=== PATIENT | male | born 1945 | race Caucasian/White ===

== ENCOUNTER → 2017-03-11 | Outpatient (CLI) | payer OTHER ==
[~2017-03-11] MED LIST: ALBU18002 INH; ALBU2SYP9 INH; ASPCH81X PO; ASPEC81 PO; ASPI325T60 PO; COEN100C11 PO; COLC0.6T54 PO; COLCHICINE PO; EFF75 PO; FENT25DI10 EXT; FOLI1TAB7 PO; FURO40TA3 PO; INSDGI SC; IPRA1AER2 INH; ISOS30TA3 PO; LAMO25TA PO; LISI5TAB PO; LVQ750 PO; METO25TA3 PO; MULT-190 PO; NTRGSL/4 UT; OXGN; OXYC-59 PO; OXYSR10 PO; PRED1SUS3 OPR; PREG100C PO; RXC5 PO; SIMV40TA2 PO; SPRIN/30 INH; SYMIN160 INH; VENL150C56 PO
[2017-03-11 13:29] LABS: ALT/SGPT 20 U/L (12-78); BLOOD UREA NITROGEN 36 mg/dl (7-18); BUN/CREATININE RATIO 24.2 (10-20); CARBON DIOXIDE 31 mmol/L (21-32); CHLORIDE 105 mmol/L (98-107); ESTIMATED AVERAGE GLUCOSE 163 mg/dl; GLUCOSE 72 mg/dl (70-99); HA1C FLAG Normal (Normal); POTASSIUM 4.3 mmol/L (3.5-5.1); SODIUM 142 mmol/L (136-145); URIC ACID 7.9 mg/dl (2.6-7.2)
== END | disposition home or self-care (01) ==
LOC: C.LABMFLN 08:39
PROVIDERS: ATTEND Family Medicine
DX: J44.9 Chronic obstructive pulmonary disease, unspecified (principal); M10.9 Gout, unspecified; E11.9 Type 2 diabetes mellitus without complications; I10 Essential (primary) hypertension

== ENCOUNTER → 2017-06-26 | Outpatient (CLI) | payer OTHER | END | disposition home or self-care (01) | LOC: C.LABMFLN 10:11 | PROVIDERS: ATTEND Family Medicine | DX: J20.9 Acute bronchitis, unspecified (principal) ==

== ENCOUNTER → 2017-06-29 | Day surgery (SDC) | payer OTHER ==
[2017-06-09 14:51] VITALS: Ht 180.3 cm; Wt 104.5 kg
[~2017-06-29] VITALS: Ht 180.3 cm; Wt 104.5 kg
[~2017-06-29] MED LIST changes: +500ML BSS 0.3ML EPI 1:1000PF IRRIG ONE; +ACETAMINOPHEN 325 MG TAB PO PRN; +AMVISC PLUS 0.8ML SYRINGE INT OCU ONE; +ATROPINE SULFATE 0.1 MG/ML 5ML SYR IV PRN; +BRIMONIDINE TART 0.2% OP SOLN PER DROP CHARGE ONE; +BSS FLUSH ONE; +CYCLOPENTOLATE HCL 1% OP SOLN PER DROP CHARGE OPL SCH; +EpHEDrine SULFATE INJ 50 MG/ML AMP IV PRN; +EpINEphrine INJ 1MG/ML AMP 1 MG/ML AMP ONE; +KETOROLAC 0.5% OP SOLN PER DROP CHARGE OPL SCH; +LACTATED RINGER'S 1000ML 500 ML IV SCH; +LIDOCAINE 4% OP SOLN DROP CHARGE ONE; +LIDOCAINE 4% OP SOLN DROP CHARGE OPL SCH; +LIDOCAINE HCL 1% MPF 2 ML VIAL ONE; +MIDAZOLAM HCL 1 MG/ML 2ML VIAL ONE; +MOXIFLOXACIN OPH SOLN PER DROP CHARGE ONE; +MOXIFLOXACIN OPH SOLN PER DROP CHARGE OPL SCH; +ONDANSETRON INJ 2 MG/ML 2 ML VIAL IV PRN; +PHENYLEPHRINE HCL 2.5% OP SOLN PER DROP CHARGE OPL SCH; +POVIDONE-IODINE OP SOLN 30 ML BTL ONE; +PROPARACAINE 0.5% OP SOLN PER DROP CHARGE OPL SCH; +TOBRAMYCIN/DEXAMETHASONE OPH OINT PER APPLN CHARGE ONE; +TROPICAMIDE 1% OP SOLN PER DROP CHARGE OPL SCH; +VISCOAT 0.5ML SYRINGE INT OCU ONE
--- NOTE | 2017-06-29 06:54 | History & Physical Bridge - [place] ---
H&P Re-Evaluation Bridge Note: I have examined the patient, reviewed the History & Physical and in the interval since the performance of the History & Physical I have noted the following changes of clinical significance: No changes noted
[2017-06-29] MEDS: DEXTROSE 5% 500ML 500 ML IV SCH ×2 (07:00→07:51)
[2017-06-29] MEDS: PHENYLEPHRINE HCL 2.5% OP SOLN PER DROP CHARGE OPL SCH ×2 (07:02→07:07)
[2017-06-29] MEDS: TROPICAMIDE 1% OP SOLN PER DROP CHARGE OPL SCH ×2 (07:03→07:08)
[2017-06-29] MEDS: CYCLOPENTOLATE HCL 1% OP SOLN PER DROP CHARGE OPL SCH ×2 (07:04→07:09)
[2017-06-29] MEDS: KETOROLAC 0.5% OP SOLN PER DROP CHARGE OPL SCH ×2 (07:05→07:10)
[2017-06-29] MEDS: MOXIFLOXACIN OPH SOLN PER DROP CHARGE OPL SCH ×2 (07:06→07:23)
--- NOTE | 2017-06-29 07:30 | Discharge Instructions-SurgCtr ---
Discharge Instructions Date of Service Jun 29, 2017. Visit Reason for Visit: Cataract Left Eye Discharge Discharge Diagnosis / Problem: cataract left eye Discharge Goals Goal(s): Improve function Activity Recommendations Activity Limitations: per Instructions/Follow-up section Lifting Limitations: no more than 5 pounds Anesthesia . Post Anesthesia Instructions: If you have had General Anesthesia or IV Sedation: * Do not drive today. * Resume driving when surgeon permits. * Do not make important decisions or sign legal documents today. * Call surgeon for: 1. Temperature elevations greater than 101 degrees F. 2. Uncontrollable pain. 3. Excessive bleeding. 4. Persistent nausea and vomiting. 5. Medication intolerance (nausea, vomiting or rash). * For nausea and vomiting use only clear liquids such as: tea, soda, bouillon until nausea subsides, then gradually increase diet as tolerated. * If you have any concerns or questions, call your surgeon's office. If physician is unavailable and it is an emergency, call 911 or go to the nearest emergency room. . Instructions / Follow-Up Instructions / Follow-Up ACTIVITY RECOMMENDATIONS: * Light activities * You may walk outside, read, watch television. * Mild irritation and blurred vision are common for the first few days, redness around the white part of the eye is common. MEDICATIONS: Resume previous medications unless instructed otherwise by your surgeon. Eye drops (today and tomorrow): Cipro - one drop in operative eye every 2 hours while awake Prednisolone 1% - one drop in operative eye every 2 hours while awake Ilevro - one drop operative eye 1 times daily SPECIAL CARE INSTRUCTIONS: * If any problems or concerns, please call Dr. Baeza's office at . * Keep plastic shield taped over eye to sleep at night. * Keep plastic shield taped over eye except to administer eye drops. * Keep plastic shield on until office visit the following day. FOLLOW UP VISIT: Follow-up with Dr. Baeza in the [place] office as scheduled. If not already scheduled, please call the office at . Diet Recommendations Home Diet: resume previous diet Pending Studies Studies pending at discharge: no Medical Emergencies . Who to Call and When: Medical Emergencies: If at any time you feel your situation is an emergency, please call 911 immediately. . Non-Emergent Contact Non-Emergency issues call your: Feather Baler . . "Provider Documentation" section prepared by Julian Baeza. .
--- NOTE | 2017-06-29 08:00 | [facility] Operative Report ---
Operative Report Operative Date Jun 29, 2017. Pre-Operative Diagnosis Left Eye Cataract Post-Operative Diagnosis Same Procedure(s) Performed Left Eye Cataract Phacoemulsification With Intraocular Lens Implant Surgeon Dr. Baeza Commercial Teller Surgeon(s) None Estimated Blood Loss None Findings cataract left eye Specimens None Drains none Anesthesia local with sedation Complication(s) None Disposition Recovery Room / PACU Implants mx60 21.0 Indications decreased vision left eye Description of Procedure After informed consent was obtained in the holding area the patient was wheeled back to the operating room where cardiac monitoring leads and oxygen by nasal cannula was administered by Anesthesia. Gentle IV sedation was given, and the patient's left eye was prepped and draped in usual sterile fashion. A wire lid speculum was placed into the left eye and the operating microscope was swung into position. Using 0.12 forceps and a Supersharp blade a paracentesis port was made 3 o'clock hours away from the 3 o'clock position of the patient's left eye. 1% non-preserved Lidocaine was then injected into the anterior chamber for anesthesia. A 2.0 mm keratotome blade was then used to make a shelved clear corneal incision at the 3 o'clock position of the left eye. Amvisc was injected into the anterior chamber and a cystotome and Utrata forceps were used to perform a curvilinear capsulorrhexis. BSS on a hydrodissection cannula was used to hydrodissect the lens nucleus away from the capsular bag. The phacoemulsification handpiece was then used in a stop and chop fashion to remove the lens nucleus. The irrigation and aspiration handpiece was then used to remove the residual cortical material. Amvisc was injected into the capsular bag and anterior chamber and a Bausch [employer] Lomb MX60 21.0 Diopter intraocular lens was injected into the capsular bag. Irrigation and aspiration handpiece was used to remove the residual viscoelastic material. The wounds were hydrated and noted to be watertight. The wire lid speculum was removed from the eye. Vigamox, Brimonidine, and TobraDex ointment were placed on the eye and it was shielded. It should be noted that EndoCoat was used extensively during the case to protect the cornea endothelium. DISPOSITION: The patient tolerated the procedure well and was wheeled to the post anesthesia care unit in stable condition. I attest to the content of the Intraoperative Record and any orders documented therein. Any exceptions are noted below. I attest to the content of the Intraoperative Record and any orders documented therein. Any exceptions are noted below.
[2017-06-29 08:04] VITALS: TEMP 36.3
--- NOTE | 2017-06-29 08:09 | Anesthesia Progress Nt - [facility] ---
Anesthesia Post Op Note Date & Time Jun 29, 2017 at 08:09 Vital Signs Pain Intensity: 0 Vital Signs Past 12 Hours Date Time Temp Pulse Resp B/P (MAP) Pulse Ox O2 Delivery O2 Flow Rate FiO2 06/29/17 06:57 36.5 63 16 171/77 (108) 95 Room Air Notes Mental Status: alert / awake / arousable, participated in evaluation Pt Amnestic to Procedure: Yes Nausea / Vomiting: adequately controlled Pain: adequately controlled Airway Patency, RR, SpO2: stable & adequate BP & HR: stable & adequate Hydration State: stable & adequate Anesthetic Complications: no major complications apparent
[2017-06-29 08:20] VITALS: BP 164/78; PULSE 61; O2SAT 96
== END | disposition home or self-care (01) ==
LOC: X.SURG 06:23
PROVIDERS: ATTEND Ophthalmology
DX: H25.12 Age-related nuclear cataract, left eye (principal); I10 Essential (primary) hypertension; E11.9 Type 2 diabetes mellitus without complications; E78.00 Pure hypercholesterolemia, unspecified; J44.9 Chronic obstructive pulmonary disease, unspecified; M06.9 Rheumatoid arthritis, unspecified; Z87.891 Personal history of nicotine dependence; Z79.82 Long term (current) use of aspirin; I25.10 Atherosclerotic heart disease of native coronary artery without angina pectoris; I25.2 Old myocardial infarction; F41.9 Anxiety disorder, unspecified; F32.9 Major depressive disorder, single episode, unspecified; E78.5 Hyperlipidemia, unspecified; Z79.4 Long term (current) use of insulin; E66.9 Obesity, unspecified

== ENCOUNTER → 2017-07-27 | Day surgery (SDC) | payer OTHER, MEDICARE ==
[2017-07-15 12:09] VITALS: Ht 180.3 cm; Wt 104.5 kg
[~2017-07-27] VITALS: Ht 180.3 cm; Wt 104.5 kg
[~2017-07-27] MED LIST changes: -CYCLOPENTOLATE HCL 1% OP SOLN PER DROP CHARGE OPL SCH; +ENDOCOAT 0.85ML SYRINGE INT OCU ONE; -FENT25DI10 EXT; -KETOROLAC 0.5% OP SOLN PER DROP CHARGE OPL SCH; -LIDOCAINE 4% OP SOLN DROP CHARGE OPL SCH; +LIDOCAINE 4% OP SOLN DROP CHARGE OPR SCH; +METOPROLOL TARTRATE 1 MG/ML VIAL ONE; -MOXIFLOXACIN OPH SOLN PER DROP CHARGE OPL SCH; -ONDANSETRON INJ 2 MG/ML 2 ML VIAL IV PRN; -PHENYLEPHRINE HCL 2.5% OP SOLN PER DROP CHARGE OPL SCH; -PROPARACAINE 0.5% OP SOLN PER DROP CHARGE OPL SCH; +PROPARACAINE 0.5% OP SOLN PER DROP CHARGE OPR SCH; -TROPICAMIDE 1% OP SOLN PER DROP CHARGE OPL SCH; -VISCOAT 0.5ML SYRINGE INT OCU ONE
[2017-07-27] MEDS: PHENYLEPHRINE HCL 2.5% OP SOLN PER DROP CHARGE OPR SCH ×2 (06:45→06:50)
[2017-07-27] MEDS: TROPICAMIDE 1% OP SOLN PER DROP CHARGE OPR SCH ×2 (06:46→06:51)
[2017-07-27] MEDS: CYCLOPENTOLATE HCL 1% OP SOLN PER DROP CHARGE OPR SCH ×2 (06:47→06:52)
[2017-07-27] MEDS: KETOROLAC 0.5% OP SOLN PER DROP CHARGE OPR SCH ×2 (06:48→06:53)
[2017-07-27] MEDS: MOXIFLOXACIN OPH SOLN PER DROP CHARGE OPR SCH ×2 (06:51→07:03)
[2017-07-27 08:03] VITALS: TEMP 36
--- NOTE | 2017-07-27 08:03 | Discharge Instructions-SurgCtr ---
Discharge Instructions Date of Service Jul 27, 2017. Visit Reason for Visit: Cataract Right Eye Discharge Discharge Diagnosis / Problem: cataract right eye Discharge Goals Goal(s): Improve function Activity Recommendations Activity Limitations: per Instructions/Follow-up section Lifting Limitations: no more than 5 pounds Anesthesia . Post Anesthesia Instructions: If you have had General Anesthesia or IV Sedation: * Do not drive today. * Resume driving when surgeon permits. * Do not make important decisions or sign legal documents today. * Call surgeon for: 1. Temperature elevations greater than 101 degrees F. 2. Uncontrollable pain. 3. Excessive bleeding. 4. Persistent nausea and vomiting. 5. Medication intolerance (nausea, vomiting or rash). * For nausea and vomiting use only clear liquids such as: tea, soda, bouillon until nausea subsides, then gradually increase diet as tolerated. * If you have any concerns or questions, call your surgeon's office. If physician is unavailable and it is an emergency, call 911 or go to the nearest emergency room. . Instructions / Follow-Up Instructions / Follow-Up ACTIVITY RECOMMENDATIONS: * Light activities * You may walk outside, read, watch television. * Mild irritation and blurred vision are common for the first few days, redness around the white part of the eye is common. MEDICATIONS: Resume previous medications unless instructed otherwise by your surgeon. Eye drops (today and tomorrow): Cipro - one drop in operative eye every 2 hours while awake Prednisolone 1% - one drop in operative eye every 2 hours while awake Prolensa - one drop operative eye 1 times daily SPECIAL CARE INSTRUCTIONS: * If any problems or concerns, please call Dr. Baeza's office at . * Keep plastic shield taped over eye to sleep at night. * Keep plastic shield taped over eye except to administer eye drops. * Keep plastic shield on until office visit the following day. FOLLOW UP VISIT: Follow-up with Dr. Baeza in the [place] office as scheduled. If not already scheduled, please call the office at . Diet Recommendations Home Diet: resume previous diet Procedures Procedures Performed: Right Cataract Phacoemulsification With Intraocular Lens Implant Pending Studies Studies pending at discharge: no Medical Emergencies . Who to Call and When: Medical Emergencies: If at any time you feel your situation is an emergency, please call 911 immediately. . Non-Emergent Contact Non-Emergency issues call your: [employer] . . "Provider Documentation" section prepared by Julian Baeza. .
--- NOTE | 2017-07-27 08:05 | [facility] Operative Report ---
Operative Report Operative Date Jul 27, 2017. Pre-Operative Diagnosis Right Eye Cataract Post-Operative Diagnosis Same Procedure(s) Performed Right Cataract Phacoemulsification With Intraocular Lens Implant Surgeon Dr Baeza Private Branch Exchange Operator Surgeon(s) None Estimated Blood Loss 0ml Findings cataract right eye Specimens None Drains none Anesthesia local with sedation Complication(s) None Disposition Recovery Room / PACU Implants mx60 21.0 Indications decreased vision right eye Description of Procedure After informed consent was obtained in the holding area the patient was wheeled back to the operating room where cardiac monitoring leads and oxygen by nasal cannula was administered by Anesthesia. Gentle IV sedation was given, and the patient's right eye was prepped and draped in usual sterile fashion. A wire lid speculum was placed into the right eye and the operating microscope was swung into position. Using 0.12 forceps and a Supersharp blade a paracentesis port was made 2 o'clock hours away from the 9 o'clock position of the patient's right eye. 1% non-preserved Lidocaine was then injected into the anterior chamber for anesthesia. A 2.0 mm keratotome blade was then used to make a shelved clear corneal incision at the 9 o'clock position of the right eye. Amvisc was injected into the anterior chamber and a cystotome and Utrata forceps were used to perform a curvilinear capsulorrhexis. BSS on a hydrodissection cannula was used to hydrodissect the lens nucleus away from the capsular bag. The phacoemulsification handpiece was then used in a stop and chop fashion to remove the lens nucleus. The irrigation and aspiration handpiece was then used to remove the residual cortical material. Amvisc was injected into the capsular bag and anterior chamber and a Bausch & Lomb MX60 21.0 Diopter intraocular lens was injected into the capsular bag. Irrigation and aspiration handpiece was used to remove the residual viscoelastic material. The wounds were hydrated and noted to be watertight. The wire lid speculum was removed from the eye. Vigamox, Brimonidine, and TobraDex ointment were placed on the eye and it was shielded. It should be noted that EndoCoat was used extensively during the case to protect the cornea endothelium. DISPOSITION: The patient tolerated the procedure well and was wheeled to the post anesthesia care unit in stable condition. I attest to the content of the Intraoperative Record and any orders documented therein. Any exceptions are noted below. I attest to the content of the Intraoperative Record and any orders documented therein. Any exceptions are noted below.
[2017-07-27 08:32] VITALS: BP 148/76; PULSE 56; O2SAT 99
--- NOTE | 2017-07-27 08:40 | Anesthesia Progress Nt - [facility] ---
Anesthesia Post Op Note Date & Time Jul 27, 2017 at 08:40 Vital Signs Pain Intensity: 0 Vital Signs Past 12 Hours Date Time Temp Pulse Resp B/P (MAP) Pulse Ox O2 Delivery O2 Flow Rate FiO2 07/27/17 08:32 56 18 148/76 (100) 99 Room Air 07/27/17 08:03 36 16 171/73 (105) 57 Room Air 07/27/17 06:38 36.3 53 20 152/87 (108) 96 Room Air Notes Mental Status: alert / awake / arousable, participated in evaluation Pt Amnestic to Procedure: No Nausea / Vomiting: adequately controlled Pain: adequately controlled Airway Patency, RR, SpO2: stable & adequate BP & HR: stable & adequate Hydration State: stable & adequate Anesthetic Complications: no major complications apparent Non distressing recall as discussed preop
== END | disposition home or self-care (01) ==
LOC: X.SURG 06:18
PROVIDERS: ATTEND Ophthalmology
DX: H25.11 Age-related nuclear cataract, right eye (principal); H35.30 Unspecified macular degeneration; E11.9 Type 2 diabetes mellitus without complications; I10 Essential (primary) hypertension; E78.00 Pure hypercholesterolemia, unspecified; J44.9 Chronic obstructive pulmonary disease, unspecified; I50.9 Heart failure, unspecified; M06.9 Rheumatoid arthritis, unspecified; Z87.891 Personal history of nicotine dependence; Z79.82 Long term (current) use of aspirin; Z79.899 Other long term (current) drug therapy

== ENCOUNTER 2017-08-18 16:48 | Inpatient (IN) | payer OTHER, MEDICARE ==
[~2017-08-18] VITALS: Ht 180.3 cm; Wt 103.5 kg
[~2017-08-18 16:48] MED LIST changes: -500ML BSS 0.3ML EPI 1:1000PF IRRIG ONE; -ACETAMINOPHEN 325 MG TAB PO PRN; -AMVISC PLUS 0.8ML SYRINGE INT OCU ONE; -ASPEC81 PO; -ASPI325T60 PO; -ATROPINE SULFATE 0.1 MG/ML 5ML SYR IV PRN; -BRIMONIDINE TART 0.2% OP SOLN PER DROP CHARGE ONE; -BSS FLUSH ONE; -COEN100C11 PO; -COLC0.6T54 PO; -ENDOCOAT 0.85ML SYRINGE INT OCU ONE; -EpHEDrine SULFATE INJ 50 MG/ML AMP IV PRN; -EpINEphrine INJ 1MG/ML AMP 1 MG/ML AMP ONE; -FOLI1TAB7 PO; -LACTATED RINGER'S 1000ML 500 ML IV SCH; -LAMO25TA PO; -LIDOCAINE 4% OP SOLN DROP CHARGE ONE; -LIDOCAINE 4% OP SOLN DROP CHARGE OPR SCH; -LIDOCAINE HCL 1% MPF 2 ML VIAL ONE; -LVQ750 PO; -METOPROLOL TARTRATE 1 MG/ML VIAL ONE; -MIDAZOLAM HCL 1 MG/ML 2ML VIAL ONE; -MOXIFLOXACIN OPH SOLN PER DROP CHARGE ONE; -MULT-190 PO; -OXYSR10 PO; -POVIDONE-IODINE OP SOLN 30 ML BTL ONE; -PROPARACAINE 0.5% OP SOLN PER DROP CHARGE OPR SCH; -RXC5 PO; -TOBRAMYCIN/DEXAMETHASONE OPH OINT PER APPLN CHARGE ONE
[2017-08-18] MEDS ORDERED: SODIUM CHLORIDE 0.9% 1000ML 1,000 ML IV STA (17:15)
[2017-08-18] MEDS ORDERED: COLC0.6T54 PO (17:16)
[2017-08-18] MEDS ORDERED: FOLI1TAB7 PO (17:18)
[2017-08-18] MEDS ORDERED: MULT-190 PO (17:18)
[2017-08-18] MEDS ORDERED: COEN100C11 PO (17:18)
[2017-08-18] MEDS ORDERED: LAMO25TA PO (17:18)
--- NOTE | 2017-08-18 17:19 | EMERGENCY ROOM VISIT NOTE ---
History Report prepared by Jj: Yaya Pryor Under the Supervision of: Dr. Marry Turner M.D. First contact with patient: 16:57 Chief Complaint: ALTERED MENTAL STATUS Stated Complaint: ALTERED MENTAL STATUS History of Present Illness The patient is a 71 year old male who presents to the Emergency Room for constant confusion starting last night. The patient's states that the patient fell three days ago, and he hit his left side. She states that he could not get up for two hours because the pain in his chest was so bad. The states that the patient has had intermittent confusion over the years, and this is similar, though she is unsure if this episode is due to the fall. The patient had cataract surgery four weeks ago, and he has been having vision troubles afterwards, though he states that after the fall some things seem darker. The patient additionally states that he is having new left sided weakness after the fall. Additionally, he states that he is incontinent and cannot make it to the bathroom in time. The patient additionally states that the patient has a history of COPD and CHF, and he does not use oxygen at home. Source of History: patient Onset: last night Position: other (global) Quality: other (confusion) Timing: constant Associated Symptoms: + chest pain, + weakness Review of Systems See HPI for pertinent positives & negatives. A total of 10 systems reviewed and were otherwise negative. Past Medical & Surgical Medical Problems: (1) CHF (congestive heart failure) (2) CHF exacerbation (3) COPD (chronic obstructive pulmonary disease) Social History Smoking Status: Former Smoker Marital Status: Housing Status: lives with family Occupation Status: retired Current/Historical Medications Scheduled Albuterol Sulfate (Proair Respiclick), 2 PUFF INH BID Aspirin (Aspirin Chewable), 81 MG PO QAM Budesonide/Formoterol Fumarate (Symbicort 160/4.5 Inhaler), 2 PUFFS INH BID Coenzyme Q10 (Ubidecarenone) (Coq-10), 100 MG PO DAILY Colchicine (Colchicine), 0.6 MG PO BID Folic Acid (Folvite), 1 MG PO DAILY Furosemide (Lasix), 40 MG PO QAM Home O2 Therapy (Oxygen), 2 LITERS NA HS Insulin Glargine (Lantus), 30 UNITS SC QPM Isosorbide Mononitrate Ext Rel (Imdur Ext Rel), 30 MG PO QAM Lamotrigine (Lamictal), 25 MG PO BID Lisinopril (Prinivil), 5 MG PO QAM Metoprolol Succ (Toprol Xl) (Toprol-Xl), 25 MG PO QAM Nitroglycerin (Nitrostat), 0.4 MG UT PRN Ocuvite Preservision (Ocuvite Preservision), 1 TAB PO BID Prednisolone Acetate (Ophth) (Pred Forte 1% Oph), 1 DROPS OPR DIRECTED Pregabalin (Lyrica), 100 MG PO BID Simvastatin (Zocor), 40 MG PO QPM Tiotropium [place] (Spiriva Handihaler), 1 CAP INH QAM Venlafaxine Hcl (Effexor), 75 MG PO QAM Venlafaxine Hcl (Effexor Extended Rel), 150 MG PO QAM Scheduled PRN Albuterol Sulf (Ventolin), 1 DOSE INH QID PRN for Shortness of Breath Ipratropium-Albuterol (Combivent Respimat), 1 PUFFS INH QID PRN for Shortness of Breath Oxycodone/Acetaminophen 10MG/325MG (Percocet 10MG/325MG), 1 TAB PO Q4H PRN for Pain Allergies Coded Allergies: Prednisone (Verified Adverse Reaction, Intermediate, "GO CRAZY", 08/18/17) Physical Exam Vital Signs Date Time Temp Pulse Resp B/P (MAP) Pulse Ox O2 Delivery O2 Flow Rate FiO2 08/18/17 19:14 36.9 83 20 162/97 98 Nasal Cannula 2.0 08/18/17 18:18 83 79 08/18/17 17:54 81 177/82 97 2.0 08/18/17 17:51 177/82 08/18/17 17:18 77 21 91 08/18/17 17:16 77 08/18/17 17:16 99 Nasal Cannula 2.0 08/18/17 17:09 153/89 08/18/17 16:52 96 Nasal Cannula 2.0 08/18/17 16:52 37.1 77 22 154/93 96 Nasal Cannula 2.0 Physical Exam Vital signs reviewed. General: Chronically ill-appearing 71-year-old male, in no significant distress. Obese. On nasal cannula oxygen. HEENT: No scleral icterus, PERRLA, neck supple. Atraumatic. Cardiovascular: Regular rate and rhythm, no extra sounds. Pulmonary: Diminished air movement bilaterally. Faint wheezes. Abdomen: Soft, nontender, nondistended, positive bowel sounds. Musculoskeletal: Atraumatic, no significant deformity. Cervical, thoracic and lumbar spine are palpated, nontender, no step-off or deformity appreciated. Neurologic: Patient awake alert and oriented x 3, Has 2/5 strength to the left lower extremity. 5/5 strength to the bilateral upper extremity. Skin: Warm, dry, no rash. No significant abrasions/laceration. Medical Decision & Procedures ER Provider Diagnostic Interpretation: Radiology results as stated below per my review and radiologist interpretation: LUMBAR SPINE WITHOUT CT DOSE: HISTORY: Trauma. Neuropathy. weakness LLE after fall 3 days ago TECHNIQUE: Multiaxial CT images of the lumbar spine were performed and reformatted in the sagittal and coronal plane without the use of contrast. A dose lowering technique was utilized adhering to the principles of ALARA. COMPARISON: None. FINDINGS: No acute compression deformity is noted. Very slight wedge deformity superior endplate L1 and L3 felt to be nonacute. Degenerative change of the posterior elements throughout. The spinous processes as well as transverse processes appear intact. No major compromise of the spinal canal. Prior posterior laminectomy and fusion at L4-L5 and L5-S1. IMPRESSION: Moderate degenerative disc changes throughout. 2. Very slight wedge deformity superior endplate L1 and L3 felt to be nonacute by CT criteria.. 3. Operative changes consistent with a posterior laminectomy and fusion at L4 and L5. 4. No significant compromise of the spinal canal. The above report was generated using voice recognition software. It may contain grammatical, syntax or spelling errors. Electronically signed by: Wilmer Gonzaelz M.D. 08/18/2017 5:53 PM Dictated Date/Time: 08/18/2017 5:51 PM HEAD WITHOUT CONTRAST (CT) CT DOSE: 2499.62 mGy.cm HISTORY: Mental status change AMS, episodic confusion after fall 3 days ago TECHNIQUE: Multiaxial CT images of the head were performed without the use of intravenous contrast. A dose lowering technique was utilized adhering to the principles of ALARA. Comparison: None. Findings: The paranasal sinuses and mastoid air cells are clear. The calvarium and skull base are intact. The ventricles and sulci are within normal limits. There is no mass, hematoma, midline shift, or acute infarct. Mild chronic small vessel change of the cerebral hemispheres bilaterally. No acute intracranial hemorrhage. Impression: Age-related change. No acute process. The above report was generated using voice recognition software. It may contain grammatical, syntax or spelling errors. Electronically signed by: Wilmer Gonzalez M.D. 08/18/2017 5:50 PM Dictated Date/Time: 08/18/2017 5:49 PM CHEST 2 VIEWS ROUTINE CLINICAL HISTORY: fall, hypoxia, COPD, CHF dyspnea COMPARISON STUDY: No previous studies for comparison. FINDINGS: Moderate cardiomegaly. Prior median sternotomy. Infiltrate left base. Pulmonary vascular congestion. IMPRESSION: Moderate cardiomegaly. Infiltrate left base. The above report was generated using voice recognition software. It may contain grammatical, syntax or spelling errors. Electronically signed by: Wilmer Gonzalez M.D. 08/18/2017 6:59 PM Dictated Date/Time: 08/18/2017 6:58 PM (CHEST FOR PE) ANGIO WITH CT DOSE: 627.37 mGy.cm HISTORY: Chest pain dyspnea TECHNIQUE: Multiaxial CT images of the chest were performed following the intravenous administration of contrast to evaluate the pulmonary arteries. Maximal intensity projection images were also obtained. A dose lowering technique was utilized adhering to the principles of ALARA. COMPARISON STUDY: None. FINDINGS: Moderate ectasia thoracic aorta. Mild distention a sending aorta at 4.1 cm. Pulmonary vasculature enhances appropriately. No significant filling defects. Mild peribronchial prominence. Poorly defined parenchymal infiltrate left base. Moderate cardiomegaly. Median sternotomy. Mild nonspecific interstitial change of both hemithoraces. Several mediastinal nodes measuring up to 11 mm in the pretracheal region, 11 mm in the aortopulmonary window region, and 1.4 cm in the pretracheal region. IMPRESSION: 1. Study is negative for pulmonary embolus 2. Mild prominence a sending thoracic aorta at 4.1 cm. 3 poorly defined parenchymal infiltrate left base. 4. Interstitial prominence throughout both hemithoraces. 5. Nonspecific mediastinal and hilar nodes with a 8 week follow-up recommended. The above report was generated using voice recognition software. It may contain grammatical, syntax or spelling errors. Electronically signed by: Wilmer Gonzalez M.D. 08/18/2017 7:48 PM Dictated Date/Time: 08/18/2017 7:44 PM Laboratory Results 08/18/17 17:00 Red Blood Count 3.96, Mean Corpuscular Volume 90.2, Mean Corpuscular Hemoglobin 29.3, Mean Corpuscular Hemoglobin Concent 32.5, Mean Platelet Volume 11.2, Neutrophils (%) (Auto) 76.8, Lymphocytes (%) (Auto) 11.9, Monocytes (%) (Auto) 9.0, Eosinophils (%) (Auto) 1.5, Basophils (%) (Auto) 0.2, Neutrophils # (Auto) 5.01, Lymphocytes # (Auto) 0.78, Monocytes # (Auto) 0.59, Eosinophils # (Auto) 0.10, Basophils # (Auto) 0.01 08/18/17 17:00 Test 08/18/17 17:00 08/18/17 17:04 08/18/17 17:29 08/18/17 17:30 White Blood Count 6.53 K/uL (4.8-10.8) Red Blood Count 3.96 M/uL (4.7-6.1) Hemoglobin 11.6 g/dL (14.0-18.0) Hematocrit 35.7 % (42-52) Mean Corpuscular Volume 90.2 fL (80-100) Mean Corpuscular Hemoglobin 29.3 pg (25-34) Mean Corpuscular Hemoglobin Concent 32.5 g/dl (32-36) Platelet Count 156 K/uL (130-400) Mean Platelet Volume 11.2 fL (7.4-10.4) Neutrophils (%) (Auto) 76.8 % Lymphocytes (%) (Auto) 11.9 % Monocytes (%) (Auto) 9.0 % Eosinophils (%) (Auto) 1.5 % Basophils (%) (Auto) 0.2 % Neutrophils # (Auto) 5.01 K/uL (1.4-6.5) Lymphocytes # (Auto) 0.78 K/uL (1.2-3.4) Monocytes # (Auto) 0.59 K/uL (0.11-0.59) Eosinophils # (Auto) 0.10 K/uL (0-0.5) Basophils # (Auto) 0.01 K/uL (0-0.2) RDW Standard Deviation 54.7 fL (36.4-46.3) RDW Coefficient of Variation 16.6 % (11.5-14.5) Immature Granulocyte % (Auto) 0.6 % Immature Granulocyte # (Auto) 0.04 K/uL (0.00-0.02) Anion Gap 7.0 mmol/L (3-11) Est Creatinine Clear Calc Drug Dose 71.1 ml/min Estimated GFR () 71.1 Estimated GFR (Non- 61.3 BUN/Creatinine Ratio 19.3 (10-20) Calcium Level 9.3 mg/dl (8.5-10.1) Total Bilirubin 0.6 mg/dl (0.2-1) Direct Bilirubin 0.1 mg/dl (0-0.2) Aspartate Amino Transf (AST/SGOT) 16 U/L (15-37) Alanine Aminotransferase (ALT/SGPT) 16 U/L (12-78) Alkaline Phosphatase 106 U/L (45-117) Total Protein 7.6 gm/dl (6.4-8.2) Albumin 3.5 gm/dl (3.4-5.0) Procalcitonin 0.11 ng/ml (0-0.5) Bedside Troponin I < 0.030 ng/ml (0-0.045) Bedside Glucose 128 mg/dl (70-99) Urine Color YELLOW Urine Appearance CLEAR (CLEAR) Urine pH 7.5 (4.5-7.5) Urine Specific [place] 1.020 (1.000-1.030) Urine Protein 1+ (NEG) Urine Glucose (UA) NEG (NEG) Urine Ketones 1+ (NEG) Urine Occult Blood 1+ (NEG) Urine Nitrite NEG (NEG) Urine Bilirubin NEG (NEG) Urine Urobilinogen NEG (NEG) Urine Leukocyte Esterase NEG (NEG) Urine WBC (Auto) 1-5 /hpf (0-5) Urine RBC (Auto) 10-30 /hpf (0-4) Urine Hyaline Casts (Auto) 1-5 /lpf (0-5) Urine Epithelial Cells (Auto) 10-20 /lpf (0-5) Urine Bacteria (Auto) NEG (NEG) Laboratory results per my review. Medications Administered Medications (Trade) Dose Ordered Sig/Yasmin Route Start Time Stop Time Status Last Admin Dose Admin Sodium Chloride 1,000 ml @ 125 mls/hr Q8H STAT IV 08/18/17 17:15 08/18/17 22:07 DC 08/18/17 17:15 125 MLS/HR ECG Indication: altered mental status Rate (beats per minute): 74 Rhythm: sinus rhythm Findings: PAC, no acute ischemic change, left axis deviation, other (T wave flattening inferior lateral, previous inferior infarct, previous anterior infarct) ED Course 1656: Past medical records reviewed. The patient was evaluated in room C7. A complete history and physical examination was performed. 1714: Sodium Chloride 1000 ml @ 125 mls/hr IV 1945: I reviewed the patient's case with Dr. Disla. She will evaluate the patient for further management. 1952: I reevaluated the patient, and I discussed the treatment plan with him and he was agreeable. Medical Decision Differential diagnosis: Etiologies such as lumbar disc herniation, compression fracture, and cord impingement, metabolic, infection, hypoglycemia, electrolyte abnormalities, cardiac sources, intracerebral event, toxicologic, neurologic, as well as others were entertained. This patient was evaluated and appeared to be in no significant distress. IV access was obtained and laboratory work was drawn. The patient was placed on the monitoring specialist and found to be in a normal sinus rhythm. Laboratory work reveals a mild anemia and microscopic hematuria. Records from the outpatient imaging was performed were gathered by case management however most of the images had not been read at the time my evaluation. A CT scan of the head was performed and reveals no evidence of acute intracranial abnormality. I felt this study needed to be repeated as the altered mentation happened after his images were taken yesterday. CT scan of the lumbar spine is read as above. There is no significant canal compromise. I suspect this is a chronic left lower extremity weakness that has been exacerbated recently. The patient becomes hypoxic into the 70s when the oxygen was discontinued. I do not have a clear etiology for the patient's altered mentation with the exception of this transient hypoxia. I suspect he will require continuous O2 during the day. Chest x-ray is concerning for an infiltrate, CT scan of the chest was performed and is pending. No antibiotics have been administered at this time as the patient has a normal white blood cell count, no fever. The case was discussed with the hospitalist service for admission and further management. Medication Reconcilliation Current Medication List: was personally reviewed by me Blood Pressure Screening Patient's blood pressure: Elevated blood pressure Monitored by the hospitalist Consults Time Called: 1931 Consulting Physician: Dr. Disla Returned Call: 1945 I reviewed the patient's case with Dr. Disla. She will evaluate the patient for further management. Impression Primary Impression: Hypoxia Additional Impressions: Altered mental state Left leg weakness Pulmonary infiltrate Scribe Attestation The scribe's documentation has been prepared under my direction and personally reviewed by me in its entirety. I confirm that the note above accurately reflects all work, treatment, procedures, and medical decision making performed by me. Departure Information Dispostion Being Evaluated By Hospitalist Referrals Josse Pope M.D. (PCP) Patient Instructions My [facility] Problem Qualifiers
[2017-08-18 17:32] LABS: BASO % 0.2 %; BASO ABS # 0.01 K/uL (0-0.2); COMPLETE YES; EOS % 1.5 %; HEMATOCRIT 35.7 % (42-52); IG% 0.6 %; LYMPH % 11.9 %; LYMPH ABS # 0.78 K/uL (1.2-3.4); MEAN CELL VOLUME 90.2 fL (80-100); MEAN CORPUSCULAR HEMOGLOBIN 29.3 pg (25-34); MEAN CORPUSCULAR HGB CONC 32.5 g/dl (32-36); MEAN PLATELET VOLUME 11.2 fL (7.4-10.4); NEUT % 76.8 %; PLATELET COUNT 156 K/uL (130-400); RED BLOOD COUNT 3.96 M/uL (4.7-6.1); WHITE BLOOD COUNT 6.53 K/uL (4.8-10.8)
[2017-08-18 17:42] LABS: BUN/CREATININE RATIO 19.3 (10-20); CALCIUM 9.3 mg/dl (8.5-10.1); CREATININE 1.2 mg/dl (0.60-1.40); POTASSIUM 4.1 mmol/L (3.5-5.1)
[2017-08-18 17:51] LABS: URINE APPEARANCE CLEAR (CLEAR); URINE BILIRUBIN NEG (NEG); URINE COLOR YELLOW; URINE NITRITE NEG (NEG); URINE PH 7.5 (4.5-7.5); UROBILINOGEN NEG (NEG); ZZUR CULT IF INDIC CLEAN CATCH NO
--- NOTE | 2017-08-18 17:52 | DIAGNOSTIC IMAGING REPORT ---
HEAD WITHOUT CONTRAST (CT) CT DOSE: 2499.62 mGy.cm HISTORY: Mental status change AMS, episodic confusion after fall 3 days ago TECHNIQUE: Multiaxial CT images of the head were performed without the use of intravenous contrast. A dose lowering technique was utilized adhering to the principles of ALARA. Comparison: None. Findings: The paranasal sinuses and mastoid air cells are clear. The calvarium and skull base are intact. The ventricles and sulci are within normal limits. There is no mass, hematoma, midline shift, or acute infarct. Mild chronic small vessel change of the cerebral hemispheres bilaterally. No acute intracranial hemorrhage. Impression: Age-related change. No acute process. The above report was generated using voice recognition software. It may contain grammatical, syntax or spelling errors. Electronically signed by: Wilmer Gonzalez M.D. 08/18/2017 5:50 PM Dictated Date/Time: 08/18/2017 5:49 PM
--- NOTE | 2017-08-18 17:55 | DIAGNOSTIC IMAGING REPORT ---
LUMBAR SPINE WITHOUT CT DOSE: HISTORY: Trauma. Neuropathy. weakness LLE after fall 3 days ago TECHNIQUE: Multiaxial CT images of the lumbar spine were performed and reformatted in the sagittal and coronal plane without the use of contrast. A dose lowering technique was utilized adhering to the principles of ALARA. COMPARISON: None. FINDINGS: No acute compression deformity is noted. Very slight wedge deformity superior endplate L1 and L3 felt to be nonacute. Degenerative change of the posterior elements throughout. The spinous processes as well as transverse processes appear intact. No major compromise of the spinal canal. Prior posterior laminectomy and fusion at L4-L5 and L5-S1. IMPRESSION: Moderate degenerative disc changes throughout. 2. Very slight wedge deformity superior endplate L1 and L3 felt to be nonacute by CT criteria.. 3. Operative changes consistent with a posterior laminectomy and fusion at L4 and L5. 4. No significant compromise of the spinal canal. The above report was generated using voice recognition software. It may contain grammatical, syntax or spelling errors. Electronically signed by: Wilmer Gonzalez M.D. 08/18/2017 5:53 PM Dictated Date/Time: 08/18/2017 5:51 PM
[2017-08-18 18:03] LABS: MANUAL MICROSCOPIC REQUIRED? NO; REVIEW REQ? NO
[2017-08-18 18:04] LABS: SULFASALICYLIC ACID POS (NEG)
--- NOTE | 2017-08-18 19:00 | DIAGNOSTIC IMAGING REPORT ---
CHEST 2 VIEWS ROUTINE CLINICAL HISTORY: fall, hypoxia, COPD, CHF dyspnea COMPARISON STUDY: No previous studies for comparison. FINDINGS: Moderate cardiomegaly. Prior median sternotomy. Infiltrate left base. Pulmonary vascular congestion. IMPRESSION: Moderate cardiomegaly. Infiltrate left base. The above report was generated using voice recognition software. It may contain grammatical, syntax or spelling errors. Electronically signed by: Wilmer Gonzalez M.D. 08/18/2017 6:59 PM Dictated Date/Time: 08/18/2017 6:58 PM
[2017-08-18] MEDS ORDERED: OPTIRAY 320 IV PRN (19:30)
--- NOTE | 2017-08-18 19:49 | DIAGNOSTIC IMAGING REPORT ---
(CHEST FOR PE) ANGIO WITH CT DOSE: 627.37 mGy.cm HISTORY: Chest pain dyspnea TECHNIQUE: Multiaxial CT images of the chest were performed following the intravenous administration of contrast to evaluate the pulmonary arteries. Maximal intensity projection images were also obtained. A dose lowering technique was utilized adhering to the principles of ALARA. COMPARISON STUDY: None. FINDINGS: Moderate ectasia thoracic aorta. Mild distention a sending aorta at 4.1 cm. Pulmonary vasculature enhances appropriately. No significant filling defects. Mild peribronchial prominence. Poorly defined parenchymal infiltrate left base. Moderate cardiomegaly. Median sternotomy. Mild nonspecific interstitial change of both hemithoraces. Several mediastinal nodes measuring up to 11 mm in the pretracheal region, 11 mm in the aortopulmonary window region, and 1.4 cm in the pretracheal region. IMPRESSION: 1. Study is negative for pulmonary embolus 2. Mild prominence a sending thoracic aorta at 4.1 cm. 3 poorly defined parenchymal infiltrate left base. 4. Interstitial prominence throughout both hemithoraces. 5. Nonspecific mediastinal and hilar nodes with a 8 week follow-up recommended. The above report was generated using voice recognition software. It may contain grammatical, syntax or spelling errors. Electronically signed by: Wilemr Gonzalez M.D. 08/18/2017 7:48 PM Dictated Date/Time: 08/18/2017 7:44 PM
--- NOTE | 2017-08-18 20:42 | History and Physical ---
History & Physical Date & Time of Service: Aug 18, 2017 at 20:42 Chief Complaint: Altered Mental Status From A Fall On Thursday Primary Care Physician: Josse Pope M.D. History of Present Illness Source: patient, spouse Mr Sandra is a 61-year-old male with history, with unknown ejection fraction, type 2 diabetes, COPD with significant smoking history, who presents today with altered mental status. Per his about 3 days ago he was chasing a squirrel , and tripped and fell. He landed on his left hip, and reports he may have hit his head. He was fine afterwards and he did not go to hospital after that. Last night, his noticed that he was incredibly confused throughout the entire night up until this morning. She took him to [facility], and he had CT scans and multiple x-rays. They did not hear the results of these x-rays , and so she decided to come to [facility] for evaluation, As he was still very uncomfortable in the left hip and is concerned he may have a fracture. Currently the confusion has resolved. He reports just being uncomfortable from the bed he is in, and he wants to go home. He denies any chest pain, shortness of breath on the leg swelling. He does report some mild bruising to the left hip. He denies any numbness or weakness in either extremity. Past Medical/Surgical History Medical Problems: (1) CHF (congestive heart failure) (2) CHF exacerbation (3) COPD (chronic obstructive pulmonary disease) Family History No pertinent FHx Social History Smoking Status: Former Smoker (Smoked 3 packs per day x 25 years) Alcohol Use: socially Drug Use: none Marital Status: Occupational Status: employed Immunizations History of Influenza Vaccine: Unknown History of Tetanus Vaccine?: Unknown History of Pneumococcal: Unknown History of Hepatitis B Vaccine: Unknown Multi-Drug Resistant Organisms History of MDRO: No Allergies Coded Allergies: Prednisone (Verified Adverse Reaction, Intermediate, "GO CRAZY", 08/18/17) Home Medications Scheduled Albuterol Sulfate (Proair Respiclick), 2 PUFF INH BID Aspirin (Aspirin Chewable), 81 MG PO QAM Budesonide/Formoterol Fumarate (Symbicort 160/4.5 Inhaler), 2 PUFFS INH BID Coenzyme Q10 (Ubidecarenone) (Coq-10), 100 MG PO DAILY Colchicine (Colchicine), 0.6 MG PO BID Folic Acid (Folvite), 1 MG PO DAILY Furosemide (Lasix), 40 MG PO QAM Home O2 Therapy (Oxygen), 2 LITERS NA HS Insulin Glargine (Lantus), 30 UNITS SC QPM Isosorbide Mononitrate Ext Rel (Imdur Ext Rel), 30 MG PO QAM Lamotrigine (Lamictal), 25 MG PO BID Lisinopril (Prinivil), 5 MG PO QAM Metoprolol Succ (Toprol Xl) (Toprol-Xl), 25 MG PO QAM Nitroglycerin (Nitrostat), 0.4 MG UT PRN Ocuvite Preservision (Ocuvite Preservision), 1 TAB PO BID Prednisolone Acetate (Ophth) (Pred Forte 1% Oph), 1 DROPS OPR DIRECTED Pregabalin (Lyrica), 100 MG PO BID Simvastatin (Zocor), 40 MG PO QPM Tiotropium Hyndman (Spiriva Handihaler), 1 CAP INH QAM Venlafaxine Hcl (Effexor), 75 MG PO QAM Venlafaxine Hcl (Effexor Extended Rel), 150 MG PO QAM Scheduled PRN Albuterol Sulf (Ventolin), 1 DOSE INH QID PRN for Shortness of Breath Ipratropium-Albuterol (Combivent Respimat), 1 PUFFS INH QID PRN for Shortness of Breath Oxycodone/Acetaminophen 10MG/325MG (Percocet 10MG/325MG), 1 TAB PO Q4H PRN for Pain Review of Systems See HPI for pertinent positives & negatives. A total of 10 systems reviewed and were otherwise negative. Physical Exam Vital Signs Date Time Temp Pulse Resp B/P (MAP) Pulse Ox O2 Delivery O2 Flow Rate FiO2 08/18/17 19:14 36.9 83 20 162/97 98 Nasal Cannula 2.0 08/18/17 18:18 83 79 08/18/17 17:54 81 177/82 97 2.0 08/18/17 17:51 177/82 08/18/17 17:18 77 21 91 08/18/17 17:16 77 08/18/17 17:16 99 Nasal Cannula 2.0 08/18/17 17:09 153/89 08/18/17 16:52 96 Nasal Cannula 2.0 08/18/17 16:52 37.1 77 22 154/93 96 Nasal Cannula 2.0 General Appearance: WD/WN, no apparent distress Head: normocephalic, atraumatic Eyes: normal inspection, PERRL ENT: hearing grossly normal Neck: supple, no JVD Respiratory/Chest: lungs clear, normal breath sounds, no respiratory distress Cardiovascular: regular rate, rhythm, no murmur, normal peripheral pulses Abdomen/GI: normal bowel sounds, non tender, soft Back: no CVA tenderness, no muscle spasm Extremities/Musculoskelatal: no calf tenderness, no pedal edema Neurologic/Psych: alert, normal mood/affect, normal reflexes, oriented x 3 Skin: no rash Diagnostics Laboratory Results Results Past 24 Hours Test 08/18/17 17:00 08/18/17 17:04 08/18/17 17:29 08/18/17 17:30 Range/Units White Blood Count 6.53 4.8-10.8 K/uL Red Blood Count 3.96 4.7-6.1 M/uL Hemoglobin 11.6 14.0-18.0 g/dL Hematocrit 35.7 42-52 % Mean Corpuscular Volume 90.2 80-100 fL Mean Corpuscular Hemoglobin 29.3 25-34 pg Mean Corpuscular Hemoglobin Concent 32.5 32-36 g/dl Platelet Count 156 130-400 K/uL Mean Platelet Volume 11.2 7.4-10.4 fL Neutrophils (%) (Auto) 76.8 % Lymphocytes (%) (Auto) 11.9 % Monocytes (%) (Auto) 9.0 % Eosinophils (%) (Auto) 1.5 % Basophils (%) (Auto) 0.2 % Neutrophils # (Auto) 5.01 1.4-6.5 K/uL Lymphocytes # (Auto) 0.78 1.2-3.4 K/uL Monocytes # (Auto) 0.59 0.11-0.59 K/uL Eosinophils # (Auto) 0.10 0-0.5 K/uL Basophils # (Auto) 0.01 0-0.2 K/uL RDW Standard Deviation 54.7 36.4-46.3 fL RDW Coefficient of Variation 16.6 11.5-14.5 % Immature Granulocyte % (Auto) 0.6 % Immature Granulocyte # (Auto) 0.04 0.00-0.02 K/uL Sodium Level 139 136-145 mmol/L Potassium Level 4.1 3.5-5.1 mmol/L Chloride Level 103 98-107 mmol/L Carbon Dioxide Level 29 21-32 mmol/L Anion Gap 7.0 3-11 mmol/L Blood Urea Nitrogen 23 7-18 mg/dl Creatinine 1.20 0.60-1.40 mg/dl Est Creatinine Clear Calc Drug Dose 71.1 ml/min Estimated GFR () 71.1 Estimated GFR (Non- 61.3 BUN/Creatinine Ratio 19.3 10-20 Random Glucose 128 70-99 mg/dl Calcium Level 9.3 8.5-10.1 mg/dl Total Bilirubin 0.6 0.2-1 mg/dl Direct Bilirubin 0.1 0-0.2 mg/dl Aspartate Amino Transf (AST/SGOT) 16 15-37 U/L Alanine Aminotransferase (ALT/SGPT) 16 12-78 U/L Alkaline Phosphatase 106 45-117 U/L Total Protein 7.6 6.4-8.2 gm/dl Albumin 3.5 3.4-5.0 gm/dl Bedside Troponin I < 0.030 0-0.045 ng/ml Bedside Glucose 128 70-99 mg/dl Urine Color YELLOW Urine Appearance CLEAR CLEAR Urine pH 7.5 4.5-7.5 Urine Specific [place] 1.020 1.000-1.030 Urine Protein 1+ NEG Urine Glucose (UA) NEG NEG Urine Ketones 1+ NEG Urine Occult Blood 1+ NEG Urine Nitrite NEG NEG Urine Bilirubin NEG NEG Urine Urobilinogen NEG NEG Urine Leukocyte Esterase NEG NEG Urine WBC (Auto) 1-5 0-5 /hpf Urine RBC (Auto) 10-30 0-4 /hpf Urine Hyaline Casts (Auto) 1-5 0-5 /lpf Urine Epithelial Cells (Auto) 10-20 0-5 /lpf Urine Bacteria (Auto) NEG NEG Diagnostic Radiology LUMBAR SPINE WITHOUT CT DOSE: IMPRESSION: 1. Moderate degenerative disc changes throughout. 2. Very slight wedge deformity superior endplate L1 and L3 felt to be nonacute by CT criteria.. 3. Operative changes consistent with a posterior laminectomy and fusion at L4 and L5. 4. No significant compromise of the spinal canal. HEAD WITHOUT CONTRAST (CT) Impression: Age-related change. No acute process. CHEST 2 VIEWS ROUTINE CLINICAL HISTORY: fall, hypoxia, COPD, CHF dyspnea COMPARISON STUDY: No previous studies for comparison. FINDINGS: Moderate cardiomegaly. Prior median sternotomy. Infiltrate left base. Pulmonary vascular congestion. IMPRESSION: Moderate cardiomegaly. Infiltrate left base. (CHEST FOR PE) ANGIO WITH IMPRESSION: 1. Study is negative for pulmonary embolus 2. Mild prominence a sending thoracic aorta at 4.1 cm. 3 poorly defined parenchymal infiltrate left base. 4. Interstitial prominence throughout both hemithoraces. 5. Nonspecific mediastinal and hilar nodes with a 8 week follow-up recommended. EKG Sinus rhythm with Premature atrial complexes Left axis deviation Low voltage QRS Inferior infarct , age undetermined Cannot rule out Anterior infarct , age undetermined Impression Assessment and Plan 71 yo M with COPD, CHF, T2DM with recent fall - likely from hypoxia from LLL infiltrate - ddx pneumonia vs CHF vs worsening of COPD, may need increased oxygen at home (currently only uses it at night). L basal infiltrate - Continue Duonebs - Has had multiple hospitalizations recently, will treat with Vanc and Zosyn for now - CXR in AM - Will add a Procalcitonin Congestive heart failure - Need to obtain last echo results - Continue JENNIFER-I, Beta mary, Aspirin, Lasix 40mg daily Left leg pain from recent fall - PT/OT assessments - obtain XRay reports from [place] Type 2DM - Continue home insulin regime - Obtain A1c Thoracic lymphadenopathy on CT - Needs follow up in 8 weeks Code status: Full Admitted to: Tele VTE: Heparin Attending Addendum: I have physically seen and examined this patient, have directed the resident's medical activities, and agree with the H&P as noted above with the following exceptions as noted. The patient is awake, alert and oriented 3, well-developed and well-nourished , normocephalic and atraumatic, lying in bed and in no acute distress. HEENT--PERRL, EOMI, mucous membranes and oropharynx dry. Neck--supple, no JVD or bruits, thyroid normal, trachea midline, no adenopathy. Heart--normal S1 and S2, no extra beats, no murmurs, rubs or gallops. Lungs--clear bilaterally with good air movement, no respiratory distress, no accessory muscle use. Abdomen--normal bowel sounds and soft, nontender and nondistended, no hernias or masses, no organomegaly. Extremities--no cyanosis, clubbing or edema. There are good distal pulses b/l. Dermatologic--normal skin turgor, normal color, warm and dry, no abnormal lymph nodes, no rash. Neurologic--cranial nerves II through XII grossly intact. Rheumatologic--normal range of motion, nontender, muscles and joints. Psychiatric--normal affect. Assessment and Plan: Left lower lobe pneumonia/COPD exacerbation-- Admit to the telemetry unit for close oxygen monitoring. Do nebs every 4 hours while awake and every 2 hours when necessary Vancomycin IV per pharmacokinetic monitoring. Zosyn 3.375 mg IV every 8 hours. Sputum Gram stain and culture. CAD/hypertension/CHF-- Continue aspirin 81 mg by mouth every morning, furosemide 40 mg by mouth every morning, Imdur extended release 30 mg by mouth every morning, lisinopril 5 mg by mouth every morning, metoprolol succinate 25 mg by mouth every morning. Diabetes mellitus--continue Lantus insulin 30 units subcutaneous every afternoon. Place on Accu-Cheks before meals and at bedtime with NovoLog coverage per scale. Level of Care Telemetry Advanced Directives Existing Advance Directive: No Existing Living Will: No Existing Power of Crocheter: No Resuscitation Status FULL RESUSCITATION VTE Prophylaxis VTE Risk Assessment Done? Y/N: Yes Risk Level: Moderate Given or contraindicated: SCD's Social Service Consult None Apply Resident Tracking Resident Involvement: Resident Care Provided Care Provided: Adult Hospital Medicine
[2017-08-18] MEDS ORDERED: ACETAMINOPHEN 325 MG TAB PO PRN (20:45)
[2017-08-18] MEDS ORDERED: MAGNESIUM HYDROXIDE SUSP 30 ML UDC PO PRN (20:45)
[2017-08-18] MEDS ORDERED: NITROGLYCERIN 0.4 MG SL PER TAB CHARGE UT SCH (20:45)
[2017-08-18] MEDS ORDERED: ALUMINUM/MAGNESIUM/SIMETH (MAALOX MAX) 30 ML UDC PO PRN (20:45)
[2017-08-18] MEDS ORDERED: POLYETHYLENE (MIRALAX) 17 GM PACK PO PRN (20:45)
[2017-08-18] MEDS ORDERED: IPRATROPIUM BROMIDE/ALBUTEROL respimat INH INH PRN (20:45)
[2017-08-18] MEDS ORDERED: ONDANSETRON INJ 2 MG/ML 2 ML VIAL IV PRN (20:45)
[2017-08-18] MEDS: PrednisoLONE ACET 1% OP SUSP 5 ML BTL OPR SCH (21:00)
[2017-08-18] MEDS: OXYCODONE/ACETAMINOPHEN 10/325MG TAB PO PRN (21:09)
[2017-08-18 22:00] VITALS: BP 155/79; PULSE 72; TEMP 36.6; O2SAT 96; Ht 180.3 cm; Wt 103.5 kg
[2017-08-18] MEDS ORDERED: PIPERACILL/TAZOBAC IV 3.375 GM in DEXTROSE 5% 100ML 100 ML IV SCH (22:00)
[2017-08-18] MEDS ORDERED: VANCOMYCIN INJ 1,500 MG in SODIUM CHLORIDE 0.9% 500ML 500 ML IV SCH (22:15)
[2017-08-18] MEDS ORDERED: PIPERACILL/TAZOBAC IV 3.375 GM in DEXTROSE 5% 100ML IV ONE (22:15)
[2017-08-18] MEDS ORDERED: PIPERACILL/TAZOBAC CONSULT ACTIVE PRN (22:15)
[2017-08-18] MEDS: BUDESONIDE/FORMOTEROL FUMARATE 160/4.5 60 PUFFS/INHALER INH SCH (22:59)
[2017-08-18] MEDS: COLCHICINE 0.6 MG TAB PO SCH (23:03)
[2017-08-18] MEDS: PREGABALIN 100 MG CAP PO SCH (23:04)
[2017-08-18] MEDS: SIMVASTATIN 40 MG TAB PO SCH (23:05)
[2017-08-18] MEDS: CEROVITE ADV FORMULA TAB PO SCH (23:05)
[2017-08-18] MEDS: ZOLPIDEM TARTRATE 5 MG TAB PO PRN (23:06)
[2017-08-18] MEDS: ALBUTEROL HFA 8 GM INHALER INH SCH (23:16)
[2017-08-18] MEDS: INSULIN GLARGINE SOLOSTAR 100 UNITS/ML 3 ML PEN SC SCH (23:24)
[2017-08-18 23:57] VITALS: BP 159/77; PULSE 57; TEMP 36.7; O2SAT 95
[2017-08-19] VITALS (13 sets, daily range): BP systolic 142–173; BP diastolic 79–87; PULSE 56–85; TEMP 36.4–36.6; O2SAT 93–97
[2017-08-19] MEDS: OXYCODONE/ACETAMINOPHEN 10/325MG TAB PO PRN ×3 (00:40→12:36)
[2017-08-19] MEDS ORDERED: VANCOMYCIN CONSULT ACTIVE PRN (00:45)
[2017-08-19] MEDS ORDERED: VANCOMYCIN INJ 1,000 MG in SODIUM CHLORIDE 0.9% 250ML 250 ML IV STA (01:54)
[2017-08-19] MEDS: PIPERACILL/TAZOBAC IV 3.375 GM in DEXTROSE 5% 100ML IV SCH ×2 (01:59→10:28)
[2017-08-19 07:04] LABS: BASO % 0.4 %; BASO ABS # 0.03 K/uL (0-0.2); COMPLETE YES; EOS % 2.3 %; HEMATOCRIT 37.2 % (42-52); IG% 0.5 %; LYMPH % 15.4 %; LYMPH ABS # 1.19 K/uL (1.2-3.4); MEAN CELL VOLUME 90.3 fL (80-100); MEAN CORPUSCULAR HEMOGLOBIN 29.4 pg (25-34); MEAN CORPUSCULAR HGB CONC 32.5 g/dl (32-36); MEAN PLATELET VOLUME 10.8 fL (7.4-10.4); MONO % 11.9 %; NEUT % 69.5 %; PLATELET COUNT 180 K/uL (130-400); RED BLOOD COUNT 4.12 M/uL (4.7-6.1); WHITE BLOOD COUNT 7.72 K/uL (4.8-10.8)
[2017-08-19 07:10] LABS: INR 1.2 (0.9-1.1); PROTHROMBIN TIME (PATIENT) 13.1 SECONDS (9.0-12.0)
[2017-08-19 07:24] LABS: ESTIMATED AVERAGE GLUCOSE 169 mg/dl; HA1C FLAG Normal (Normal)
[2017-08-19 07:28] LABS: BUN/CREATININE RATIO 19.3 (10-20); CREATININE 1.2 mg/dl (0.60-1.40)
[2017-08-19] MEDS: FUROSEMIDE 40 MG TAB PO SCH (07:35)
[2017-08-19] MEDS: ALBUT/IPRATROP 3MG/0.5MG NEB 3 ML VIAL INH SCH ×4 (07:35→20:08)
[2017-08-19] MEDS: COLCHICINE 0.6 MG TAB PO SCH ×2 (07:35→20:53)
[2017-08-19] MEDS: VENLAFAXINE HCL XR 150 MG CAPXR PO SCH (07:35)
[2017-08-19] MEDS: VENLAFAXINE HCL XR 75 MG CAPXR PO SCH (07:35)
[2017-08-19] MEDS: ISOSORBIDE MONONITRATE 30 MG TABCR PO SCH (07:35)
[2017-08-19] MEDS: METOPROLOL SUCC 25MG EXT REL TAB PO SCH (07:36)
[2017-08-19] MEDS: CEROVITE ADV FORMULA TAB PO SCH ×2 (07:36→20:52)
[2017-08-19] MEDS: LISINOPRIL 5 MG TAB PO SCH (07:36)
[2017-08-19] MEDS: PREGABALIN 100 MG CAP PO SCH ×2 (07:49→20:39)
[2017-08-19] MEDS: ALBUTEROL HFA 8 GM INHALER INH SCH ×2 (07:51→20:49)
[2017-08-19] MEDS: BUDESONIDE/FORMOTEROL FUMARATE 160/4.5 60 PUFFS/INHALER INH SCH ×2 (07:51→20:47)
[2017-08-19] MEDS: TIOTROPIUM BROMIDE 5 PUFF/90 MCG INH INH SCH (07:51)
[2017-08-19] MEDS: HEPARIN SOD 5000 UNIT/0.5 ML CARP SQ SCH ×2 (08:42→20:43)
[2017-08-19] MEDS: PrednisoLONE ACET 1% OP SUSP 5 ML BTL OPR SCH ×2 (08:43→20:50)
[2017-08-19] MEDS ORDERED: VANCOMYCIN INJ 1,000 MG in SODIUM CHLORIDE 0.9% 250ML 250 ML IV SCH (09:00)
[2017-08-19] MEDS ORDERED: ASPIRIN 81 MG CHEW PO SCH (09:00)
[2017-08-19] MEDS ORDERED: NON-FORMULARY MEDICATION (Coenzyme Q10 (Ubidecarenone) (Coq-10) 100 MG) PO SCH (09:00)
--- NOTE | 2017-08-19 09:08 | Clinical Documentation Query ---
Dr. HEARN TRACY : CLINICAL DOCUMENTATION QUERY Patient is a 71 year old male admitted for evaluation and treatment of hypoxia, LLL infiltrate, likely pneumonia vs. COPD vs. worsening COPD. Treatment includes IV Vancomycin and Zosyn. Please consider explicit documentation of the possible specific types of pneumonia in which you're currently treating, as this affects coding specificity and accurate DRG assignment. In your clinical opinion is this patient being managed for: ( ) (Possible) MRSA and/or gram-negative pneumonia ( ) Not Agree ( ) Other explanation of clinical findings (Please Explain) ( ) Unable to determine (Please Define) ( ) Need to Discuss The medical record reflects the following clinical findings, treatment, and risk factors. Clinical Indicators: As above, + MRSA nasal swab Treatment: IV Vancomycin, IV Zosyn Risk Factors: Age, multiple hospitalizations. Please clarify and document your clinical opinion in the progress notes and discharge summary. Terms such as "probable", "suspected", "likely", "questionable", "possible", or "still to be ruled out" are acceptable. IF IN AGREEMENT, YOU MUST DOCUMENT ABOVE DIAGNOSTIC STATEMENT IN DAILY PROGRESS NOTES AND DISCHARGE SUMMARY. This document is not part of the patient's record. Thank You, Gab Purvis, RC [phone]
--- NOTE | 2017-08-19 12:34 | Pharmacy Progress Note ---
Pharmacy Abx Initial Consult Date of Service Aug 19, 2017. Pharmacy Dosing Scope Date of Consult: 08/18/17 Consultation requested by: Dr. Disla Pharmacy is consulted to continue Vancomycin & Zosyn IV dosing therapy, order appropriate labs and adjust drug dose/frequency. Subjective The patient is a 71 year old male admitted on Aug 18, 2017 at 20:42 with confusion and soreness from a fall. The patient had been seen in [place] following a fall he had after chasing a squirrel when his noticed he was having some confusion. After not receiving results from testing in [place] they present to [facility]. After some initial xrays and work up Dr. Disla started patient on Vancomycin and Zosyn on admission for potential PNX. Patient does have hx of COPD and potential of CHF will be ruled out. Objective Height (Feet): 5 Height (Inches): 11.00 Weight (Kilograms): 102.000 Vital Signs (Past 12Hrs) Vital Signs Past 12 Hours Date Time Temp Pulse Resp B/P (MAP) Pulse Ox O2 Delivery O2 Flow Rate FiO2 08/19/17 11:28 36.6 64 20 172/87 (115) 95 1.5 08/19/17 11:14 85 18 97 Nasal Cannula 2.0 08/19/17 08:00 Nasal Cannula 2.0 08/19/17 07:35 67 18 93 Nasal Cannula 2.0 08/19/17 07:11 36.5 77 20 173/79 (110) 97 2.0 08/19/17 04:08 36.6 71 18 169/79 (109) 97 2.0 08/19/17 04:00 Nasal Cannula 2.0 Lab Results (24Hrs) Laboratory Tests (24 Hours) Test 08/18/17 17:00 08/19/17 06:39 Procalcitonin 0.11 ng/ml (0-0.5) White Blood Count 7.72 K/uL (4.8-10.8) Red Blood Count 4.12 M/uL (4.7-6.1) L Hemoglobin 12.1 g/dL (14.0-18.0) L Hematocrit 37.2 % (42-52) L Mean Corpuscular Volume 90.3 fL (80-100) Mean Corpuscular Hemoglobin 29.4 pg (25-34) Mean Corpuscular Hemoglobin Concent 32.5 g/dl (32-36) Platelet Count 180 K/uL (130-400) Mean Platelet Volume 10.8 fL (7.4-10.4) H Neutrophils (%) (Auto) 69.5 % Lymphocytes (%) (Auto) 15.4 % Monocytes (%) (Auto) 11.9 % Eosinophils (%) (Auto) 2.3 % Basophils (%) (Auto) 0.4 % Neutrophils # (Auto) 5.36 K/uL (1.4-6.5) Lymphocytes # (Auto) 1.19 K/uL (1.2-3.4) L Monocytes # (Auto) 0.92 K/uL (0.11-0.59) H Eosinophils # (Auto) 0.18 K/uL (0-0.5) Basophils # (Auto) 0.03 K/uL (0-0.2) Micro Results Date/Time Source Procedure Growth Status 08/19/17 00:40 Nasal MRSA DNA Surveillance Screen - Final Specimen Positive for MRSA by DNA Probe Complete Risk Factors for Resistance * Hospitalization for 48 hours or more within the past 90 days (progress note by Dr. 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 Plan Vancomycin and Zosyn for treatment of Pneumonia Vancomycin IV * Loading dose: 2500 mg (~25mg/kg) * Maintenance dose: 1500 mg IV (~15mg/kg) every 16 hours * Goal trough level for Pneumonia : 15 to 20 mcg/mL * Trough level ordered prior to 0400 dose on 08/21 Piperacillin/tazobactam * 3.375 g bolus administered over 30 minutes, then 3.375 g IV extended infusion every 8 hours for CrCl greater than 20 mL/min Pharmacy will continue to follow and will adjust dose/frequency as necessary. Thank you.
--- NOTE | 2017-08-19 13:26 | Family Medicine Progress Note ---
Progress Note Date of Service Aug 19, 2017. Subjective Pt evaluation today including: conversation w/ patient, physical exam, chart review, lab review Pain: Left Hip and Shoulder, unchanged PO Intake: Normal Voiding: no voiding problems, no incontinence No complaints at this time. States that he never felt short of breath, had worse coughing or wheezing. Notes that he wears 2 L O2 at night during the day and intermittently 2 L during the day, due to history of COPD Denies ever having fevers at home, nightsweats or chills Denies being confused currently; states that he never truly felt confused. No family at bedside to provide collateral. Nursing notes some concern with ambulation, states he required 2 person-assist overnight All Other Systems: Reviewed and Negative Medications Current Inpatient Medications Medications (Trade) Dose Ordered Sig/Yasmin Route Start Time Stop Time Status Last Admin Dose Admin Ioversol (Optiray 320) 111 ml UD PRN IV 08/18/17 19:30 08/22/17 19:29 Heparin Sodium (Porcine) (Heparin Sq 5000 Unit/0.5ml) 5,000 unit Q12 SQ 08/19/17 09:00 09/18/17 08:59 Acetaminophen (Tylenol Tab) 650 mg Q4H PRN PO 08/18/17 20:45 09/17/17 20:44 Al Hydrox/Mg Hydrox/Simethicone (Maalox Max Susp) 15 ml Q4H PRN PO 08/18/17 20:45 09/17/17 20:44 Magnesium Hydroxide (Milk Of Magnesia Susp) 30 ml Q12H PRN PO 08/18/17 20:45 09/17/17 20:44 Zolpidem Tartrate (Ambien Tab) 5 mg HSZ PRN PO 08/18/17 20:45 09/17/17 20:44 08/18/17 23:06 5 MG Ondansetron HCl (Zofran Inj) 4 mg Q6H PRN IV 08/18/17 20:45 09/17/17 20:44 Polyethylene (Miralax Powder Packet) 17 gm DAILY PRN PO 08/18/17 20:45 09/17/17 20:44 Aspirin (Aspirin Chew) 81 mg QAM PO 08/19/17 09:00 09/18/17 08:59 08/19/17 07:35 81 MG Budesonide/ Formoterol Fumarate (Symbicort 160/ 4.5 Inh) 2 puffs BID INH 08/18/17 21:00 09/17/17 20:59 08/19/17 07:51 2 PUFFS Colchicine (Colchicine Tab) 0.6 mg BID PO 08/18/17 21:00 09/17/17 20:59 08/19/17 07:35 0.6 MG Folic Acid (Folvite Tab) 1 mg DAILY PO 08/19/17 09:00 09/18/17 08:59 08/19/17 07:35 1 MG Furosemide (Lasix Tab) 40 mg QAM PO 08/19/17 09:00 09/18/17 08:59 08/19/17 07:35 40 MG Insulin Glargine (Lantus Solostar Pen) 30 units QPM SC 08/18/17 21:00 09/17/17 20:59 08/18/17 23:24 30 UNITS Albuterol/ Ipratropium (Combivent Respimat Inh) 1 puffs QID PRN INH 08/18/17 20:45 09/17/17 20:44 Isosorbide Mononitrate (Imdur Ext Rel Tab) 30 mg QAM PO 08/19/17 09:00 09/18/17 08:59 08/19/17 07:35 30 MG Lamotrigine (Lamictal Tab) 25 mg BID PO 08/18/17 21:00 09/17/17 20:59 08/19/17 07:35 25 MG Lisinopril (Zestril Tab) 5 mg QAM PO 08/19/17 09:00 09/18/17 08:59 08/19/17 07:36 5 MG Metoprolol Succinate (Toprol Xl Tab) 25 mg QAM PO 08/19/17 09:00 09/18/17 08:59 08/19/17 07:36 25 MG Nitroglycerin (Nitrostat Tab) 0.4 mg PRN UT 08/18/17 20:45 09/17/17 20:44 Multivitamins/ Minerals (Multivitamin W/ Minerals Tab) 1 tab BID PO 08/18/17 21:00 09/17/17 20:59 08/19/17 07:36 1 TAB Oxycodone/ Acetaminophen (Percocet 10-325MG Tab) 1 tab Q4H PRN PO 08/18/17 20:45 09/01/17 20:44 08/19/17 12:36 1 TAB Prednisolone Acetate (Pred Forte 1% Oph Susp) 1 drops BID OPR 08/18/17 21:00 09/17/17 20:59 Pregabalin (Lyrica Cap) 100 mg BID PO 08/18/17 21:00 09/17/17 20:59 08/19/17 07:49 100 MG Simvastatin (Zocor Tab) 40 mg QPM PO 08/18/17 21:00 09/17/17 20:59 08/18/17 23:05 40 MG Tiotropium [place] (Spiriva Handihaler Inhaler) 1 puff QAM INH 08/19/17 09:00 09/18/17 08:59 08/19/17 07:51 1 PUFF Venlafaxine HCl (effeXOR EXTENDED REL CAP) 150 mg QAM PO 08/19/17 09:00 09/18/17 08:59 08/19/17 07:35 150 MG Venlafaxine HCl (effeXOR EXTENDED REL CAP) 75 mg QAM PO 08/19/17 09:00 09/18/17 08:59 08/19/17 07:35 75 MG Albuterol (Ventolin Hfa Inhaler) 2 puffs BID INH 08/18/17 21:00 09/17/17 20:59 08/19/17 07:51 2 PUFFS Albuterol/ Ipratropium (Duoneb) 3 ml QIDR INH 08/19/17 08:00 09/18/17 07:59 08/19/17 11:14 3 ML Piperacillin Sod/ Tazobactam Sod 3.375 gm/Dextrose 115 ml @ 28.75 mls/ hr Q8H IV 08/19/17 02:00 08/26/17 01:59 08/19/17 10:28 28.75 MLS/HR Piperacillin Sod/ Tazobactam Sod (Consult) 1 ea UD PRN N/A 08/18/17 22:15 09/17/17 22:14 Vancomycin HCl (Consult) 1 ea UD PRN N/A 08/19/17 00:45 09/18/17 00:44 Vancomycin HCl 1500 mg/Sodium Chloride 530 ml @ 200 mls/hr Q12H IV 08/19/17 16:00 08/26/17 15:59 Objective Vital Signs Date Time Temp Pulse Resp B/P (MAP) Pulse Ox O2 Delivery O2 Flow Rate FiO2 08/19/17 12:30 Room Air 2.0 Nasal Cannula 08/19/17 11:28 36.6 64 20 172/87 (115) 95 1.5 08/19/17 11:14 85 18 97 Nasal Cannula 2.0 08/19/17 08:00 Nasal Cannula 2.0 08/19/17 07:35 67 18 93 Nasal Cannula 2.0 08/19/17 07:11 36.5 77 20 173/79 (110) 97 2.0 08/19/17 04:08 36.6 71 18 169/79 (109) 97 2.0 08/19/17 04:00 Nasal Cannula 2.0 08/19/17 00:00 96 Nasal Cannula 2.0 08/18/17 22:00 36.6 72 24 155/79 96 Nasal Cannula 2.0 08/18/17 21:45 36.9 83 16 167/98 98 08/18/17 21:03 83 16 177/112 98 Nasal Cannula 2.0 08/18/17 19:14 36.9 83 20 162/97 98 Nasal Cannula 2.0 08/18/17 18:18 83 79 08/18/17 17:54 81 177/82 97 2.0 08/18/17 17:51 177/82 08/18/17 17:18 77 21 91 08/18/17 17:16 77 08/18/17 17:16 99 Nasal Cannula 2.0 08/18/17 17:09 153/89 08/18/17 16:52 96 Nasal Cannula 2.0 08/18/17 16:52 37.1 77 22 154/93 96 Nasal Cannula 2.0 Physical Exam General Appearance: WD/WN, no apparent distress, + obese Eyes: normal inspection, EOMI ENT: hearing grossly normal, pharynx normal Neck: supple, no adenopathy, no JVD Respiratory/Chest: lungs clear, no respiratory distress, + pertinent finding ( diminished breath sounds bilaterally) Cardiovascular: regular rate, rhythm, no gallop, no murmur Abdomen: normal bowel sounds, non tender, soft Extremities: non-tender, no pedal edema, + pertinent finding (some pain with left hip flexion) Neurologic/Psychiatric: alert, normal mood/affect, oriented x 3 Skin: normal color, warm/dry, no rash Lymphatic: no adenopathy Laboratory Results Last 24 Hours Test 08/18/17 17:00 08/18/17 17:04 08/18/17 17:29 08/18/17 17:30 White Blood Count 6.53 K/uL Red Blood Count 3.96 M/uL Hemoglobin 11.6 g/dL Hematocrit 35.7 % Mean Corpuscular Volume 90.2 fL Mean Corpuscular Hemoglobin 29.3 pg Mean Corpuscular Hemoglobin Concent 32.5 g/dl Platelet Count 156 K/uL Mean Platelet Volume 11.2 fL Neutrophils (%) (Auto) 76.8 % Lymphocytes (%) (Auto) 11.9 % Monocytes (%) (Auto) 9.0 % Eosinophils (%) (Auto) 1.5 % Basophils (%) (Auto) 0.2 % Neutrophils # (Auto) 5.01 K/uL Lymphocytes # (Auto) 0.78 K/uL Monocytes # (Auto) 0.59 K/uL Eosinophils # (Auto) 0.10 K/uL Basophils # (Auto) 0.01 K/uL RDW Standard Deviation 54.7 fL RDW Coefficient of Variation 16.6 % Immature Granulocyte % (Auto) 0.6 % Immature Granulocyte # (Auto) 0.04 K/uL Sodium Level 139 mmol/L Potassium Level 4.1 mmol/L Chloride Level 103 mmol/L Carbon Dioxide Level 29 mmol/L Anion Gap 7.0 mmol/L Blood Urea Nitrogen 23 mg/dl Creatinine 1.20 mg/dl Est Creatinine Clear Calc Drug Dose 71.1 ml/min Estimated GFR () 71.1 Estimated GFR (Non- 61.3 BUN/Creatinine Ratio 19.3 Random Glucose 128 mg/dl Calcium Level 9.3 mg/dl Total Bilirubin 0.6 mg/dl Direct Bilirubin 0.1 mg/dl Aspartate Amino Transf (AST/SGOT) 16 U/L Alanine Aminotransferase (ALT/SGPT) 16 U/L Alkaline Phosphatase 106 U/L Total Protein 7.6 gm/dl Albumin 3.5 gm/dl Procalcitonin 0.11 ng/ml Bedside Troponin I < 0.030 ng/ml Bedside Glucose 128 mg/dl Urine Color YELLOW Urine Appearance CLEAR Urine pH 7.5 Urine Specific [place] 1.020 Urine Protein 1+ Urine Glucose (UA) NEG Urine Ketones 1+ Urine Occult Blood 1+ Urine Nitrite NEG Urine Bilirubin NEG Urine Urobilinogen NEG Urine Leukocyte Esterase NEG Urine WBC (Auto) 1-5 /hpf Urine RBC (Auto) 10-30 /hpf Urine Hyaline Casts (Auto) 1-5 /lpf Urine Epithelial Cells (Auto) 10-20 /lpf Urine Bacteria (Auto) NEG Test 08/18/17 22:52 08/19/17 06:39 08/19/17 12:55 Bedside Glucose 156 mg/dl White Blood Count 7.72 K/uL Red Blood Count 4.12 M/uL Hemoglobin 12.1 g/dL Hematocrit 37.2 % Mean Corpuscular Volume 90.3 fL Mean Corpuscular Hemoglobin 29.4 pg Mean Corpuscular Hemoglobin Concent 32.5 g/dl Platelet Count 180 K/uL Mean Platelet Volume 10.8 fL Neutrophils (%) (Auto) 69.5 % Lymphocytes (%) (Auto) 15.4 % Monocytes (%) (Auto) 11.9 % Eosinophils (%) (Auto) 2.3 % Basophils (%) (Auto) 0.4 % Neutrophils # (Auto) 5.36 K/uL Lymphocytes # (Auto) 1.19 K/uL Monocytes # (Auto) 0.92 K/uL Eosinophils # (Auto) 0.18 K/uL Basophils # (Auto) 0.03 K/uL RDW Standard Deviation 54.9 fL RDW Coefficient of Variation 16.6 % Immature Granulocyte % (Auto) 0.5 % Immature Granulocyte # (Auto) 0.04 K/uL Prothrombin Time 13.1 SECONDS Prothromb Time International Ratio 1.2 Sodium Level 138 mmol/L Potassium Level 4.0 mmol/L Chloride Level 103 mmol/L Carbon Dioxide Level 29 mmol/L Anion Gap 6.0 mmol/L Blood Urea Nitrogen 23 mg/dl Creatinine 1.20 mg/dl Est Creatinine Clear Calc Drug Dose 70.6 ml/min Estimated GFR () 71.1 Estimated GFR (Non- 61.3 BUN/Creatinine Ratio 19.3 Random Glucose 124 mg/dl Estimated Average Glucose 169 mg/dl Hemoglobin A1c 7.5 % Calcium Level 10.0 mg/dl Hepatitis C Antibody Screen NEG Assessment and Plan 71 year old presenting from [facility] and has never had care at [facility], presenting with left sided pain in the shoulder and hip secondary to a fall after chasing a squirrel at home. He essentially presented to [facility], because he never heard back from [facility] regarding his imaging. He has a history of COPD, CHF and T2DM. We do not have any of his previous records and he is a very poor historian in knowing the details of his chronic conditions. He is noted to have an infiltrate in his left base. However, history of negative for any respiratory symptoms. Objectively, he has no apparent increased oxygen requirement, has no fevers, WBC elevation and a pro-calcitonin is negative. There is question of his mentation and whether he had an episode of confusion. It is unclear whether this is a long-standing issue or whether he may have had a an episode of delirium, which lends towards the diagnosis of an infection. We will need further collateral history of tease this out. Left Basal infiltrate, ?query pneumonia? - Notes hospitalizations at [place], last one was for pneumonia in 2015. Dates are unclear and we do not have records - Started on Vancomycin and Zosyn empirically - Negative WBC; Pro-calcitonin is negative - Unilateral nature of infiltrate makes CHF unlikely but he has apparent history of CHF; so will check BNP History of Fall - Mechanical - Reviewed x-rays from [place]; no acute fractures to shoulder/humerus Addendum to left hand x-ray notes fracture to 4th digit in left hand noted; will consult orthopedics - Repeat imaging at [facility] negative Left leg pain from recent fall - X-ray from [place] indicate limited study - Will repeat x-ray in-house - Nursing concerned for assist needs; will get PT and OT input Altered Mental Status - Acute vs Chronic? Unclear, need collateral history from - Alert and oriented x 3 without evidence of delirium this morning - Possible cause: Left basal infiltrate/PNA vs hypoxia/chronic COPD Congestive Heart Failure - Records reviewed; most recently done on 12/11/2015 with EF 55% - Continue JENNIFER-I, Beta mary, Aspirin, Lasix 40mg daily Type 2 Diabetes Mellitus - Continue home Lantus regimen - Start Insulin SSI - HbA1c 7.5 - AC/HS accuc Hilar Lymphadenopathy - Reactive to left basilar infiltrate - Will need outpatient repeat Chronic Lumbar Spinal Stenosis - Continue Lyrica - Continue Oxycodone; chronic regimen so not likely to be a cause for acute confusion DVT Prophylaxis - SCD Knee, GHASSAN Estevez - Lovenox 40 mg s.c. daily Code Status - Level I Full Code Disposition - Med/Surg - OT and PT evaluations 13:50 I was able to contact patient's Patt by phone. She notes that the patient had a fall 4 days ago. He went to clean the [employer] and found a squirrel in there. He tried to get it but with his bad knees feel on his left side and states that he hit his head. States that he did not want to go to see his so it took 2 days for her to convince him to see a provider at his PCP's office. X -rays were ordered and done at [facility] and they went home afterwards. After being at home, she notes a transient period of confusion. She states this has happened multiple times previously and has been told it can be related to his COPD and transient poor oxygenation. In 2016, he had been hospitalized multiple times in [place] due to respiratory issues from his COPD as well as pneumonia and had was having these episodes of confusion around those admissions. Since 2017, these episodes of confusion have been less frequent so she was concerned when it happened again. Because she did not know the results of the X-rays from [place], she became concerned it could be related to his fall and brought him to [facility]. At baseline she denies he has had any worsening respiratory symptoms. He wears oxygen continuously at nighttime 2 L. During the day he wears oxygen both at rest and after exertion. He chooses to wear oxygen during the day based on subjective symptoms of shortness of breath rather than objectively checking his pulse oximetry. notes that with his COPD and CHF he is generally weak at baseline but at the same time is very active in trying to do work around the house. She states that she is generally able to help him at home if needed. I stated that nursing was concerned for weakness and that a PT evaluation was pending for recommendations. states that if inpatient rehabilitation was ever recommended, he would most certainly decline this. I have re-iterated that at this stage, we are simply trying to gather the appropriate information to make an assessment and would make a shared long-term decision. was in agreement. Continued [facility] stay due to: ambulation difficulties Reviewed: Pt Seen/Exam by Me History denies any complains Constitutional: denies: fever Respiratory: negative: short of breath Cardiovascular: denies chest pain General Appearance: no apparent distress Respiratory: lungs clear, no respiratory distress Cardiovascular: regular rate, rhythm Neurologic/Psychiatric: alert, oriented x 3 (during conversation - couldn't remember what happened during [place] ED visit ) Skin Characteristics: warm/dry Assessment/Plan Resident Physician Supervision Note: I was present with Dr. Dewitt in bedside. I verified the jiménez history and physical, reviewed labs and image studies, discussed the case with the resident and agree with the findings and care plan.
--- NOTE | 2017-08-19 13:42 | DIAGNOSTIC IMAGING REPORT ---
LEFT HIP UNILATERAL 2 VIEWS CLINICAL HISTORY: fall with left hip pain; rule out fracture trauma. Pain. COMPARISON: None. DISCUSSION: Lucencies of the greater trochanter. This does not appear to extend to lesser trochanter. This raises the possibility of artifact. There are degenerative changes and probable ankylosis of components of the symphysis pubis. There is no evidence for acetabular protrusion. There is no evidence for soft tissue swelling. IMPRESSION: Probable incomplete fracture of the greater trochanter left hip, versus artifact. CT of the hip is suggested as follow-up.. The above report was generated using voice recognition software. It may contain grammatical, syntax or spelling errors. Electronically signed by: Wilmer Gonzalez M.D. 08/19/2017 1:40 PM Dictated Date/Time: 08/19/2017 1:38 PM
--- NOTE | 2017-08-19 15:18 | DIAGNOSTIC IMAGING REPORT ---
LEFT HIP-LOWER EXTREMITY WITHOUT CT DOSE: 478.45 mGy.cm HISTORY: Trauma evaluate for fracture TECHNIQUE: Multiaxial CT images of the left hip were performed and reformatted in the sagittal and coronal plane without the use of contrast. A dose lowering technique was utilized adhering to the principles of ALARA. COMPARISON: Left hip series same date FINDINGS: Fracture base of the greater trochanter. Partial linear extension to the superior intertrochanteric line. No definite extension to lesser trochanter. Alignment is anatomic. Acetabular margins are intact. No evidence for acetabular protrusion. Subcapital region is unremarkable. Mild surrounding soft tissue edematous change. IMPRESSION: 1. Fracture base greater trochanter with partial linear extension to the superior aspect of the intertrochanteric line. 2. No evidence for direct extension to the lesser trochanter. 3. Alignment is anatomic. The above report was generated using voice recognition software. It may contain grammatical, syntax or spelling errors. Electronically signed by: Wilmer Gonzalez M.D. 08/19/2017 3:17 PM Dictated Date/Time: 08/19/2017 3:10 PM
[2017-08-19] MEDS ORDERED: VANCOMYCIN INJ 1,500 MG in SODIUM CHLORIDE 0.9% 500ML 500 ML IV SCH (16:00)
[2017-08-19] MEDS ORDERED: GLUCOSE 40% GEL 15 GM TUBE PO PRN (17:00)
[2017-08-19] MEDS ORDERED: DEXTROSE 50% 50 ML SYR IV PRN (17:00)
[2017-08-19] MEDS ORDERED: GLUCAGON FOR INJ 1 MG VIAL SQ PRN (17:00)
[2017-08-19] MEDS ORDERED: GLUCOSE 10 TABS/TUBE PO PRN (17:00)
[2017-08-19] MEDS: INSULIN ASPART 100 UNITS/ML 3 ML PEN SC SCH ×2 (17:54→20:33)
[2017-08-19] MEDS ORDERED: MoRPHine SULFATE 4 MG/ML 1 ML CARP\\VIAL ONE (18:10)
[2017-08-19] MEDS ORDERED: MoRPHine SULFATE 4 MG/ML 1 ML CARP\\VIAL IV PRN (18:15)
[2017-08-19] MEDS ORDERED: LIDODERM (LIDOCAINE) PATCH 5% TD ONE (18:30)
--- NOTE | 2017-08-19 18:52 | DIAGNOSTIC IMAGING REPORT ---
LEFT FEMUR 2 VIEWS ROUTINE CLINICAL HISTORY: Left femoral pain. COMPARISON: CT scan dated 08/19/2017 DISCUSSION: There is irregularity of the greater trochanter, consistent with the patient's known greater trochanteric fracture. There is no dislocation. No additional fractures are visualized. There are osteoarthritic changes present at the level of the knee. There is a suprapatellar joint effusion. There is mild nonspecific irregularity of the infrapatellar soft tissues. IMPRESSION: 1. Acute fracture of the greater trochanter 2. No additional femoral fractures identified 3. Degenerative changes in the knee with a joint effusion 4. Nonspecific irregularity of the infrapatellar soft tissues. Please correlate with physical examination. Electronically signed by: Bear Floyd M.D. 08/19/2017 6:51 PM Dictated Date/Time: 08/19/2017 6:49 PM
--- NOTE | 2017-08-19 19:00 | Progress Note ---
Progress Note Date of Service Aug 19, 2017. Progress Note 18:[address] X-[address] CT of the left hip note greater trochanter fracture. Unclear whether it extends across to lesser trochanter. Discussed case with orthopedics. Will evaluate with MRI left hip to determine extent of fracture. If complete, likely to require operative intervention. Awaiting recommendations from surgery on whether operative intervention is required. If operative intervention needed - NPO after midnight - Will consult cardiology for pre-operative assessment - Hold ASA and Heparin - Nighttime MD instructed to evaluate patients fluid status due to hx of CHF; if clinically overloaded, can administer dose of Lasix to optimize fluid status Pro-BNP elevated but at this time, patient has no clinical signs of overload such as JVD or pitting edema Given fracture patient is a non-weight bearing status. I have also added Lidoderm patch as well as Morphine 4 mg q 2 h PRN for pain. Additional updates to plan includes: We will also try to have images of upper extremities sent over from [place] for orthopedics to review for additional injuries. If this not possible, new series of upper extremities (shoulder, humerus, elbow, wrist and hand) will need to be re-ordered in house. Patient is oxygenating with supplemental O2 per baseline needs without objective evidence of florid pneumonia (normal WBC, normal Pro-kandice, no new oxygen requirements. At this time I have also discontinued Vanc/Zosyn and switched over to Levaquin therapy.
--- NOTE | 2017-08-19 19:02 | Orthopedic Consultation ---
Orthopedic Consultation Date of Consultation: Aug 19, 2017. Attending Physician: Sara Lopez M.D. Reason for Consultation: Left hip fracture History of Present Illness The patient is a 71 yo Male who presents with left hip pain x 3 days. The patient was accompanied with his who collectively provided the details. They report a fall 3 days prior while at home and were seen at [facility] for XRs in an outpatient setting. In the interim they came to [facility] to be evaluated. The patient reports falling onto his left side and c/ o left shoulder pain and left hip pain with difficulty ambulating. He does report prior left shoulder injury (rotator cuff) but exacerbated from the most recent fall. He also reports he was able to ambulate after falling but found it increasingly more painful over the last couple of days. He denies any numbness, tingling in his extremities. Past Medical/Surgical History Medical Problems: (1) Altered mental state Status: Acute (2) Hypoxia Status: Acute (3) Left leg weakness Status: Acute (4) Pneumonia Status: Acute (5) Pulmonary infiltrate Status: Acute Social History Smoking Status: Former Smoker Alcohol Use: socially Drug Use: none Marital Status: Housing Status: lives with family Occupation Status: retired Allergies Coded Allergies: Prednisone (Verified Adverse Reaction, Intermediate, "GO CRAZY", 08/18/17) Home Medications Scheduled Albuterol Sulfate (Proair Respiclick), 2 PUFF INH BID Aspirin (Aspirin Chewable), 81 MG PO QAM Budesonide/Formoterol Fumarate (Symbicort 160/4.5 Inhaler), 2 PUFFS INH BID Coenzyme Q10 (Ubidecarenone) (Coq-10), 100 MG PO DAILY Colchicine (Colchicine), 0.6 MG PO BID Folic Acid (Folvite), 1 MG PO DAILY Furosemide (Lasix), 40 MG PO QAM Home O2 Therapy (Oxygen), 2 LITERS NA HS Insulin Glargine (Lantus), 30 UNITS SC QPM Isosorbide Mononitrate Ext Rel (Imdur Ext Rel), 30 MG PO QAM Lamotrigine (Lamictal), 25 MG PO BID Lisinopril (Prinivil), 5 MG PO QAM Metoprolol Succ (Toprol Xl) (Toprol-Xl), 25 MG PO QAM Nitroglycerin (Nitrostat), 0.4 MG UT PRN Ocuvite Preservision (Ocuvite Preservision), 1 TAB PO BID Prednisolone Acetate (Ophth) (Pred Forte 1% Oph), 1 DROPS OPR DIRECTED Pregabalin (Lyrica), 100 MG PO BID Simvastatin (Zocor), 40 MG PO QPM Tiotropium [place] (Spiriva Handihaler), 1 CAP INH QAM Venlafaxine Hcl (Effexor), 75 MG PO QAM Venlafaxine Hcl (Effexor Extended Rel), 150 MG PO QAM Scheduled PRN Albuterol Sulf (Ventolin), 1 DOSE INH QID PRN for Shortness of Breath Ipratropium-Albuterol (Combivent Respimat), 1 PUFFS INH QID PRN for Shortness of Breath Oxycodone/Acetaminophen 10MG/325MG (Percocet 10MG/325MG), 1 TAB PO Q4H PRN for Pain Current Inpatient Medications Current Inpatient Medications Medications (Trade) Dose Ordered Sig/Yasmin Route Start Time Stop Time Status Last Admin Dose Admin Ioversol (Optiray 320) 111 ml UD PRN IV 08/18/17 19:30 08/22/17 19:29 Heparin Sodium (Porcine) (Heparin Sq 5000 Unit/0.5ml) 5,000 unit Q12 SQ 08/19/17 09:00 09/18/17 08:59 Acetaminophen (Tylenol Tab) 650 mg Q4H PRN PO 08/18/17 20:45 09/17/17 20:44 Al Hydrox/Mg Hydrox/Simethicone (Maalox Max Susp) 15 ml Q4H PRN PO 08/18/17 20:45 09/17/17 20:44 Magnesium Hydroxide (Milk Of Magnesia Susp) 30 ml Q12H PRN PO 08/18/17 20:45 09/17/17 20:44 Zolpidem Tartrate (Ambien Tab) 5 mg HSZ PRN PO 08/18/17 20:45 09/17/17 20:44 08/18/17 23:06 5 MG Ondansetron HCl (Zofran Inj) 4 mg Q6H PRN IV 08/18/17 20:45 09/17/17 20:44 Polyethylene (Miralax Powder Packet) 17 gm DAILY PRN PO 08/18/17 20:45 09/17/17 20:44 Aspirin (Aspirin Chew) 81 mg QAM PO 08/19/17 09:00 09/18/17 08:59 08/19/17 07:35 81 MG Budesonide/ Formoterol Fumarate (Symbicort 160/ 4.5 Inh) 2 puffs BID INH 08/18/17 21:00 09/17/17 20:59 08/19/17 07:51 2 PUFFS Colchicine (Colchicine Tab) 0.6 mg BID PO 08/18/17 21:00 09/17/17 20:59 08/19/17 07:35 0.6 MG Folic Acid (Folvite Tab) 1 mg DAILY PO 08/19/17 09:00 09/18/17 08:59 08/19/17 07:35 1 MG Furosemide (Lasix Tab) 40 mg QAM PO 08/19/17 09:00 09/18/17 08:59 08/19/17 07:35 40 MG Insulin Glargine (Lantus Solostar Pen) 30 units QPM SC 08/18/17 21:00 09/17/17 20:59 08/18/17 23:24 30 UNITS Albuterol/ Ipratropium (Combivent Respimat Inh) 1 puffs QID PRN INH 08/18/17 20:45 09/17/17 20:44 Isosorbide Mononitrate (Imdur Ext Rel Tab) 30 mg QAM PO 08/19/17 09:00 09/18/17 08:59 08/19/17 07:35 30 MG Lamotrigine (Lamictal Tab) 25 mg BID PO 08/18/17 21:00 09/17/17 20:59 08/19/17 07:35 25 MG Lisinopril (Zestril Tab) 5 mg QAM PO 08/19/17 09:00 09/18/17 08:59 08/19/17 07:36 5 MG Metoprolol Succinate (Toprol Xl Tab) 25 mg QAM PO 08/19/17 09:00 09/18/17 08:59 08/19/17 07:36 25 MG Nitroglycerin (Nitrostat Tab) 0.4 mg PRN UT 08/18/17 20:45 10/19/17 20:44 Multivitamins/ Minerals (Multivitamin W/ Minerals Tab) 1 tab BID PO 08/18/17 21:00 09/17/17 20:59 08/19/17 07:36 1 TAB Oxycodone/ Acetaminophen (Percocet 10-325MG Tab) 1 tab Q4H PRN PO 08/18/17 20:45 09/01/17 20:44 08/19/17 12:36 1 TAB Prednisolone Acetate (Pred Forte 1% Oph Susp) 1 drops BID OPR 08/18/17 21:00 09/17/17 20:59 Pregabalin (Lyrica Cap) 100 mg BID PO 08/18/17 21:00 09/17/17 20:59 08/19/17 07:49 100 MG Simvastatin (Zocor Tab) 40 mg QPM PO 08/18/17 21:00 09/17/17 20:59 08/18/17 23:05 40 MG Tiotropium [place] (Spiriva Handihaler Inhaler) 1 puff QAM INH 08/19/17 09:00 09/18/17 08:59 08/19/17 07:51 1 PUFF Venlafaxine HCl (effeXOR EXTENDED REL CAP) 150 mg QAM PO 08/19/17 09:00 09/18/17 08:59 08/19/17 07:35 150 MG Venlafaxine HCl (effeXOR EXTENDED REL CAP) 75 mg QAM PO 08/19/17 09:00 09/18/17 08:59 08/19/17 07:35 75 MG Albuterol (Ventolin Hfa Inhaler) 2 puffs BID INH 08/18/17 21:00 09/17/17 20:59 08/19/17 07:51 2 PUFFS Albuterol/ Ipratropium (Duoneb) 3 ml QIDR INH 08/19/17 08:00 09/18/17 07:59 08/19/17 14:14 3 ML Insulin Aspart (novoLOG ASPART) SLIDING SCALE G... ACHS SC 08/19/17 17:00 09/18/17 16:59 08/19/17 17:54 4 UNITS Glucose (Glucose 40% Gel) 15-30 GRAMS 15 GRAMS... UD PRN PO 08/19/17 17:00 09/18/17 16:59 Glucose (Glucose Chew Tab) 4-8 Tablets 4 Tabl... UD PRN PO 08/19/17 17:00 09/18/17 16:59 Dextrose (Dextrose 50% 50ML Syringe) 25-50ML OF 50% DW IV FOR... UD PRN IV 08/19/17 17:00 09/18/17 16:59 Glucagon (Glucagon Inj) 1 mg UD PRN SQ 08/19/17 17:00 09/18/17 16:59 Morphine Sulfate (MoRPHine SULFATE INJ) 4 mg Q2H PRN IV 08/19/17 18:15 09/02/17 18:14 Levofloxacin 750 mg/Prmx 150 ml @ 100 mls/hr Q24H IV 08/19/17 18:00 08/26/17 17:59 Lidocaine (Lidoderm Patch 5%) 1 patch QAM TD 08/20/17 09:00 09/19/17 08:59 Miscellaneous (Remove Lidoderm Patch) 1 ea DAILY@21 N/A 08/20/17 00:00 09/19/17 00:00 Lidocaine (Lidoderm Patch 5%) 1 patch 1830 ONCE TD 08/19/17 18:30 08/19/17 18:31 Review of Systems Constitutional: No fever, No chills, No sweats, No weight loss, No weakness, No fatigue, No problem reported Eyes: No worsening of vision, No eye pain, No redness, No discharge, No diplopia, No problem reported ENT: No hearing loss, No unusual epistaxis, No nasal symptoms, No sore throat, No tinnitus, No dental problems, No trouble swallowing, No problem reported Respiratory: No cough, No sputum, No wheezing, No shortness of breath, No dyspnea on exertion, No dyspnea at rest, No hemoptysis, No problem reported Cardiovascular: No chest pain, No orthopnea, No PND, No edema, No claudication , No palpitations, No problem reported Abdomen: No pain, No nausea, No vomiting, No diarrhea, No constipation, No GI bleeding, No problem reported Musculoskeletal: + joint pain, + muscle pain Genitourinary - Male: No hematuria, No dysuria, No urinary frequency, No urinary urgency, No urinary hesitancy, No urinary retention, No urinary incontinence, No penile discharge, No lesions, No impotence, No problem reported Neurologic: No memory loss, No paralysis, No weakness, No numbness/tingling, No vertigo, No balance problems, No problem reported Psychiatric: No depression symptoms, No anhedonism, No anxiety, No insomnia, No substance abuse, No problem reported Endocrine: No fatigue, No excessive thirst, No excessive urination, No problem reported Hematologic / Lymphatic: No abnormal bleeding/bruising, No clotting problems, No swollen lymph nodes, No night sweats, No problem reported Integumentary: No rash, No itch, No new/changing skin lesions, No color change , No bleeding, No problem reported Allergic / Immunologic: No environmental allergies, No seasonal allergies, No pet sensitivities, No food allergies, No hives, No frequent infections, No poor healing, No prolonged convalescence, No problem reported Physical Exam Date Time Temp Pulse Resp B/P (MAP) Pulse Ox O2 Delivery O2 Flow Rate FiO2 08/19/17 16:00 Room Air 08/19/17 15:46 36.4 81 22 142/86 (104) 94 Room Air 08/19/17 14:17 56 18 93 Room Air 08/19/17 12:30 Room Air 2.0 Nasal Cannula 08/19/17 11:28 36.6 64 20 172/87 (115) 95 1.5 08/19/17 11:14 85 18 97 Nasal Cannula 2.0 08/19/17 08:00 Nasal Cannula 2.0 08/19/17 07:35 67 18 93 Nasal Cannula 2.0 08/19/17 07:11 36.5 77 20 173/79 (110) 97 2.0 08/19/17 04:08 36.6 71 18 169/79 (109) 97 2.0 08/19/17 04:00 Nasal Cannula 2.0 08/19/17 00:00 96 Nasal Cannula 2.0 08/18/17 22:00 36.6 72 24 155/79 96 Nasal Cannula 2.0 08/18/17 21:45 36.9 83 16 167/98 98 08/18/17 21:03 83 16 177/112 98 Nasal Cannula 2.0 08/18/17 19:14 36.9 83 20 162/97 98 Nasal Cannula 2.0 NAD, AOx3 L spine - previous surgical scar, no pain to palpation RUE NVSI +M/R/U/AIN/PIN SILT grossly, CR< 2 seconds, +2 radial Pulse, full painless ROM of the fingers, wrist, elbow, shoulder, compartments soft, skin intact. LUE NVSI +M/R/U/AIN/PIN SILT grossly, CR< 2 seconds, +2 radial Pulse, full painless ROM of the fingers, wrist and elbow. + Pain with ROM left shoulder to flexion and abduction. He has diffuse tenderness to palpation to left should as well as ecchymosis. RLE NVSI +EHL/FHL/TA/GS SILT grossly, CR< 2 seconds, +2 DP pulse compartment soft LLE NVSI +EHL/FHL/TA/GS SILT grossly, CR< 2 seconds, +2 DP pulse compartment soft, +Pain with ROM left knee, + Pain with straight leg raise and log roll. skin intact, no ecchymosis overlying left hip. Laboratory Results Last 24 Hours Test 08/18/17 22:52 08/19/17 06:39 Bedside Glucose 156 mg/dl White Blood Count 7.72 K/uL Red Blood Count 4.12 M/uL Hemoglobin 12.1 g/dL Hematocrit 37.2 % Mean Corpuscular Volume 90.3 fL Mean Corpuscular Hemoglobin 29.4 pg Mean Corpuscular Hemoglobin Concent 32.5 g/dl Platelet Count 180 K/uL Mean Platelet Volume 10.8 fL Neutrophils (%) (Auto) 69.5 % Lymphocytes (%) (Auto) 15.4 % Monocytes (%) (Auto) 11.9 % Eosinophils (%) (Auto) 2.3 % Basophils (%) (Auto) 0.4 % Neutrophils # (Auto) 5.36 K/uL Lymphocytes # (Auto) 1.19 K/uL Monocytes # (Auto) 0.92 K/uL Eosinophils # (Auto) 0.18 K/uL Basophils # (Auto) 0.03 K/uL RDW Standard Deviation 54.9 fL RDW Coefficient of Variation 16.6 % Immature Granulocyte % (Auto) 0.5 % Immature Granulocyte # (Auto) 0.04 K/uL Prothrombin Time 13.1 SECONDS Prothromb Time International Ratio 1.2 Sodium Level 138 mmol/L Potassium Level 4.0 mmol/L Chloride Level 103 mmol/L Carbon Dioxide Level 29 mmol/L Anion Gap 6.0 mmol/L Blood Urea Nitrogen 23 mg/dl Creatinine 1.20 mg/dl Est Creatinine Clear Calc Drug Dose 70.6 ml/min Estimated GFR () 71.1 Estimated GFR (Non- 61.3 BUN/Creatinine Ratio 19.3 Random Glucose 124 mg/dl Estimated Average Glucose 169 mg/dl Hemoglobin A1c 7.5 % Calcium Level 10.0 mg/dl Pro-B-Type Natriuretic Peptide 6207 pg/ml Hepatitis C Antibody Screen NEG Assessment & Plan 71 yo male s/p fall with Left hip greater trochanter fracture -Will obtain XR taken at [facility] on 08/17/17, Left shoulder/Humerus/Clavicle -XR left femur -XR left Knee -MRI to r/o intertrochanteric hip fracture -NWB Left lower extremity pending results of MRI -If MRI positive, will proceed with operative fixation of left hip, discussed plan with patient and as well as primary medical team. CT L spine 1. Moderate degenerative disc changes throughout. 2. Very slight wedge deformity superior endplate L1 and L3 felt to be nonacute by CT criteria.. 3. Operative changes consistent with a posterior laminectomy and fusion at L4 and L5. 4. No significant compromise of the spinal canal. XR L hip Left GT fracture CT L Hip 1.Fracture base greater trochanter with partial linear extension to the superior aspect of the intertrochanteric line. 2. No evidence for direct extension to the lesser trochanter. 3. Alignment is anatomic.
--- NOTE | 2017-08-19 19:51 | DIAGNOSTIC IMAGING REPORT ---
LEFT KNEE 3 VIEWS CLINICAL HISTORY: Left knee pain status post trauma COMPARISON: Conventional graphic study of the femur performed the same day DISCUSSION: There is a suprapatellar joint effusion. There are advanced osteoarthritic changes with medial joint compartment narrowing. There are prominent dorsal patellar spurs and anterior femoral spurs. There is a prominent calcification of the posterior soft tissues. Is unclear whether this relates to an irregular calcified aneurysm, or loose body. No abnormalities of the infrapatellar tendon are visualized on conventional radiographic imaging. The previously described irregularity of the patellar soft tissues on the femur films are likely artifactual IMPRESSION: 1. Advanced degenerative change 2. No acute fractures 3. Joint effusion 4. No abnormalities of the infrapatellar soft tissues as were queried on the femur study. That finding was likely artifactual Electronically signed by: Bear Floyd M.D. 08/19/2017 7:49 PM Dictated Date/Time: 08/19/2017 7:43 PM
--- NOTE | 2017-08-19 19:54 | DIAGNOSTIC IMAGING REPORT ---
MRI OF THE LEFT HIP WITHOUT CONTRAST CLINICAL HISTORY: Left greater trochanter fracture. Evaluate for extension. COMPARISON STUDY: CT of the left hip and left femur radiographs August 19, 2017. TECHNIQUE: Utilizing a 1.5 Melinda magnet and dedicated coil, multiplanar, multiecho imaging of the left hip was performed without intravenous or intraarticular contrast. FINDINGS: Note is made of moderate marrow edema with linear hypointense signal within the greater trochanter of the left femur which reflects an acute fracture as shown on prior CT and radiographs. The fracture is mildly displaced and comminuted. The fracture does not extend through the medial cortex of the left femur and does not extend to the lesser trochanter. However, there is significant inferior extension of fracture which extends below the intertrochanteric line and involves at least 50% of the cross-sectional area of the femur on the axial sequences. No additional acute fractures are identified within the inferior pelvis or the hips. There is extensive edema within the adjacent soft tissues, including muscular edema. There is no inguinal lymphadenopathy. IMPRESSION: 1. Acute mildly displaced, comminuted vertical fracture of the greater trochanter of the left femur with inferior extension below the intertrochanteric line. Fracture nearly extends to the lesser trochanter but does not exit the medial cortex of the left femur. 2. Extensive adjacent soft tissue/intramuscular edema related to the fracture. Electronically signed by: Raman Ramsey M.D. 08/19/2017 7:53 PM Dictated Date/Time: 08/19/2017 7:34 PM
[2017-08-19] MEDS: LEVOFLOXACIN / D5W 750 MG in PREMIXED IN D5W 150 ML IV SCH (20:07)
[2017-08-19] MEDS: HYDROmorphone INJ 0.5 MG/0.5 ML SYR IV PRN (20:22)
[2017-08-19] MEDS: INSULIN GLARGINE SOLOSTAR 100 UNITS/ML 3 ML PEN SC SCH (20:43)
[2017-08-19] MEDS: SIMVASTATIN 40 MG TAB PO SCH (20:53)
[2017-08-19] MEDS: ZOLPIDEM TARTRATE 5 MG TAB PO PRN (21:51)
[2017-08-20] VITALS (15 sets, daily range): BP systolic 138–176; BP diastolic 62–93; PULSE 60–80; TEMP 36.4–36.9; O2SAT 92–99
[2017-08-20] MEDS: OXYCODONE/ACETAMINOPHEN 10/325MG TAB PO PRN ×2 (00:40→19:00)
[2017-08-20] MEDS: HYDROmorphone INJ 0.5 MG/0.5 ML SYR IV PRN ×4 (01:24→20:12)
--- NOTE | 2017-08-20 05:46 | Clinical Documentation Query ---
Dr. HEARN TRACY : Please Document Present on Admission Status for - Greater trochanter fracture of left femur ( ) Left greater trochanter fracture, POA ( ) Left greater trochanter fracture, not POA Thank You, Gab Purvis RN [phone]
[2017-08-20] MEDS ORDERED: CEFAZOLIN 2000 MG/60 ML D5W 60 ML IV SCH (06:00)
[2017-08-20 06:44] LABS: BASO % 0.3 %; BASO ABS # 0.02 K/uL (0-0.2); COMPLETE YES; EOS % 4.2 %; HEMATOCRIT 35.1 % (42-52); IG% 0.3 %; LYMPH % 13.9 %; MEAN CELL VOLUME 90.7 fL (80-100); MEAN CORPUSCULAR HEMOGLOBIN 30.2 pg (25-34); MEAN CORPUSCULAR HGB CONC 33.3 g/dl (32-36); MEAN PLATELET VOLUME 10.7 fL (7.4-10.4); MONO % 11.3 %; PLATELET COUNT 168 K/uL (130-400); RED BLOOD COUNT 3.87 M/uL (4.7-6.1); WHITE BLOOD COUNT 7.18 K/uL (4.8-10.8)
[2017-08-20 07:29] LABS: BUN/CREATININE RATIO 17.8 (10-20); CALCIUM 9.3 mg/dl (8.5-10.1); CREATININE 1.4 mg/dl (0.60-1.40); POTASSIUM 3.7 mmol/L (3.5-5.1)
[2017-08-20] MEDS: ALBUT/IPRATROP 3MG/0.5MG NEB 3 ML VIAL INH SCH ×4 (07:46→19:39)
[2017-08-20] MEDS: PREGABALIN 100 MG CAP PO SCH ×2 (08:05→22:16)
[2017-08-20] MEDS: INSULIN ASPART 100 UNITS/ML 3 ML PEN SC SCH ×5 (08:05→21:00)
[2017-08-20] MEDS: BUDESONIDE/FORMOTEROL FUMARATE 160/4.5 60 PUFFS/INHALER INH SCH ×2 (08:06→22:10)
[2017-08-20] MEDS: TIOTROPIUM BROMIDE 5 PUFF/90 MCG INH INH SCH (08:06)
[2017-08-20] MEDS: COLCHICINE 0.6 MG TAB PO SCH ×2 (08:07→22:35)
[2017-08-20] MEDS: PrednisoLONE ACET 1% OP SUSP 5 ML BTL OPR SCH ×2 (08:07→22:10)
[2017-08-20] MEDS: CEROVITE ADV FORMULA TAB PO SCH ×2 (08:08→22:35)
[2017-08-20] MEDS: ISOSORBIDE MONONITRATE 30 MG TABCR PO SCH (08:08)
[2017-08-20] MEDS: METOPROLOL SUCC 25MG EXT REL TAB PO SCH (08:08)
[2017-08-20] MEDS: LISINOPRIL 5 MG TAB PO SCH (08:08)
[2017-08-20] MEDS: VENLAFAXINE HCL XR 150 MG CAPXR PO SCH (08:08)
[2017-08-20] MEDS: FUROSEMIDE 40 MG TAB PO SCH (08:09)
[2017-08-20] MEDS: VENLAFAXINE HCL XR 75 MG CAPXR PO SCH (08:10)
[2017-08-20] MEDS: LIDODERM (LIDOCAINE) PATCH 5% TD SCH (08:10)
--- NOTE | 2017-08-20 08:23 | DIAGNOSTIC IMAGING REPORT ---
SINGLE VIEW CHEST CLINICAL HISTORY: Follow-up abnormal chest x-ray. FINDINGS: 2 AP, portable, upright chest radiographs are compared to chest x-ray and chest CT dated 08/18/2017. The patient is status post midline sternotomy. The heart is enlarged and there is atherosclerotic calcification of the thoracic aorta. The pulmonary vasculature is noncongested. Emphysema and chronic interstitial thickening are similar to previous. There is no airspace consolidation typical for pneumonia or large pleural effusion. Foci of atelectasis versus scarring are present at the lung bases. No pneumothorax is seen. The skeletal structures are osteopenic. The bony thorax is grossly intact. IMPRESSION: Cardiomegaly and emphysema. No acute cardiopulmonary abnormality is seen. Electronically signed by: Baldev Justice M.D. 08/20/2017 8:22 AM Dictated Date/Time: 08/20/2017 8:20 AM
[2017-08-20] MEDS: ALBUTEROL HFA 8 GM INHALER INH SCH (08:41)
[2017-08-20] MEDS ORDERED: ASPIRIN 81 MG ECTAB PO STA (10:43)
--- NOTE | 2017-08-20 10:49 | Cardiology Consultation ---
Cardiology Consultation Date of Consultation: Aug 20, 2017 History of Present Illness Junaid Badillo is a 71 year old male seen in cardiology consultation per the request of Dr Dewitt for preoperative cardiac assessment prior to orthopedic surgery given his history of ischemic heart disease and chronic diastolic heart failure. The patient identifies Dr Monico Galeano of [facility] as his primary triage register nurse. Per review of his outpatient [facility] chart he had most recently been seen in outpatient cardiology clinic in [place] in February, by Daniela Alcantara PA-C. At that time, stable cardiac signs and symptoms were described. The patient lives at home independently with his spouse. He states that he was in his normal state of health when the squirrel entered through his door and got into his living room. He was trying to corner the squirrel with a bucket when he lost his balance and had a mechanical fall impacting his left side. He had initially been assessed as an outpatient in [place], but had progressive discomfort and therefore was admitted via the emergency room to [facility] on 08/18/17. He has had multiple renographic studies including a head CT that was negative. 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 The patient was having ongoing left lower extremity discomfort and an MRI confirmed the presence of an acute comminuted vertical fracture of the greater trochanter of the left femur with adjacent soft tissue edema. The patient was seen by orthopedic surgery, and surgical intervention is proposed for later today. The patient has been nothing by mouth in preparation the surgery. I was asked to see the patient for preoperative cardiac evaluation. The patient describes a stable degree of exertional shortness of breath. He describes doing his activities of daily living without difficulty. He previously been on 80 mg of furosemide in the past per his outpatient chart, but he has been stable on a dose of furosemide 40 mg daily, with no recent heart failure decompensation hospitalizations within the last year. An EKG was performed on admission on 08/18/17 at 1658 and reveals sinus rhythm at 74 bpm with first-degree AV block, and frequent premature atrial contractions. Poor R-wave progression was present suggestive of past anterior septal myocardial infarction versus left ventricular hypertrophy. Telemetry has revealed sinus rhythm with occasional premature ventricular contractions and occasional premature atrial contractions. The patient is asymmetric from a palpitation standpoint. He denies any chest discomfort. In as described above , he had a mechanical fall with history that does not suggest syncope. History Past Medical History: 1. Chronic ischemic heart disease, with coronary artery bypass graft surgery 4 performed at [facility] in 2008 with HINOJOSA to LAD, saphenous vein graft to the RPDA, saphenous vein graft to OM, and saphenous vein graft to diagonal 1 2. Chronic diastolic heart failure 3. Stage III chronic any disease 4. Type 2 diabetes mellitus 5. Hypertension 6. Dyslipidemia Past Surgical History: 1. Coronary artery bypass graft surgery 2008, CABG 4 2. Cataract surgery bilaterally 2017 3. Carpal tunnel release, right side 4. Hernia repair Social History: Patient is a former smoker having smoked up to 2 packs per day for 45 years, he quit in 2006 He is to drink alcohol regularly, but does not drink anymore. He is and lives with his spouse. Family History: Per his outpatient chart his mother of congestive heart failure at age 85 Father with history of lung disease related to occupational exposure as a miner pick Review Of Systems See above for pertinent positives & negatives. A total of 10 systems reviewed and were otherwise negative. Allergies Coded Allergies: Prednisone (Verified Adverse Reaction, Intermediate, "GO CRAZY", 08/18/17) Medications Reported Home Medications Medications Dose Route/Sig Max Daily Dose Days Date Category Dose Instructions Lamictal (Lamotrigine) 25 Mg Tab 25 Mg PO BID 08/18/17 Reported Coq-10 (Coenzyme Q10 (Ubidecarenone)) 100 Mg Cap 100 Mg PO DAILY 08/18/17 Reported Folvite (Folic Acid) 1 Mg Tab 1 Mg PO DAILY 08/18/17 Reported Ocuvite Preservision (Multivitamins/Minerals) 1 Tab Tab 1 Tab PO BID 08/18/17 Reported Colchicine 0.6 Mg Tab 0.6 Mg PO BID 08/18/17 Reported Pred Forte 1% Oph (Prednisolone Acetate (Ophth)) 1 % Sherry 1 Drops OPR DIRECTED 07/27/17 Reported Effexor Extended Rel (Venlafaxine Hcl) 150 Mg Cap 150 Mg PO QAM 06/09/17 Reported Effexor (Venlafaxine Hcl) 75 Mg Tab 75 Mg PO QAM 06/09/17 Reported Symbicort 160/4.5 Inhaler (Budesonide/Formoterol Fumarate) 120 Puffs/ Aero 2 Puffs INH BID 06/09/17 Reported Spiriva Handihaler (Tiotropium [place]) 30 Puff/540 Mcg Aerp 1 Cap INH QAM 06/09/17 Reported Prinivil (Lisinopril) 5 Mg Tab 5 Mg PO QAM 06/09/17 Reported Oxygen Gas 2 Liters NA HS 06/09/17 Reported AND WITH EXERTION Toprol-Xl (Metoprolol Succinate) 25 Mg Tabcr 25 Mg PO QAM 06/09/17 Reported Imdur Ext Rel (Isosorbide Mononitrate) 30 Mg Ertab 30 Mg PO QAM 06/09/17 Reported Zocor (Simvastatin) 40 Mg Tab 40 Mg PO QPM 06/09/17 Reported Lyrica (Pregabalin) 100 Mg Cap 100 Mg PO BID 06/09/17 Reported Percocet 10MG/325MG (Oxycodone/Acetaminophen 10MG/325MG) 1 Tab Tab 1 Tab PO Q4H PRN 06/09/17 Reported Nitrostat (Nitroglycerin) 0.4 Mg Tab 0.4 Mg UT PRN 06/09/17 Reported Ventolin (Albuterol Sulfate) 2 Mg/5 Ml Syrp 1 Dose INH QID PRN 06/09/17 Reported Combivent Respimat (Ipratropium-Albuterol) 1 Aer Aer 1 Puffs INH QID PRN 06/09/17 Reported Lantus (Insulin Glargine) 100 Unit/Ml Inj 30 Units SC QPM 06/09/17 Reported Lasix (Furosemide) 40 Mg Tab 40 Mg PO QAM 06/09/17 Reported Aspirin Chewable (Aspirin) 81 Mg Chew 81 Mg PO QAM 06/09/17 Reported Proair Respiclick (Albuterol Sulfate) 108 Mcg/Act Aer 2 Puff INH BID 06/09/17 Reported Physical Exam Vital Signs (Last 8hrs): Last 8 Hrs Date Time Temp Pulse Resp B/P (MAP) Pulse Ox O2 Delivery O2 Flow Rate FiO2 08/20/17 07:50 80 18 97 Nasal Cannula 2.0 08/20/17 07:19 36.7 60 22 161/80 (107) 97 Nasal Cannula 2.0 08/20/17 04:00 94 Nasal Cannula 2.0 08/20/17 03:00 36.9 65 18 169/79 (109) 97 Nasal Cannula 2.0 General Appearance: Alert and Oriented x3. NAD. Head: Normocephalic Atraumatic. Eyes: PERRLA, EOMI, conjunctiva and sclera clear Neck: Supple. No carotid bruits noted. No JVD. No HJD. Respiratory: Breath sounds clear to auscultation bilaterally. No w/r/r. Cardiovascular: Reg rate and rhythm. S1 and S2 noted. No murmurs, rubs, gallops. PMI non displace. Abdomen: Normal bowel sounds, soft nontender. no abdominal bruits. Extremities: No edema, no clubbing or cyanosis. distal pulses 2/4 bilaterally. Neuro: No focal deficits. Psychiatric: Normal affect. Data Last Resulted 08/20/17 06:12 Red Blood Count 3.87, Mean Corpuscular Volume 90.7, Mean Corpuscular Hemoglobin 30.2, Mean Corpuscular Hemoglobin Concent 33.3, Mean Platelet Volume 10.7, Neutrophils (%) (Auto) 70.0, Lymphocytes (%) (Auto) 13.9, Monocytes (%) (Auto) 11.3, Eosinophils (%) (Auto) 4.2, Basophils (%) (Auto) 0.3, Neutrophils # (Auto ) 5.03, Lymphocytes # (Auto) 1.00, Monocytes # (Auto) 0.81, Eosinophils # (Auto ) 0.30, Basophils # (Auto) 0.02 Last Resulted 08/20/17 06:12 EKG and telemetry as noted above Summary of outpatient nuclear stress test performed at [facility] dated 12/12/15: This was a nonwalking pharmaceutical study. Technical quality of the study is good . Large sized fixed defect of moderate to severe intensity noted involving inferior wall, apical lateral, mid inferolateral and basal inferolateral segments. In presents of wall motion abnormalities in corresponding segment, the defect suggests myocardial infarction. No reversible defect was noted. TID normal at 1.10 . Inferior wall, inferolateral wall and distal 2/3 of interventricular septum are hypokinetic. The rest of left ventricle contracts normally. Left ventricular ejection fraction at rest is 37% . Post regadenoson left ventricular ejection fraction is 35%. Summary transthoracic echocardiogram performed at [facility] dated 12/11: The left ventricular endocardium is adequately assessed using ultrasonic contrast. Calculated LV ejection Fraction = 55% (bi-plane method of discs). There is a small sized posterior wall motion abnormality with hypokinesis of the segments. The left ventricular diastolic function is mildly abnormal (grade I). The left atrium is normal sized. The right atrium is mildly enlarged. The right ventricular cavity size is normal (basal dimension < 4.2 cm RV apical 4 chamber view). The right ventricular systolic function is normal as assessed by tricuspid annular plane systolic excursion (TAPSE) (normal >1.5 cm). No significant valvular disease is present. Assessment & Plan Impression: 71-year-old male 1. Status post mechanical fall with resultant left intertrochanteric fracture for which surgical intervention is planned later today 2. Stable chronic ischemic heart disease, CABG 2008 3. Well compensated chronic diastolic heart failure 4. Most recent ischemic workup took place in November 2015, with fixed perfusion defect consistent with history of ischemic heart disease Discussion/recommendations: The patient's proBNP level was elevated on admission, I think this represents his chronic diastolic heart failure, as clinically he is not having an acute decompensation of heart failure. His volume status is stable. Although the stress test performed in November 2015 ports moderate left ventricular systolic dysfunction with ejection fraction in the 30s, this was likely a technique based under estimation of his ejection fraction and because of the perfusion defect, the ejection fraction was under estimated, as he had a echocardiogram performed at the same time with normal ejection fraction and wall motion abnormality that correlated with the nuclear stress test consistent with prior scar. The patient describes no recent angina or heart failure decompensation symptoms. It appears his aspirin had been held for surgery, typically in a patient with known ischemic heart disease undergoing a procedure like this, I would continue the aspirin and therefore I have ordered for her to be administered this morning. Continue his home cardiac medications otherwise including furosemide 40 mg daily , metoprolol succinate 25 mg by mouth daily, isosorbide mononitrate 30 mg by mouth daily, simvastatin 40 mg by mouth daily, and lisinopril 5 mg by mouth daily. Will defer DVT prophylaxis recommendations to orthopedic surgery after surgery. Patient is stable from a cardiac perspective and I would recommend proceeding with surgery without further cardiac testing. I would estimate that he is at a low to low moderate risk of perioperative cardiac complication due to his history as outlined above. We do have to be certain to watch his IV fluid intake and urine output perioperatively, as he is already received a significant amount of fluid in the form of multiple antibiotics which could tip him over into volume overload is not monitored closely. I do not think we need to repeat his echocardiogram as his status appears to be stable compared to the study was producing performed in November 2015. Paul Linn DO, FACC, FACOI Associate Portfolio Mgr [facility]
--- NOTE | 2017-08-20 11:06 | Family Medicine Progress Note ---
Progress Note Date of Service Aug 20, 2017. Subjective Pt evaluation today including: conversation w/ patient, physical exam, chart review, lab review Pain: Left hip and shoulder pain PO Intake: NPO Voiding: no voiding problems, no incontinence No issues at this time Did not sleep well because he was uncomfortable No chest pain, shortness of breath, coughing or wheezing Is NPO for surgery today Constitutional: No fever, No chills Eyes: No redness, No discharge ENT: No hearing loss, No nasal symptoms, No sore throat Respiratory: No cough, No sputum, No wheezing Cardiovascular: No chest pain, No orthopnea, No edema Abdomen: No pain, No nausea, No vomiting, No diarrhea Musculoskeletal: + joint pain, + muscle pain Male : No dysuria, No urinary frequency Neurologic: No weakness, No numbness/tingling Psychiatric: No depression symptoms, No anhedonism Heme: No clotting problems, No swollen lymph nodes Skin: No rash, No itch, No new/changing skin lesions, No color change Medications Current Inpatient Medications Medications (Trade) Dose Ordered Sig/Yasmin Route Start Time Stop Time Status Last Admin Dose Admin Ioversol (Optiray 320) 111 ml UD PRN IV 08/18/17 19:30 08/22/17 19:29 Heparin Sodium (Porcine) (Heparin Sq 5000 Unit/0.5ml) 5,000 unit Q12 SQ 08/19/17 09:00 09/18/17 08:59 Future Hold 08/19/17 20:43 5,000 UNIT Acetaminophen (Tylenol Tab) 650 mg Q4H PRN PO 08/18/17 20:45 09/17/17 20:44 Al Hydrox/Mg Hydrox/Simethicone (Maalox Max Susp) 15 ml Q4H PRN PO 08/18/17 20:45 09/17/17 20:44 Magnesium Hydroxide (Milk Of Magnesia Susp) 30 ml Q12H PRN PO 08/18/17 20:45 09/17/17 20:44 Zolpidem Tartrate (Ambien Tab) 5 mg HSZ PRN PO 08/18/17 20:45 09/17/17 20:44 08/19/17 21:51 5 MG Ondansetron HCl (Zofran Inj) 4 mg Q6H PRN IV 08/18/17 20:45 09/17/17 20:44 Polyethylene (Miralax Powder Packet) 17 gm DAILY PRN PO 08/18/17 20:45 09/17/17 20:44 Budesonide/ Formoterol Fumarate (Symbicort 160/ 4.5 Inh) 2 puffs BID INH 08/18/17 21:00 09/17/17 20:59 08/20/17 08:06 2 PUFFS Colchicine (Colchicine Tab) 0.6 mg BID PO 08/18/17 21:00 09/17/17 20:59 08/20/17 08:07 0.6 MG Folic Acid (Folvite Tab) 1 mg DAILY PO 08/19/17 09:00 09/18/17 08:59 08/20/17 08:08 1 MG Furosemide (Lasix Tab) 40 mg QAM PO 08/19/17 09:00 09/18/17 08:59 08/20/17 08:09 40 MG Insulin Glargine (Lantus Solostar Pen) 30 units QPM SC 08/18/17 21:00 09/17/17 20:59 08/19/17 20:43 30 UNITS Albuterol/ Ipratropium (Combivent Respimat Inh) 1 puffs QID PRN INH 08/18/17 20:45 09/17/17 20:44 Isosorbide Mononitrate (Imdur Ext Rel Tab) 30 mg QAM PO 08/19/17 09:00 09/18/17 08:59 08/20/17 08:08 30 MG Lamotrigine (Lamictal Tab) 25 mg BID PO 08/18/17 21:00 09/17/17 20:59 08/20/17 08:08 25 MG Lisinopril (Zestril Tab) 5 mg QAM PO 08/19/17 09:00 09/18/17 08:59 08/20/17 08:08 5 MG Metoprolol Succinate (Toprol Xl Tab) 25 mg QAM PO 08/19/17 09:00 09/18/17 08:59 08/20/17 08:08 25 MG Nitroglycerin (Nitrostat Tab) 0.4 mg PRN UT 08/18/17 20:45 09/17/17 20:44 Multivitamins/ Minerals (Multivitamin W/ Minerals Tab) 1 tab BID PO 08/18/17 21:00 09/17/17 20:59 08/20/17 08:08 1 TAB Oxycodone/ Acetaminophen (Percocet 10-325MG Tab) 1 tab Q4H PRN PO 08/18/17 20:45 09/01/17 20:44 08/20/17 00:40 1 TAB Prednisolone Acetate (Pred Forte 1% Oph Susp) 1 drops BID OPR 08/18/17 21:00 09/17/17 20:59 08/20/17 08:07 1 DROPS Pregabalin (Lyrica Cap) 100 mg BID PO 08/18/17 21:00 09/17/17 20:59 08/20/17 08:05 100 MG Simvastatin (Zocor Tab) 40 mg QPM PO 08/18/17 21:00 09/17/17 20:59 08/19/17 20:53 40 MG Tiotropium [place] (Spiriva Handihaler Inhaler) 1 puff QAM INH 08/19/17 09:00 09/18/17 08:59 08/20/17 08:06 1 PUFF Venlafaxine HCl (effeXOR EXTENDED REL CAP) 150 mg QAM PO 08/19/17 09:00 09/18/17 08:59 08/20/17 08:08 150 MG Venlafaxine HCl (effeXOR EXTENDED REL CAP) 75 mg QAM PO 08/19/17 09:00 09/18/17 08:59 08/20/17 08:10 75 MG Albuterol (Ventolin Hfa Inhaler) 2 puffs BID INH 08/18/17 21:00 09/17/17 20:59 Future Hold 08/19/17 20:49 2 PUFFS Albuterol/ Ipratropium (Duoneb) 3 ml QIDR INH 08/19/17 08:00 09/18/17 07:59 08/20/17 07:46 3 ML Insulin Aspart (novoLOG ASPART) SLIDING SCALE G... ACHS SC 08/19/17 17:00 09/18/17 16:59 08/19/17 17:54 4 UNITS Glucose (Glucose 40% Gel) 15-30 GRAMS 15 GRAMS... UD PRN PO 08/19/17 17:00 09/18/17 16:59 Glucose (Glucose Chew Tab) 4-8 Tablets 4 Tabl... UD PRN PO 08/19/17 17:00 09/18/17 16:59 Dextrose (Dextrose 50% 50ML Syringe) 25-50ML OF 50% DW IV FOR... UD PRN IV 08/19/17 17:00 09/18/17 16:59 Glucagon (Glucagon Inj) 1 mg UD PRN SQ 08/19/17 17:00 09/18/17 16:59 Morphine Sulfate (MoRPHine SULFATE INJ) 4 mg Q2H PRN IV 08/19/17 18:15 09/02/17 18:14 Levofloxacin 750 mg/Prmx 150 ml @ 100 mls/hr Q24H IV 08/19/17 18:00 08/26/17 17:59 08/19/17 20:07 100 MLS/HR Lidocaine (Lidoderm Patch 5%) 1 patch QAM TD 08/20/17 09:00 09/19/17 08:59 08/20/17 08:10 1 PATCH Miscellaneous (Remove Lidoderm Patch) 1 ea DAILY@21 N/A 08/20/17 00:00 09/19/17 00:00 08/19/17 23:28 1 EA Hydromorphone HCl (Dilaudid Inj) 0.5 mg Q3H PRN IV 08/19/17 20:00 09/02/17 19:59 08/20/17 07:33 0.5 MG Vancomycin HCl 1500 mg/Sodium Chloride 530 ml @ 200 mls/hr PREOP IV 08/21/17 06:00 08/21/17 08:38 Cefazolin Sodium 2000 mg/Dextrose 60 ml @ 100 mls/hr PREOP IV 08/21/17 06:00 08/22/17 18:00 Aspirin (Ecotrin Tab) 81 mg QAM PO 08/21/17 09:00 09/20/17 08:59 Objective Physical Exam General Appearance: WD/WN, no apparent distress Eyes: normal inspection, EOMI ENT: hearing grossly normal, pharynx normal Neck: supple, no adenopathy, no JVD Respiratory/Chest: lungs clear, no respiratory distress Cardiovascular: regular rate, rhythm, no gallop, no JVD Abdomen: normal bowel sounds Extremities: + pertinent finding (Left pain in all ROM; Left shoulder bruising with tenderness to palpation) Neurologic/Psychiatric: alert, normal mood/affect, oriented x 3 Skin: normal color, warm/dry, no rash Lymphatic: no adenopathy Laboratory Results Last 24 Hours Test 08/20/17 06:12 08/20/17 07:22 White Blood Count 7.18 K/uL Red Blood Count 3.87 M/uL Hemoglobin 11.7 g/dL Hematocrit 35.1 % Mean Corpuscular Volume 90.7 fL Mean Corpuscular Hemoglobin 30.2 pg Mean Corpuscular Hemoglobin Concent 33.3 g/dl Platelet Count 168 K/uL Mean Platelet Volume 10.7 fL Neutrophils (%) (Auto) 70.0 % Lymphocytes (%) (Auto) 13.9 % Monocytes (%) (Auto) 11.3 % Eosinophils (%) (Auto) 4.2 % Basophils (%) (Auto) 0.3 % Neutrophils # (Auto) 5.03 K/uL Lymphocytes # (Auto) 1.00 K/uL Monocytes # (Auto) 0.81 K/uL Eosinophils # (Auto) 0.30 K/uL Basophils # (Auto) 0.02 K/uL RDW Standard Deviation 54.4 fL RDW Coefficient of Variation 16.4 % Immature Granulocyte % (Auto) 0.3 % Immature Granulocyte # (Auto) 0.02 K/uL Sodium Level 141 mmol/L Potassium Level 3.7 mmol/L Chloride Level 104 mmol/L Carbon Dioxide Level 30 mmol/L Anion Gap 7.0 mmol/L Blood Urea Nitrogen 25 mg/dl Creatinine 1.40 mg/dl Est Creatinine Clear Calc Drug Dose 61.0 ml/min Estimated GFR () 59.0 Estimated GFR (Non- 50.9 BUN/Creatinine Ratio 17.8 Random Glucose 93 mg/dl Calcium Level 9.3 mg/dl Pro-B-Type Natriuretic Peptide 3339 pg/ml Bedside Glucose 105 mg/dl Assessment and Plan 71 year old presenting to [facility] with pneumonia and left hip fracture. Yesterday extensive work-up was pursued in conjunction with orthopedic service to confirming presence of fracture that needs operative intervention. From a respiratory standpoint he seems to be at baseline without evidence of COPD exacerbation or acute CHF. He can be treated at this time for a CAP He is no longer confused and mentating well. Intermittent confusion, based on my conversation with yesterday is like intermittent hypoxia due to COPD. Community Acquired Pneumonia - Antibiotics de-escalated today to Levaquin - Currently on baseline home O2 needs - Will continue antibiotics for total 7 day course History of Fall - Mechanical - Reviewed x-rays from [place]; no acute fractures to shoulder/humerus Addendum to left hand x-ray notes fracture to 4th digit in left hand noted; will consult orthopedics - Repeat imaging at [facility] negative Left Greater Trochanteric Fracture, Present on Arrival - Surgical correction indicated - Given co-morbidities, Cardiology evaluation was requested; recommendations appreciated - Morphine, Dilaudid and Lidoderm patch for pain control - Will need post-operative PT and OT evaluations to determine needs Altered Mental Status - Not present at this time - Based on collateral from , is a long-standing phenomenon, presumably related to intermittent hypoxia from COPD - Currently mentating at baseline without concern for acute delirium Congestive Heart Failure - Records reviewed; most recently done on 12/11/2015 with EF 55% - Cardiology consulted for pre-operative evaluation - Continue JENNIFER-I, Beta mary, Aspirin, Lasix 40mg daily Type 2 Diabetes Mellitus - Continue home Lantus regimen - Start Insulin SSI - HbA1c 7.5 - AC/HS accuchecks Hilar Lymphadenopathy - Reactive to left basilar infiltrate - Will need outpatient repeat CT scan; this can be done by PCP Chronic Lumbar Spinal Stenosis - Continue Lyrica - Continue Oxycodone DVT Prophylaxis - SCD Knee, GHASSAN Hose - Lovenox 40 mg s.c. daily Code Status - Level I Full Code Disposition - Med/Surg - OT and PT evaluations Continued [facility] stay due to: ambulation difficulties Discharge planning: uncertain Reviewed: Pt Seen/Exam by Me History continues to have hip pain. for OR today after cardiology clearance Constitutional: denies: fever Respiratory: negative: short of breath Cardiovascular: denies chest pain Gastrointestinal/Abdominal: negative: abdominal pain Musculoskeletal: positive: other (hip pain) General Appearance: no apparent distress Respiratory: lungs clear, no respiratory distress Cardiovascular: regular rate, rhythm Neurologic/Psychiatric: alert, oriented x 3 Skin Characteristics: warm/dry Assessment/Plan Resident Physician Supervision Note: I was present with Dr. Dewitt in bedside. I verified the jiménez history and physical, reviewed labs and image studies, discussed the case with the resident and agree with the findings and care plan.
[2017-08-20] MEDS ORDERED: VANCOMYCIN INJ 1,500 MG in SODIUM CHLORIDE 0.9% 500ML 500 ML IV SCH (12:00)
[2017-08-20] MEDS ORDERED: FENTANYL CITRATE INJ 50 MCG/1 ML 2 ML VIAL ONE (12:23)
[2017-08-20] MEDS ORDERED: BUPIVACAINE 0.5 % 5 MG/1 ML MPF 30ML VIAL ONE (13:07)
--- NOTE | 2017-08-20 13:12 | Orthopedic Progress Note ---
Orthopedic Progress Note Date of Service Aug 20, 2017. Subjective Additional Notes: Patient seen at beside, comfortable, +pain with moving LLE, no acute issues overnight. Objective NAD, AOX3 LLE NVSI +EHL/FHL/TA/GS SILT grossly, CR< 2 seconds, +2 DP pulse, compartments soft NT, skin intact over left hip Date Time Temp Pulse Resp B/P (MAP) Pulse Ox O2 Delivery O2 Flow Rate FiO2 08/20/17 11:46 159/78 (105) 08/20/17 11:31 64 15 94 Room Air 08/20/17 11:07 36.8 63 20 176/62 (100) 92 Room Air 08/20/17 08:00 Room Air 08/20/17 07:50 80 18 97 Nasal Cannula 2.0 08/20/17 07:19 36.7 60 22 161/80 (107) 97 Nasal Cannula 2.0 08/20/17 04:00 94 Nasal Cannula 2.0 08/20/17 03:00 36.9 65 18 169/79 (109) 97 Nasal Cannula 2.0 08/19/17 23:59 94 Nasal Cannula 2.0 08/19/17 23:48 36.5 72 20 151/85 (107) 94 2.0 08/19/17 20:57 80 160/80 (106) 08/19/17 20:09 80 18 94 Room Air 08/19/17 20:00 Room Air 08/19/17 19:00 80 18 171/79 (109) 94 Room Air 08/19/17 16:00 Room Air 08/19/17 15:46 36.4 81 22 142/86 (104) 94 Room Air 08/19/17 14:17 56 18 93 Room Air Laboratory Results 24 Hours: Test 08/20/17 06:12 White Blood Count 7.18 K/uL Red Blood Count 3.87 M/uL Hemoglobin 11.7 g/dL Hematocrit 35.1 % Mean Corpuscular Volume 90.7 fL Mean Corpuscular Hemoglobin 30.2 pg Mean Corpuscular Hemoglobin Concent 33.3 g/dl Platelet Count 168 K/uL Mean Platelet Volume 10.7 fL Neutrophils (%) (Auto) 70.0 % Lymphocytes (%) (Auto) 13.9 % Monocytes (%) (Auto) 11.3 % Eosinophils (%) (Auto) 4.2 % Basophils (%) (Auto) 0.3 % Neutrophils # (Auto) 5.03 K/uL Lymphocytes # (Auto) 1.00 K/uL Monocytes # (Auto) 0.81 K/uL Eosinophils # (Auto) 0.30 K/uL Basophils # (Auto) 0.02 K/uL Assessment & Plan Assessment: 71 yo Male with left hip GT fracture with intertrochanteric extension Plan: -I personally reviewed the CT and MRI of the left hip and dx the patient with a GT fracture involving the IT region. I discussed at length the patients diagnosis and reviewed both operative and non operative treatment options. I explained the risk and benefits of both operative and non operative treatments and answered all questions to satisfaction. The patient consented to proceed with operative fixation of his left hip. -Consented for left hip cephalomedullary nail -Vanc and Ancef house calls nurse practitioner to OR -NWB LLE -Hold anticoagulation -NPO
[2017-08-20] MEDS ORDERED: BUPIVACAINE 0.5 % 5 MG/1 ML PF 10ML VIAL ONE (13:20)
[2017-08-20] MEDS ORDERED: PHENYLEPHRINE 100MCG/ML 5ML SYR IV PRN (13:30)
[2017-08-20] MEDS ORDERED: ATROPINE SULFATE 0.1 MG/ML 5ML SYR IV PRN (13:30)
[2017-08-20] MEDS ORDERED: EpHEDrine SULFATE INJ 50 MG/ML AMP IV PRN (13:30)
[2017-08-20] MEDS ORDERED: HYDROmorphone INJ 2 MG/ML SYR/VIAL IV PRN (13:30)
[2017-08-20] MEDS ORDERED: ONDANSETRON INJ 2 MG/ML 2 ML VIAL IV PRN (13:30)
[2017-08-20] MEDS ORDERED: LIDOCAINE HCL 2% 2 ML VIAL (20MG/ML) ONE (14:30)
[2017-08-20] MEDS ORDERED: PROPOFOL IV EMULSION 10 MG/ML 20 ML VIAL IV ONE (14:30)
[2017-08-20] MEDS ORDERED: EpHEDrine SULFATE 50MG/5ML SYR ONE (14:30)
--- NOTE | 2017-08-20 14:43 | DIAGNOSTIC IMAGING REPORT ---
INTRAOPERATIVE RADIOGRAPHS CLINICAL HISTORY: Open reduction and internal fixation of the left femur. Fluoroscopy time: 73 seconds. FINDINGS: 4 spot fluoroscopic views of the left femur are correlated with femoral radiographs dated 08/17/2017. Intertrochanteric and intramedullary nails have been placed in the left femur transfixing an intertrochanteric fracture. Near-anatomic alignment is maintained. A single cortical lag screw transfixes the distal aspect of the nail. IMPRESSION: Intraoperative images from open reduction and internal fixation of the left femur as above. Electronically signed by: Baldev Justice M.D. 08/20/2017 2:41 PM Dictated Date/Time: 08/20/2017 2:40 PM
--- NOTE | 2017-08-20 15:13 | [facility] Operative Report ---
Operative Report Operative Date Aug 20, 2017. Pre-Operative Diagnosis Left hip fracture Post-Operative Diagnosis Left hip fracture Procedure(s) Performed Intertrochanteric Nail Hip Left Surgeon Dr. Sadi Mckeon Billboard Installer Surgeon(s) none Estimated Blood Loss 35ML Findings See dictated op note Fluids 1100 LR Specimens none Drains none Anesthesia spinal Disposition Recovery Room / PACU Indications Mr. Badillo is a 71-year-old male who presented with a left greater trochanteric fracture with extension into the intertrochanteric region as seen on x-ray and CT scan. An MRI was performed to better define the fracture severity. It was discovered that the fracture extended into and beyond the intertrochanteric region. I discussed at length the risks and benefits of surgical fixation with Mr. Badillo and his Patt. I also discussed the risks and benefits of nonoperative treatment. The patient and his collectively agreed to proceed with surgical fixation of his left hip and consented at this time. All questions were answered to satisfaction. Description of Procedure DESCRIPTION OF PROCEDURE: Following induction of adequate spinal anesthesia, the patient was placed on the fracture table and the left hip was prepped and draped in usual sterile manner. The incision was made from the tip of the greater trochanter proximally. Subcutaneous tissue was sharply dissected to the tip of the greater trochanter, electrocautery used for hemostasis. Under fluoroscopic guidance the drill tipped guidewire was placed at the tip of the greater trochanter and advanced into the medullary canal and overdrilled using the intramedullary drill with tissue protected attached. A 11 mm short Synthes nail was impacted into position and confirmed by fluoro. The short nail was locked proximally with a 100 mm helical blade. The short nail was locked distally using a single 44 mm cortical bone screw. Final radiographs were taken to confirm overall position and fracture reduction. Incisions were irrigated and closed using #1 Vicryl for deep fascia , 2-0 Vicryl subcutaneous and rj in the skin. Sterile dressing, Xeroform gauze, 4x4s and tegaderm were applied. The patient tolerated the procedure well and was transported to the PACU in stable condition. I attest to the content of the Intraoperative Record and any orders documented therein. Any exceptions are noted below.
--- NOTE | 2017-08-20 15:13 | [facility] Post Operative Brief Note ---
Immediate Operative Summary Operative Date Aug 20, 2017. Pre-Operative Diagnosis Left hip fracture Post-Operative Diagnosis Left hip fracture Procedure(s) Performed Intertrochanteric Nail Hip Left Surgeon Dr. Sadi Mckeon Warp Worker Surgeon(s) none Estimated Blood Loss 35ML Findings see dictated op note Fluids (cc crystalloids) 1100 LR Specimens none Drains none Anesthesia spinal Complication(s) None Disposition Recovery Room / PACU
[2017-08-20] MEDS ORDERED: SODIUM CHLORIDE 0.9% 1000ML 1,000 ML IV ONE (15:20)
--- NOTE | 2017-08-20 15:29 | Anesthesiology Progress Note ---
Anesthesia Post Op Note Date & Time Aug 20, 2017 at 15:29 Vital Signs Pain Intensity: 0 Vital Signs Past 12 Hours Date Time Temp Pulse Resp B/P (MAP) Pulse Ox O2 Delivery O2 Flow Rate FiO2 08/20/17 15:21 141/88 08/20/17 15:18 60 15 08/20/17 15:18 61 15 96 08/20/17 15:16 132/72 08/20/17 15:13 59 14 08/20/17 15:13 59 14 100 08/20/17 15:12 58 15 08/20/17 15:12 57 15 100 08/20/17 15:11 128/78 08/20/17 15:07 61 15 100 08/20/17 15:07 61 15 08/20/17 15:06 134/90 08/20/17 15:02 60 15 08/20/17 15:02 61 15 100 08/20/17 15:01 125/74 08/20/17 14:57 61 18 99 08/20/17 14:57 58 18 08/20/17 14:56 95/69 08/20/17 14:53 105/63 08/20/17 14:52 64 16 95 08/20/17 14:52 36.8 63 16 105/63 95 Oxymask 10 08/20/17 14:52 63 16 08/20/17 11:46 159/78 (105) 08/20/17 11:31 64 15 94 Room Air 08/20/17 11:07 36.8 63 20 176/62 (100) 92 Room Air 08/20/17 08:00 Room Air 08/20/17 07:50 80 18 97 Nasal Cannula 2.0 08/20/17 07:19 36.7 60 22 161/80 (107) 97 Nasal Cannula 2.0 08/20/17 04:00 94 Nasal Cannula 2.0 Notes Mental Status: alert / awake / arousable, participated in evaluation Pt Amnestic to Procedure: Yes Nausea / Vomiting: adequately controlled Pain: adequately controlled Airway Patency, RR, SpO2: stable & adequate BP & HR: stable & adequate Hydration State: stable & adequate Neuraxial Anesthesia: was administered, sensory block is resolving Anesthetic Complications: no major complications apparent
--- NOTE | 2017-08-20 15:54 | DIAGNOSTIC IMAGING REPORT ---
L HIP UNILATERAL 2 VIEWS CLINICAL HISTORY: post op LEFT HIP FRACTURE. COMPARISON: CT scan dated 08/19/2017 DISCUSSION: There is been internal fixation of the patient's left hip fracture with a femoral neck nail and interlocking intramedullary akosua. Alignment appears anatomic. There is no dislocation. Overlying skin rj are visualized. IMPRESSION: Interval internal fixation of the patient's left hip fracture with a femoral neck nail and interlocking intramedullary akosua Electronically signed by: Bear Floyd M.D. 08/20/2017 3:53 PM Dictated Date/Time: 08/20/2017 3:47 PM
[2017-08-20] MEDS ORDERED: NURSING VERBAL MED ORDER ONE (16:45)
--- NOTE | 2017-08-20 17:42 | Progress Note ---
Progress Note Date of Service Aug 20, 2017. Progress Note Post op check Patient comfortable, denies pain, spinal block still wearing off, able to wiggle toes slightly. No acute issues. LLE NVSI +EHL/FHL/TA/GS SILT grossly, CR< 2 seconds, +2 DP pulse, compartment soft NT, Dressing CDI s/p Left hip cephalomedullary nail -WBAT LLE -ASA BID for DVT PPX -PT/OT -Pain controlled -Ancef X 24hrs -DC Skinner POD1
[2017-08-20] MEDS: LEVOFLOXACIN / D5W 750 MG in PREMIXED IN D5W 150 ML IV SCH (19:13)
[2017-08-20] MEDS: CEFAZOLIN IV 2,000 MG in DEXTROSE 5% 50ML 50 ML IV SCH (21:13)
[2017-08-20] MEDS: INSULIN GLARGINE SOLOSTAR 100 UNITS/ML 3 ML PEN SC SCH (22:08)
--- NOTE | 2017-08-20 22:33 | DIAGNOSTIC IMAGING REPORT ---
L HIP UNILATERAL 2 VIEWS CLINICAL HISTORY: 71 years-old Male presenting with Better quality post op films of implant, especially lateral view. TECHNIQUE: Frontal and crosstable lateral views of the left hip were obtained. COMPARISON: 08/20/2017 at 3:34 PM. FINDINGS: Intramedullary nail fixation of the left femoral neck and proximal metadiaphysis with interlocking diaphyseal screw for the subcapital femoral neck fracture. No malalignment. No hardware complication. Hip joint congruent. Surgical skin rj noted. Atherosclerosis. Degenerative changes of the pubic symphysis. IMPRESSION: Expected postsurgical appearance status post internal fixation of the left subcapital femoral neck fracture. No change since the prior radiograph earlier today. Electronically signed by: Braeden Cruz M.D. 08/20/2017 10:32 PM Dictated Date/Time: 08/20/2017 10:29 PM
[2017-08-20] MEDS: SIMVASTATIN 40 MG TAB PO SCH (22:35)
[2017-08-21] VITALS (11 sets, daily range): BP systolic 124–162; BP diastolic 69–85; PULSE 70–114; TEMP 36.5–37; O2SAT 85–96
[2017-08-21] MEDS: HYDROmorphone INJ 0.5 MG/0.5 ML SYR IV PRN ×3 (00:06→08:49)
[2017-08-21] MEDS ORDERED: VANCOMYCIN TROUGH SCH (03:30)
[2017-08-21] MEDS: OXYCODONE/ACETAMINOPHEN 10/325MG TAB PO PRN (04:00)
[2017-08-21] MEDS: CEFAZOLIN IV 2,000 MG in DEXTROSE 5% 50ML 50 ML IV SCH (04:02)
[2017-08-21] MEDS ORDERED: CEFAZOLIN IV 2,000 MG in DEXTROSE 5% 50ML 50 ML IV SCH (06:00)
[2017-08-21] MEDS ORDERED: VANCOMYCIN INJ 1,500 MG in SODIUM CHLORIDE 0.9% 500ML 500 ML IV SCH (06:00)
[2017-08-21 06:09] LABS: BASO % 0.2 %; BASO ABS # 0.02 K/uL (0-0.2); COMPLETE YES; EOS % 4.7 %; HEMATOCRIT 34.9 % (42-52); IG% 0.5 %; LYMPH % 9.8 %; LYMPH ABS # 0.82 K/uL (1.2-3.4); MEAN CELL VOLUME 90.2 fL (80-100); MEAN CORPUSCULAR HEMOGLOBIN 28.4 pg (25-34); MEAN CORPUSCULAR HGB CONC 31.5 g/dl (32-36); MEAN PLATELET VOLUME 10.4 fL (7.4-10.4); MONO % 9.9 %; NEUT % 74.9 %; PLATELET COUNT 162 K/uL (130-400); RED BLOOD COUNT 3.87 M/uL (4.7-6.1); WHITE BLOOD COUNT 8.36 K/uL (4.8-10.8)
[2017-08-21 06:40] LABS: BUN/CREATININE RATIO 18.7 (10-20); CALCIUM 8.9 mg/dl (8.5-10.1); CREATININE 1.5 mg/dl (0.60-1.40); POTASSIUM 3.9 mmol/L (3.5-5.1)
[2017-08-21] MEDS: ALBUT/IPRATROP 3MG/0.5MG NEB 3 ML VIAL INH SCH ×4 (07:22→19:51)
--- NOTE | 2017-08-21 07:31 | Orthopedic Progress Note ---
Orthopedic Progress Note Date of Service Aug 21, 2017. Subjective Post OP Day: 1 Reports: feeling well, complaints Additional Notes: Patient seen sitting in chair, c/o pain overnight, didn't sleep, denies SOB, CP , Nausea, Vomiting, Fevers, Chills. Objective LLE NVSI +EHL/FHL/TA/GS SILT grossly, CR< 2 seconds, +2 DP pulse, compartments soft NT, Dressing CDI Date Time Temp Pulse Resp B/P (MAP) Pulse Ox O2 Delivery O2 Flow Rate FiO2 08/21/17 05:18 153/82 (105) 08/21/17 04:24 36.5 114 20 92 Nasal Cannula 3.0 08/21/17 00:01 Nasal Cannula 2.0 08/20/17 23:14 36.8 79 18 138/78 (98) 92 Nasal Cannula 3.0 08/20/17 20:00 36.6 78 18 171/69 (103) 95 Room Air 08/20/17 19:43 77 16 97 Nasal Cannula 2.0 08/20/17 19:20 36.5 75 18 163/72 (102) 97 08/20/17 18:30 36.5 69 18 171/93 (119) 96 Nasal Cannula 2.0 08/20/17 17:20 36.4 66 16 167/85 (112) 99 Nasal Cannula 2.0 08/20/17 16:47 36.4 61 16 164/83 (110) 95 Nasal Cannula 2.0 08/20/17 16:20 94 Nasal Cannula 2.0 08/20/17 16:20 Nasal Cannula 2.0 08/20/17 16:20 36.4 60 16 162/85 (110) 94 Nasal Cannula 2.0 08/20/17 16:04 63 20 08/20/17 16:04 63 20 95 08/20/17 16:02 137/89 08/20/17 15:59 66 21 94 08/20/17 15:59 67 21 08/20/17 15:58 61 23 08/20/17 15:58 63 23 95 08/20/17 15:53 64 24 08/20/17 15:53 64 24 95 08/20/17 15:51 152/82 08/20/17 15:48 60 17 08/20/17 15:48 61 17 97 08/20/17 15:47 61 16 96 08/20/17 15:47 59 16 08/20/17 15:46 153/80 08/20/17 15:43 37.0 08/20/17 15:42 61 17 08/20/17 15:42 61 17 96 08/20/17 15:41 151/82 08/20/17 15:38 61 20 08/20/17 15:38 62 20 95 08/20/17 15:36 149/83 08/20/17 15:33 61 13 08/20/17 15:33 61 13 96 08/20/17 15:32 61 17 08/20/17 15:32 62 17 95 08/20/17 15:31 148/83 08/20/17 15:27 61 14 97 08/20/17 15:27 61 14 08/20/17 15:26 145/80 08/20/17 15:22 62 16 08/20/17 15:22 63 16 95 08/20/17 15:21 141/88 08/20/17 15:18 60 15 08/20/17 15:18 61 15 96 08/20/17 15:16 132/72 08/20/17 15:13 59 14 08/20/17 15:13 59 14 100 08/20/17 15:12 58 15 08/20/17 15:12 57 15 100 08/20/17 15:11 128/78 08/20/17 15:07 61 15 100 08/20/17 15:07 61 15 08/20/17 15:06 134/90 08/20/17 15:02 60 15 08/20/17 15:02 61 15 100 08/20/17 15:01 125/74 08/20/17 14:57 61 18 99 08/20/17 14:57 58 18 08/20/17 14:56 95/69 08/20/17 14:53 105/63 08/20/17 14:52 64 16 95 08/20/17 14:52 36.8 63 16 105/63 95 Oxymask 10 08/20/17 14:52 63 16 08/20/17 11:46 159/78 (105) 08/20/17 11:31 64 15 94 Room Air 08/20/17 11:07 36.8 63 20 176/62 (100) 92 Room Air 08/20/17 08:00 Room Air 08/20/17 07:50 80 18 97 Nasal Cannula 2.0 Laboratory Results 24 Hours: Test 08/21/17 05:43 White Blood Count 8.36 K/uL Red Blood Count 3.87 M/uL Hemoglobin 11.0 g/dL Hematocrit 34.9 % Mean Corpuscular Volume 90.2 fL Mean Corpuscular Hemoglobin 28.4 pg Mean Corpuscular Hemoglobin Concent 31.5 g/dl Platelet Count 162 K/uL Mean Platelet Volume 10.4 fL Neutrophils (%) (Auto) 74.9 % Lymphocytes (%) (Auto) 9.8 % Monocytes (%) (Auto) 9.9 % Eosinophils (%) (Auto) 4.7 % Basophils (%) (Auto) 0.2 % Neutrophils # (Auto) 6.26 K/uL Lymphocytes # (Auto) 0.82 K/uL Monocytes # (Auto) 0.83 K/uL Eosinophils # (Auto) 0.39 K/uL Basophils # (Auto) 0.02 K/uL Assessment & Plan Assessment: 71 yo Male with left hip GT fracture with intertrochanteric extension Plan: -Ancef x 24 -ASA BID DVT ppx -WBAT LLE -PT/OT -AM labs -XR L Hip in radiology debt for higher quality post op images
[2017-08-21] MEDS ORDERED: OXYCODONE HCL IR 5 MG TAB (IMMEDIATE RELEASE) PO PRN ×2 (07:45)
--- NOTE | 2017-08-21 08:27 | Anesthesiology Progress Note ---
Anesthesia Post Op Note Date & Time Aug 21, 2017 at 08:26 Vital Signs Vital Signs Past 12 Hours Date Time Temp Pulse Resp B/P (MAP) Pulse Ox O2 Delivery O2 Flow Rate FiO2 08/21/17 07:29 70 16 91 Room Air 08/21/17 05:18 153/82 (105) 08/21/17 04:24 36.5 114 20 92 Nasal Cannula 3.0 08/21/17 00:01 Nasal Cannula 2.0 08/20/17 23:14 36.8 79 18 138/78 (98) 92 Nasal Cannula 3.0 Notes Mental Status: alert / awake / arousable, participated in evaluation Pt Amnestic to Procedure: Yes Nausea / Vomiting: adequately controlled Pain: adequately controlled Airway Patency, RR, SpO2: stable & adequate BP & HR: stable & adequate Hydration State: stable & adequate Neuraxial Anesthesia: sensory block resolved Anesthetic Complications: no major complications apparent
[2017-08-21] MEDS: TIOTROPIUM BROMIDE 5 PUFF/90 MCG INH INH SCH (08:57)
[2017-08-21] MEDS: PrednisoLONE ACET 1% OP SUSP 5 ML BTL OPR SCH ×2 (08:58→20:47)
[2017-08-21] MEDS: BUDESONIDE/FORMOTEROL FUMARATE 160/4.5 60 PUFFS/INHALER INH SCH ×2 (08:58→20:46)
[2017-08-21] MEDS: ASPIRIN/ALUM/MAGNES/CAL CARB 325 MG TAB PO SCH ×2 (08:59→20:47)
[2017-08-21] MEDS: COLCHICINE 0.6 MG TAB PO SCH ×2 (09:00→20:47)
[2017-08-21] MEDS: CEROVITE ADV FORMULA TAB PO SCH ×2 (09:00→20:47)
[2017-08-21] MEDS ORDERED: ASPIRIN 81 MG ECTAB PO SCH (09:00)
[2017-08-21] MEDS: PREGABALIN 100 MG CAP PO SCH ×2 (09:01→20:47)
[2017-08-21] MEDS: INSULIN ASPART 100 UNITS/ML 3 ML PEN SC SCH ×4 (09:09→20:58)
[2017-08-21] MEDS: VENLAFAXINE HCL XR 150 MG CAPXR PO SCH (10:24)
[2017-08-21] MEDS: VENLAFAXINE HCL XR 75 MG CAPXR PO SCH (10:24)
[2017-08-21] MEDS: LISINOPRIL 5 MG TAB PO SCH (10:25)
[2017-08-21] MEDS: FUROSEMIDE 40 MG TAB PO SCH (10:25)
[2017-08-21] MEDS: METOPROLOL SUCC 25MG EXT REL TAB PO SCH (10:26)
[2017-08-21] MEDS: ISOSORBIDE MONONITRATE 30 MG TABCR PO SCH (10:26)
[2017-08-21] MEDS: LIDODERM (LIDOCAINE) PATCH 5% TD SCH (10:27)
[2017-08-21] MEDS: OXYCODONE HCL IR 5 MG TAB (IMMEDIATE RELEASE) PO PRN ×3 (11:10→23:32)
[2017-08-21] MEDS: OXYCODONE HCL 10 MG TABCR (OXYCONTIN) PO SCH ×2 (11:10→20:47)
[2017-08-21] MEDS ORDERED: SODIUM CHLORIDE 0.9% 1000ML 1,000 ML IV ONE (11:45)
--- NOTE | 2017-08-21 11:45 | Family Medicine Progress Note ---
Progress Note Date of Service Aug 21, 2017. Subjective Pt evaluation today including: conversation w/ patient, physical exam, chart review, lab review Pain: Complains of persistent left hip and left arm pain PO Intake: Good Voiding: no voiding problems S/p left hip intertrochanteric nail fixation Complains of continued pain to hip and left upper extremities No appetite and voiding issues No fevers overnight No complaints or concerns by nuring staff All Other Systems: Reviewed and Negative Medications Current Inpatient Medications Medications (Trade) Dose Ordered Sig/Yasmin Route Start Time Stop Time Status Last Admin Dose Admin Ioversol (Optiray 320) 111 ml UD PRN IV 08/18/17 19:30 08/22/17 19:29 Heparin Sodium (Porcine) (Heparin Sq 5000 Unit/0.5ml) 5,000 unit Q12 SQ 08/19/17 09:00 09/18/17 08:59 Future Hold 08/19/17 20:43 5,000 UNIT Al Hydrox/Mg Hydrox/Simethicone (Maalox Max Susp) 15 ml Q4H PRN PO 08/18/17 20:45 09/17/17 20:44 Magnesium Hydroxide (Milk Of Magnesia Susp) 30 ml Q12H PRN PO 08/18/17 20:45 09/17/17 20:44 Zolpidem Tartrate (Ambien Tab) 5 mg HSZ PRN PO 08/18/17 20:45 09/17/17 20:44 08/19/17 21:51 5 MG Ondansetron HCl (Zofran Inj) 4 mg Q6H PRN IV 08/18/17 20:45 09/17/17 20:44 Polyethylene (Miralax Powder Packet) 17 gm DAILY PRN PO 08/18/17 20:45 09/17/17 20:44 Budesonide/ Formoterol Fumarate (Symbicort 160/ 4.5 Inh) 2 puffs BID INH 08/18/17 21:00 09/17/17 20:59 08/21/17 08:58 2 PUFFS Colchicine (Colchicine Tab) 0.6 mg BID PO 08/18/17 21:00 09/17/17 20:59 08/21/17 09:00 0.6 MG Folic Acid (Folvite Tab) 1 mg DAILY PO 08/19/17 09:00 09/18/17 08:59 08/21/17 10:25 1 MG Furosemide (Lasix Tab) 40 mg QAM PO 08/19/17 09:00 09/18/17 08:59 08/21/17 10:25 40 MG Insulin Glargine (Lantus Solostar Pen) 30 units QPM SC 08/18/17 21:00 09/17/17 20:59 08/20/17 22:08 30 UNITS Albuterol/ Ipratropium (Combivent Respimat Inh) 1 puffs QID PRN INH 08/18/17 20:45 09/17/17 20:44 Isosorbide Mononitrate (Imdur Ext Rel Tab) 30 mg QAM PO 08/19/17 09:00 09/18/17 08:59 08/21/17 10:26 30 MG Lamotrigine (Lamictal Tab) 25 mg BID PO 08/18/17 21:00 09/17/17 20:59 08/21/17 09:01 25 MG Lisinopril (Zestril Tab) 5 mg QAM PO 08/19/17 09:00 09/18/17 08:59 08/21/17 10:25 5 MG Metoprolol Succinate (Toprol Xl Tab) 25 mg QAM PO 08/19/17 09:00 09/18/17 08:59 08/21/17 10:26 25 MG Nitroglycerin (Nitrostat Tab) 0.4 mg PRN UT 08/18/17 20:45 09/17/17 20:44 Multivitamins/ Minerals (Multivitamin W/ Minerals Tab) 1 tab BID PO 08/18/17 21:00 09/17/17 20:59 08/21/17 09:00 1 TAB Prednisolone Acetate (Pred Forte 1% Oph Susp) 1 drops BID OPR 08/18/17 21:00 09/17/17 20:59 08/21/17 08:58 1 DROPS Pregabalin (Lyrica Cap) 100 mg BID PO 08/18/17 21:00 09/17/17 20:59 08/21/17 09:01 100 MG Simvastatin (Zocor Tab) 40 mg QPM PO 08/18/17 21:00 09/17/17 20:59 08/20/17 22:35 40 MG Tiotropium [place] (Spiriva Handihaler Inhaler) 1 puff QAM INH 08/19/17 09:00 09/18/17 08:59 08/21/17 08:57 1 PUFF Venlafaxine HCl (effeXOR EXTENDED REL CAP) 150 mg QAM PO 08/19/17 09:00 09/18/17 08:59 08/21/17 10:24 150 MG Venlafaxine HCl (effeXOR EXTENDED REL CAP) 75 mg QAM PO 08/19/17 09:00 09/18/17 08:59 08/21/17 10:24 75 MG Albuterol (Ventolin Hfa Inhaler) 2 puffs BID INH 08/18/17 21:00 09/17/17 20:59 Future Hold 08/19/17 20:49 2 PUFFS Albuterol/ Ipratropium (Duoneb) 3 ml QIDR INH 08/19/17 08:00 09/18/17 07:59 08/21/17 11:23 3 ML Insulin Aspart (novoLOG ASPART) SLIDING SCALE G... ACHS SC 08/19/17 17:00 09/18/17 16:59 08/21/17 09:09 5 UNITS Glucose (Glucose 40% Gel) 15-30 GRAMS 15 GRAMS... UD PRN PO 08/19/17 17:00 09/18/17 16:59 Glucose (Glucose Chew Tab) 4-8 Tablets 4 Tabl... UD PRN PO 08/19/17 17:00 09/18/17 16:59 Dextrose (Dextrose 50% 50ML Syringe) 25-50ML OF 50% DW IV FOR... UD PRN IV 08/19/17 17:00 09/18/17 16:59 Glucagon (Glucagon Inj) 1 mg UD PRN SQ 08/19/17 17:00 09/18/17 16:59 Morphine Sulfate (MoRPHine SULFATE INJ) 4 mg Q2H PRN IV 08/19/17 18:15 09/02/17 18:14 08/20/17 20:50 4 MG Levofloxacin 750 mg/Prmx 150 ml @ 100 mls/hr Q24H IV 08/19/17 18:00 08/26/17 17:59 08/20/17 19:13 100 MLS/HR Lidocaine (Lidoderm Patch 5%) 1 patch QAM TD 08/20/17 09:00 09/19/17 08:59 08/21/17 10:27 1 PATCH Miscellaneous (Remove Lidoderm Patch) 1 ea DAILY@21 N/A 08/20/17 00:00 09/19/17 00:00 08/19/17 23:28 1 EA Hydromorphone HCl (Dilaudid Inj) 0.5 mg Q3H PRN IV 08/19/17 20:00 09/02/17 19:59 08/21/17 08:49 0.5 MG Aspirin/Aluminum/ Magnesium/Ca Carb (Ascriptin Tab) 325 mg BID PO 08/21/17 09:00 09/20/17 08:59 08/21/17 08:59 325 MG Acetaminophen (Tylenol Tab) 1,000 mg Q8 PO 08/21/17 14:00 09/20/17 13:59 Oxycodone HCl (Roxicodone Immediate Rel Tab) Moderate pain Q4H PRN PO 08/21/17 08:15 09/04/17 08:14 08/21/17 11:10 15 MG Oxycodone HCl (Oxycontin Tab) 10 mg Q12 PO 08/21/17 09:00 09/04/17 08:59 08/21/17 11:10 10 MG Objective Physical Exam General Appearance: WD/WN, no apparent distress, + obese Eyes: normal inspection, EOMI ENT: hearing grossly normal, pharynx normal Neck: supple, no adenopathy, no JVD Respiratory/Chest: lungs clear, no respiratory distress, + pertinent finding ( diminished lung sounds bilatearlly at baseline) Cardiovascular: regular rate, rhythm, no gallop, no murmur Abdomen: normal bowel sounds, non tender, soft Extremities: non-tender, no pedal edema, + pertinent finding Neurologic/Psychiatric: alert, normal mood/affect, oriented x 3 Skin: normal color, warm/dry, no rash Lymphatic: no adenopathy Laboratory Results Last 24 Hours Test 08/20/17 14:56 08/20/17 17:33 08/20/17 21:04 08/21/17 05:43 Bedside Glucose 121 mg/dl 98 mg/dl 133 mg/dl White Blood Count 8.36 K/uL Red Blood Count 3.87 M/uL Hemoglobin 11.0 g/dL Hematocrit 34.9 % Mean Corpuscular Volume 90.2 fL Mean Corpuscular Hemoglobin 28.4 pg Mean Corpuscular Hemoglobin Concent 31.5 g/dl Platelet Count 162 K/uL Mean Platelet Volume 10.4 fL Neutrophils (%) (Auto) 74.9 % Lymphocytes (%) (Auto) 9.8 % Monocytes (%) (Auto) 9.9 % Eosinophils (%) (Auto) 4.7 % Basophils (%) (Auto) 0.2 % Neutrophils # (Auto) 6.26 K/uL Lymphocytes # (Auto) 0.82 K/uL Monocytes # (Auto) 0.83 K/uL Eosinophils # (Auto) 0.39 K/uL Basophils # (Auto) 0.02 K/uL RDW Standard Deviation 53.8 fL RDW Coefficient of Variation 16.3 % Immature Granulocyte % (Auto) 0.5 % Immature Granulocyte # (Auto) 0.04 K/uL Sodium Level 138 mmol/L Potassium Level 3.9 mmol/L Chloride Level 102 mmol/L Carbon Dioxide Level 29 mmol/L Anion Gap 7.0 mmol/L Blood Urea Nitrogen 28 mg/dl Creatinine 1.50 mg/dl Est Creatinine Clear Calc Drug Dose 56.9 ml/min Estimated GFR () 54.3 Estimated GFR (Non- 46.8 BUN/Creatinine Ratio 18.7 Random Glucose 121 mg/dl Calcium Level 8.9 mg/dl Test 08/21/17 08:10 Bedside Glucose 127 mg/dl Assessment and Plan 71 year old presenting to [facility] with pneumonia and left hip fracture. Day 1 s/p left intertrochanteric nail fixation. COPD appears to be stable, he is baseline oxygen demands CHF is currently stable without evidence of acute overload Community Acquired Pneumonia - On Levaquin Therapy - Convert from IV to PO - Total 7 day course Acute Kidney Injury - Cr 1.5 today; was previously 0.8-0.9 during this admission - Cautious rehydration x 1 L at 75 ml/hr to avoid overload in the setting of chronic CHF - Monitor daily BMP History of Fall with Left Greater Trochanteric Fracture, Present on Arrival - Mechanical - Reviewed x-rays from [place]; no acute fractures to shoulder/humerus - S/p left hip nail fixation - Pain management: 10 mg Oxcontin BID with 10 mg Oxycodone q4h PRN; Dilaudid 0.5 mg IV q3h PRN; Lidoderm patch; Tylenol - OT and PT evaluations for disposition planning Altered Mental Status - Resolved; no acute delirium at this time - Based on collateral from , is a long-standing phenomenon, presumably related to intermittent hypoxia from COPD Congestive Heart Failure - Records reviewed; most recently done on 12/11/2015 with EF 55% - Continue JENNIFER-I, Beta mary, Aspirin, Lasix 40mg daily Type 2 Diabetes Mellitus - Continue home Lantus regimen - Start Insulin SSI - HbA1c 7.5 - BSGs within range; continue to follow AC/HS checks Hilar Lymphadenopathy - Reactive to left basilar infiltrate - Will need outpatient repeat CT scan; this can be done by PCP Chronic Lumbar Spinal Stenosis - Continue Lyrica - Pain management as above DVT Prophylaxis - SCD Knee, GHASSAN Hose - Aspirin BID, per ortho - Advance to heparin-based prophylaxis per orthopedic recommendations Code Status - Level I Full Code Disposition - Med/Surg - OT and PT evaluations for disposition planning Continued [facility] stay due to: ambulation difficulties Discharge planning: uncertain Reviewed: Pt Seen/Exam by Me History sitting comfortably in chair denies any concern pain controlled Constitutional: denies: fever Respiratory: negative: short of breath Cardiovascular: denies chest pain Gastrointestinal/Abdominal: negative: abdominal pain General Appearance: no apparent distress Respiratory: lungs clear, no respiratory distress Cardiovascular: regular rate, rhythm Neurologic/Psychiatric: alert, oriented x 3 Skin Characteristics: warm/dry Assessment/Plan Resident Physician Supervision Note: I was present with Dr. Dewitt in bedside. I verified the jiménez history and physical, reviewed labs and image studies, discussed the case with the resident and agree with the findings and care plan.
[2017-08-21] MEDS: ACETAMINOPHEN 500 MG TAB PO SCH ×2 (13:56→21:50)
--- NOTE | 2017-08-21 16:11 | Cardiology Follow-Up ---
Subjective General Date of Service: Aug 21, 2017. Chief Complaint: follow up h/o of CAD, diastolic HF Pt evaluation today including: conversation w/ patient, physical exam History of Present Illness The patient is a 71 year old male seen in cardiology follow up. Pt denies chest pain. He is supine and is comfortable. He is currently on IVF , NS at 75 ml/hr as ordered earlier today by the primary service. Creatinine had trended up to 1.5 mg/dl this am. Allergies Coded Allergies: Prednisone (Verified Adverse Reaction, Intermediate, "GO CRAZY", 08/18/17) Social History Smoking Status: Former Smoker Hx Tobacco Use In Past Year?: No (QUIT 10 YEARS AGO) Hx Alcohol Use - Type And Amou: No Hx Substance Use - Type And Am: No Problem List Medical Problems: (1) Altered mental state Status: Acute (2) Hypoxia Status: Acute (3) Left leg weakness Status: Acute (4) Pneumonia Status: Acute (5) Pulmonary infiltrate Status: Acute Physical Exam Vital Signs Last Vital Signs Documentation Date Time Temp Pulse Resp B/P (MAP) Pulse Ox O2 Delivery O2 Flow Rate FiO2 08/21/17 15:04 37.0 73 18 124/69 (87) 91 Room Air 08/21/17 04:24 3.0 Physical Exam Constitutional: Level of Distress: NAD Head: atraumatic Neck: supple Lungs: Auscultation: no wheezing, no rales/crackles Cardiovascular: Heart Auscultation: RRR, no murmurs, no rubs Extremities: no cyanosis, no edema Neurologic: Gait & Station: pertinent finding (no focal deficits ) Assessment and Plan Assessment and Plan Impression: 71 year old male 1. Post op , repair of intertrochanteric fracture 2. Stable CAD 3. h/o chronic diastolic heart failure-volume status stable at present. Plan: Although creatinine trended up this am, would administer IVF with caution as patient may tip in to volume overload. Per op note, patient received 1,100 ml of lactate ringers solution in ED yesterday. Would consider holding additional IVF for now and repeating chem panel in am. I paged Dr Dewitt to relay recommendations. Await reply. Dr Ken is rounding for our service for weekend. Please call with questions or concerns. Anisa Linn, DO Laboratory Results Last 24 Hours Test 08/20/17 17:33 08/20/17 21:04 08/21/17 05:43 08/21/17 08:10 Bedside Glucose 98 mg/dl 133 mg/dl 127 mg/dl White Blood Count 8.36 K/uL Red Blood Count 3.87 M/uL Hemoglobin 11.0 g/dL Hematocrit 34.9 % Mean Corpuscular Volume 90.2 fL Mean Corpuscular Hemoglobin 28.4 pg Mean Corpuscular Hemoglobin Concent 31.5 g/dl Platelet Count 162 K/uL Mean Platelet Volume 10.4 fL Neutrophils (%) (Auto) 74.9 % Lymphocytes (%) (Auto) 9.8 % Monocytes (%) (Auto) 9.9 % Eosinophils (%) (Auto) 4.7 % Basophils (%) (Auto) 0.2 % Neutrophils # (Auto) 6.26 K/uL Lymphocytes # (Auto) 0.82 K/uL Monocytes # (Auto) 0.83 K/uL Eosinophils # (Auto) 0.39 K/uL Basophils # (Auto) 0.02 K/uL RDW Standard Deviation 53.8 fL RDW Coefficient of Variation 16.3 % Immature Granulocyte % (Auto) 0.5 % Immature Granulocyte # (Auto) 0.04 K/uL Sodium Level 138 mmol/L Potassium Level 3.9 mmol/L Chloride Level 102 mmol/L Carbon Dioxide Level 29 mmol/L Anion Gap 7.0 mmol/L Blood Urea Nitrogen 28 mg/dl Creatinine 1.50 mg/dl Est Creatinine Clear Calc Drug Dose 56.9 ml/min Estimated GFR () 54.3 Estimated GFR (Non- 46.8 BUN/Creatinine Ratio 18.7 Random Glucose 121 mg/dl Calcium Level 8.9 mg/dl Test 08/21/17 11:59 Bedside Glucose 165 mg/dl
[2017-08-21] MEDS: LEVOFLOXACIN 750 MG TAB PO SCH (18:41)
--- NOTE | 2017-08-21 19:01 | Progress Note ---
Progress Note Date of Service Aug 21, 2017. Progress Note Reviewed cardiology recommendations. 1 L ordered today to be administered cautiously. Appreciate cardiology recommendations and will stop IVF administration overnight and check BMP in AM
[2017-08-21] MEDS: SIMVASTATIN 40 MG TAB PO SCH (20:47)
[2017-08-21] MEDS: INSULIN GLARGINE SOLOSTAR 100 UNITS/ML 3 ML PEN SC SCH (20:58)
[2017-08-22] VITALS (8 sets, daily range): BP systolic 115–158; BP diastolic 67–89; PULSE 62–82; TEMP 36.6–36.9; O2SAT 90–98
[2017-08-22] MEDS: ACETAMINOPHEN 500 MG TAB PO SCH ×3 (05:46→21:17)
[2017-08-22] MEDS: OXYCODONE HCL IR 5 MG TAB (IMMEDIATE RELEASE) PO PRN ×3 (05:48→21:14)
[2017-08-22 07:29] LABS: HEMATOCRIT 34.7 % (42-52); MEAN CELL VOLUME 91.1 fL (80-100); MEAN CORPUSCULAR HEMOGLOBIN 28.9 pg (25-34); MEAN CORPUSCULAR HGB CONC 31.7 g/dl (32-36); MEAN PLATELET VOLUME 10.8 fL (7.4-10.4); PLATELET COUNT 160 K/uL (130-400); RED BLOOD COUNT 3.81 M/uL (4.7-6.1); WHITE BLOOD COUNT 6.98 K/uL (4.8-10.8)
[2017-08-22] MEDS: ALBUT/IPRATROP 3MG/0.5MG NEB 3 ML VIAL INH SCH ×4 (07:33→20:03)
[2017-08-22] MEDS: LISINOPRIL 5 MG TAB PO SCH (07:56)
[2017-08-22] MEDS: ASPIRIN/ALUM/MAGNES/CAL CARB 325 MG TAB PO SCH ×2 (07:56→21:16)
[2017-08-22] MEDS: FUROSEMIDE 40 MG TAB PO SCH (07:56)
[2017-08-22] MEDS: CEROVITE ADV FORMULA TAB PO SCH ×2 (07:56→21:15)
[2017-08-22] MEDS: VENLAFAXINE HCL XR 75 MG CAPXR PO SCH (07:56)
[2017-08-22] MEDS: COLCHICINE 0.6 MG TAB PO SCH ×2 (07:56→21:16)
[2017-08-22] MEDS: VENLAFAXINE HCL XR 150 MG CAPXR PO SCH (07:56)
[2017-08-22] MEDS: PrednisoLONE ACET 1% OP SUSP 5 ML BTL OPR SCH ×2 (07:57→21:17)
[2017-08-22] MEDS: TIOTROPIUM BROMIDE 5 PUFF/90 MCG INH INH SCH (07:57)
[2017-08-22] MEDS: METOPROLOL SUCC 25MG EXT REL TAB PO SCH (07:57)
[2017-08-22] MEDS: ISOSORBIDE MONONITRATE 30 MG TABCR PO SCH (07:57)
[2017-08-22 07:58] LABS: BUN/CREATININE RATIO 24.2 (10-20); CREATININE 1.6 mg/dl (0.60-1.40); POTASSIUM 4.1 mmol/L (3.5-5.1)
[2017-08-22] MEDS: BUDESONIDE/FORMOTEROL FUMARATE 160/4.5 60 PUFFS/INHALER INH SCH ×2 (07:58→21:17)
[2017-08-22] MEDS: LIDODERM (LIDOCAINE) PATCH 5% TD SCH (08:01)
[2017-08-22] MEDS: PREGABALIN 100 MG CAP PO SCH ×2 (08:01→21:17)
[2017-08-22] MEDS: OXYCODONE HCL 10 MG TABCR (OXYCONTIN) PO SCH ×2 (08:01→21:15)
--- NOTE | 2017-08-22 08:44 | Orthopedic Progress Note ---
Orthopedic Progress Note Date of Service Aug 22, 2017. Subjective Post OP Day: 2 Reports: feeling well (Pt sitting up and eating breakfast) Objective N/V intact, dressing C/D/I, toes mobile Date Time Temp Pulse Resp B/P (MAP) Pulse Ox O2 Delivery O2 Flow Rate FiO2 08/22/17 07:33 78 16 92 Nasal Cannula 2.0 08/22/17 07:25 36.7 62 16 158/89 (112) 98 Nasal Cannula 2.0 08/21/17 23:15 Nasal Cannula 2.0 08/21/17 23:00 36.9 77 18 153/75 (101) 96 Nasal Cannula 2.0 08/21/17 19:52 74 16 92 Nasal Cannula 2.0 08/21/17 19:20 91 Room Air 08/21/17 15:04 37.0 73 18 124/69 (87) 91 Room Air 08/21/17 14:25 73 16 85 Room Air 08/21/17 11:25 73 16 91 Room Air 08/21/17 11:10 36.9 75 18 130/77 (94) 92 Room Air 08/21/17 09:00 Room Air Laboratory Results 24 Hours: Test 08/22/17 06:45 Hematocrit 34.7 % Hemoglobin 11.0 g/dL Assessment & Plan Assessment: 71 yo male stable POD #2 s/p left troch nail Plan: -ASA BID DVT ppx -WBAT LLE -PT/OT -Follow-up with Dr Mckeon 10-14 days post-op
--- NOTE | 2017-08-22 08:46 | Consultant Recommendations ---
Paradichlorobenzene Machine Operator Recommendations Date of Service Aug 22, 2017. Paradichlorobenzene Machine Operator Recommendations WBAT left lower extremity with walker ASA 81mg bid for DVT prophylaxis Follow-up with Dr Mckeon ~ 10-14 days. Call [phone] for appointment
[2017-08-22] MEDS: INSULIN ASPART 100 UNITS/ML 3 ML PEN SC SCH ×4 (08:47→20:48)
--- NOTE | 2017-08-22 09:34 | Family Medicine Progress Note ---
Progress Note Date of Service Aug 22, 2017. Subjective c/o left hip pain. denies any other concerns. Constitutional: No fever Respiratory: No shortness of breath Cardiovascular: No chest pain Objective Physical Exam General Appearance: no apparent distress Respiratory/Chest: lungs clear, no respiratory distress Cardiovascular: regular rate, rhythm Neurologic/Psychiatric: alert, oriented x 3 Skin: warm/dry Assessment and Plan 71 year old presenting to [facility] with pneumonia and left hip fracture. Day 1 s/p left intertrochanteric nail fixation. COPD appears to be stable, he is baseline oxygen demands CHF is currently stable without evidence of acute overload Community Acquired Pneumonia - On Levaquin Therapy - Convert from IV to PO - Total 7 day course Acute Kidney Injury - Cr up 1.6 today from 1.5 yesterday after 1L of fluid yesterday. was previously 0.8-0.9 during this admission - Recheck BMP in am. - Received lasix and lisinopril this am. Follow History of Fall with Left Greater Trochanteric Fracture, Present on Arrival - Mechanical - Reviewed x-rays from [place]; no acute fractures to shoulder/humerus - S/p left hip nail fixation - Pain management: 10 mg Oxcontin BID with 10 mg Oxycodone q4h PRN; Dilaudid 0.5 mg IV q3h PRN; Lidoderm patch; Tylenol - OT and PT evaluations for disposition planning Altered Mental Status - Resolved; no acute delirium at this time - Based on collateral from , is a long-standing phenomenon, presumably related to intermittent hypoxia from COPD Congestive Heart Failure - Records reviewed; most recently done on 12/11/2015 with EF 55% - Continue JENNIFER-I, Beta mary, Aspirin, Lasix 40mg daily Type 2 Diabetes Mellitus - Continue home Lantus regimen - Start Insulin SSI - HbA1c 7.5 - BSGs within range; continue to follow AC/HS checks Hilar Lymphadenopathy - Reactive to left basilar infiltrate - Will need outpatient repeat CT scan; this can be done by PCP Chronic Lumbar Spinal Stenosis - Continue Lyrica - Pain management as above DVT Prophylaxis - SCD Knee, GHASSAN Hose - Aspirin BID, per ortho - Advance to heparin-based prophylaxis per orthopedic recommendations Code Status - Level I Full Code Disposition - Med/Surg - OT and PT evaluations for disposition planning
[2017-08-22] MEDS: LEVOFLOXACIN 750 MG TAB PO SCH (18:39)
[2017-08-22] MEDS: INSULIN GLARGINE SOLOSTAR 100 UNITS/ML 3 ML PEN SC SCH (21:14)
[2017-08-22] MEDS: SIMVASTATIN 40 MG TAB PO SCH (21:15)
[2017-08-23] MEDS: HYDROmorphone INJ 0.5 MG/0.5 ML SYR IV PRN (00:41)
[2017-08-23] MEDS: ACETAMINOPHEN 500 MG TAB PO SCH (05:36)
[2017-08-23] MEDS: OXYCODONE HCL IR 5 MG TAB (IMMEDIATE RELEASE) PO PRN ×3 (05:36→13:13)
[2017-08-23 06:25] LABS: HEMATOCRIT 34.5 % (42-52); MEAN CELL VOLUME 90.1 fL (80-100); MEAN CORPUSCULAR HEMOGLOBIN 28.7 pg (25-34); MEAN CORPUSCULAR HGB CONC 31.9 g/dl (32-36); MEAN PLATELET VOLUME 10.5 fL (7.4-10.4); PLATELET COUNT 168 K/uL (130-400); RED BLOOD COUNT 3.83 M/uL (4.7-6.1); WHITE BLOOD COUNT 6.62 K/uL (4.8-10.8)
[2017-08-23 06:52] LABS: BUN/CREATININE RATIO 27.5 (10-20); CALCIUM 9.1 mg/dl (8.5-10.1); CREATININE 1.5 mg/dl (0.60-1.40); POTASSIUM 4.6 mmol/L (3.5-5.1)
[2017-08-23 07:31] VITALS: BP 145/72; PULSE 92; TEMP 36.6; O2SAT 95
[2017-08-23] MEDS: ALBUT/IPRATROP 3MG/0.5MG NEB 3 ML VIAL INH SCH ×2 (07:47→11:18)
[2017-08-23 07:49] VITALS: PULSE 74; O2SAT 95
[2017-08-23] MEDS: INSULIN ASPART 100 UNITS/ML 3 ML PEN SC SCH ×2 (08:00→12:00)
--- NOTE | 2017-08-23 08:46 | Orthopedic Progress Note ---
Orthopedic Progress Note Date of Service Aug 23, 2017. Subjective Post OP Day: 3 Reports: feeling well Objective N/V intact, incision C/D/I, toes mobile Date Time Temp Pulse Resp B/P (MAP) Pulse Ox O2 Delivery O2 Flow Rate FiO2 08/23/17 07:49 74 16 95 Nasal Cannula 2.0 08/23/17 07:31 36.6 92 17 145/72 (96) 95 Nasal Cannula 2.0 08/23/17 00:15 Nasal Cannula 2.0 08/22/17 23:14 36.9 69 18 139/80 (99) 92 Nasal Cannula 2.0 08/22/17 20:08 76 16 91 Room Air 08/22/17 16:20 Room Air 08/22/17 15:55 36.6 67 16 117/67 (84) 91 Room Air 08/22/17 15:22 65 16 92 Room Air 08/22/17 11:56 73 17 115/70 (85) 08/22/17 11:36 82 16 90 Room Air Laboratory Results 24 Hours: Test 08/23/17 05:58 Hematocrit 34.5 % Hemoglobin 11.0 g/dL Assessment & Plan Assessment: 71 yo male stable POD #3 s/p left troch nail, BUN/Cr elevated Plan: -ASA BID DVT ppx -WBAT LLE -PT/OT -Follow-up with Dr Mckeon 10-14 days post-op
[2017-08-23] MEDS: LIDODERM (LIDOCAINE) PATCH 5% TD SCH (09:40)
[2017-08-23] MEDS: BUDESONIDE/FORMOTEROL FUMARATE 160/4.5 60 PUFFS/INHALER INH SCH (09:41)
[2017-08-23] MEDS: PREGABALIN 100 MG CAP PO SCH (09:41)
[2017-08-23] MEDS: TIOTROPIUM BROMIDE 5 PUFF/90 MCG INH INH SCH (09:41)
[2017-08-23] MEDS: PrednisoLONE ACET 1% OP SUSP 5 ML BTL OPR SCH (09:41)
[2017-08-23] MEDS: LISINOPRIL 5 MG TAB PO SCH (09:41)
[2017-08-23] MEDS: METOPROLOL SUCC 25MG EXT REL TAB PO SCH (09:41)
[2017-08-23] MEDS: CEROVITE ADV FORMULA TAB PO SCH (09:42)
[2017-08-23] MEDS: FUROSEMIDE 40 MG TAB PO SCH (09:42)
[2017-08-23] MEDS: COLCHICINE 0.6 MG TAB PO SCH (09:43)
[2017-08-23] MEDS: VENLAFAXINE HCL XR 75 MG CAPXR PO SCH (09:43)
[2017-08-23] MEDS: OXYCODONE HCL 10 MG TABCR (OXYCONTIN) PO SCH (09:43)
[2017-08-23] MEDS: VENLAFAXINE HCL XR 150 MG CAPXR PO SCH (09:43)
[2017-08-23] MEDS: ASPIRIN/ALUM/MAGNES/CAL CARB 325 MG TAB PO SCH (09:45)
[2017-08-23] MEDS: ISOSORBIDE MONONITRATE 30 MG TABCR PO SCH (09:45)
[2017-08-23 10:07] VITALS: O2SAT 95
[2017-08-23 10:43] VITALS: BP 145/72; PULSE 74; TEMP 36.6; O2SAT 95
[2017-08-23] MEDS ORDERED: ASPI325T60 PO (10:51)
--- NOTE | 2017-08-23 10:56 | Discharge Instructions ---
Discharge Instructions Date of Service Aug 23, 2017. Admission Reason for Admission: CHF Discharge Discharge Diagnosis / Problem: Left hip fracture after fall Discharge Goals Goal(s): Decrease discomfort, Improve function, Increase independence Activity Recommendations Activity Limitations: as noted below (Left leg - weight bearing as tolerated) Weightbearing Status: Left weightbearing (as tolerated) You will continue to receive Physical and occupation therapy at home . Instructions / Follow-Up Instructions / Follow-Up Follow up with family physician in one week Current Hospital Diet Patient's current hospital diet: AHA Diet (Heart Healthy), Diabetes Type 2 Diet Discharge Diet Recommended Diet: AHA Diet (Heart Healthy), Low Sodium Diet (2gm Na) Procedures Procedures Performed: Intertrochanteric Nail Hip Left Pending Studies Studies pending at discharge: no Laboratory Results Hemoglobin A1c Test 08/19/17 06:39 Range/Units Estimated Average Glucose 169 mg/dl Hemoglobin A1c 7.5 H 4.5-5.6 % Medical Emergencies . Who to Call and When: Medical Emergencies: If at any time you feel your situation is an emergency, please call 911 immediately. . Non-Emergent Contact Non-Emergency issues call your: Primary Care Provider . . "Provider Documentation" section prepared by Sara Lopez. . Appeals Examiner Recommendations Appeals Examiner Recommendations: WBAT left lower extremity with walker ASA 81mg bid for DVT prophylaxis Follow-up with Dr Mckeon ~ 10-14 days. Call [phone] for appointment VTE Core Measure Inpt VTE Proph given/why not?: SCD's
[2017-08-23] MEDS ORDERED: ASPEC81 PO (10:57)
[2017-08-23 11:18] VITALS: PULSE 76; O2SAT 93
[2017-08-23] MEDS ORDERED: LVQ750 PO (11:21)
--- NOTE | 2017-08-23 11:27 | Discharge Summary ---
Discharge Summary Date of Service Aug 23, 2017. Discharge Summary Admission Date: Aug 18, 2017 at 20:42 Discharge Date: Aug 23, 2017 Discharge Disposition: Home with services Principal Diagnosis: Left hip fracture Immunizations: Have You Had Influenza Vaccine: Unknown History of Tetanus Vaccine?: Unknown History of Pneumococcal: Unknown History of Hepatitis B Vaccine: Unknown Procedures: Intertrochanteric Nail Hip Left Consultations: Ortho - Dr. Mckeon Cardiology - Dr Linn Medication Reconciliation New Medications: Aspirin (Aspirin EC Low Dose) 81 Mg Ectab 1 TAB PO BID for 30 Days Levofloxacin (Levofloxacin) 750 Mg Tab 750 MG PO DAILY@1800 for 2 Days, #2 TAB Oxycodone HCl (Oxycontin) 10 Mg Tabcr 10 MG PO Q12 for 15 Days, #30 TAB Oxycodone HCl (Oxycodone HCl) 5 Mg Tab 10-15 MG PO QID PRN for Pain, #30 TAB Continued Medications: Albuterol Sulf (Ventolin) 2 Mg/5 Ml Syrp 1 DOSE INH QID PRN for Shortness of Breath Albuterol Sulfate (Proair Respiclick) 108 Mcg/Act Aer 2 PUFF INH BID Aspirin (Aspirin Chewable) 81 Mg Chew 81 MG PO QAM Budesonide/Formoterol Fumarate (Symbicort 160/4.5 Inhaler) 120 Puffs/ Aero 2 PUFFS INH BID, INHALER Coenzyme Q10 (Ubidecarenone) (Coq-10) 100 Mg Cap 100 MG PO DAILY Colchicine (Colchicine) 0.6 Mg Tab 0.6 MG PO BID, TAB Folic Acid (Folvite) 1 Mg Tab 1 MG PO DAILY, TAB Furosemide (Lasix) 40 Mg Tab 40 MG PO QAM, TAB Home O2 Therapy (Oxygen) Gas 2 LITERS NA HS, BTL AND WITH EXERTION Insulin Glargine (Lantus) 100 Unit/Ml Inj 30 UNITS SC QPM, VIAL Ipratropium-Albuterol (Combivent Respimat) 1 Aer Aer 1 PUFFS INH QID PRN for Shortness of Breath, INH Isosorbide Mononitrate Ext Rel (Imdur Ext Rel) 30 Mg Ertab 30 MG PO QAM, TAB Lamotrigine (Lamictal) 25 Mg Tab 25 MG PO BID, TAB Lisinopril (Prinivil) 5 Mg Tab 5 MG PO QAM, TAB Metoprolol Succ (Toprol Xl) (Toprol-Xl) 25 Mg Tabcr 25 MG PO QAM, #30 TAB Nitroglycerin (Nitrostat) 0.4 Mg Tab 0.4 MG UT PRN, BTL Ocuvite Preservision (Ocuvite Preservision) 1 Tab Tab 1 TAB PO BID, TAB Prednisolone Acetate (Ophth) (Pred Forte 1% Oph) 1 % Sherry 1 DROPS OPR DIRECTED, #5 ML Pregabalin (Lyrica) 100 Mg Cap 100 MG PO BID, CAP Simvastatin (Zocor) 40 Mg Tab 40 MG PO QPM, TAB Tiotropium [place] (Spiriva Handihaler) 30 Puff/540 Mcg Aerp 1 CAP INH QAM, INHALER Venlafaxine Hcl (Effexor) 75 Mg Tab 75 MG PO QAM, TAB Venlafaxine Hcl (Effexor Extended Rel) 150 Mg Cap 150 MG PO QAM, CAP Discontinued Medications: Oxycodone/Acetaminophen 10MG/325MG (Percocet 10MG/325MG) 1 Tab Tab 1 TAB PO Q4H PRN for Pain, TAB Discharge Exam CT chest on admission IMPRESSION: 1. Study is negative for pulmonary embolus 2. Mild prominence a sending thoracic aorta at 4.1 cm. 3 poorly defined parenchymal infiltrate left base. 4. Interstitial prominence throughout both hemithoraces. 5. Nonspecific mediastinal and hilar nodes with a 8 week follow-up recommended. Review of Systems: Constitutional: No fever Respiratory: No shortness of breath Cardiovascular: No chest pain Abdomen: No pain Physical Exam: General Appearance: no apparent distress Respiratory/Chest: lungs clear, no respiratory distress Cardiovascular: regular rate, rhythm Abdomen / GI: normal bowel sounds, non tender, soft Neurologic/Psychiatric: alert, oriented x 3 Skin: warm/dry Hospital Course HPI Mr Sandra is a 61-year-old male with history, with unknown ejection fraction, type 2 diabetes, COPD with significant smoking history, who presents today with altered mental status. Per his about 3 days ago he was chasing a squirrel , and tripped and fell. He landed on his left hip, and reports he may have hit his head. He was fine afterwards and he did not go to hospital after that. Last night, his noticed that he was incredibly confused throughout the entire night up until this morning. She took him to [facility], and he had CT scans and multiple x-rays. They did not hear the results of these x-rays , and so she decided to come to [facility] for evaluation, As he was still very uncomfortable in the left hip and is concerned he may have a fracture. Currently the confusion has resolved. He reports just being uncomfortable from the bed he is in, and he wants to go home. He denies any chest pain, shortness of breath on the leg swelling. He does report some mild bruising to the left hip. He denies any numbness or weakness in either extremity. HOSPITAL COURSE 71 year old presenting to [facility] with left hip pain after fall History of Fall with Left Greater Trochanteric Fracture, Present on Arrival - Mechanical - Reviewed x-rays from [place]; no acute fractures to shoulder/humerus - S/p left hip nail fixation by Dr. Mckeon - Pain management: back to home regimen - OT and PT with home health services - WBAT on discharge - Aspirin 81mgs bid on discharge for DVT prophylaxis - Outpatient f/u with orthopedics Community Acquired Pneumonia - CT chest with left basilar infiltrate - Given 3 days of levaquin 750mgs daily. To give 2 more days on discharge. - Normal WBC, no fever, cough. . Acute Kidney Injury - Creatinine on discharge 1.5. To follow up as outpatient. Baseline creatinine 0.8-0.9 Altered Mental Status on admission - Resolved; no acute delirium at this time - Based on collateral from , is a long-standing phenomenon, presumably with underlying mild dementia. Nocturnal hypoxia - Continue home O2 Congestive Heart Failure - Records reviewed; most recently done on 12/11/2015 with EF 55% - Continue JENNIFER-I, Beta mary, Aspirin, Lasix 40mg daily - Euvolemic Type 2 Diabetes Mellitus - Continue home Lantus regimen - HbA1c 7.5 Hilar Lymphadenopathy - Reactive to left basilar infiltrate - Will need outpatient repeat CT scan; this can be done by PCP Chronic Lumbar Spinal Stenosis - Medications adjusted - started on oxycontine 10mgs bid and oxycodone 15mgs prn pain qid Total Time Spent: Greater than 30 minutes (40) This includes examination of the patient, discharge planning, medication reconciliation, and communication with other providers. Discharge Instructions Please refer to the electronic Patient Visit Report (Discharge Instructions) for additional information. Additional Copies To Sadi Mckeon D.O.; Josse Pope M.D.
[2017-08-23] MEDS ORDERED: RXC5 PO (11:39)
[2017-08-23] MEDS ORDERED: OXYSR10 PO (11:39)
[2017-08-23] MEDS: LEVOFLOXACIN 750 MG TAB PO SCH (12:14)
== END 2017-08-23 13:19 | disposition home health service (06) | DRG 480 ==
LOC: EDBD 16:48 → C.EDC 16:49 → C.MED 20:42 → CANRESERV 21:06 → ENRESERV 21:06 → C.MED 08-19 01:47 → EDBEDREQ 08-20 14:49 → ENRESERV 08-20 15:26 → C.MSN 08-20 16:36
PROVIDERS: ADMIT Hospitalist; ATTEND Family Medicine
PROC: 0QH704Z Insertion of Internal Fixation Device into Left Upper Femur, Open Approach (ICD-10-PCS; principal; 2017-08-20 07:00)
DX: S62.605A Fracture of unspecified phalanx of left ring finger, initial encounter for closed fracture (principal); J18.9 Pneumonia, unspecified organism; J44.0 Chronic obstructive pulmonary disease with (acute) lower respiratory infection; N17.9 Acute kidney failure, unspecified; I50.32 Chronic diastolic (congestive) heart failure; W01.0XXA Fall on same level from slipping, tripping and stumbling without subsequent striking against object, initial encounter; M25.512 Pain in left shoulder; R41.82 Altered mental status, unspecified; R59.0 Localized enlarged lymph nodes; I11.0 Hypertensive heart disease with heart failure; I25.10 Atherosclerotic heart disease of native coronary artery without angina pectoris; E11.9 Type 2 diabetes mellitus without complications; M48.06 Spinal stenosis, lumbar region; R09.02 Hypoxemia; F03.90 Unspecified dementia, unspecified severity, without behavioral disturbance, psychotic disturbance, mood disturbance, and anxiety; E66.9 Obesity, unspecified; Z68.31 Body mass index [BMI] 31.0-31.9, adult; Z99.81 Dependence on supplemental oxygen; Z95.1 Presence of aortocoronary bypass graft; Z87.891 Personal history of nicotine dependence; Z79.82 Long term (current) use of aspirin; Z79.51 Long term (current) use of inhaled steroids; Z79.4 Long term (current) use of insulin; Z79.899 Other long term (current) drug therapy; Z79.891 Long term (current) use of opiate analgesic

== ENCOUNTER → 2017-09-04 | Outpatient (CLI) | payer OTHER, MEDICARE ==
[~2017-09-04] MED LIST changes: +ASPEC81 PO; +COEN100C11 PO; +COLC0.6T54 PO; -COLCHICINE PO; +FOLI1TAB7 PO; +LAMO25TA PO; +LVQ750 PO; +MULT-190 PO; -OXYC-59 PO; +OXYSR10 PO; +RXC5 PO
[2017-09-04 17:55] LABS: BLOOD UREA NITROGEN 34 mg/dl (7-18); BUN/CREATININE RATIO 20.1 (10-20); CALCIUM 8.8 mg/dl (8.5-10.1); CARBON DIOXIDE 33 mmol/L (21-32); CHLORIDE 103 mmol/L (98-107); GLUCOSE 109 mg/dl (70-99); POTASSIUM 4.9 mmol/L (3.5-5.1); SODIUM 139 mmol/L (136-145)
[2017-09-04 18:18] LABS: RATIO 495.2 mcg/mg (0-30.0)
== END | disposition home or self-care (01) ==
LOC: C.LABPVFM 13:05
PROVIDERS: ATTEND Family Medicine
DX: Z00.00 Encounter for general adult medical examination without abnormal findings (principal); J44.9 Chronic obstructive pulmonary disease, unspecified; E11.9 Type 2 diabetes mellitus without complications; I11.0 Hypertensive heart disease with heart failure

== ENCOUNTER 2017-11-12 22:43 | Inpatient (IN) | payer OTHER, MEDICARE ==
[~2017-11-12] VITALS: Ht 180.3 cm; Wt 105.9 kg
[~2017-11-12 22:43] MED LIST changes: -FOLI1TAB7 PO; +FOLI1TAB8 PO; -INSDGI SC; +INSDGI SQ
[2017-11-12] MEDS ORDERED: LEVAQUIN 750MG / 150ML D5W IV STA (22:48)
[2017-11-12] MEDS ORDERED: CEFEPIME IV 2,000 MG in DEXTROSE 5% 100ML 100 ML IV STA (22:48)
[2017-11-12] MEDS ORDERED: DEXTROSE 50% 50 ML SYR IV STA (22:48)
[2017-11-12] MEDS ORDERED: VANCOMYCIN 1GM/270ML NSS IV STA (22:48)
[2017-11-12] MEDS ORDERED: MAGNESIUM SULFATE 1GM / D5W 1 GM in PREMIXED IN D5W 100 ML IV STA (22:52)
[2017-11-12] MEDS ORDERED: METHYLPREDNISOLONE 125 MG VIAL IV STA (22:52)
[2017-11-12] MEDS ORDERED: CEFEPIME IV 2,000 MG in SYRINGE 7.5 ML IV STA (22:54)
[2017-11-12] MEDS ORDERED: FUROSEMIDE 40 MG/4 ML VIAL IV STA (22:58)
--- NOTE | 2017-11-12 22:58 | EMERGENCY ROOM VISIT NOTE ---
History Report prepared by Jj: Ang Cummins Under the Supervision of: Dr. Mansoor Garcia M.D. First contact with patient: 22:45 Stated Complaint: AMS/BREATHING DIFF History of Present Illness The patient is a 71 year old male who presents to the Emergency Room with complaints of severe, constant, shortness of breath beginning prior to arrival. EMS states the patient was febrile with a temperature of 101 degrees F. They report the patient can answer questions and move arms. EMS states the patient is diabetic. The patient notes he only complains of shortness of breath, and he feels better when placed on C-PAP. The patient was reported to be confused by family and EMS. 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 Review of Systems See HPI for pertinent positives & negatives. A total of 10 systems reviewed and were otherwise negative. Past Medical & Surgical Medical Problems: (1) Acute on chronic respiratory failure with hypoxia (2) CHF (congestive heart failure) (3) CHF exacerbation (4) COPD (chronic obstructive pulmonary disease) (5) Diabetes Social History Smoking Status: Former Smoker Drug Use: none Marital Status: Housing Status: lives with family Occupation Status: retired Current/Historical Medications Scheduled Allopurinol (Zyloprim), 200 MG PO DAILY Aspirin (Aspirin Ec), 81 MG PO DAILY Budesonide/Formoterol Fumarate (Symbicort 160/4.5 Inhaler), 2 PUFFS INH BID Divalproex Sodium (Depakote Er), 1,000 MG PO HS Furosemide (Lasix), 40 MG PO QAM Home O2 Therapy (Oxygen), 2 LITERS NA HS Insulin Glargine (Lantus), 30 UNITS SQ QPM Isosorbide Mononitrate Ext Rel (Imdur Ext Rel), 30 MG PO QAM Lisinopril (Prinivil), 5 MG PO QAM Metoprolol Succ (Toprol Xl) (Toprol-Xl), 25 MG PO QAM Nitroglycerin (Nitrostat), 0.4 MG UT PRN Pregabalin (Lyrica), 100 MG PO TID Simvastatin (Zocor), 40 MG PO QPM Tiotropium [place] (Spiriva Handihaler), 1 CAP INH QAM Venlafaxine Hcl (Effexor Extended Rel), 150 MG PO BID Scheduled PRN Albuterol Sulfate (Proair Respiclick), 2 PUFF INH BID PRN for SOB/Wheezing Ipratropium-Albuterol (Combivent Respimat), 1 PUFFS INH QID PRN for Shortness of Breath Oxycodone/Acetaminophen 10MG/325MG (Percocet 10MG/325MG), 1 TAB PO TID PRN for Pain Oxycodone/Acetaminophen 10MG/325MG (Percocet 10MG/325MG), 2 TAB PO HS PRN for Pain Allergies Coded Allergies: Prednisone (Verified Adverse Reaction, Intermediate, "GO CRAZY", 08/18/17) Physical Exam Vital Signs Date Time Temp Pulse Resp B/P (MAP) Pulse Ox O2 Delivery O2 Flow Rate FiO2 11/13/17 00:31 90 118/67 99 BiPAP 40 11/13/17 00:01 82 21 121/67 100 BiPAP 40 11/12/17 23:54 84 21 126/69 100 BiPAP 40 11/12/17 23:32 87 20 115/68 100 BiPAP 40 11/12/17 23:22 87 20 165/86 100 BiPAP 40 11/12/17 23:17 75 11/12/17 23:07 95 28 100 BiPAP/CPAP 40 11/12/17 23:04 96 100 40 11/12/17 22:45 100 BiPAP 11/12/17 22:45 38.4 89 21 158/84 100 BiPAP 40 11/12/17 22:45 100 BiPAP 40 Physical Exam GENERAL: Patient is an ill-appearing well-nourished male HEAD: Normocephalic atraumatic EYES: Ocular movements intact pupils equal and react to light OROPHARYNX mucous membranes are moist no exudates present no erythema or edema present NECK: Supple no nuchal rigidity CHEST: Good equal expansion LUNGS: Distant breath sounds, wheezing present CARDIAC: Normal S1 and S2 ABDOMEN: Soft nontender no guarding BACK: No CVA tenderness EXTREMITIES: No pain upon palpation normal muscle strength in all groups no clubbing cyanosis or edema NEURO: Patient is following commands is answering questions appropriately. Alert and oriented x3 Cranial Nerves 2-12 grossly intact Medical Decision & Procedures ER Provider Diagnostic Interpretation: (CHEST FOR PE) ANGIO WITH CT DOSE: 972.46 mGy.cm HISTORY: Chest pain dyspnea. Fever. TECHNIQUE: Multiaxial CT images of the chest were performed following the intravenous administration of contrast to evaluate the pulmonary arteries. Maximal intensity projection images were also obtained. A dose lowering technique was utilized adhering to the principles of ALARA. COMPARISON STUDY: 08/18/2017 FINDINGS: Unchanging prominence of the thoracic aorta at approximately 4.1 cm. Several small reactive mediastinal and/or hilar nodes. Pulmonary vasculature enhances appropriately. No filling defects. Prominence of the pulmonary vasculature throughout. Mild left and to lesser extent right basilar atelectatic and pleural reactive change. Considerable increase in fecal load within the transverse colon. IMPRESSION: 1. Study is negative for pulmonary embolus. 2. Moderate cardiomegaly with components of pulmonary vascular congestion. 3. Left and to a lesser extent right basilar atelectatic/minimal infiltrative change. 4. Unchanging prominence of the thoracic aorta at 4.1 cm. 5. Increased fecal load transverse colon consistent with fecal stasis. The above report was generated using voice recognition software. It may contain grammatical, syntax or spelling errors. Electronically signed by: Wilmer Gonzalez M.D. 11/13/2017 6:46 AM Dictated Date/Time: 11/13/2017 6:41 AM CHEST ONE VIEW PORTABLE CLINICAL HISTORY: Sepsis dyspnea COMPARISON STUDY: 08/20/2017 FINDINGS: Moderate cardiomegaly. Prior median sternotomy. Prominent pulmonary vasculature. Diaphragms smooth. IMPRESSION: Congestive heart failure The above report was generated using voice recognition software. It may contain grammatical, syntax or spelling errors. Electronically signed by: Wilmer Gonzalez M.D. 11/13/2017 6:21 AM Dictated Date/Time: 11/13/2017 6:20 AM Laboratory Results Test 11/12/17 00:00 11/12/17 22:10 11/12/17 23:00 11/12/17 23:01 Urine Color YELLOW Urine Appearance CLEAR (CLEAR) Urine pH 6.5 (4.5-7.5) Urine Specific [place] 1.017 (1.000-1.030) Urine Protein 3+ (NEG) Urine Glucose (UA) NEG (NEG) Urine Ketones NEG (NEG) Urine Occult Blood TRACE (NEG) Urine Nitrite NEG (NEG) Urine Bilirubin NEG (NEG) Urine Urobilinogen NEG (NEG) Urine Leukocyte Esterase NEG (NEG) Urine WBC (Auto) 1-5 /hpf (0-5) Urine RBC (Auto) 5-10 /hpf (0-4) Urine Hyaline Casts (Auto) 0 /lpf (0-5) Urine Epithelial Cells (Auto) 0-5 /lpf (0-5) Urine Bacteria (Auto) NEG (NEG) Prothrombin Time 12.0 SECONDS (9.0-12.0) Prothromb Time International Ratio 1.1 (0.9-1.1) Activated Partial Thromboplast Time 29.4 SECONDS (21.0-31.0) Partial Thromboplastin Ratio 1.1 Pro-B-Type Natriuretic Peptide 4975 pg/ml (0-900) Bedside D-Dimer > 450 ng/mlFEU (0-450) Bedside Lactic Acid Venous 0.73 mmol/L (0.90-1.70) Test 11/12/17 23:06 11/12/17 23:15 11/12/17 23:18 Bedside Hemoglobin 12.2 g/dl (14.0-18.0) Bedside Hematocrit 36 % (42-52) Bedside Sodium 140 mEq/L (135-144) Bedside Potassium 5.1 mEq/L (3.3-5.0) Bedside Chloride 100 mEq/L (101-112) Bedside Total CO2 34 mEq/l (24-31) Bedside Blood Urea Nitrogen 43 mg/dl (7-18) Bedside Creatinine 1.6 mg/dl (0.6-1.3) Bedside Glucose (other) 78 mg/dl (70-99) Bedside Ionized Calcium (Fadi) 1.08 mmol/l (1.12-1.32) Influenza Type A (RT-PCR) Neg for Influ A (NEG) Influenza Type A Antigen Neg for Influ A (NEG) Influenza Type B Antigen Neg for Influ B (NEG) Influenza Type B (RT-PCR) Neg for Influ B (NEG) Arterial Blood pH 7.32 (7.35-7.45) Arterial Blood Partial Pressure CO2 61 mmHg (35-46) Arterial Blood Partial Pressure O2 48 mm/Hg (80-95) Arterial Blood HCO3 31 mmol/L (19-24) Arterial Blood Oxygen Saturation 80.2 % (90-95) Arterial Blood Base Excess 3.2 mEq/L (-9-1.8) Arterial Blood Gas Delivery 40% Noah Test POS (POS) Labs reviewed by ED physician. Medications Administered Medications (Trade) Dose Ordered Sig/Yasmin Route Start Time Stop Time Status Last Admin Dose Admin Levofloxacin (Levaquin / D5W) 750 mg ONE STAT IV 11/12/17 22:48 11/12/17 22:51 DC 11/12/17 23:01 750 MG Vancomycin HCl (Vancomycin 1gm/ 270ml Nss) 1 gm ONE STAT IV 11/12/17 22:48 11/12/17 22:51 DC 11/12/17 23:20 1 GM Acetaminophen (Tylenol Tab) 650 mg ONE ONCE PO 11/12/17 23:00 11/12/17 23:01 DC 11/12/17 23:38 650 MG Dextrose (Dextrose 50% 50ML Syringe) 50 ml NOW STAT IV 11/12/17 22:48 11/12/17 22:51 DC 11/12/17 22:59 50 ML Albuterol/ Ipratropium (Duoneb) 12 ml ONE ONCE INH 11/12/17 23:00 11/12/17 23:01 DC 11/12/17 23:08 12 ML Magnesium Sulfate 1 gm/Prmx 100 ml @ 100 mls/hr NOW STAT IV 11/12/17 22:52 11/12/17 23:51 DC 11/12/17 23:15 100 MLS/HR Cefepime HCl 2000 mg/Syringe 20 ml @ 5 mls/min NOW STAT IV 11/12/17 22:54 11/12/17 22:57 DC 11/12/17 23:09 5 MLS/MIN Furosemide (Lasix Inj) 40 mg NOW STAT IV 11/12/17 22:58 11/12/17 23:00 DC 11/12/17 23:06 40 MG ECG Indication: SOB/dyspnea Rate (beats per minute): 89 Rhythm: sinus rhythm Findings: 1st degree AV block, no acute ischemic change, no ectopy, other (Old inferior infarct) ED Course 2245: Past medical records reviewed. The patient was evaluated in room B01. A complete history and physical examination was performed. 2247: Ordered Dextrose 50ml IV, Vancomycin HCl 1gm IV, Levofloxacin 750mg IV 2: Ordered Magnesium Sulfate 1gm/Prmx 100ml @ 100mls/hr IV 2254: Ordered Cefepime HCl 2000mg/Syringe 20ml @ 5mls/min Protocol IV 2258: Ordered Furosemide 40mg IV 2300: Ordered Duoneb 12ml INH, Acetaminophen 650mg PO Medical Decision Differential diagnosis: Etiologies such as infections, reactive airway disease, pneumonia, pneumothorax , COPD, CHF, cardiac ischemia, pulmonary embolism, musculoskeletal, gastrointestinal, as well as others were entertained. This is a 71-year-old male who presents emergency department complaining of hypoxia altered mental status as well as shortness of breath. The patient was placed on CPAP by EMS. Repeat examination revealed much improvement the patient 's symptoms. He was placed on BiPAP immediately upon arrival to the emergency department and given an hour-long breathing treatment. Based on the patient's chest x-ray he was started on antibiotics and blood cultures were obtained. Lactic acid was also obtained and the patient was started on Lasix area and based on all these findings I admitted the patient to the hospitalist. Impression Primary Impression: CHF (congestive heart failure) Additional Impression: Acute on chronic respiratory failure with hypoxia Critical Care I have personally spent greater than 30 minutes of critical care time in the direct management of this patient. This includes bedside care, interpretation of diagnostic studies, and testing, discussion with consultants, patient, and family members, and other required patient management activities. This 30 minutes is in excess of all separately billable procedures. Scribe Attestation The scribe's documentation has been prepared under my direction and personally reviewed by me in its entirety. I confirm that the note above accurately reflects all work, treatment, procedures, and medical decision making performed by me. Departure Information Dispostion Home / Self-Care Referrals Josse Pope M.D. (PCP) Problem Qualifiers Primary Impression: CHF (congestive heart failure) Congestive heart failure type: unspecified congestive heart failure type Congestive heart failure chronicity: unspecified congestive heart failure chronicity Qualified Codes: I50.9 - Heart failure, unspecified
[2017-11-12 23:00] LABS: BASO % 0.2 %; BASO ABS # 0.04 K/uL (0-0.2); EOS % 0.5 %; HEMATOCRIT 39.3 % (42-52); HEMOGLOBIN 12.4 g/dL (14.0-18.0); IG# 0.23 K/uL (0.00-0.02); LYMPH % 5.6 %; MEAN CELL VOLUME 94.5 fL (80-100); MEAN CORPUSCULAR HEMOGLOBIN 29.8 pg (25-34); MEAN CORPUSCULAR HGB CONC 31.6 g/dl (32-36); MEAN PLATELET VOLUME 11.6 fL (7.4-10.4); MONO % 5.2 %; MONO ABS # 1.02 K/uL (0.11-0.59); NEUT % 87.3 %; NEUT ABS # 17.19 K/uL (1.4-6.5); PLATELET COUNT 193 K/uL (130-400); RED CELL DISTRIBUTION WIDTH CV 16.3 % (11.5-14.5); RED CELL DISTRIBUTION WIDTH SD 56.2 fL (36.4-46.3); WHITE BLOOD COUNT 19.68 K/uL (4.8-10.8)
[2017-11-12] MEDS ORDERED: ACETAMINOPHEN 325 MG TAB PO ONE (23:00)
[2017-11-12] MEDS ORDERED: ALBUT/IPRATROP 3MG/0.5MG NEB 3 ML VIAL INH ONE (23:00)
[2017-11-12 23:04] VITALS: PULSE 96; O2SAT 100
[2017-11-12] MEDS ORDERED: MAGNESIUM SULFATE 1GM / D5W 1 GM BAG ONE (23:04)
[2017-11-12 23:07] VITALS: PULSE 95; O2SAT 100
[2017-11-12 23:18] LABS: ISTAT CREATININE 1.6 mg/dl (0.6-1.3); ISTAT IONIZED CALCIUM 1.08 mmol/l (1.12-1.32); ISTAT POTASSIUM 5.1 mEq/L (3.3-5.0)
[2017-11-12 23:29] LABS: INR 1.1 (0.9-1.1); PTT PATIENT 29.4 SECONDS (21.0-31.0)
[2017-11-12 23:30] LABS: ALBUMIN 3.9 gm/dl (3.4-5.0); CALCIUM 8.6 mg/dl (8.5-10.1); CREATININE 1.55 mg/dl (0.60-1.40); POTASSIUM 4.8 mmol/L (3.5-5.1)
[2017-11-12 23:33] LABS: TOTAL PROTEIN 7.9 gm/dl (6.4-8.2)
[2017-11-13] VITALS (18 sets, daily range): BP systolic 111–143; BP diastolic 55–81; PULSE 61–99; TEMP 36.4–37.8; O2SAT 91–100; Ht 180.3 cm; Wt 105.9 kg
[2017-11-13 00:09] LABS: INFLUENZA B ANTIGEN Neg for Influ B (NEG)
[2017-11-13] MEDS ORDERED: ALLO100T PO (00:13)
[2017-11-13] MEDS ORDERED: OPTIRAY 320 IV PRN (00:15)
[2017-11-13] MEDS ORDERED: ASPI81TA28 PO (00:15)
[2017-11-13] MEDS ORDERED: DIVA500T3 PO (00:17)
[2017-11-13] MEDS ORDERED: PREG100C PO (00:22)
[2017-11-13] MEDS ORDERED: OXYC-106 PO ×2 (00:29→00:30)
[2017-11-13] MEDS ORDERED: POLYETHYLENE (MIRALAX) 17 GM PACK PO PRN (00:30)
[2017-11-13] MEDS ORDERED: NITROGLYCERIN 0.4 MG SL PER TAB CHARGE SL PRN (00:30)
[2017-11-13] MEDS ORDERED: MoRPHine SULFATE 2 MG/ML CARP IV PRN (00:30)
[2017-11-13] MEDS ORDERED: ALUMINUM/MAGNESIUM/SIMETH (MAALOX MAX) 30 ML UDC PO PRN (00:30)
[2017-11-13] MEDS ORDERED: MAGNESIUM HYDROXIDE SUSP 30 ML UDC PO PRN (00:30)
[2017-11-13] MEDS ORDERED: ACETAMINOPHEN 325 MG TAB PO PRN (00:30)
[2017-11-13] MEDS ORDERED: ONDANSETRON INJ 2 MG/ML 2 ML VIAL IV PRN (00:30)
[2017-11-13 00:38] LABS: INFLUENZA A PCR Neg for Influ A (NEG); INFLUENZA B PCR Neg for Influ B (NEG)
--- NOTE | 2017-11-13 00:39 | History and Physical ---
History & Physical Date & Time of Service: Nov 13, 2017 at 00:39 Chief Complaint: Ams/Breathing Diff Primary Care Physician: Josse Pope M.D. History of Present Illness Source: patient, family, hospital records This is a 71 yo m with a h/o chronic diastolic/systolic CHF(H/O CABG), DM and COPD that is presenting to us with ALOC and worsening SOB over the past 2 days. The states that he started to notice that the patient had worsening SOB approx 2 days prior however refused to be seen for evaluation. He was then more altered and confused throughout the day today and somnolent so EMS was called and patient was found to be hypoxic. Patient was placed on Bipap and received 40 mg of Iv Lasix, Cefepime, vanco and Levofloxacin. After some time on the bipap the patient did have improvement in symptoms and was oriented x 3. The patient states that he denies any pain and denies any productive cough. He has been compliant with medications Past Medical/Surgical History Medical Problems: (1) Diabetes Status: Chronic Family History No pertinent family history Social History Smoking Status: Former Smoker Smokeless Tobacco Use: No Alcohol Use: none Drug Use: none Marital Status: Occupational Status: retired Immunizations History of Influenza Vaccine: Unknown History of Tetanus Vaccine?: Unknown History of Pneumococcal: Unknown History of Hepatitis B Vaccine: Unknown Multi-Drug Resistant Organisms History of MDRO: Yes Type of MDRO: MRSA Allergies Coded Allergies: Prednisone (Verified Adverse Reaction, Intermediate, "GO CRAZY", 08/18/17) Home Medications Scheduled Allopurinol (Zyloprim), 200 MG PO DAILY Aspirin (Aspirin Ec), 81 MG PO DAILY Budesonide/Formoterol Fumarate (Symbicort 160/4.5 Inhaler), 2 PUFFS INH BID Divalproex Sodium (Depakote Er), 1,000 MG PO HS Furosemide (Lasix), 40 MG PO QAM Home O2 Therapy (Oxygen), 2 LITERS NA HS Insulin Glargine (Lantus), 30 UNITS SQ QPM Isosorbide Mononitrate Ext Rel (Imdur Ext Rel), 30 MG PO QAM Lisinopril (Prinivil), 5 MG PO QAM Metoprolol Succ (Toprol Xl) (Toprol-Xl), 25 MG PO QAM Nitroglycerin (Nitrostat), 0.4 MG UT PRN Pregabalin (Lyrica), 100 MG PO TID Simvastatin (Zocor), 40 MG PO QPM Tiotropium [place] (Spiriva Handihaler), 1 CAP INH QAM Venlafaxine Hcl (Effexor Extended Rel), 150 MG PO BID Scheduled PRN Albuterol Sulfate (Proair Respiclick), 2 PUFF INH BID PRN for SOB/Wheezing Ipratropium-Albuterol (Combivent Respimat), 1 PUFFS INH QID PRN for Shortness of Breath Oxycodone/Acetaminophen 10MG/325MG (Percocet 10MG/325MG), 1 TAB PO TID PRN for Pain Oxycodone/Acetaminophen 10MG/325MG (Percocet 10MG/325MG), 2 TAB PO HS PRN for Pain Review of Systems Limited ROS secondary to bipap and shortness of breath, please see above Physical Exam Vital Signs Date Time Temp Pulse Resp B/P (MAP) Pulse Ox O2 Delivery O2 Flow Rate FiO2 11/13/17 00:31 90 118/67 99 BiPAP 40 11/13/17 00:01 82 21 121/67 100 BiPAP 40 11/12/17 23:54 84 21 126/69 100 BiPAP 40 11/12/17 23:32 87 20 115/68 100 BiPAP 40 11/12/17 23:22 87 20 165/86 100 BiPAP 40 11/12/17 23:17 75 11/12/17 23:07 95 28 100 BiPAP/CPAP 40 11/12/17 23:04 96 100 40 11/12/17 22:45 100 BiPAP 11/12/17 22:45 38.4 89 21 158/84 100 BiPAP 40 11/12/17 22:45 100 BiPAP 40 General Appearance: + moderate distress, + pertinent finding (Bipap is on) Head: normocephalic Eyes: normal inspection ENT: normal ENT inspection Neck: supple Respiratory/Chest: + decreased breath sounds (throughout with poor air movement and occasional wheeze) Cardiovascular: no murmur, normal peripheral pulses, + tachycardia Abdomen/GI: normal bowel sounds, non tender, soft, + distended Back: normal inspection Extremities/Musculoskelatal: normal inspection, no calf tenderness, no pedal edema, normal range of motion Neurologic/Psych: alert, normal mood/affect, oriented x 3 Skin: normal color, warm/dry, no rash Lymphatic: no adenopathy Diagnostics Laboratory Results Results Past 24 Hours Test 11/12/17 22:10 11/12/17 22:49 11/12/17 23:00 11/12/17 23:01 Range/Units White Blood Count 19.68 4.8-10.8 K/uL Red Blood Count 4.16 4.7-6.1 M/uL Hemoglobin 12.4 14.0-18.0 g/dL Hematocrit 39.3 42-52 % Mean Corpuscular Volume 94.5 80-100 fL Mean Corpuscular Hemoglobin 29.8 25-34 pg Mean Corpuscular Hemoglobin Concent 31.6 32-36 g/dl Platelet Count 193 130-400 K/uL Mean Platelet Volume 11.6 7.4-10.4 fL Neutrophils (%) (Auto) 87.3 % Lymphocytes (%) (Auto) 5.6 % Monocytes (%) (Auto) 5.2 % Eosinophils (%) (Auto) 0.5 % Basophils (%) (Auto) 0.2 % Neutrophils # (Auto) 17.19 1.4-6.5 K/uL Lymphocytes # (Auto) 1.10 1.2-3.4 K/uL Monocytes # (Auto) 1.02 0.11-0.59 K/uL Eosinophils # (Auto) 0.10 0-0.5 K/uL Basophils # (Auto) 0.04 0-0.2 K/uL RDW Standard Deviation 56.2 36.4-46.3 fL RDW Coefficient of Variation 16.3 11.5-14.5 % Immature Granulocyte % (Auto) 1.2 % Immature Granulocyte # (Auto) 0.23 0.00-0.02 K/uL Prothrombin Time 12.0 9.0-12.0 SECONDS Prothromb Time International Ratio 1.1 0.9-1.1 Activated Partial Thromboplast Time 29.4 21.0-31.0 SECONDS Partial Thromboplastin Ratio 1.1 Sodium Level 138 136-145 mmol/L Potassium Level 4.8 3.5-5.1 mmol/L Chloride Level 100 98-107 mmol/L Carbon Dioxide Level 33 21-32 mmol/L Anion Gap 5.0 3-11 mmol/L Blood Urea Nitrogen 37 7-18 mg/dl Creatinine 1.55 0.60-1.40 mg/dl Est Creatinine Clear Calc Drug Dose 58.2 ml/min Estimated GFR () 52.2 Estimated GFR (Non- 45.0 BUN/Creatinine Ratio 23.6 10-20 Random Glucose 69 70-99 mg/dl Calcium Level 8.6 8.5-10.1 mg/dl Total Bilirubin 0.3 0.2-1 mg/dl Aspartate Amino Transf (AST/SGOT) 15 15-37 U/L Alanine Aminotransferase (ALT/SGPT) 19 12-78 U/L Alkaline Phosphatase 131 45-117 U/L Pro-B-Type Natriuretic Peptide 4975 0-900 pg/ml Total Protein 7.9 6.4-8.2 gm/dl Albumin 3.9 3.4-5.0 gm/dl Globulin 4.0 2.5-4.0 gm/dl Albumin/Globulin Ratio 1.0 0.9-2 Bedside Glucose 85 70-99 mg/dl Bedside D-Dimer > 450 0-450 ng/mlFEU Bedside Lactic Acid Venous 0.73 0.90-1.70 mmol/L Test 11/12/17 23:06 11/12/17 23:15 11/12/17 23:18 11/13/17 00:32 Range/Units Bedside Hemoglobin 12.2 14.0-18.0 g/dl Bedside Hematocrit 36 42-52 % Bedside Sodium 140 135-144 mEq/L Bedside Potassium 5.1 3.3-5.0 mEq/L Bedside Chloride 100 101-112 mEq/L Bedside Total CO2 34 24-31 mEq/l Anion Gap 12.0 16-25 mmol/L Bedside Blood Urea Nitrogen 43 7-18 mg/dl Bedside Creatinine 1.6 0.6-1.3 mg/dl Bedside Glucose (other) 78 70-99 mg/dl Bedside Ionized Calcium (Fadi) 1.08 1.12-1.32 mmol/l Influenza Type A (RT-PCR) Neg for Influ A NEG Influenza Type A Antigen Neg for Influ A NEG Influenza Type B Antigen Neg for Influ B NEG Influenza Type B (RT-PCR) Neg for Influ B NEG Arterial Blood pH 7.32 7.35-7.45 Arterial Blood Partial Pressure CO2 61 35-46 mmHg Arterial Blood Partial Pressure O2 48 80-95 mm/Hg Arterial Blood HCO3 31 19-24 mmol/L Arterial Blood Oxygen Saturation 80.2 90-95 % Arterial Blood Base Excess 3.2 -9-1.8 mEq/L Arterial Blood Gas Delivery 40% Noah Test POS POS Microbiology Results 11/12/17 Blood Culture, Received Pending 11/12/17 Blood Culture, Received Pending Diagnostic Radiology Mild pulmonary congestion with a questionable opacity in the LLL surgical ties noted CTA- no PE, questionable opacity in post LLL, mild emphysema, cardiomegaly EKG Poor data quality, interpretation may be adversely affected Sinus rhythm with 1st degree A-V block Low voltage QRS Inferior infarct (cited on or before 18-AUG-2017) Cannot rule out Anterior infarct (cited on or before 18-AUG-2017) Abnormal ECG When compared with ECG of 18-AUG-2017 16:58, Premature atrial complexes are no longer Present Nonspecific T wave abnormality, worse in Lateral leads Impression Assessment and Plan This is a 71 yo m that is suffering from acute on chronic hypoxic respiratory failure in the setting of COPD vs CHF exacerbation Acute on chronic hypoxic respiratory failure secondary to PNA vs copd exacerbation vs acute on chronic systolic/ diastolic CHF - Tele admission and continue Bipap ( patient BL is 2L of O2 NC) - Rocephin and Azithro cont'd - Consult CVS - repeat BMP in the am - Lactate WNL and procal slightly elevated - troponin trend and repeat EKG in am - Methylpred 40 mg bid - Tiotropium and symbicort held in the meantime - Duonebs QID R and q2h prn - change PO lasix 40 mg to IV qam - daily weight and I&O JEN on CKD - d5w 1/2 NSS given - recheck in am DMII with hypoglycemia - dose have Lantus and with ALOC may have had poor intake today - No lantus until tomorrow - Will give 500cc of d5w 1/2 NSS - insulin ISS and BSG AC/HS CHF/ CAD /HTN - continue ASA 81 mg daily - continue toprol 25 mg daily, zocor 40 mg daily Diabetic neuropathy continue Lyrica 100 mg daily Seizure disorder? Depakote 1000 mg HS Mood disorder - continue Effexor 150 mg daily DVT prophylaxis heparin bid scd Attending addendum: I have physically seen this patient, have supervised the medical residents activities, and agree with the H&P unless as otherwise noted. Assessment and Plan: Acute on chronic respiratory failure with hypoxia/acute on chronic combination CHF/COPD exacerbation-- The patient will be admitted to telemetry for serial cardiac enzymes, cardiac rhythm monitoring and a 2-D echocardiogram with Dopplers. Continue BiPAP begun in the ED, and taper to nasal cannula oxygen as symptoms improve COPD exacerbation-- Ceftriaxone 1 g IV daily Azithromycin 500 mg IV daily Solu-Medrol 40 mg IV twice a day, close watch on blood sugars Duonebs every 4 hours while awake and every 2 hours when necessary. Acute on chronic CHF/CAD/hypertension-- Given Lasix 40 mg IV in the ED and continue every morning Continue aspirin 81 mg daily, metoprolol succinate 25 mg by mouth daily with hold parameters Serial BMP and magnesium levels Diabetes mellitus/hypoglycemia-- Hold Lantus for now, as low blood sugar likely secondary to decreased oral intake and use of Lantus in the a.m. Place on Accu-Cheks before meals and at bedtime with NovoLog coverage per scale 500 mL of D5 half-normal saline. Hyperlipidemia--continue simvastatin 40 mg by mouth daily Depression/peripheral neuropathy-- Continue Effexor XR, Lyrica and Depakote Level of Care Telemetry Advanced Directives Existing Advance Directive: No Existing Living Will: No Existing Power of Web Programmer: No Resuscitation Status FULL RESUSCITATION VTE Prophylaxis VTE Risk Assessment Done? Y/N: Yes Risk Level: Moderate Given or contraindicated: Unfractionated heparin SQ Social Service Consult None Apply Note Total Time: Critical Care 30 - 74 minutes Additional Copies To Josse Pope M.D.
[2017-11-13] MEDS ORDERED: OXYCODONE/ACETAMINOPHEN 10/325MG TAB PO PRN (00:45)
[2017-11-13] MEDS ORDERED: D5W IV ONE (00:45)
[2017-11-13] MEDS ORDERED: [UNRECOGNIZED DRUG - OTHER] IV ONE (00:45)
[2017-11-13] MEDS ORDERED: GLUCOSE 10 TABS/TUBE PO PRN (02:15)
[2017-11-13] MEDS ORDERED: GLUCOSE 40% GEL 15 GM TUBE PO PRN (02:15)
[2017-11-13] MEDS ORDERED: GLUCAGON FOR INJ 1 MG VIAL SQ PRN (02:15)
[2017-11-13] MEDS ORDERED: DEXTROSE 50% 50 ML SYR IV PRN (02:15)
[2017-11-13] MEDS: CEFTRIAXONE SOD INJ 1 GM in DEXTROSE 5% ADD-VANTAGE 50ML 50 ML IV SCH (02:25)
[2017-11-13 06:11] LABS: BASO % 0.1 %; BASO ABS # 0.02 K/uL (0-0.2); EOS % 0.3 %; EOS ABS # 0.05 K/uL (0-0.5); HEMATOCRIT 35.5 % (42-52); HEMOGLOBIN 11.2 g/dL (14.0-18.0); LYMPH % 4.7 %; LYMPH ABS # 0.85 K/uL (1.2-3.4); MEAN CELL VOLUME 94.4 fL (80-100); MEAN CORPUSCULAR HEMOGLOBIN 29.8 pg (25-34); MEAN CORPUSCULAR HGB CONC 31.5 g/dl (32-36); MEAN PLATELET VOLUME 10.5 fL (7.4-10.4); MONO % 5.6 %; MONO ABS # 1.01 K/uL (0.11-0.59); NEUT % 88.7 %; NEUT ABS # 16.02 K/uL (1.4-6.5); PLATELET COUNT 162 K/uL (130-400); RED CELL DISTRIBUTION WIDTH CV 16.3 % (11.5-14.5); RED CELL DISTRIBUTION WIDTH SD 56.2 fL (36.4-46.3); WHITE BLOOD COUNT 18.05 K/uL (4.8-10.8)
--- NOTE | 2017-11-13 06:22 | DIAGNOSTIC IMAGING REPORT ---
CHEST ONE VIEW PORTABLE CLINICAL HISTORY: Sepsis dyspnea COMPARISON STUDY: 08/20/2017 FINDINGS: Moderate cardiomegaly. Prior median sternotomy. Prominent pulmonary vasculature. Diaphragms smooth. IMPRESSION: Congestive heart failure The above report was generated using voice recognition software. It may contain grammatical, syntax or spelling errors. Electronically signed by: Wilmer Gonzalez M.D. 11/13/2017 6:21 AM Dictated Date/Time: 11/13/2017 6:20 AM
[2017-11-13 06:47] LABS: ALBUMIN 3.3 gm/dl (3.4-5.0); CALCIUM 8.5 mg/dl (8.5-10.1); CREATININE 1.56 mg/dl (0.60-1.40); POTASSIUM 4.5 mmol/L (3.5-5.1)
--- NOTE | 2017-11-13 06:47 | DIAGNOSTIC IMAGING REPORT ---
(CHEST FOR PE) ANGIO WITH CT DOSE: 972.46 mGy.cm HISTORY: Chest pain dyspnea. Fever. TECHNIQUE: Multiaxial CT images of the chest were performed following the intravenous administration of contrast to evaluate the pulmonary arteries. Maximal intensity projection images were also obtained. A dose lowering technique was utilized adhering to the principles of ALARA. COMPARISON STUDY: 08/18/2017 FINDINGS: Unchanging prominence of the thoracic aorta at approximately 4.1 cm. Several small reactive mediastinal and/or hilar nodes. Pulmonary vasculature enhances appropriately. No filling defects. Prominence of the pulmonary vasculature throughout. Mild left and to lesser extent right basilar atelectatic and pleural reactive change. Considerable increase in fecal load within the transverse colon. IMPRESSION: 1. Study is negative for pulmonary embolus. 2. Moderate cardiomegaly with components of pulmonary vascular congestion. 3. Left and to a lesser extent right basilar atelectatic/minimal infiltrative change. 4. Unchanging prominence of the thoracic aorta at 4.1 cm. 5. Increased fecal load transverse colon consistent with fecal stasis. The above report was generated using voice recognition software. It may contain grammatical, syntax or spelling errors. Electronically signed by: Wilmer Gonzalez M.D. 11/13/2017 6:46 AM Dictated Date/Time: 11/13/2017 6:41 AM
[2017-11-13 06:49] LABS: TOTAL PROTEIN 6.9 gm/dl (6.4-8.2)
[2017-11-13] MEDS: ALBUT/IPRATROP 3MG/0.5MG NEB 3 ML VIAL INH SCH ×4 (07:08→19:22)
[2017-11-13] MEDS: INSULIN ASPART 100 UNITS/ML 3 ML PEN SC SCH ×5 (07:43→20:25)
[2017-11-13] MEDS: ALLOPURINOL 100 MG TAB PO SCH (08:11)
[2017-11-13] MEDS: ASPIRIN 81 MG ECTAB PO SCH (08:11)
[2017-11-13] MEDS: VENLAFAXINE HCL XR 150 MG CAPXR PO SCH ×2 (08:11→20:23)
[2017-11-13] MEDS: ISOSORBIDE MONONITRATE 30 MG TABCR PO SCH (08:11)
[2017-11-13] MEDS: METOPROLOL SUCC 25MG EXT REL TAB PO SCH (08:11)
[2017-11-13] MEDS: METHYLPREDNISOLONE IV 40 MG in SYRINGE 0 ML IV SCH ×2 (08:12→20:22)
[2017-11-13] MEDS: HEPARIN SOD 5000 UNIT/0.5 ML CARP SQ SCH ×2 (08:14→20:27)
[2017-11-13] MEDS: PREGABALIN 100 MG CAP PO SCH ×3 (08:15→20:22)
[2017-11-13] MEDS: AZITHROMYCIN IV 500 MG in DEXTROSE 5% 250ML 250 ML IV SCH (08:15)
[2017-11-13] MEDS ORDERED: FUROSEMIDE INJ 40 MG in SYRINGE 0 ML IV SCH ×2 (09:00→17:00)
[2017-11-13] MEDS: POLYETHYLENE (MIRALAX) 17 GM PACK PO SCH ×4 (10:00→20:22)
[2017-11-13] MEDS ORDERED: PERFLUTREN LIPID MICROSPHERE (DEFINITY) IV ONE (10:44)
--- NOTE | 2017-11-13 11:01 | CARDIOLOGY CONSULTATION ---
DATE OF CONSULTATION: 11/13/2017 REFERRING PHYSICIAN: Dr. Lopez. PRIMARY CARE PHYSICIAN: Dr. Josse Pope. PRIMARY ROLL CHANGER: Nathan Watt. INDICATIONS: Acute respiratory distress, multifactorial. HISTORY OF PRESENT ILLNESS: The patient is a 71-year-old male with complex history which includes known ischemic heart disease with prior myocardial infarction. The patient has undergone prior coronary artery bypass grafting x4 in 2008, receiving a HINOJOSA graft to the LAD, a saphenous vein graft to the right posterior descending artery, saphenous vein graft to an obtuse marginal, saphenous vein graft to the first diagonal. His ongoing medical problems in addition to above include chronic obstructive lung disease, emphysema, obstructive sleep apnea, the patient using 2 liters nasal cannula oxygen daily and at night, poor tolerance of CPAP, hypertension, dyslipidemia, and type 2 diabetes mellitus. The patient presents this admission noting a gradual decline over approximately 1 week period with associated fevers and chills, worsening cough but nonproductive. The patient is a poor historian but in review of records, he initially had worsening shortness of breath at least 2 days' duration and subsequently had worsening of alteration in mental status and somnolence. He has presented to the Emergency Room and was found to be significantly hypoxic and hypercarbic. He was transiently treated with BiPAP, though the patient notes poor tolerance of it past evening, this morning he is able to answer questions appropriately, though with some mild lethargy. Notes no chest pains. Notes no tachypalpitations. Notes no dizziness or lightheadedness. Notes no syncope or near syncope. Feels he is generally active to a low level degree about home now, has been limited in the last several days. Notes no bleeding difficulties, melena, hematochezia, dysuria, hematuria. Notes no recent changes in medications, feels he has been compliant with medical therapies but "too many." Appetite is generally good. Notes only slight increase in weight over the past month. No acute changes. Has felt some abdominal distention in the past 1-2 weeks. REVIEW OF SYSTEMS: Otherwise unobtainable or negative. ALLERGIES: PREDNISONE WITH ADVERSE AGITATION. MEDICATIONS: Prior to hospitalization per list were allopurinol 200 mg p.o. daily, aspirin 81 mg per day, Symbicort inhaler, Depakote ER 1000 mg at bedtime, furosemide 40 mg q.a.m., oxygen nasal cannula 2 liters daily, insulin Lantus 30 units q.p.m., isosorbide mononitrate 30 mg every day, lisinopril 5 mg p.o. daily, metoprolol succinate 25 mg q.a.m., Lyrica 100 mg t.i.d., simvastatin 40 mg q.p.m., Spiriva inhaler, and Effexor 150 mg twice per day. PAST SURGICAL HISTORY: Described notable for coronary artery bypass grafting x4 - 2009, past carpal tunnel surgery, cataract extraction and repair of lumbar hernia. FAMILY HISTORY: Notable for hypertension, heart disease and heart failure in mother. Father with significant pulmonary disease. 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 He has a greater than [id number] history of tobacco use, currently abstaining. He uses no significant alcohol or over the counter medications per the patient. PHYSICAL EXAMINATION: VITAL SIGNS: Heart rate is 72, blood pressure is 135/80. HEENT: Normocephalic and atraumatic. Nares without discharge. Throat was clear. NECK: Supple without thyromegaly or lymphadenopathy. There is no distinct jugular venous distention, the patient examined at 30 degrees. LUNGS: Reveal scattered wheezes bilaterally, coarse rhonchorous with cough. No distinct lateralization. HEART: Regular with normal S1, S2. There are distant heart sounds. There is no S3 gallop. CHEST: Nontender to palpation. ABDOMEN: Soft with moderate distention. EXTREMITIES: Without cyanosis or clubbing. There is trace bilateral pedal edema with intact distal pulses. NEUROLOGIC: The patient is answering questions with again some delay in mentation. LABORATORY DATA: On presentation - blood gas is notable for pH of 7.32, pCO2 of 61, and pO2 of 48. Sodium is 137, potassium is 4.5, chloride is 99, bicarbonate is 31, BUN is 37, and creatinine is 1.6. Troponin I is minimally elevated at 0.047. BNP was elevated on initial presentation of 4975. Albumin level was 3.3. White cell count on presentation was 19.6, this morning is 18.0 with a hemoglobin of 11.2, hematocrit 35.5, platelet count of 162 and left shift present. IMAGING DATA: Chest x-ray reveals diffuse increased interstitial markings with possible infiltrate, left base. CT scan of the chest revealed pulmonary vascular congestion, infiltrate left base, no evidence of pulmonary emboli, and aorta is mildly enlarged. EKG reveals sinus rhythm with first degree AV block, low voltage QRS, old inferior infarct, unchanged, poor progression across the anterior precordial leads, slight decrease in the anterior forces in comparing to prior studies. No acute evolution ST segment changes or Q-waves in comparison to prior studies of 08/18/2017. IMPRESSION: The patient is a 71-year-old male presents with acute respiratory distress with marked hypercarbia and hypoxia, likely on the basis of underlying emphysematous lung disease, obstructive sleep apnea, possible superimposed infectious process. BNP is mildly elevated and abdominal fullness and chest congestion is noted on initial assessment, suggesting a component of superimposed diastolic heart failure secondary to complaints. He has responded to IV diuretics, would continue additional dose as ordered this morning. PLAN: Will plan on repeating echocardiogram and following serially in the hospital. The patient appears to be improved since admission. We will need to be cautious with diuretics given marked hypercapnia. Would continue usual cardiac medications including isosorbide, metoprolol, and lisinopril. We will follow up the patient as clinical course proceeds. HERSON
[2017-11-13] MEDS ORDERED: FUROSEMIDE 40 MG/4 ML VIAL ONE (11:19)
[2017-11-13] MEDS ORDERED: NURSING VERBAL MED ORDER ONE (11:45)
--- NOTE | 2017-11-13 13:06 | ECHOCARDIOGRAM REPORT ---
*NOTICE TO RECEIVING [employer] This information is strictly Confidential and protected under [place] law. [place] law prohibits you from making any further disclosure of this information unless further disclosure is expressly permitted by the written consent of the person to whom it pertains or is authorized by law. A general authorization for the release of medical or other information is not sufficient for this purpose. Hospital accepts no responsibility if the information is made available to any other person, INCLUDING THE PATIENT. Interpretation Summary * Name: AYO JUAREZ Study Date: 11/13/2017 10:15 AM BP: 135/81 mmHg * Patient Location: .2E\S\E202\S\1 HR: 72 * : 1945 (M/d/yyyy) Gender: Male Height: 71 in * Age: 71 yrs Ethnicity: CA Weight: 239 lb * Ordering Physician: Antonio Romeo * Referring Physician: Self, Referred * Performed By: Leigh Ann Rand RDCS * * Reason For Study: CHF * BSA: 2.3 m2 * -- Conclusions -- * The study was technically difficult. * The left ventricle is normal in size. * There is normal left ventricular wall thickness. * There is severe posterior wall hypokinesis. * There is moderate apical wall hypokinesis. * Ejection Fraction = 45-50%. * Diastolic dysfunction, Grade II (pseudonormalization pattern). * There is trace mitral regurgitation. * There is mild tricuspid regurgitation. * Right ventricular systolic pressure is elevated at 50-60mmHg. Procedure Details * A contrast injection of Definity was performed to improve assessment of LV function. * Contrast was injected into an intravenous site in the left arm. * One vial of Definity ultrasound contrast was diluted in normal saline to a total volume of 10 ml. A total of '1' ml of solution was administered during imaging. * Lot # [id number] of Definity utilized for procedure. * Expiration date 1 JAN 18. * The attending nurse who injected the contrast agent was RC KAUFFMAN. * A complete two-dimensional transthoracic echocardiogram was performed (2D, M-mode, Doppler and color flow Doppler). * The study was technically difficult. Left Ventricle * The left ventricle is normal in size. * There is normal left ventricular wall thickness. * Ejection Fraction = 45-50%. * There is severe posterior wall hypokinesis. * There is moderate apical wall hypokinesis. Right Ventricle * The right ventricle is normal in size and function. Atria * The left atrium is moderately dilated. * Right atrial size is normal. * No ASD detected; PFO is not assessed. Mitral Valve * The mitral valve anatomy is normal. * There is no mitral valve stenosis. * There is trace mitral regurgitation. Tricuspid Valve * The tricuspid valve anatomy is normal. * There is no tricuspid stenosis. * Right ventricular systolic pressure is elevated at 50-60mmHg. * There is mild tricuspid regurgitation. Aortic Valve * The aortic valve is trileaflet. * Aortic valve sclerosis mild, without significant aortic valvular stenosis. * No aortic regurgitation is present. Pulmonic Valve * The pulmonic valve is not well visualized. Great Vessels * Mild aortic root dilatation. Pericardium/Pleural * There is no pericardial effusion. Great Vessels * Normal inferior vena cava diameter and respiratory variation suggests normal central venous pressure. Left Ventricular Diastolic Function * Diastolic dysfunction, Grade II (pseudonormalization pattern). MMode 2D Measurements and Calculations Ao root diam 4.3 cm Ao root area 14.7 cm\S\2 LA dimension 4.9 cm LA/Ao 1.1 LVAd ap4 41.1 cm\S\2 LVLd ap4 8.8 cm EDV(MOD-sp4) 156.4 ml EDV(sp4-el) 163.1 ml LVAs ap4 26.1 cm\S\2 LVLs ap4 7.6 cm ESV(MOD-sp4) 72.3 ml ESV(sp4-el) 76.1 ml EF(MOD-sp4) 53.8 % EF(sp4-el) 53.3 % LVAd ap2 46.9 cm\S\2 LVLd ap2 9.3 cm EDV(MOD-sp2) 191.2 ml EDV(sp2-el) 200.1 ml LVAs ap2 31.3 cm\S\2 LVLs ap2 8.4 cm ESV(MOD-sp2) 94.3 ml ESV(sp2-el) 99.3 ml EF(MOD-sp2) 50.7 % EF(sp2-el) 50.3 % LVLd %diff 5.8 % EDV(MOD-bp) 179.7 ml LVLs %diff 9.3 % ESV(MOD-bp) 84.2 ml EF(MOD-bp) 53.2 % SV(MOD-sp4) 84.2 ml SI(MOD-sp4) 37.0 ml/m\S\2 SV(MOD-sp2) 96.9 ml SI(MOD-sp2) 42.6 ml/m\S\2 SV(MOD-bp) 95.6 ml SI(MOD-bp) 42.0 ml/m\S\2 SV(sp4-el) 87.0 ml SI(sp4-el) 38.2 ml/m\S\2 SV(sp2-el) 100.7 ml SI(sp2-el) 44.3 ml/m\S\2 Doppler Measurements and Calculations MV E max candelario 118.3 cm/sec MV A max candelario 56.5 cm/sec MV E/A 2.1 MV dec time 0.22 sec Ao V2 max 119.8 cm/sec Ao max PG 5.7 mmHg Ao max PG (full) 2.2 mmHg LV V1 max PG 3.5 mmHg LV V1 max 93.6 cm/sec TR max candelario 337.5 cm/sec
--- NOTE | 2017-11-13 17:34 | Family Medicine Progress Note ---
Progress Note Date of Service Nov 13, 2017. Subjective Pt evaluation today including: conversation w/ patient, physical exam, chart review, lab review, review of inpatient medication list Pain: No pain reported PO Intake: Tolerating PO intake Voiding: camacho catheter in place Mr. Badillo reports he feels ok, and that his breathing is improved from yesterday. He denies cough, fever, chills, palpitations. He states he normally uses 2L of oxygen at home at night, and previously had a CPAP, but was not able to tolerate it. Constitutional: No fever, No chills Respiratory: + shortness of breath, No cough, No sputum, No wheezing Cardiovascular: No chest pain Abdomen: No pain, No nausea, No vomiting, No diarrhea All Other Systems: Reviewed and Negative Medications Current Inpatient Medications Medications (Trade) Dose Ordered Sig/Yasmin Route Start Time Stop Time Status Last Admin Dose Admin Ioversol (Optiray 320) 100 ml UD PRN IV 11/13/17 00:15 11/17/17 00:14 Heparin Sodium (Porcine) (Heparin Sq 5000 Unit/0.5ml) 5,000 unit Q12 SQ 11/13/17 09:00 12/13/17 08:59 11/13/17 08:14 5,000 UNIT Acetaminophen (Tylenol Tab) 650 mg Q4H PRN PO 11/13/17 00:30 12/13/17 00:29 Al Hydrox/Mg Hydrox/Simethicone (Maalox Max Susp) 15 ml Q4H PRN PO 11/13/17 00:30 12/13/17 00:29 Magnesium Hydroxide (Milk Of Magnesia Susp) 30 ml Q12H PRN PO 11/13/17 00:30 12/13/17 00:29 Ondansetron HCl (Zofran Inj) 4 mg Q6H PRN IV 11/13/17 00:30 12/13/17 00:29 Nitroglycerin (Nitrostat Tab) 0.4 mg UD PRN SL 11/13/17 00:30 12/13/17 00:29 Morphine Sulfate (MoRPHine SULFATE INJ) 2 mg Q30M PRN IV 11/13/17 00:30 11/27/17 00:29 Polyethylene (Miralax Powder Packet) 17 gm DAILY PRN PO 11/13/17 00:30 12/13/17 00:29 Allopurinol (Zyloprim Tab) 200 mg DAILY PO 11/13/17 09:00 12/13/17 08:59 11/13/17 08:11 200 MG Aspirin (Ecotrin Tab) 81 mg DAILY PO 11/13/17 09:00 12/13/17 08:59 11/13/17 08:11 81 MG Divalproex Sodium (Depakote Extended Rel Tab) 1,000 mg HS PO 11/13/17 21:00 12/13/17 20:59 Insulin Glargine (Lantus Solostar Pen) 30 units QPM SQ 11/13/17 21:00 12/13/17 20:59 Isosorbide Mononitrate (Imdur Ext Rel Tab) 30 mg QAM PO 11/13/17 09:00 12/13/17 08:59 11/13/17 08:11 30 MG Metoprolol Succinate (Toprol Xl Tab) 25 mg QAM PO 11/13/17 09:00 12/13/17 08:59 11/13/17 08:11 25 MG Oxycodone/ Acetaminophen (Percocet 10-325MG Tab) 1 tab TID PRN PO 11/13/17 00:45 11/27/17 00:44 Oxycodone/ Acetaminophen (Percocet 10-325MG Tab) 2 tab HS PRN PO 11/13/17 00:45 11/27/17 00:44 Pregabalin (Lyrica Cap) 100 mg TID PO 11/13/17 09:00 12/13/17 08:59 11/13/17 13:07 100 MG Simvastatin (Zocor Tab) 40 mg QPM PO 11/13/17 21:00 12/13/17 20:59 Venlafaxine HCl (effeXOR EXTENDED REL CAP) 150 mg BID PO 11/13/17 09:00 12/13/17 08:59 11/13/17 08:11 150 MG Ceftriaxone Sodium 1 gm/ Dextrose 50 ml @ 100 mls/hr Q24H IV 11/13/17 02:00 11/15/17 01:59 11/13/17 02:25 100 MLS/HR Azithromycin 500 mg/Dextrose 255 ml @ 125 mls/hr DAILY IV 11/13/17 09:00 11/15/17 08:59 11/13/17 08:15 125 MLS/HR Methylprednisolone Sodium Succinate 40 mg/Syringe 0.64 ml @ 1.5 mls/min BID IV 11/13/17 09:00 12/13/17 08:59 11/13/17 08:12 1.5 MLS/MIN Insulin Aspart (novoLOG ASPART) SLIDING SCALE G... ACHS SC 11/13/17 07:00 12/13/17 06:59 11/13/17 17:08 5 UNITS Glucose (Glucose 40% Gel) 15-30 GRAMS 15 GRAMS... UD PRN PO 11/13/17 02:15 12/13/17 02:14 Glucose (Glucose Chew Tab) 4-8 Tablets 4 Tabl... UD PRN PO 11/13/17 02:15 12/13/17 02:14 Dextrose (Dextrose 50% 50ML Syringe) 25-50ML OF 50% DW IV FOR... UD PRN IV 11/13/17 02:15 12/13/17 02:14 Glucagon (Glucagon Inj) 1 mg UD PRN SQ 11/13/17 02:15 12/13/17 02:14 Albuterol/ Ipratropium (Duoneb) 3 ml QIDR INH 11/13/17 08:00 12/13/17 07:59 11/13/17 15:55 3 ML Polyethylene (Miralax Powder Packet) 17 gm Q4H PO 11/13/17 09:00 12/13/17 08:59 11/13/17 13:07 17 GM Furosemide 40 mg/ Syringe 4 ml @ 4 mls/min BID17 IV 11/13/17 17:00 12/13/17 16:59 Future Hold 11/13/17 17:08 4 MLS/MIN Objective Vital Signs Date Time Temp Pulse Resp B/P (MAP) Pulse Ox O2 Delivery O2 Flow Rate FiO2 11/13/17 15:55 61 20 99 Nasal Cannula 2.0 11/13/17 15:18 99 Nasal Cannula 4.0 11/13/17 15:05 36.4 89 22 119/68 (85) 91 Nasal Cannula 2.0 11/13/17 12:00 98 BiPAP 11/13/17 11:37 36.6 79 22 143/73 (96) 92 Nasal Cannula 4.0 11/13/17 11:26 99 100 30 11/13/17 11:26 99 26 100 BiPAP/CPAP 40 11/13/17 08:00 99 Nasal Cannula 4.0 11/13/17 08:00 36.4 72 25 135/81 (99) 100 11/13/17 07:09 74 100 30 11/13/17 07:09 74 23 100 BiPAP/CPAP 40 11/13/17 05:39 73 100 30 11/13/17 04:05 36.9 73 18 117/68 (84) 99 11/13/17 04:00 99 BiPAP 30 11/13/17 02:39 74 99 40 11/13/17 01:25 37.8 75 20 111/55 100 BiPAP 40 11/13/17 01:18 38.0 80 21 120/75 99 11/13/17 01:06 80 21 120/75 99 BiPAP 40 11/13/17 00:31 90 118/67 99 BiPAP 40 11/13/17 00:01 82 21 121/67 100 BiPAP 40 11/12/17 23:54 84 21 126/69 100 BiPAP 40 11/12/17 23:32 87 20 115/68 100 BiPAP 40 11/12/17 23:22 87 20 165/86 100 BiPAP 40 11/12/17 23:17 75 11/12/17 23:07 95 28 100 BiPAP/CPAP 40 11/12/17 23:04 96 100 40 11/12/17 22:45 100 BiPAP 11/12/17 22:45 38.4 89 21 158/84 100 BiPAP 40 11/12/17 22:45 100 BiPAP 40 Physical Exam General Appearance: WD/WN, no apparent distress Respiratory/Chest: chest non-tender, no respiratory distress, no accessory muscle use, + decreased breath sounds, + wheezing, + pertinent finding (coarse breath sounds) Cardiovascular: regular rate, rhythm, no edema, no gallop, no JVD, no murmur Abdomen: normal bowel sounds, non tender, soft, no organomegaly, no pulsatile mass Laboratory Results Last 24 Hours Test 11/12/17 22:10 11/12/17 22:49 11/12/17 23:00 11/12/17 23:01 White Blood Count 19.68 K/uL Red Blood Count 4.16 M/uL Hemoglobin 12.4 g/dL Hematocrit 39.3 % Mean Corpuscular Volume 94.5 fL Mean Corpuscular Hemoglobin 29.8 pg Mean Corpuscular Hemoglobin Concent 31.6 g/dl Platelet Count 193 K/uL Mean Platelet Volume 11.6 fL Neutrophils (%) (Auto) 87.3 % Lymphocytes (%) (Auto) 5.6 % Monocytes (%) (Auto) 5.2 % Eosinophils (%) (Auto) 0.5 % Basophils (%) (Auto) 0.2 % Neutrophils # (Auto) 17.19 K/uL Lymphocytes # (Auto) 1.10 K/uL Monocytes # (Auto) 1.02 K/uL Eosinophils # (Auto) 0.10 K/uL Basophils # (Auto) 0.04 K/uL RDW Standard Deviation 56.2 fL RDW Coefficient of Variation 16.3 % Immature Granulocyte % (Auto) 1.2 % Immature Granulocyte # (Auto) 0.23 K/uL Prothrombin Time 12.0 SECONDS Prothromb Time International Ratio 1.1 Activated Partial Thromboplast Time 29.4 SECONDS Partial Thromboplastin Ratio 1.1 Sodium Level 138 mmol/L Potassium Level 4.8 mmol/L Chloride Level 100 mmol/L Carbon Dioxide Level 33 mmol/L Anion Gap 5.0 mmol/L Blood Urea Nitrogen 37 mg/dl Creatinine 1.55 mg/dl Est Creatinine Clear Calc Drug Dose 58.2 ml/min Estimated GFR () 52.2 Estimated GFR (Non- 45.0 BUN/Creatinine Ratio 23.6 Random Glucose 69 mg/dl Calcium Level 8.6 mg/dl Total Bilirubin 0.3 mg/dl Aspartate Amino Transf (AST/SGOT) 15 U/L Alanine Aminotransferase (ALT/SGPT) 19 U/L Alkaline Phosphatase 131 U/L Pro-B-Type Natriuretic Peptide 4975 pg/ml Total Protein 7.9 gm/dl Albumin 3.9 gm/dl Globulin 4.0 gm/dl Albumin/Globulin Ratio 1.0 Bedside Glucose 85 mg/dl Bedside D-Dimer > 450 ng/mlFEU Bedside Lactic Acid Venous 0.73 mmol/L Test 11/12/17 23:06 11/12/17 23:15 11/12/17 23:18 11/13/17 01:02 Bedside Hemoglobin 12.2 g/dl Bedside Hematocrit 36 % Bedside Sodium 140 mEq/L Bedside Potassium 5.1 mEq/L Bedside Chloride 100 mEq/L Bedside Total CO2 34 mEq/l Anion Gap 12.0 mmol/L Bedside Blood Urea Nitrogen 43 mg/dl Bedside Creatinine 1.6 mg/dl Bedside Glucose (other) 78 mg/dl Bedside Ionized Calcium (Fadi) 1.08 mmol/l Influenza Type A (RT-PCR) Neg for Influ A Influenza Type A Antigen Neg for Influ A Influenza Type B Antigen Neg for Influ B Influenza Type B (RT-PCR) Neg for Influ B Arterial Blood pH 7.32 Arterial Blood Partial Pressure CO2 61 mmHg Arterial Blood Partial Pressure O2 48 mm/Hg Arterial Blood HCO3 31 mmol/L Arterial Blood Oxygen Saturation 80.2 % Arterial Blood Base Excess 3.2 mEq/L Arterial Blood Gas Delivery 40% Noah Test POS Procalcitonin 0.51 ng/ml Test 11/13/17 01:14 11/13/17 01:37 11/13/17 02:41 11/13/17 05:53 Bedside Glucose 135 mg/dl 146 mg/dl Troponin I 0.038 ng/ml 0.047 ng/ml White Blood Count 18.05 K/uL Red Blood Count 3.76 M/uL Hemoglobin 11.2 g/dL Hematocrit 35.5 % Mean Corpuscular Volume 94.4 fL Mean Corpuscular Hemoglobin 29.8 pg Mean Corpuscular Hemoglobin Concent 31.5 g/dl Platelet Count 162 K/uL Mean Platelet Volume 10.5 fL Neutrophils (%) (Auto) 88.7 % Lymphocytes (%) (Auto) 4.7 % Monocytes (%) (Auto) 5.6 % Eosinophils (%) (Auto) 0.3 % Basophils (%) (Auto) 0.1 % Neutrophils # (Auto) 16.02 K/uL Lymphocytes # (Auto) 0.85 K/uL Monocytes # (Auto) 1.01 K/uL Eosinophils # (Auto) 0.05 K/uL Basophils # (Auto) 0.02 K/uL RDW Standard Deviation 56.2 fL RDW Coefficient of Variation 16.3 % Immature Granulocyte % (Auto) 0.6 % Immature Granulocyte # (Auto) 0.10 K/uL Sodium Level 137 mmol/L Potassium Level 4.5 mmol/L Chloride Level 99 mmol/L Carbon Dioxide Level 31 mmol/L Anion Gap 7.0 mmol/L Blood Urea Nitrogen 37 mg/dl Creatinine 1.56 mg/dl Est Creatinine Clear Calc Drug Dose 56.0 ml/min Estimated GFR () 51.8 Estimated GFR (Non- 44.7 BUN/Creatinine Ratio 23.8 Random Glucose 137 mg/dl Calcium Level 8.5 mg/dl Total Bilirubin 0.3 mg/dl Aspartate Amino Transf (AST/SGOT) 12 U/L Alanine Aminotransferase (ALT/SGPT) 13 U/L Alkaline Phosphatase 110 U/L Total Protein 6.9 gm/dl Albumin 3.3 gm/dl Globulin 3.6 gm/dl Albumin/Globulin Ratio 0.9 Test 11/13/17 06:43 11/13/17 11:25 11/13/17 12:35 11/13/17 16:32 Bedside Glucose 127 mg/dl 202 mg/dl 294 mg/dl Troponin I 0.036 ng/ml Assessment and Plan Mr. Badillo is a 71 year old male with a past medical history of chronic systolic/diastolic CHF, h/o CABG, DM2 and COPD who is suffering from acute on chronic hypoxic respiratory failure in the setting of COPD vs CHF exacerbation Acute on chronic hypoxic respiratory failure secondary to PNA vs copd exacerbation vs acute on chronic systolic/ diastolic CHF - pt had episode of hypoxia today where his sats dropped to high 80s and was placed back on bipap, he is now satting at 99% on 2L - continue Rocephin and Azithromycin - Methylpred 40 mg bid - Tiotropium and symbicort held in the meantime - Duonebs QID R and q2h prn - change PO lasix 40 mg daily to 40mg Lasix IV BID - 60mg IV lasix given today - pt net I/O was negative 1.4L - daily weight and I&O - thank you to cardiology for consult. Recommendations: - ECHO - severe posterior wall hypokinesis, moderate apical wall hypokinesis , Ejection Fraction = 45-50%. Diastolic dysfunction, Grade II, elevated right ventricular systolic pressure is elevated - caution with diuretics given hypercapnia - continue usual cardiac meds JEN on CKD - Creatinine 1.56 - baseline seems to be around 1.2 - will monitor DMII with hypoglycemia - Lantus 30 units QH - insulin SS and BSG AC/HS CHF/ CAD /HTN - continue ASA 81 mg daily - continue toprol 25 mg daily, zocor 40 mg daily Diabetic neuropathy - continue Lyrica 100 mg daily Chronic pain - continue Depakote 1000 mg HS Mood disorder - continue Effexor 150 mg daily Code: Full DVT prophylaxis: heparin bid, SCD Disposition: pending improvement Resident Tracking Resident Involvement: Resident Care Provided Care Provided: Adult Hospital Medicine Reviewed: Pt Seen/Exam by Me History very short of breath - on bipap. Constitutional: denies: fever Respiratory: negative: short of breath Cardiovascular: denies chest pain General Appearance: severe distress (respiratory) Respiratory: respiratory distress, decreased breath sounds Cardiovascular: regular rate, rhythm Gastrointestinal: soft Neurologic/Psychiatric: alert, oriented x 3 Skin Characteristics: warm/dry Assessment/Plan Resident Physician Supervision Note: I independently interviewed and examined the patient and verified the jiménez history and physical, reviewed labs and image studies, discussed the case with the resident Dr. Salter and agree with the findings and care plan.
[2017-11-13] MEDS: SIMVASTATIN 40 MG TAB PO SCH (20:23)
[2017-11-13] MEDS: DIVALPROEX 500 MG EXTENDED RELEASE TAB PO SCH (20:23)
[2017-11-13] MEDS: INSULIN GLARGINE SOLOSTAR 100 UNITS/ML 3 ML PEN SQ SCH (20:26)
[2017-11-14] VITALS (11 sets, daily range): BP systolic 128–141; BP diastolic 67–84; PULSE 66–81; TEMP 36.4–36.6; O2SAT 92–99
[2017-11-14] MEDS: POLYETHYLENE (MIRALAX) 17 GM PACK PO SCH ×6 (00:52→21:00)
[2017-11-14] MEDS: CEFTRIAXONE SOD INJ 1 GM in DEXTROSE 5% ADD-VANTAGE 50ML 50 ML IV SCH (02:06)
[2017-11-14 06:54] LABS: HEMATOCRIT 31.7 % (42-52); HEMOGLOBIN 10.2 g/dL (14.0-18.0); MEAN CELL VOLUME 92.2 fL (80-100); MEAN CORPUSCULAR HEMOGLOBIN 29.7 pg (25-34); MEAN CORPUSCULAR HGB CONC 32.2 g/dl (32-36); MEAN PLATELET VOLUME 11.7 fL (7.4-10.4); PLATELET COUNT 155 K/uL (130-400); RED CELL DISTRIBUTION WIDTH CV 16.2 % (11.5-14.5)
[2017-11-14] MEDS: ALBUT/IPRATROP 3MG/0.5MG NEB 3 ML VIAL INH SCH ×4 (06:57→18:56)
[2017-11-14 07:15] LABS: CALCIUM 8.7 mg/dl (8.5-10.1); CREATININE 1.62 mg/dl (0.60-1.40); POTASSIUM 4.2 mmol/L (3.5-5.1)
[2017-11-14] MEDS: ALLOPURINOL 100 MG TAB PO SCH (07:57)
[2017-11-14] MEDS: METHYLPREDNISOLONE IV 40 MG in SYRINGE 0 ML IV SCH ×2 (07:57→21:09)
[2017-11-14] MEDS: ISOSORBIDE MONONITRATE 30 MG TABCR PO SCH (07:58)
[2017-11-14] MEDS: METOPROLOL SUCC 25MG EXT REL TAB PO SCH (07:58)
[2017-11-14] MEDS: PREGABALIN 100 MG CAP PO SCH ×3 (07:58→21:09)
[2017-11-14] MEDS: ASPIRIN 81 MG ECTAB PO SCH (07:59)
[2017-11-14] MEDS: VENLAFAXINE HCL XR 150 MG CAPXR PO SCH ×2 (07:59→21:10)
[2017-11-14] MEDS: INSULIN ASPART 100 UNITS/ML 3 ML PEN SC SCH ×4 (08:00→21:07)
[2017-11-14] MEDS: HEPARIN SOD 5000 UNIT/0.5 ML CARP SQ SCH ×2 (08:01→21:08)
[2017-11-14] MEDS: AZITHROMYCIN IV 500 MG in DEXTROSE 5% 250ML 250 ML IV SCH (09:39)
--- NOTE | 2017-11-14 11:02 | Cardiology Follow-Up ---
Subjective Subjective Date of Service: Nov 14, 2017. Pt evaluation today including: conversation w/ patient, physical exam, chart review, lab review, review of studies, review of inpatient medication list Additional Details: Pt seen and examined, states that his breathing is back to baseline. Diuresed well. Denies cp, palpitations, lightheadedness or dizziness. Tele reviewed: sinus rhythm/sinus tachycardia, no arrhythmias or significant ectopy. Problem List Medical Problems: (1) Altered mental state Status: Acute (2) Hypoxia Status: Acute (3) Left leg weakness Status: Acute (4) Pneumonia Status: Acute (5) Pulmonary infiltrate Status: Acute Review of Systems Constitutional: No fever, No chills Respiratory: + shortness of breath, No see HPI, No cough, No sputum, No wheezing, No dyspnea on exertion, No dyspnea at rest, No hemoptysis, No problem reported Cardiac: No see HPI, No chest pain, No orthopnea, No PND, No edema, No claudication, No palpitations, No problem reported Abdomen: No pain, No nausea, No vomiting, No diarrhea Musculoskeletal: + joint pain, + muscle pain Objective Vital Signs Last Vital Signs Documentation Date Time Temp Pulse Resp B/P (MAP) Pulse Ox O2 Delivery O2 Flow Rate FiO2 11/14/17 08:09 36.4 72 16 130/67 (88) 98 2.0 11/14/17 08:00 Nasal Cannula 11/13/17 11:26 30 Physical Exam: General Appearance: WD/WN, no apparent distress Eyes: bilateral eyes normal inspection, bilateral eyes PERRL, bilateral eyes EOMI ENT: normal ENT inspection, hearing grossly normal, TMs normal, pharynx normal Neck: supple, no adenopathy, thyroid normal, no JVD, no carotid bruits, trachea midline Respiratory/Chest: chest non-tender, no respiratory distress, no accessory muscle use, + decreased breath sounds (but clear, no rales) Cardiovascular: regular rate, rhythm, no edema, no gallop, no JVD, no murmur Abdomen: normal bowel sounds, non tender, soft, no organomegaly, no pulsatile mass Extremities: non-tender, no pedal edema Neurologic/Psychiatric: raker buffing wheel II-XII nml as tested, no motor/sensory deficits, alert, normal mood/affect, oriented x 3 Skin: normal color, warm/dry, no rash Lymphatic: no adenopathy Assessment and Plan 1. sob chf vs. copd exacerbation CT chest reviewed, not impressive for volume overload received diuretics with 2L out does not examine as volume overload likely more of a copd exacerbation can restart outpatient lasix 40mg po daily no further cardiac testing necessary at this time ok to d/c to home from cardiac standpoint f/u with CHF clinic in 1-2 weeks cont outpatient doses of imdur, toprol, asa and simvastatin
--- NOTE | 2017-11-14 15:52 | Family Medicine Progress Note ---
Progress Note Date of Service Nov 14, 2017. Subjective Pt evaluation today including: conversation w/ patient, physical exam, chart review, lab review Pain: no discomfort reported PO Intake: tolerating Voiding: camacho catheter in place This AM Mr. Badillo reported continued sob with exertion but improved from yesterday Constitutional: No fever, No chills Respiratory: + shortness of breath Cardiovascular: No chest pain Abdomen: No pain, No nausea, No vomiting Medications Current Inpatient Medications Medications (Trade) Dose Ordered Sig/Yasmin Route Start Time Stop Time Status Last Admin Dose Admin Ioversol (Optiray 320) 100 ml UD PRN IV 11/13/17 00:15 11/17/17 00:14 Heparin Sodium (Porcine) (Heparin Sq 5000 Unit/0.5ml) 5,000 unit Q12 SQ 11/13/17 09:00 12/13/17 08:59 11/14/17 08:01 5,000 UNIT Acetaminophen (Tylenol Tab) 650 mg Q4H PRN PO 11/13/17 00:30 12/13/17 00:29 Al Hydrox/Mg Hydrox/Simethicone (Maalox Max Susp) 15 ml Q4H PRN PO 11/13/17 00:30 12/13/17 00:29 Magnesium Hydroxide (Milk Of Magnesia Susp) 30 ml Q12H PRN PO 11/13/17 00:30 12/13/17 00:29 Ondansetron HCl (Zofran Inj) 4 mg Q6H PRN IV 11/13/17 00:30 12/13/17 00:29 Nitroglycerin (Nitrostat Tab) 0.4 mg UD PRN SL 11/13/17 00:30 12/13/17 00:29 Morphine Sulfate (MoRPHine SULFATE INJ) 2 mg Q30M PRN IV 11/13/17 00:30 11/27/17 00:29 Polyethylene (Miralax Powder Packet) 17 gm DAILY PRN PO 11/13/17 00:30 12/13/17 00:29 Allopurinol (Zyloprim Tab) 200 mg DAILY PO 11/13/17 09:00 12/13/17 08:59 11/14/17 07:57 200 MG Aspirin (Ecotrin Tab) 81 mg DAILY PO 11/13/17 09:00 12/13/17 08:59 11/14/17 07:59 81 MG Divalproex Sodium (Depakote Extended Rel Tab) 1,000 mg HS PO 11/13/17 21:00 12/13/17 20:59 11/13/17 20:23 1,000 MG Insulin Glargine (Lantus Solostar Pen) 30 units QPM SQ 11/13/17 21:00 12/13/17 20:59 11/13/17 20:26 30 UNITS Isosorbide Mononitrate (Imdur Ext Rel Tab) 30 mg QAM PO 11/13/17 09:00 12/13/17 08:59 11/14/17 07:58 30 MG Metoprolol Succinate (Toprol Xl Tab) 25 mg QAM PO 11/13/17 09:00 12/13/17 08:59 11/14/17 07:58 25 MG Oxycodone/ Acetaminophen (Percocet 10-325MG Tab) 1 tab TID PRN PO 11/13/17 00:45 11/27/17 00:44 Oxycodone/ Acetaminophen (Percocet 10-325MG Tab) 2 tab HS PRN PO 11/13/17 00:45 11/27/17 00:44 11/14/17 13:13 2 TAB Pregabalin (Lyrica Cap) 100 mg TID PO 11/13/17 09:00 12/13/17 08:59 11/14/17 13:18 100 MG Simvastatin (Zocor Tab) 40 mg QPM PO 11/13/17 21:00 12/13/17 20:59 11/13/17 20:23 40 MG Venlafaxine HCl (effeXOR EXTENDED REL CAP) 150 mg BID PO 11/13/17 09:00 12/13/17 08:59 11/14/17 07:59 150 MG Ceftriaxone Sodium 1 gm/ Dextrose 50 ml @ 100 mls/hr Q24H IV 11/13/17 02:00 11/15/17 01:59 11/14/17 02:06 100 MLS/HR Azithromycin 500 mg/Dextrose 255 ml @ 125 mls/hr DAILY IV 11/13/17 09:00 11/15/17 08:59 11/14/17 09:39 125 MLS/HR Methylprednisolone Sodium Succinate 40 mg/Syringe 0.64 ml @ 1.5 mls/min BID IV 11/13/17 09:00 12/13/17 08:59 11/14/17 07:57 1.5 MLS/MIN Insulin Aspart (novoLOG ASPART) SLIDING SCALE G... ACHS SC 11/13/17 07:00 12/13/17 06:59 11/14/17 11:54 6 UNITS Glucose (Glucose 40% Gel) 15-30 GRAMS 15 GRAMS... UD PRN PO 11/13/17 02:15 12/13/17 02:14 Glucose (Glucose Chew Tab) 4-8 Tablets 4 Tabl... UD PRN PO 11/13/17 02:15 12/13/17 02:14 Dextrose (Dextrose 50% 50ML Syringe) 25-50ML OF 50% DW IV FOR... UD PRN IV 11/13/17 02:15 12/13/17 02:14 Glucagon (Glucagon Inj) 1 mg UD PRN SQ 11/13/17 02:15 12/13/17 02:14 Albuterol/ Ipratropium (Duoneb) 3 ml QIDR INH 11/13/17 08:00 12/13/17 07:59 11/14/17 15:21 3 ML Polyethylene (Miralax Powder Packet) 17 gm Q4H PO 11/13/17 09:00 12/13/17 08:59 11/13/17 13:07 17 GM Furosemide 40 mg/ Syringe 4 ml @ 4 mls/min BID17 IV 11/13/17 17:00 12/13/17 16:59 Future Hold 11/13/17 17:08 4 MLS/MIN Objective Vital Signs Date Time Temp Pulse Resp B/P (MAP) Pulse Ox O2 Delivery O2 Flow Rate FiO2 11/14/17 15:23 66 18 92 Nasal Cannula 2.0 11/14/17 15:11 36.6 69 18 133/82 (99) 93 Nasal Cannula 2.0 11/14/17 12:00 Nasal Cannula 2.0 11/14/17 11:35 36.6 74 18 128/84 (99) 96 2.0 11/14/17 11:10 72 18 97 Nasal Cannula 2.0 11/14/17 08:09 36.4 72 16 130/67 (88) 98 2.0 11/14/17 08:00 Nasal Cannula 2.0 11/14/17 08:00 Nasal Cannula 2.0 11/14/17 06:58 72 20 97 Nasal Cannula 2.0 11/14/17 03:24 36.6 73 18 135/67 (89) 95 Nasal Cannula 2.0 11/14/17 03:23 96 Nasal Cannula 2.0 11/13/17 23:10 95 Nasal Cannula 2.0 11/13/17 22:49 36.7 74 19 133/73 (93) 95 Nasal Cannula 2.0 11/13/17 20:00 98 Nasal Cannula 2.0 11/13/17 19:22 72 20 97 Nasal Cannula 2.0 11/13/17 18:44 36.9 75 18 126/72 (90) 96 Nasal Cannula 4.0 11/13/17 15:55 61 20 99 Nasal Cannula 2.0 Physical Exam General Appearance: no apparent distress Eyes: normal inspection Respiratory/Chest: lungs clear, + decreased breath sounds Cardiovascular: regular rate, rhythm, no JVD Abdomen: normal bowel sounds, non tender, soft Extremities: no pedal edema Neurologic/Psychiatric: alert Laboratory Results 11/14/17 05:46 11/14/17 05:46 Test 11/14/17 05:46 11/14/17 11:20 Red Blood Count 3.44 M/uL (4.7-6.1) Mean Corpuscular Volume 92.2 fL (80-100) Mean Corpuscular Hemoglobin 29.7 pg (25-34) Mean Corpuscular Hemoglobin Concent 32.2 g/dl (32-36) RDW Standard Deviation 54.0 fL (36.4-46.3) RDW Coefficient of Variation 16.2 % (11.5-14.5) Mean Platelet Volume 11.7 fL (7.4-10.4) Anion Gap 8.0 mmol/L (3-11) Est Creatinine Clear Calc Drug Dose 53.3 ml/min Estimated GFR () 49.5 Estimated GFR (Non- 42.7 BUN/Creatinine Ratio 28.2 (10-20) Calcium Level 8.7 mg/dl (8.5-10.1) Bedside Glucose 259 mg/dl (70-99) Assessment and Plan Mr. Badillo is a 71 yoM with Hx of chronic systolic/diastolic CHF, h/o CABG, DM2 and COPD who is suffering from acute on chronic hypoxic respiratory failure in the setting of likely COPD vs CHF exacerbation. Acute on chronic hypoxic respiratory failure secondary to PNA vs copd exacerbation vs acute on chronic systolic/ diastolic CHF - Satting at 98% on 2L this AM - Continue Rocephin and Azithromycin day 2 - Duonebs QID R - Restarted on home dose PO lasix 40 mg daily - daily weight and I&O - Cardiology consulted. Likely from COPD exacerbation. Recommendations: - ECHO - severe posterior wall hypokinesis, moderate apical wall hypokinesis , Ejection Fraction = 45-50%. Diastolic dysfunction, Grade II, elevated right ventricular systolic pressure is elevated - restart PO lasix 40 mg daily - continue usual cardiac meds - CHF clinic f/u in 1-2 weeks JEN on CKD - Creatinine 1.62 - baseline 1.2 - will continue to monitor DMII - Lantus 30 units QH - insulin SS and BSG AC/HS CHF/ CAD /HTN - continue ASA 81 mg daily - continue toprol 25 mg daily, zocor 40 mg daily Diabetic neuropathy - continue Lyrica 100 mg daily Chronic pain - continue Depakote 1000 mg HS Mood disorder - continue Effexor 150 mg daily Code: Full DVT prophylaxis: heparin bid, SCD Disposition: pending improvement Resident Involvement: Resident Care Provided Care Provided: Adult Hospital Medicine Reviewed: Pt Seen/Exam by Me History sitting up in chair breathing much improved no chest pain. off bipap since yesterday afternoon Constitutional: denies: fever General Appearance: no apparent distress Respiratory: no respiratory distress, decreased breath sounds (but with better air entry) Cardiovascular: regular rate, rhythm Neurologic/Psychiatric: alert, oriented x 3 Skin Characteristics: warm/dry Assessment/Plan Resident Physician Supervision Note: I independently interviewed and examined the patient and verified the jiménez history and physical, reviewed labs and image studies, discussed the case with the resident Dr. Moreau and agree with the findings and care plan.
[2017-11-14] MEDS: OXYCODONE/ACETAMINOPHEN 10/325MG TAB PO PRN ×2 (17:08→21:10)
[2017-11-14] MEDS: INSULIN GLARGINE SOLOSTAR 100 UNITS/ML 3 ML PEN SQ SCH (21:09)
[2017-11-14] MEDS: SIMVASTATIN 40 MG TAB PO SCH (21:10)
[2017-11-14] MEDS: DIVALPROEX 500 MG EXTENDED RELEASE TAB PO SCH (21:11)
[2017-11-14] MEDS ORDERED: INSULIN ASPART 100 UNITS/ML 3 ML PEN SC ONE (22:00)
[2017-11-15] MEDS: POLYETHYLENE (MIRALAX) 17 GM PACK PO SCH ×4 (01:00→12:03)
[2017-11-15 03:32] VITALS: BP 135/77; PULSE 65; TEMP 36.7; O2SAT 96
[2017-11-15] MEDS: OXYCODONE/ACETAMINOPHEN 10/325MG TAB PO PRN (03:36)
[2017-11-15 06:24] LABS: HEMATOCRIT 33.6 % (42-52); HEMOGLOBIN 10.7 g/dL (14.0-18.0); MEAN CELL VOLUME 92.6 fL (80-100); MEAN CORPUSCULAR HEMOGLOBIN 29.5 pg (25-34); MEAN CORPUSCULAR HGB CONC 31.8 g/dl (32-36); MEAN PLATELET VOLUME 11.4 fL (7.4-10.4); PLATELET COUNT 169 K/uL (130-400); RED CELL DISTRIBUTION WIDTH CV 15.8 % (11.5-14.5); RED CELL DISTRIBUTION WIDTH SD 53.7 fL (36.4-46.3); WHITE BLOOD COUNT 10.33 K/uL (4.8-10.8)
[2017-11-15 06:58] LABS: CALCIUM 8.9 mg/dl (8.5-10.1); CREATININE 1.6 mg/dl (0.60-1.40); POTASSIUM 4.7 mmol/L (3.5-5.1)
[2017-11-15] MEDS: ALBUT/IPRATROP 3MG/0.5MG NEB 3 ML VIAL INH SCH ×2 (07:11→11:11)
[2017-11-15 07:13] VITALS: PULSE 67; O2SAT 97
[2017-11-15 08:07] VITALS: BP 129/65; PULSE 67; TEMP 36.6; O2SAT 97
[2017-11-15] MEDS: INSULIN ASPART 100 UNITS/ML 3 ML PEN SC SCH ×2 (08:45→11:00)
[2017-11-15] MEDS: HEPARIN SOD 5000 UNIT/0.5 ML CARP SQ SCH (08:46)
[2017-11-15] MEDS: METHYLPREDNISOLONE IV 40 MG in SYRINGE 0 ML IV SCH (08:48)
[2017-11-15] MEDS: VENLAFAXINE HCL XR 150 MG CAPXR PO SCH (08:50)
[2017-11-15] MEDS: ASPIRIN 81 MG ECTAB PO SCH (08:50)
[2017-11-15] MEDS: ISOSORBIDE MONONITRATE 30 MG TABCR PO SCH (08:50)
[2017-11-15] MEDS: ALLOPURINOL 100 MG TAB PO SCH (08:51)
[2017-11-15] MEDS: METOPROLOL SUCC 25MG EXT REL TAB PO SCH (08:51)
[2017-11-15] MEDS: PREGABALIN 100 MG CAP PO SCH (08:52)
[2017-11-15] MEDS ORDERED: FUROSEMIDE 40 MG TAB PO SCH (09:00)
[2017-11-15 11:13] VITALS: PULSE 68; O2SAT 96
--- NOTE | 2017-11-15 11:52 | Discharge Instructions ---
Discharge Instructions Date of Service Nov 15, 2017. Admission Reason for Admission: Acute On Chronic Respiratory Failure With Hypoxia Discharge Discharge Diagnosis / Problem: acute on chronic hypoxic respiratory failure secondary to chf and copd exac Discharge Goals Goal(s): Decrease discomfort, Diagnostic testing, Therapeutic intervention Activity Recommendations Activity Limitations: resume your previous activity . Instructions / Follow-Up Instructions / Follow-Up Mr. Badillo you were admitted because your mentation was altered and you had shortness of breath likely due to CHF and possible mild COPD exacerbation. You required bipap to help you breath better initially on admission. Later you required only 2L of oxygen which you already were on at home. We also started you on antibiotics for possible pneumonia based on a slight concern on CT scan of your lungs. You did not have any blood clots in your lungs. With the help of diuretics we got rid of the extra fluid. We also started you on steroids and inhalers to improve your COPD symptoms by reducing the inflammation in your airways. Please continue taking your Lasix 40mg daily Please continue taking your inhalers and other medications as prescribed prior to your hospitalization Please follow up with the CHF clinic in 1-2 weeks [phone] Please follow up with your primary care/family doctor within 1 week for further care Current Hospital Diet Patient's current hospital diet: AHA Diet (Heart Healthy), Low Sodium Diet (2gm Na), Diabetes Type 2 Diet Discharge Diet Recommended Diet: AHA Diet (Heart Healthy), Diabetes Type 2 Diet Pending Studies Studies pending at discharge: no Laboratory Results Hemoglobin A1c Test 08/19/17 06:39 Range/Units Estimated Average Glucose 169 mg/dl Hemoglobin A1c 7.5 H 4.5-5.6 % Medical Emergencies . Who to Call and When: Medical Emergencies: If at any time you feel your situation is an emergency, please call 911 immediately. . Non-Emergent Contact Non-Emergency issues call your: Primary Care Provider . . "Provider Documentation" section prepared by Morena Moreau. . VTE Core Measure Inpt VTE Proph given/why not?: Unfractionated heparin SQ
[2017-11-15 11:53] VITALS: BP 155/94; PULSE 64; TEMP 36.6; O2SAT 96
--- NOTE | 2017-11-15 12:21 | Discharge Summary ---
Discharge Summary Date of Service Nov 15, 2017. Discharge Summary Admission Date: Nov 13, 2017 at 00:31 Discharge Date: Nov 15, 2017 Discharge Disposition: Home Principal Diagnosis: acute on chronic hypoxic respiratory failure 2/2 CHF and COPD exacerbation Problems/Secondary Diagnoses: Systolic/Diastolic CHF COPD CKD DMII CHF CAD HTN Diabetic neuropathy Chronic pain mood disorder Immunizations: Have You Had Influenza Vaccine: Unknown History of Tetanus Vaccine?: Unknown History of Pneumococcal: Unknown History of Hepatitis B Vaccine: Unknown Procedures: ECHO: * -- Conclusions -- * The study was technically difficult. * The left ventricle is normal in size. * There is normal left ventricular wall thickness. * There is severe posterior wall hypokinesis. * There is moderate apical wall hypokinesis. * Ejection Fraction = 45-50%. * Diastolic dysfunction, Grade II (pseudonormalization pattern). * There is trace mitral regurgitation. * There is mild tricuspid regurgitation. * Right ventricular systolic pressure is elevated at 50-60mmHg. Consultations: Cardiology Medication Reconciliation Continued Medications: Albuterol Sulfate (Proair Respiclick) 108 Mcg/Act Aer 2 PUFF INH BID PRN for SOB/Wheezing Allopurinol (Zyloprim) 100 Mg Tab 200 MG PO DAILY, TAB Aspirin (Aspirin Ec) 81 Mg Tab 81 MG PO DAILY Budesonide/Formoterol Fumarate (Symbicort 160/4.5 Inhaler) 120 Puffs/ Aero 2 PUFFS INH BID, INHALER Divalproex Sodium (Depakote Er) 500 Mg Tab 1000 MG PO HS, TAB Furosemide (Lasix) 40 Mg Tab 40 MG PO QAM, TAB Home O2 Therapy (Oxygen) Gas 2 LITERS NA HS, BTL AND WITH EXERTION Insulin Glargine (Lantus) 100 Unit/Ml Inj 30 UNITS SQ QPM, VIAL Ipratropium-Albuterol (Combivent Respimat) 1 Aer Aer 1 PUFFS INH QID PRN for Shortness of Breath, INH Isosorbide Mononitrate Ext Rel (Imdur Ext Rel) 30 Mg Ertab 30 MG PO QAM, TAB Lisinopril (Prinivil) 5 Mg Tab 5 MG PO QAM, TAB Metoprolol Succ (Toprol Xl) (Toprol-Xl) 25 Mg Tabcr 25 MG PO QAM Nitroglycerin (Nitrostat) 0.4 Mg Tab 0.4 MG UT PRN, BTL NEEDED FOR CHEST PAIN : ONE TABLET UNDER THE TONGUE EVERY 5 MINUTES, UP TO 3 DOSES. Oxycodone/Acetaminophen 10MG/325MG (Percocet 10MG/325MG) Tab 1 TAB PO TID PRN for Pain, TAB Oxycodone/Acetaminophen 10MG/325MG (Percocet 10MG/325MG) Tab 2 TAB PO HS PRN for Pain, TAB Pregabalin (Lyrica) 100 Mg Cap 100 MG PO TID, CAP Simvastatin (Zocor) 40 Mg Tab 40 MG PO QPM, TAB Tiotropium [place] (Spiriva Handihaler) 30 Puff/540 Mcg Aerp 1 CAP INH QAM, INHALER Venlafaxine Hcl (Effexor Extended Rel) 150 Mg Cap 150 MG PO BID, CAP TAKE WITH FOOD OR MILK Discharge Exam This morning Mr. Sandra reported feeling better and being less short of breath especially with exertion. Review of Systems: Constitutional: No fever, No chills Respiratory: + shortness of breath Cardiovascular: No chest pain Abdomen: No pain, No nausea, No vomiting Genitourinary - Male: No dysuria Physical Exam: General Appearance: no apparent distress Eyes: normal inspection Respiratory/Chest: lungs clear, normal breath sounds (significantly improved aeration), no respiratory distress Cardiovascular: regular rate, rhythm, no edema, no JVD Abdomen / GI: normal bowel sounds, non tender, soft Extremities: no pedal edema Neurologic/Psychiatric: alert, oriented x 3 Hospital Course Mr. Badillo is a 71 yoM with hx of chronic systolic/diastolic CHF, h/o CABG, DM2 and COPD who presented with acute on chronic hypoxic respiratory failure initially requiring bipap in the setting of likely CHF exacerbation and mild COPD exacerbation vs. PNA. Acute on chronic hypoxic respiratory failure secondary to acute on chronic CHF and possible COPD exacerbation vs. PNA - Initially required BIPAP. Sat improved to 98% on 2L (home O2 requirement) - Received 3 days of Rocephin and Azithromycin - On Duonebs QID R - Initially on Lasix 40mg IV BID --> Restarted on home dose PO lasix 40 mg daily - Cardiology consulted. Likely from COPD exacerbation. Recommendations: - ECHO - severe posterior wall hypokinesis, moderate apical wall hypokinesis , Ejection Fraction = 45-50%. Diastolic dysfunction, Grade II, elevated right ventricular systolic pressure is elevated - restart PO lasix 40 mg daily - continue usual cardiac meds - CHF clinic f/u in 1-2 weeks JEN on CKD - improving - Creatinine 1.6 today - baseline around 1.5 in August 2017 DMII - Lantus 30 units QH - insulin SS and BSG AC/HS CHF/ CAD /HTN - Continued ASA 81 mg daily - Continued toprol 25 mg daily, zocor 40 mg daily Diabetic neuropathy - Continued Lyrica 100 mg daily Chronic pain - Continued Depakote 1000 mg HS Mood disorder - Continued Effexor 150 mg daily DVT prophylaxis: heparin bid, SCD Total Time Spent: Less than 30 minutes This includes examination of the patient, discharge planning, medication reconciliation, and communication with other providers. Discharge Instructions Please refer to the electronic Patient Visit Report (Discharge Instructions) for additional information. Additional Copies To Josse Pope M.D. History feeling well. breathing back to baseline Constitutional: denies: fever Respiratory: negative: short of breath Cardiovascular: denies chest pain General Appearance: no apparent distress Respiratory: lungs clear, no respiratory distress Cardiovascular: regular rate, rhythm Gastrointestinal: soft Neurologic/Psychiatric: alert, oriented x 3 Skin Characteristics: warm/dry Assessment/Plan Resident Physician Supervision Note: I independently interviewed and examined the patient and verified the jiménez history and physical, reviewed labs and image studies, discussed the case with the resident Dr. Moreau and agree with the findings and care plan. Time spent in discharge 35 min
[2017-11-15 12:27] VITALS: BP 155/94; PULSE 64; TEMP 36.6; O2SAT 96
== END 2017-11-15 14:16 | disposition home or self-care (01) | DRG 190 ==
LOC: EDBD 22:43 → C.EDB 22:44 → C.2E 11-13 00:31 → EDBEDREQ 11-13 00:36 → ENRESERV 11-13 00:54
PROVIDERS: ADMIT Hospitalist; ATTEND Family Medicine
DX: J44.1 Chronic obstructive pulmonary disease with (acute) exacerbation (principal); J96.21 Acute and chronic respiratory failure with hypoxia; J96.22 Acute and chronic respiratory failure with hypercapnia; J18.9 Pneumonia, unspecified organism; N17.9 Acute kidney failure, unspecified; I50.40 Unspecified combined systolic (congestive) and diastolic (congestive) heart failure; E11.649 Type 2 diabetes mellitus with hypoglycemia without coma; E11.40 Type 2 diabetes mellitus with diabetic neuropathy, unspecified; E78.5 Hyperlipidemia, unspecified; F39 Unspecified mood [affective] disorder; Z87.891 Personal history of nicotine dependence; Z79.82 Long term (current) use of aspirin; Z79.4 Long term (current) use of insulin

== ENCOUNTER → 2017-12-07 | Outpatient (CLI) | payer OTHER, MEDICARE ==
[~2017-12-07] MED LIST changes: -ALBU2SYP9 INH; +ALLO100T PO; -ASPCH81X PO; -ASPEC81 PO; +ASPI81TA28 PO; -COEN100C11 PO; -COLC0.6T54 PO; +DIVA500T3 PO; -EFF75 PO; -FOLI1TAB8 PO; -LAMO25TA PO; -LVQ750 PO; -MULT-190 PO; +OXYC-106 PO; -OXYSR10 PO; -PRED1SUS3 OPR; -RXC5 PO
[2017-12-07 18:03] LABS: HEMATOCRIT 36.1 % (42-52); HEMOGLOBIN 11.5 g/dL (14.0-18.0); MEAN CELL VOLUME 94.3 fL (80-100); MEAN CORPUSCULAR HGB CONC 31.9 g/dl (32-36); MEAN PLATELET VOLUME 11.5 fL (7.4-10.4); PLATELET COUNT 202 K/uL (130-400); RED CELL DISTRIBUTION WIDTH CV 15.6 % (11.5-14.5); RED CELL DISTRIBUTION WIDTH SD 53.4 fL (36.4-46.3); WHITE BLOOD COUNT 6.75 K/uL (4.8-10.8)
[2017-12-07 18:08] LABS: HEMOGLOBIN A1C 8.2 % (4.5-5.6)
[2017-12-07 18:11] LABS: BLOOD UREA NITROGEN 30 mg/dl (7-18); CALCIUM 8.5 mg/dl (8.5-10.1); CARBON DIOXIDE 35 mmol/L (21-32); CREATININE 1.45 mg/dl (0.60-1.40); GLUCOSE 240 mg/dl (70-99); POTASSIUM 4.6 mmol/L (3.5-5.1); SODIUM 137 mmol/L (136-145)
== END | disposition home or self-care (01) ==
LOC: C.LABMFLN 15:09
PROVIDERS: ATTEND Family Medicine
DX: Z00.00 Encounter for general adult medical examination without abnormal findings (principal); E11.9 Type 2 diabetes mellitus without complications; F31.81 Bipolar II disorder

== ENCOUNTER 2017-12-25 13:23 | Emergency (ER) | payer OTHER, MEDICARE ==
[~2017-12-25] VITALS: Ht 180.3 cm; Wt 115.5 kg
[2017-12-25 13:25] VITALS: TEMP 37.6; O2SAT 98; Ht 180.3 cm; Wt 115.5 kg
[2017-12-25] MEDS ORDERED: SODIUM CHLORIDE 0.9% 1000ML 1,000 ML IV STA (13:34)
[2017-12-25 14:09] LABS: BASO % 0.1 %; BASO ABS # 0.01 K/uL (0-0.2); EOS % 0.5 %; EOS ABS # 0.05 K/uL (0-0.5); HEMATOCRIT 35.4 % (42-52); HEMOGLOBIN 11.3 g/dL (14.0-18.0); IG# 0.03 K/uL (0.00-0.02); LYMPH % 8.8 %; LYMPH ABS # 0.88 K/uL (1.2-3.4); MEAN CELL VOLUME 92.7 fL (80-100); MEAN CORPUSCULAR HEMOGLOBIN 29.6 pg (25-34); MEAN CORPUSCULAR HGB CONC 31.9 g/dl (32-36); MEAN PLATELET VOLUME 11.4 fL (7.4-10.4); MONO % 11.6 %; MONO ABS # 1.17 K/uL (0.11-0.59); NEUT % 78.7 %; NEUT ABS # 7.91 K/uL (1.4-6.5); PLATELET COUNT 139 K/uL (130-400); RED CELL DISTRIBUTION WIDTH CV 16.7 % (11.5-14.5); RED CELL DISTRIBUTION WIDTH SD 56.2 fL (36.4-46.3); WHITE BLOOD COUNT 10.05 K/uL (4.8-10.8)
[2017-12-25 14:22] LABS: INR 1.1 (0.9-1.1); PTT PATIENT 30.4 SECONDS (21.0-31.0)
[2017-12-25 14:28] LABS: ALBUMIN 3.3 gm/dl (3.4-5.0); ALT/SGPT 13 U/L (12-78); BLOOD UREA NITROGEN 20 mg/dl (7-18); CALCIUM 9.3 mg/dl (8.5-10.1); CARBON DIOXIDE 30 mmol/L (21-32); CREATININE 1.09 mg/dl (0.60-1.40); GLUCOSE 103 mg/dl (70-99); LIPASE 33 U/L (73-393); POTASSIUM 4.1 mmol/L (3.5-5.1); SODIUM 138 mmol/L (136-145)
[2017-12-25] MEDS ORDERED: ISOS60TA25 PO (14:33)
[2017-12-25] MEDS ORDERED: COEN30CA6 PO (14:33)
[2017-12-25] MEDS ORDERED: PREG300C PO (14:33)
[2017-12-25] MEDS ORDERED: LINA72CA PO (14:33)
[2017-12-25] MEDS ORDERED: LISI-461 PO (14:33)
[2017-12-25] MEDS ORDERED: MULT60CA PO (14:33)
[2017-12-25 14:37] LABS: ALKALINE PHOSPHATASE 92 U/L (45-117); AST/SGOT 10 U/L (15-37); CKMB 1.2 ng/ml (0.5-3.6); TOTAL PROTEIN 7.4 gm/dl (6.4-8.2)
--- NOTE | 2017-12-25 14:59 | DIAGNOSTIC IMAGING REPORT ---
CHEST ONE VIEW PORTABLE HISTORY: 72 years-old Male EVALUATE ALTERED MENTAL STATUS/WEAKNESS acute altered mental status with weakness COMPARISON: Chest radiograph and CTA of the chest 11/12/2017 TECHNIQUE: Portable AP view of the chest FINDINGS: Cardiac silhouette is mildly enlarged. Mild pulmonary vascular congestion without overt pulmonary edema. Prior median sternotomy. Mild left hemidiaphragmatic elevation with patchy subsegmental left basilar opacities. Additionally, there are patchy opacities and interstitial coarsening of the bilateral upper lobes suggesting pulmonary edema. No pneumothorax or large pleural effusion. Chronic blunting of the left costophrenic angle. IMPRESSION: 1. Cardiomegaly with mild pulmonary edema. 2. Patchy opacities of the left lung base suggest atelectasis or scarring. 3. Chronic blunting of the left costophrenic angle without large pleural effusion. The above report was generated using voice recognition software. It may contain grammatical, syntax or spelling errors. Electronically signed by: Juan José Wiley M.D. 12/25/2017 2:57 PM Dictated Date/Time: 12/25/2017 2:55 PM
--- NOTE | 2017-12-25 15:16 | EMERGENCY ROOM VISIT NOTE ---
History Report prepared by Jj: Harley Abdi Under the Supervision of: Dr. Mansoor Zhang D.O. First contact with patient: 13:30 Stated Complaint: WEAKNESS History of Present Illness The patient is a 72 year old male who presents to the Emergency Room with complaints of generalized weakness that began last week. He has a past medical history of CHF, COPD, and diabetes. He has had episodes similarly to this in the past. He states that he has been fatigued, shaky, and intermittently experiences muscle jerks to his right arm. The patient has also been having accidental episodes of incontinence. He states that he has been keeping up with his foods and liquids. He notes sinus congestion and a cough for the past couple of weeks. He denies any fevers, headaches, chest pain, shortness of breath, or any other abnormal symptoms. He believes that he is too weak to ambulate regularly. Source of History: patient Onset: last week Position: other (Global) Symptom Intensity: moderate Quality: other (Weakness) Timing: constant Associated Symptoms: + cough, No fevers, No headache, No chest pain, No SOB Note: He has been experiencing sinus congestion, intermittent muscle jerks, shakiness , and incontinence episodes. Review of Systems See HPI for pertinent positives & negatives. A total of 10 systems reviewed and were otherwise negative. Past Medical & Surgical Medical Problems: (1) Acute on chronic respiratory failure with hypoxia (2) CHF (congestive heart failure) (3) CHF exacerbation (4) COPD (chronic obstructive pulmonary disease) (5) Diabetes Family History No pertinent family history Social History Smoking Status: Former Smoker Drug Use: none Marital Status: Housing Status: lives with family Occupation Status: retired Current/Historical Medications Scheduled Allopurinol (Zyloprim), 200 MG PO DAILY Aspirin (Aspirin Ec), 81 MG PO DAILY Budesonide/Formoterol Fumarate (Symbicort 160/4.5 Inhaler), 2 PUFFS INH BID Coenzyme Q10 (Ubidecarenone) (Coq10), Unknown Dose PO DAILY Divalproex Sodium (Depakote Er), 1,000 MG PO HS Furosemide (Lasix), 40 MG PO QAM Home O2 Therapy (Oxygen), 2 LITERS NA HS Insulin Glargine (Lantus), 30 UNITS SQ QAM Isosorbide Mononitrate Ext Rel (Imdur Ext Rel), 60 MG PO QAM Linaclotide (Linzess), 72 MCG PO DAILY Lisinopril (Lisinopril), 10 MG PO DAILY Metoprolol Succ (Toprol Xl) (Toprol-Xl), 25 MG PO QAM Multiple Vitamins W/ Minerals (Preservision Areds 2), 2 CAP PO BID Nitroglycerin (Nitrostat), 0.4 MG UT PRN Pregabalin (Lyrica), 300 MG PO HS Simvastatin (Zocor), 40 MG PO QPM Tiotropium [place] (Spiriva Handihaler), 1 CAP INH QAM Venlafaxine Hcl (Effexor Extended Rel), 150 MG PO BID Scheduled PRN Albuterol Sulfate (Proair Respiclick), 2 PUFF INH BID PRN for SOB/Wheezing Ipratropium-Albuterol (Combivent Respimat), 1 PUFFS INH QID PRN for Shortness of Breath Allergies Coded Allergies: Prednisone (Verified Adverse Reaction, Intermediate, "GO CRAZY", 12/25/17) Physical Exam Vital Signs Date Time Temp Pulse Resp B/P (MAP) Pulse Ox O2 Delivery O2 Flow Rate FiO2 12/25/17 15:12 79 18 163/91 98 Nasal Cannula 2.0 12/25/17 13:33 78 12/25/17 13:25 37.6 80 20 166/90 91 Room Air 12/25/17 13:25 98 Nasal Cannula 2.0 Physical Exam CONSTITUTIONAL/VITAL SIGNS: Reviewed / noted above. GENERAL: Non-toxic in appearance. INTEGUMENTARY: Warm, dry, and Sargeant. HEAD: Normocephalic. EYES: without scleral icterus or trauma. ENT/OROPHARYNX: Mucous membranes slightly dry. LYMPHADENOPATHY/NECK: Is supple without lymphadenopathy or meningismus. RESPIRATORY: Lungs clear and equal. CARDIOVASCULAR: Regular rate and rhythm. GI/ABDOMEN: Soft and nontender. No organomegaly or pulsatile mass. No rebound or guarding. Normal bowel sounds. EXTREMITIES: Warm and well perfused. BACK: No CVA tenderness. NEUROLOGICAL: Intact without focal deficits. PSYCHIATRIC: normal affect. MUSCULOSKELETAL: Normally developed with good muscle tone. Medical Decision & Procedures ER Provider Diagnostic Interpretation: Radiology results as stated below per my review and radiologist interpretation: CHEST ONE VIEW PORTABLE HISTORY: 72 years-old Male EVALUATE ALTERED MENTAL STATUS/WEAKNESS acute altered mental status with weakness COMPARISON: Chest radiograph and CTA of the chest 11/12/2017 TECHNIQUE: Portable AP view of the chest FINDINGS: Cardiac silhouette is mildly enlarged. Mild pulmonary vascular congestion without overt pulmonary edema. Prior median sternotomy. Mild left hemidiaphragmatic elevation with patchy subsegmental left basilar opacities. Additionally, there are patchy opacities and interstitial coarsening of the bilateral upper lobes suggesting pulmonary edema. No pneumothorax or large pleural effusion. Chronic blunting of the left costophrenic angle. IMPRESSION: 1. Cardiomegaly with mild pulmonary edema. 2. Patchy opacities of the left lung base suggest atelectasis or scarring. 3. Chronic blunting of the left costophrenic angle without large pleural effusion. The above report was generated using voice recognition software. It may contain grammatical, syntax or spelling errors. Electronically signed by: Juan José Wiley M.D. 12/25/2017 2:57 PM Dictated Date/Time: 12/25/2017 2:55 PM Laboratory Results 12/25/17 13:46 Red Blood Count 3.82, Mean Corpuscular Volume 92.7, Mean Corpuscular Hemoglobin 29.6, Mean Corpuscular Hemoglobin Concent 31.9, Mean Platelet Volume 11.4, Neutrophils (%) (Auto) 78.7, Lymphocytes (%) (Auto) 8.8, Monocytes (%) (Auto) 11.6, Eosinophils (%) (Auto) 0.5, Basophils (%) (Auto) 0.1, Neutrophils # (Auto ) 7.91, Lymphocytes # (Auto) 0.88, Monocytes # (Auto) 1.17, Eosinophils # (Auto ) 0.05, Basophils # (Auto) 0.01 12/25/17 13:46 Test 12/25/17 13:34 12/25/17 13:45 12/25/17 13:46 Carboxyhemoglobin 0.0 % THgb White Blood Count 10.05 K/uL (4.8-10.8) Red Blood Count 3.82 M/uL (4.7-6.1) Hemoglobin 11.3 g/dL (14.0-18.0) Hematocrit 35.4 % (42-52) Mean Corpuscular Volume 92.7 fL (80-100) Mean Corpuscular Hemoglobin 29.6 pg (25-34) Mean Corpuscular Hemoglobin Concent 31.9 g/dl (32-36) Platelet Count 139 K/uL (130-400) Mean Platelet Volume 11.4 fL (7.4-10.4) Neutrophils (%) (Auto) 78.7 % Lymphocytes (%) (Auto) 8.8 % Monocytes (%) (Auto) 11.6 % Eosinophils (%) (Auto) 0.5 % Basophils (%) (Auto) 0.1 % Neutrophils # (Auto) 7.91 K/uL (1.4-6.5) Lymphocytes # (Auto) 0.88 K/uL (1.2-3.4) Monocytes # (Auto) 1.17 K/uL (0.11-0.59) Eosinophils # (Auto) 0.05 K/uL (0-0.5) Basophils # (Auto) 0.01 K/uL (0-0.2) RDW Standard Deviation 56.2 fL (36.4-46.3) RDW Coefficient of Variation 16.7 % (11.5-14.5) Immature Granulocyte % (Auto) 0.3 % Immature Granulocyte # (Auto) 0.03 K/uL (0.00-0.02) Prothrombin Time 11.9 SECONDS (9.0-12.0) Prothromb Time International Ratio 1.1 (0.9-1.1) Activated Partial Thromboplast Time 30.4 SECONDS (21.0-31.0) Partial Thromboplastin Ratio 1.2 Anion Gap 6.0 mmol/L (3-11) Est Creatinine Clear Calc Drug Dose 81.5 ml/min Estimated GFR () 79.3 Estimated GFR (Non- 68.4 BUN/Creatinine Ratio 18.6 (10-20) Calcium Level 9.3 mg/dl (8.5-10.1) Magnesium Level 2.1 mg/dl (1.8-2.4) Total Bilirubin 0.4 mg/dl (0.2-1) Direct Bilirubin < 0.1 mg/dl (0-0.2) Aspartate Amino Transf (AST/SGOT) 10 U/L (15-37) Alanine Aminotransferase (ALT/SGPT) 13 U/L (12-78) Alkaline Phosphatase 92 U/L (45-117) Total Creatine Kinase 56 U/L (39-308) Creatine Kinase MB 1.2 ng/ml (0.5-3.6) Creatine Kinase MB Ratio 2.1 (0-3.0) Troponin I 0.036 ng/ml (0-0.045) Total Protein 7.4 gm/dl (6.4-8.2) Albumin 3.3 gm/dl (3.4-5.0) Lipase 33 U/L (73-393) Thyroid Stimulating Hormone (TSH) 0.637 uIu/ml (0.300-4.500) Laboratory results as stated above per my review. Medications Administered Medications (Trade) Dose Ordered Sig/Yasmin Route Start Time Stop Time Status Last Admin Dose Admin Sodium Chloride 1,000 ml @ 999 mls/hr Q1H1M STAT IV 12/25/17 13:34 12/25/17 14:34 DC 12/25/17 14:00 999 MLS/HR ECG Indication: weakness Rate (beats per minute): 80 Rhythm: sinus rhythm Findings: 1st degree AV block, PAC, no acute ischemic change Change: ECG interpreted by me ED Course 1330: Previous medical records were reviewed. The patient was evaluated in room A9. A complete history and physical examination was performed. 1334: Ordered Sodium Chloride 1000 ml @ 999 mls/hr IV 1517: On reevaluation, the patient is resting. I discussed the results and findings with the patient. He verbalized agreement of the treatment plan. He was discharged home. Medical Decision Differentials include: Acute coronary syndrome, myocardial infarction, CVA, TIA , anemia, infection, pneumonia, UTI, pyelonephritis, poor nutrition, dehydration , electrolyte disturbance, and hypoglycemia. This is a 72-year-old male who presents to the ED with a chief complaint of generalized weakness. The patient states that he has been weak and shaky for the past one week. The patient states that he could not get out of bed today. He has been this week for 2 days. The patient denies any other specific complaints. He has not had fevers or upper respiratory illness. He denies any chest pains, shortness of breath, headaches, abdominal pain or focal neurologic deficits. The patient's exam did not reveal any focal deficits and is otherwise unremarkable for acute issues. He is in no distress. His initial blood pressure was hypertensive. CBC is unremarkable. Carbon monoxide level was negative. Complete metabolic panel was unremarkable. Troponin was negative , TSH was normal. Chest x-ray did not show acute process. I spoke with the and the patient about the results. They would like to go home. The states that he is chronically weak and has difficulty getting around because of bad knees. She was more concerned about his shaking episodes but she has not seen this while he was here. He is felt to be stable at this point for discharge. They were told to return for any concerns in the near future. Medication Reconcilliation Current Medication List: was personally reviewed by me Blood Pressure Screening Patient's blood pressure: Elevated blood pressure Blood pressure disposition: Referred to PCP Impression Primary Impression: Weakness Scribe Attestation The scribe's documentation has been prepared under my direction and personally reviewed by me in its entirety. I confirm that the note above accurately reflects all work, treatment, procedures, and medical decision making performed by me. Departure Information Dispostion Home / Self-Care Referrals Josse Pope M.D. (PCP) Forms HOME CARE DOCUMENTATION FORM, IMPORTANT VISIT INFORMATION Patient Instructions My [facility] Additional Instructions Follow-up with your doctor for further care and evaluation in 1-2 days. Return to the emergency department for worsening or new symptoms or any concerns. You have been examined and treated today on an emergency basis only. This is not a substitute for, or an effort to provide, complete comprehensive medical care. It is impossible to recognize and treat all injuries or illnesses in a single emergency department visit. It is therefore important that you follow up closely with your doctor. Call as soon as possible for an appointment.
[2017-12-25 15:52] VITALS: BP 163/91; PULSE 79; O2SAT 98
[2017-12-25 18:21] LABS: INFLUENZA B ANTIGEN Neg for Influ B (NEG)
== END 2017-12-25 15:53 | disposition home or self-care (01) ==
LOC: EDBD 13:23 → C.EDA 13:24
DX: R53.1 Weakness (principal); I50.9 Heart failure, unspecified; J44.9 Chronic obstructive pulmonary disease, unspecified; E11.9 Type 2 diabetes mellitus without complications; Z87.891 Personal history of nicotine dependence; Z79.82 Long term (current) use of aspirin; Z79.899 Other long term (current) drug therapy; Z79.4 Long term (current) use of insulin

== ENCOUNTER → 2018-03-19 | Outpatient (CLI) | payer OTHER, MEDICARE ==
[~2018-03-19] MED LIST changes: +AMOX1TAB43 PO; +COEN30CA6 PO; +EMPA1TAB3 PO; -ISOS30TA3 PO; +ISOS60TA25 PO; +LINA72CA PO; +LISI-461 PO; +LISI-729 PO; -LISI5TAB PO; +MELO7.5T5 PO; +METH4PAK PO; +MULT60CA PO; -OXYC-106 PO; +OXYC10TA80 PO; +OXYC20TA50 PO; -PREG100C PO; +PREG300C PO; +TPRSR25 PO
== END | disposition home or self-care (01) ==
LOC: C.LABMFLN 15:02
PROVIDERS: ATTEND Family Medicine
DX: J20.9 Acute bronchitis, unspecified (principal)

== ENCOUNTER 2018-03-20 15:53 | Inpatient (IN) | payer OTHER, MEDICARE ==
[~2018-03-20] VITALS: Ht 180.3 cm; Wt 103.8 kg
[2018-03-20] VITALS (8 sets, daily range): BP systolic 117–130; BP diastolic 67–72; PULSE 82–101; TEMP 37.5–39; O2SAT 93–96; Ht 180.3 cm; Wt 103.8 kg
[~2018-03-20 15:53] MED LIST changes: -AMOX1TAB43 PO; -EMPA1TAB3 PO; -LISI-729 PO; -METH4PAK PO; -OXYC20TA50 PO; -TPRSR25 PO
[2018-03-20] MEDS ORDERED: METHYLPREDNISOLONE 125 MG VIAL IV STA (16:00)
[2018-03-20] MEDS ORDERED: ALBUT/IPRATROP 3MG/0.5MG NEB 3 ML VIAL INH ONE (16:00)
--- NOTE | 2018-03-20 16:04 | EMERGENCY ROOM VISIT NOTE ---
History Report prepared by Jj: Prasad Ramirez Under the Supervision of: Dr. Gab Dawkins M.D. First contact with patient: 15:55 Chief Complaint: SHORTNESS OF BREATH Stated Complaint: DIFFICULTY BREATHING History of Present Illness The patient is a 72 year old male who presents to the Emergency Room with complaints of sudden onset severe shortness of breath beginning earlier today. According to EMS the patient has been experiencing altered mental state, lethargy, and urinary/stool incontinence. EMS notes that the patient has a history of COPD and CHF. The patient denies any chest pain. He notes experiencing fevers for the past several days. The patient does not want CPR. Source of History: patient, EMS History Limited By: dyspnea Onset: Earlier today Position: other (Global ) Symptom Intensity: severe Timing: other (Sudden onset ) Associated Symptoms: + fevers, No chest pain Review of Systems ROS limited secondary to patient's dementia. Past Medical & Surgical Medical Problems: (1) Acute on chronic respiratory failure with hypoxia (2) acute resp failure, chf exac, sepsis (3) CHF (congestive heart failure) (4) CHF exacerbation (5) COPD (chronic obstructive pulmonary disease) (6) Diabetes Old medical records were reviewed. Nurse's notes were reviewed and I agree with. Family History No pertinent family history Social History Smoking Status: Former Smoker Drug Use: none Marital Status: Housing Status: lives with family Occupation Status: retired Current/Historical Medications Scheduled Allopurinol (Zyloprim), 200 MG PO QAM Aspirin (Aspirin Ec), 81 MG PO QAM Budesonide/Formoterol Fumarate (Symbicort 160/4.5 Inhaler), 2 PUFFS INH BID Divalproex Sodium (Depakote Er), 1,000 MG PO HS Empagliflozin (Jardiance), 25 MG PO DAILY Furosemide (Lasix), 40 MG PO QAM Home O2 Therapy (Oxygen), 2 LITERS NA HS Insulin Glargine (Lantus), 38 UNITS SQ HS Isosorbide Mononitrate Ext Rel (Imdur Ext Rel), 60 MG PO QAM Linaclotide (Linzess), 145 MCG PO QAM Lisinopril (Lisinopril), 10 MG PO HS Lisinopril (Zestril), 5 MG PO DAILY Metoprolol Succ (Toprol Xl) (Toprol-Xl), 25 MG PO QAM Metoprolol Succinate (Metoprolol Succinate ER), 25 MG PO DAILY Nitroglycerin (Nitrostat), 0.4 MG UT PRN Oxycodone Hcl (Oxycontin), 20 MG PO Q12 Pregabalin (Lyrica), 300 MG PO HS Simvastatin (Zocor), 40 MG PO QPM Tiotropium [place] (Spiriva Handihaler), 1 CAP INH QAM Venlafaxine Hcl (Effexor Extended Rel), 150 MG PO BID Scheduled PRN Albuterol Sulfate (Proair Respiclick), 2 PUFF INH BID PRN for SOB/Wheezing Ipratropium-Albuterol (Combivent Respimat), 1 PUFFS INH QID PRN for Shortness of Breath Oxycodone/Acetaminophen 10MG/325MG (Percocet 10MG/325MG), 1 TAB PO UD PRN for Pain Allergies Coded Allergies: Prednisone (Verified Adverse Reaction, Intermediate, "GO CRAZY", 02/24/18) Fentanyl (Verified Adverse Reaction, Unknown, ALLERGY WAS TO FENTANYL PATCH - "GO CRAZY", 03/20/18) Physical Exam Vital Signs Date Time Temp Pulse Resp B/P (MAP) Pulse Ox O2 Delivery O2 Flow Rate FiO2 03/20/18 16:49 100 03/20/18 16:45 99 28 138/77 92 BiPAP 30 03/20/18 16:30 91 BiPAP 30 03/20/18 16:25 91 BiPAP 30 03/20/18 16:23 38.0 111 22 171/82 92 BiPAP 30 03/20/18 16:05 97 25 93 BiPAP/CPAP 30 03/20/18 16:05 97 93 30 Physical Exam General: Chronically-ill appearing older male wearing biPAP. He appears mildly tachypneic with biPAP treatment. His eyes open to commands. He answers some question and falls back asleep. He denies chest pain. HEENT: Normal cephalic atraumatic. Pupils are equal round and reactive to light. Extraocular movements are intact. Oropharynx is pink with moist mucous membranes. No swelling of the mouth lips or tongue. Neck: Supple with a midline trachea. No meningeal signs or stiffness, no JVD or bruits. No Stridor. Chest: Lungs rhonchorous bilaterally. No increased work of breathing. Heart: regular rate and rhythm. Abdomen: Soft nontender, nondistended without rebound guarding or rigidity. Extremities: 1+ edema bilaterally. No calf tenderness or assymetry Spine/Back. Non tender to palpation. No CVA tenderness Skin: Good turgor without rashes. Neurologic exam: Cranial nerves two through 12 are intact. Motor and sensation are intact and symmetrical throughout. Medical Decision & Procedures ER Provider Diagnostic Interpretation: Radiology results as stated below per my review and radiologist interpretation: SINGLE VIEW CHEST CLINICAL HISTORY: Atypical chest pain. FINDINGS: An AP, portable, upright chest radiograph is compared to study dated 02/24/2018 and correlated with chest CT dated 11/12/2017. The examination is degraded by portable technique, apical lordotic positioning, and patient rotation. The patient is status post midline sternotomy. The heart is enlarged and there is atherosclerotic calcification of the thoracic aorta. There is pulmonary vascular congestion. Emphysema and chronic interstitial thickening are similar to previous. Airspace consolidation is seen at the left lung base. Trace pleural effusions are suspected. No pneumothorax is seen. The skeletal structures are osteopenic. The bony thorax is grossly intact. IMPRESSION: 1. There is left basilar consolidation, typical in appearance for pneumonia. Clinical correlation will be required and radiographic follow-up to resolution is recommended. 2. Cardiomegaly and emphysema. There is mild pulmonary vascular congestion. 3. Suspect trace pleural effusions. Electronically signed by: Baldev Justice M.D. Laboratory Results 03/20/18 16:10 Red Blood Count 3.76, Mean Corpuscular Volume 95.2, Mean Corpuscular Hemoglobin 29.8, Mean Corpuscular Hemoglobin Concent 31.3, Mean Platelet Volume 10.8, Neutrophils (%) (Auto) 86.5, Lymphocytes (%) (Auto) 5.1, Monocytes (%) (Auto) 6.4, Eosinophils (%) (Auto) 1.2, Basophils (%) (Auto) 0.1, Neutrophils # (Auto) 20.41, Lymphocytes # (Auto) 1.20, Monocytes # (Auto) 1.51, Eosinophils # (Auto) 0.28, Basophils # (Auto) 0.02 Test 03/20/18 16:10 03/20/18 16:12 03/20/18 16:14 03/20/18 16:22 White Blood Count 23.59 K/uL (4.8-10.8) Red Blood Count 3.76 M/uL (4.7-6.1) Hemoglobin 11.2 g/dL (14.0-18.0) Hematocrit 35.8 % (42-52) Mean Corpuscular Volume 95.2 fL (80-100) Mean Corpuscular Hemoglobin 29.8 pg (25-34) Mean Corpuscular Hemoglobin Concent 31.3 g/dl (32-36) Platelet Count 152 K/uL (130-400) Mean Platelet Volume 10.8 fL (7.4-10.4) Neutrophils (%) (Auto) 86.5 % Lymphocytes (%) (Auto) 5.1 % Monocytes (%) (Auto) 6.4 % Eosinophils (%) (Auto) 1.2 % Basophils (%) (Auto) 0.1 % Neutrophils # (Auto) 20.41 K/uL (1.4-6.5) Lymphocytes # (Auto) 1.20 K/uL (1.2-3.4) Monocytes # (Auto) 1.51 K/uL (0.11-0.59) Eosinophils # (Auto) 0.28 K/uL (0-0.5) Basophils # (Auto) 0.02 K/uL (0-0.2) RDW Standard Deviation 60.6 fL (36.4-46.3) RDW Coefficient of Variation 17.4 % (11.5-14.5) Immature Granulocyte % (Auto) 0.7 % Immature Granulocyte # (Auto) 0.17 K/uL (0.00-0.02) Erythrocyte Sedimentation Rate 29 mm/hr (0-14) Prothrombin Time 11.6 SECONDS (9.0-12.0) Prothromb Time International Ratio 1.1 (0.9-1.1) Activated Partial Thromboplast Time 25.4 SECONDS (21.0-31.0) Partial Thromboplastin Ratio 1.0 Total Bilirubin 0.3 mg/dl (0.2-1) Direct Bilirubin < 0.1 mg/dl (0-0.2) Aspartate Amino Transf (AST/SGOT) 13 U/L (15-37) Alanine Aminotransferase (ALT/SGPT) 17 U/L (12-78) Alkaline Phosphatase 95 U/L (45-117) Total Creatine Kinase 100 U/L (39-308) Creatine Kinase MB 2.3 ng/ml (0.5-3.6) Creatine Kinase MB Ratio 2.3 (0-3.0) C-Reactive Protein 3.47 mg/dl (0-0.29) Pro-B-Type Natriuretic Peptide 2680 pg/ml (0-900) Total Protein 7.5 gm/dl (6.4-8.2) Albumin 3.6 gm/dl (3.4-5.0) Lipase 44 U/L (73-393) Procalcitonin 0.46 ng/ml (0-0.5) Valproic Acid (Depakene) Level 59 mcg/ml (50-100) Bedside Lactic Acid Venous 0.83 mmol/L (0.90-1.70) Bedside Hemoglobin 11.6 g/dl (14.0-18.0) Bedside Hematocrit 34 % (42-52) Bedside Blood Gas pH (LAB) 7.36 (7.35-7.45) Bedside Blood Gas pCO2 (LAB) 61 mmHg (35-46) Bedside Blood Gas pO2 (LAB) 119 mmHg (80-95) Bedside Blood Gas HCO3 (LAB) 34 meq/L (19-24) Bedside Blood Gas Total CO2 36 mEq/l (24-31) Bedside Blood Gas Base Excess (LAB) 9.0 meq/L (-9-1.8) Bedside Blood Gas O2 Saturation 98.0 % (90-95) Bedside Sodium 141 mEq/L (135-144) Bedside Potassium 4.8 mEq/L (3.3-5.0) Bedside Troponin I < 0.030 ng/ml (0-0.045) Test 03/20/18 16:37 Bedside Glucose 148 mg/dl (70-99) Laboratory studies as stated above per my review. Medications Administered Medications (Trade) Dose Ordered Sig/Yasmin Route Start Time Stop Time Status Last Admin Dose Admin Albuterol/ Ipratropium (Duoneb) 12 ml ONE ONCE INH 03/20/18 16:00 03/20/18 16:03 DC 03/20/18 16:05 12 ML Methylprednisolone Sodium Succinate (Solu-Medrol IV) 125 mg NOW STAT IV 03/20/18 16:00 03/20/18 16:03 DC 03/20/18 16:53 125 MG Piperacillin Sod/ Tazobactam Sod (Zosyn Iv) 4.5 gm NOW STAT IV 03/20/18 16:09 03/20/18 16:10 DC 03/20/18 16:54 4.5 GM Furosemide (Lasix Inj) 40 mg NOW STAT IV 03/20/18 16:24 03/20/18 16:25 DC 03/20/18 16:53 40 MG ECG Per My Interpretation Indication: SOB/dyspnea Rate (beats per minute): 110 Rhythm: normal sinus Findings: PAC, PVC, no acute ischemic change Comparison ECG Date: 12/25/2009 Change: no significant change ED Course 1556: Past medical records reviewed. The patient was evaluated in room C4, and a complete history and physical examination were performed. 1600: Ordered Solu-Medrol IV 125mg IV and DuoNeb 12ml INH. 1606: I re-evaluated the patient. He is tolerating biPAP treatment. He notes that he has been running a fever for the past several days so I will treat him with antibiotics. 1609: Ordered Zosyn Iv 4.5gm IV 1624: The patient's chest x-ray is concerning for CHF. Ordered Furosemide 40mg IV 1628: I reevaluated the patient. I will attempt to admit the patient quickly. 1629: I discussed the patient's case with Dr. Jackson- [facility], he will come to evaluate the patient. He advises me to discuss the patient's case with ICU. 1634: I discussed the patient's case with ICU manager field service special education kindergarten teacher, he will evaluate the patient for further treatment and care. 1646: I reevaluated the patient. He is easily arousable and appears in less distress. Dr. Jackson also just evaluated the patient. 1718: The patient's has arrived. She is in agreement with the current treatment plan. She agrees that the patient would want to be DNR. Medical Decision Differentials include, but are not limited to; COPD, CHF, pneumonia, sepsis, acute coronary syndrome. This patient comes in as described above. Was brought in by ambulance and placed in room C4. He was in significant respiratory distress and was on BiPAP. He was sleeping when I saw him but tolerating the BiPAP and he would wake up and fall back to sleep was perhaps some confusion. He was noted to have a fever and a white count. Given his respiratory distress, we moved quickly and we placed him on BiPAP here and given 1 hour long DuoNeb as well as IV Solu-Medrol. Blood cultures were obtained as well as a lactic acid. He was also empirically treated with Zosyn 4.5 g IV. He also on chest x-ray suggest that he could have congestive heart failure component as well as pneumonia and was given Lasix 40 mg IV. His blood pressures remained on the hypertensive side. With these measures, he is doing quite a bit better he does not appear to any distress he seems to really much better his mentation seems to be getting better as well. His also arrive and did confirm that he is a DO NOT RESUSCITATE. He would not want to be intubated or have CPR. I did talk to Dr. Jackson who will be admitting him as well as the manager field service. Medication Reconcilliation Current Medication List: was personally reviewed by me Blood Pressure Screening Patient's blood pressure: Elevated blood pressure Blood pressure disposition: Referred to PCP Consults Time Called: 1625 Consulting Physician: Dr. Amin [facility] Returned Call: 1629 I discussed the patient's case with Dr. Amin [facility], he will come to evaluate the patient. He advises me to discuss the patient's case with ICU. Additional Consults: Time Called: 1630 Consulted Physician: ICU manager field service Returned Call: 1634 Additional Comments: I discussed the patient's case with ICU manager field service special education kindergarten teacher, he will evaluate the patient for further treatment and care. Impression Primary Impression: Acute on chronic respiratory failure with hypoxia Additional Impressions: Pneumonia CHF (congestive heart failure) COPD (chronic obstructive pulmonary disease) Critical Care Due to the patient's severe respiratory distress and need for frequent reassessment multiple IV and respiratory meds, and unstable vital signs, I have personally spent greater than 45 minutes of critical care time in the direct management of this patient. This includes bedside care, interpretation of diagnostic studies, and testing, discussion with consultants, patient, and family members, and other required patient management activities. This 45 minutes is in excess of all separately billable procedures. Scribe Attestation The scribe's documentation has been prepared under my direction and personally reviewed by me in its entirety. I confirm that the note above accurately reflects all work, treatment, procedures, and medical decision making performed by me. Departure Information Dispostion Being Evaluated By Hospitalist Referrals Josse Pope M.D. (PCP) Patient Instructions My [facility] Problem Qualifiers
[2018-03-20] MEDS ORDERED: PIPERACILLIN/TAZOBACTAM 4.5 GM/100ML D5W IV STA (16:09)
[2018-03-20 16:16] LABS: HEMATOCRIT 35.8 % (42-52); HEMOGLOBIN 11.2 g/dL (14.0-18.0); MEAN CELL VOLUME 95.2 fL (80-100); MEAN CORPUSCULAR HEMOGLOBIN 29.8 pg (25-34); MEAN CORPUSCULAR HGB CONC 31.3 g/dl (32-36); MEAN PLATELET VOLUME 10.8 fL (7.4-10.4); PLATELET COUNT 152 K/uL (130-400); RED CELL DISTRIBUTION WIDTH CV 17.4 % (11.5-14.5); RED CELL DISTRIBUTION WIDTH SD 60.6 fL (36.4-46.3); WHITE BLOOD COUNT 23.59 K/uL (4.8-10.8)
[2018-03-20] MEDS ORDERED: FUROSEMIDE 40 MG/4 ML VIAL IV STA (16:24)
[2018-03-20 16:25] LABS: INR 1.1 (0.9-1.1); PTT PATIENT 25.4 SECONDS (21.0-31.0)
[2018-03-20 16:26] LABS: ISTAT POTASSIUM 4.8 mEq/L (3.3-5.0); ISTAT SODIUM 141 mEq/L (135-144)
--- NOTE | 2018-03-20 16:30 | DIAGNOSTIC IMAGING REPORT ---
SINGLE VIEW CHEST CLINICAL HISTORY: Atypical chest pain. FINDINGS: An AP, portable, upright chest radiograph is compared to study dated 02/24/2018 and correlated with chest CT dated 11/12/2017. The examination is degraded by portable technique, apical lordotic positioning, and patient rotation. The patient is status post midline sternotomy. The heart is enlarged and there is atherosclerotic calcification of the thoracic aorta. There is pulmonary vascular congestion. Emphysema and chronic interstitial thickening are similar to previous. Airspace consolidation is seen at the left lung base. Trace pleural effusions are suspected. No pneumothorax is seen. The skeletal structures are osteopenic. The bony thorax is grossly intact. IMPRESSION: 1. There is left basilar consolidation, typical in appearance for pneumonia. Clinical correlation will be required and radiographic follow-up to resolution is recommended. 2. Cardiomegaly and emphysema. There is mild pulmonary vascular congestion. 3. Suspect trace pleural effusions. Electronically signed by: Baldev Justice M.D. 03/20/2018 4:29 PM Dictated Date/Time: 03/20/2018 4:27 PM
[2018-03-20 16:35] LABS: ALBUMIN 3.6 gm/dl (3.4-5.0); ALT/SGPT 17 U/L (12-78); AST/SGOT 13 U/L (15-37); BLOOD UREA NITROGEN 37 mg/dl (7-18); CALCIUM 8.4 mg/dl (8.5-10.1); CARBON DIOXIDE 33 mmol/L (21-32); CREATININE 1.75 mg/dl (0.60-1.40); GLUCOSE 139 mg/dl (70-99); LIPASE 44 U/L (73-393); SODIUM 138 mmol/L (136-145)
[2018-03-20 16:40] LABS: ALKALINE PHOSPHATASE 95 U/L (45-117); CKMB 2.3 ng/ml (0.5-3.6); TOTAL PROTEIN 7.5 gm/dl (6.4-8.2)
[2018-03-20 16:53] LABS: BASO % 0.1 %; BASO ABS # 0.02 K/uL (0-0.2); EOS % 1.2 %; EOS ABS # 0.28 K/uL (0-0.5); IG# 0.17 K/uL (0.00-0.02); LYMPH % 5.1 %; MONO % 6.4 %; MONO ABS # 1.51 K/uL (0.11-0.59); NEUT % 86.5 %; NEUT ABS # 20.41 K/uL (1.4-6.5)
[2018-03-20] MEDS ORDERED: ACETAMINOPHEN 325 MG TAB PO PRN (17:00)
[2018-03-20] MEDS ORDERED: MoRPHine SULFATE 2 MG/ML CARP IV PRN (17:00)
[2018-03-20] MEDS ORDERED: ICU PROTOCOL FOR HYPERGLYCEMIA PRN (17:00)
[2018-03-20] MEDS ORDERED: EMPA1TAB3 PO (17:16)
[2018-03-20] MEDS ORDERED: LISI-729 PO (17:19)
[2018-03-20] MEDS ORDERED: TPRSR25 PO (17:21)
[2018-03-20] MEDS ORDERED: OXYC20TA50 PO (17:26)
[2018-03-20] MEDS ORDERED: VANCOMYCIN CONSULT ACTIVE PRN (17:30)
[2018-03-20] MEDS ORDERED: CEFEPIME CONSULT ACTIVE PRN (17:30)
[2018-03-20] MEDS ORDERED: VANCOMYCIN IV 2,750 MG in SODIUM CHLORIDE 0.9% 500ML 500 ML IV ONE (17:30)
[2018-03-20] MEDS ORDERED: NITROGLYCERIN 0.4 MG SL PER TAB CHARGE UT PRN (17:40)
--- NOTE | 2018-03-20 18:55 | Critical Care Consultation ---
Critical Care Consultation Date of Consultation: Mar 20, 2018. Attending Physician: Jun Jackson MD, PhD Reason for Consultation: Acute respiratory failure. History of Present Illness Dear Dr. Jackson, Dr. Dawkins: Thank you for your kind referral Mrs. Mello to critical care service. This 9 -year-old gentleman who has been DNR and DNI, with a history of advanced COPD, advanced congestive heart failure, most recent ejection fraction was 45% by echo done last year, the patient was in preparation for his total knee replacement on the left where his ambulation has been very limited according to the walking less than 30 feet due to the knee pain and the shortness of breath. The patient in the past 2 years did have 6 episodes of pneumonia where he was admitted to the hospital. The patient today was noted by his to be lethargic and having increasing shortness of breath. He has been followed by cardiology and she is well educated about measuring his body weight and administer Lasix to him. However the patient body weight has been stable but she realized that he has not been breathing well and he had altered mental status as well. Called EMS and brought him to the ER where he was found to be in acute on chronic hypercapnic respiratory failure. The patient was started immediately on the BiPAP and started also empirically on antibiotics due to the presence of left lower lobe pneumonia. The patient himself could not give me a review of system as he was dozing however his is excellent informant. The patient according to the , has been struggling with his breathing for the past 2 years and he does not want any aggressive measures such as intubation or CPR. In the past few days he did not have any diarrhea, no nausea or vomiting reported, no abdominal pain or chest pain. He does have significant pain in his back which has been affecting also the lower extremity weakness. The patient was admitted to the ICU for further monitoring due to the requirement of noninvasive positive pressure ventilation and close nursing care. Patient was started empirically on broad-spectrum antibiotics. The patient apparently is allergic to prednisone according to the where he become vigilant rather than allergic to it. Patient started on Solu-Medrol instead. The patient was heavy smoker and quit 10 years ago after he had his bypass, his performance status is level 4, he uses oxygen at home and he was prescribed the oxygen only at night. He was also prescribed CPAP machine but he did not receive it yet. Due to fitting of his mask. Family History No pertinent family history Social History Smoking Status: Former Smoker Drug Use: none Marital Status: Housing Status: lives with family Occupation Status: retired Allergies Coded Allergies: Prednisone (Verified Adverse Reaction, Intermediate, "GO CRAZY", 02/24/18) Fentanyl (Verified Adverse Reaction, Unknown, ALLERGY WAS TO FENTANYL PATCH - "GO CRAZY", 03/20/18) Home Medications Scheduled Allopurinol (Zyloprim), 200 MG PO QAM Aspirin (Aspirin Ec), 81 MG PO QAM Budesonide/Formoterol Fumarate (Symbicort 160/4.5 Inhaler), 2 PUFFS INH BID Divalproex Sodium (Depakote Er), 1,000 MG PO HS Empagliflozin (Jardiance), 25 MG PO DAILY Furosemide (Lasix), 40 MG PO QAM Home O2 Therapy (Oxygen), 2 LITERS NA HS Insulin Glargine (Lantus), 38 UNITS SQ HS Isosorbide Mononitrate Ext Rel (Imdur Ext Rel), 60 MG PO QAM Linaclotide (Linzess), 145 MCG PO QAM Lisinopril (Lisinopril), 10 MG PO HS Lisinopril (Zestril), 5 MG PO DAILY Metoprolol Succ (Toprol Xl) (Toprol-Xl), 25 MG PO QAM Metoprolol Succinate (Metoprolol Succinate ER), 25 MG PO DAILY Nitroglycerin (Nitrostat), 0.4 MG UT PRN Oxycodone Hcl (Oxycontin), 20 MG PO Q12 Pregabalin (Lyrica), 300 MG PO HS Simvastatin (Zocor), 40 MG PO QPM Tiotropium [place] (Spiriva Handihaler), 1 CAP INH QAM Venlafaxine Hcl (Effexor Extended Rel), 150 MG PO BID Scheduled PRN Albuterol Sulfate (Proair Respiclick), 2 PUFF INH BID PRN for SOB/Wheezing Ipratropium-Albuterol (Combivent Respimat), 1 PUFFS INH QID PRN for Shortness of Breath Oxycodone/Acetaminophen 10MG/325MG (Percocet 10MG/325MG), 1 TAB PO UD PRN for Pain Current Inpatient Medications Current Inpatient Medications Medications (Trade) Dose Ordered Sig/Yasmin Route Start Time Stop Time Status Last Admin Dose Admin Enoxaparin Sodium (Lovenox Inj) 40 mg Q24H SQ 03/20/18 21:00 04/19/18 20:59 Acetaminophen (Tylenol Tab) 650 mg Q4H PRN PO 03/20/18 17:00 04/19/18 16:59 Pantoprazole Sodium 40 mg/ Syringe 10 ml @ 5 mls/min DAILY IV 03/21/18 09:00 03/24/18 09:01 Morphine Sulfate (MoRPHine SULFATE INJ) 2 mg Q2H PRN IV 03/20/18 17:00 04/03/18 16:59 Miscellaneous Information (Icu Protocol For Hyperglycemia) 1 ea PRN PRN N/A 03/20/18 17:00 03/22/18 16:59 Albuterol/ Ipratropium (Duoneb) 3 ml QIDR INH 03/20/18 20:00 04/19/18 19:59 Miscellaneous Information (Consult) 1 ea UD PRN N/A 03/20/18 17:30 04/19/18 17:29 Aspirin (Ecotrin Tab) 81 mg QAM PO 03/21/18 09:00 04/20/18 08:59 Budesonide/ Formoterol Fumarate (Symbicort 160/ 4.5 Inh) 2 puffs BID INH 03/20/18 21:00 04/19/18 20:59 Divalproex Sodium (Depakote Extended Rel Tab) 1,000 mg HS PO 03/20/18 21:00 04/19/18 20:59 Insulin Glargine (Lantus Solostar Pen) 35 units HS SQ 03/20/18 21:00 04/19/18 20:59 Isosorbide Mononitrate (Imdur Ext Rel Tab) 60 mg QAM PO 03/21/18 09:00 04/20/18 08:59 Lisinopril (Zestril Tab) 10 mg HS PO 03/20/18 21:00 04/19/18 20:59 Metoprolol Succinate (Toprol Xl Tab) 25 mg QAM PO 03/21/18 09:00 04/20/18 08:59 Nitroglycerin (Nitrostat Tab) 0.4 mg PRN PRN UT 03/20/18 17:40 04/19/18 17:39 Miscellaneous Information (Order Awaiting Action) 1 ea QS N/A 03/21/18 00:00 04/20/18 00:00 Pregabalin (Lyrica Cap) 300 mg HS PO 03/20/18 21:00 04/19/18 20:59 Simvastatin (Zocor Tab) 40 mg QPM PO 03/20/18 21:00 04/19/18 20:59 Venlafaxine HCl (effeXOR EXTENDED REL CAP) 150 mg BID PO 03/20/18 21:00 04/19/18 20:59 Insulin Aspart (novoLOG ASPART) SLIDING SCALE G... ACHS SC 03/20/18 21:00 04/19/18 20:59 Vancomycin HCl 2750 mg/Sodium Chloride 555 ml @ 200 mls/hr ONE ONCE IV 03/20/18 17:30 03/20/18 20:16 Cefepime HCl (Consult) 1 ea UD PRN N/A 03/20/18 17:30 04/19/18 17:29 Methylprednisolone Sodium Succinate 80 mg/Syringe 1.28 ml @ 1.5 mls/min Q8H IV 03/21/18 00:00 04/20/18 00:00 Review of Systems Review of system is not obtainable from the patient himself. All the information obtained from the , limited review of system was noted. Physical Exam Date Time Temp Pulse Resp B/P (MAP) Pulse Ox O2 Delivery O2 Flow Rate FiO2 03/20/18 17:50 88 26 146/54 93 BiPAP 40 03/20/18 17:19 96 28 148/75 92 BiPAP 40 03/20/18 16:49 100 03/20/18 16:45 99 28 138/77 92 BiPAP 30 03/20/18 16:30 91 BiPAP 30 03/20/18 16:25 91 BiPAP 30 03/20/18 16:23 38.0 111 22 171/82 92 BiPAP 30 03/20/18 16:05 97 25 93 BiPAP/CPAP 30 03/20/18 16:05 97 93 30 General Appearance: moderate distress Eyes: EOMI ENT: normal throat exam Neck: trachea midline Respiratory: breath sounds normal, clear to auscultation, rales, rhonchi Cardiovasular: regular rate/rhythm, normal S1S2, no M/G/R, systolic murmur Back: normal inspection Lower Extremities: edema, other (Edema 3+ no pain in the calves.) Neuro: alert, other (Disoriented but nonfocal.) Psychiatric: normal affect Laboratory Results Last 24 Hours Test 03/20/18 16:00 03/20/18 16:10 03/20/18 16:12 03/20/18 16:14 Creatine Kinase MB Ratio 2.3 White Blood Count 23.59 K/uL Red Blood Count 3.76 M/uL Hemoglobin 11.2 g/dL Hematocrit 35.8 % Mean Corpuscular Volume 95.2 fL Mean Corpuscular Hemoglobin 29.8 pg Mean Corpuscular Hemoglobin Concent 31.3 g/dl Platelet Count 152 K/uL Mean Platelet Volume 10.8 fL Neutrophils (%) (Auto) 86.5 % Lymphocytes (%) (Auto) 5.1 % Monocytes (%) (Auto) 6.4 % Eosinophils (%) (Auto) 1.2 % Basophils (%) (Auto) 0.1 % Neutrophils # (Auto) 20.41 K/uL Lymphocytes # (Auto) 1.20 K/uL Monocytes # (Auto) 1.51 K/uL Eosinophils # (Auto) 0.28 K/uL Basophils # (Auto) 0.02 K/uL RDW Standard Deviation 60.6 fL RDW Coefficient of Variation 17.4 % Immature Granulocyte % (Auto) 0.7 % Immature Granulocyte # (Auto) 0.17 K/uL Erythrocyte Sedimentation Rate 29 mm/hr Prothrombin Time 11.6 SECONDS Prothromb Time International Ratio 1.1 Activated Partial Thromboplast Time 25.4 SECONDS Partial Thromboplastin Ratio 1.0 Sodium Level 138 mmol/L Potassium Level 5.0 mmol/L Chloride Level 100 mmol/L Carbon Dioxide Level 33 mmol/L Anion Gap 5.0 mmol/L Blood Urea Nitrogen 37 mg/dl Creatinine 1.75 mg/dl Est Creatinine Clear Calc Drug Dose 49.5 ml/min Estimated GFR () 44.7 Estimated GFR (Non- 38.6 BUN/Creatinine Ratio 21.1 Random Glucose 139 mg/dl Calcium Level 8.4 mg/dl Total Bilirubin 0.3 mg/dl Direct Bilirubin < 0.1 mg/dl Aspartate Amino Transf (AST/SGOT) 13 U/L Alanine Aminotransferase (ALT/SGPT) 17 U/L Alkaline Phosphatase 95 U/L Total Creatine Kinase 100 U/L Creatine Kinase MB 2.3 ng/ml C-Reactive Protein 3.47 mg/dl Pro-B-Type Natriuretic Peptide 2680 pg/ml Total Protein 7.5 gm/dl Albumin 3.6 gm/dl Lipase 44 U/L Procalcitonin 0.46 ng/ml Valproic Acid (Depakene) Level 59 mcg/ml Bedside Lactic Acid Venous 0.83 mmol/L Bedside Hemoglobin 11.6 g/dl Bedside Hematocrit 34 % Bedside Blood Gas pH (LAB) 7.36 Bedside Blood Gas pCO2 (LAB) 61 mmHg Bedside Blood Gas pO2 (LAB) 119 mmHg Bedside Blood Gas HCO3 (LAB) 34 meq/L Bedside Blood Gas Total CO2 36 mEq/l Bedside Blood Gas Base Excess (LAB) 9.0 meq/L Bedside Blood Gas O2 Saturation 98.0 % Bedside Sodium 141 mEq/L Bedside Potassium 4.8 mEq/L Test 03/20/18 16:22 03/20/18 16:37 03/20/18 17:45 03/20/18 18:31 Bedside Troponin I < 0.030 ng/ml Bedside Glucose 148 mg/dl Urine Color YELLOW Urine Appearance CLEAR Urine pH 6.0 Urine Specific [place] 1.011 Urine Protein TRACE Urine Glucose (UA) 2+ Urine Ketones NEG Urine Occult Blood TRACE Urine Nitrite NEG Urine Bilirubin NEG Urine Urobilinogen NEG Urine Leukocyte Esterase NEG Urine WBC (Auto) 0 /hpf Urine RBC (Auto) 0-4 /hpf Urine Hyaline Casts (Auto) 1-5 /lpf Urine Epithelial Cells (Auto) 0-5 /lpf Urine Bacteria (Auto) NEG Diagnostic Results Chest x-ray consistent with left lower lobe pneumonia, cardiomegaly, previous sternotomy, hyperinflated lungs consistent with COPD as well. I reviewed the chest x-ray and the labs myself. Assessment & Plan 1. Left lower lobe pneumonia, given the fact the patient has not been in the hospital in the past 3 months this is likely community-acquired pneumonia, however I agree with broad-spectrum antibiotic for now. 2. COPD although is not in exacerbation but it will exacerbate with the presence of pneumonia. Appeared to be gold level 3, I do not have confirming PFT. Agree with the steroids, I will adjust the doses and frequency. 3. Cardiomyopathy with EF of 40% based on echo done in October 2017, the patient is already on afterload reduction. 4. History of seizure activity. 5. History of degenerative joint disease affecting both knees which are due for replacement but the patient is not fit enough to tolerate such a procedure. History of back pain causing also weakness in the lower extremities. 6. Obstructive sleep apnea with acute on chronic hypercapnic respiratory failure. 7. Sepsis but not in septic shock. Plan: 1. Agree with Vanco and cefepime. 2. Continue with his home medications. 3. Start Solu-Medrol 40 mg IV every 6 hours. 4. Keep the patient on the BiPAP. 5. The patient is DNR and DNI. 6. DVT prophylaxis. 7. Daily labs. 8. Glucose control. 9. I would be careful with administering IV fluid in this gentleman due to his cardiac status. Patient also probably has a cor pulmonale. 10. Follow the blood culture. 11. Hopefully the patient will be off the BiPAP in the morning once he responded to the treatment. 12. The patient is not in CHF exacerbation at this point. 13. Tylenol IV for now as he is not taking oral for fever control. Case discussed with the family, and the staff, in addition to Dr. Jackson and Dr. Dawkins. Critical care time spent with the patient was 60 minutes.
[2018-03-20] MEDS: ALBUT/IPRATROP 3MG/0.5MG NEB 3 ML VIAL INH SCH (18:58)
[2018-03-20 19:00] LABS: CALCIUM 8.4 mg/dl (8.5-10.1); CREATININE 1.85 mg/dl (0.60-1.40); POTASSIUM 4.5 mmol/L (3.5-5.1)
[2018-03-20] MEDS: SODIUM CHLORIDE 0.9% 1000ML 1,000 ML IV SCH ×2 (19:00→22:29)
--- NOTE | 2018-03-20 19:12 | HISTORY & PHYSICAL EXAMINATION ---
DATE OF ADMISSION: 03/20/2018 This is level 3 inpatient admission, 45 minutes. CHIEF COMPLAINT: Acute respiratory failure. HISTORY OF PRESENT ILLNESS: Patient is a 72-year-old white male with a significant past medical history of [id number] respiratory failure with hypoxia, CHF exacerbation and sepsis, COPD, diabetic was sent to hospital Emergency Department because of acute respiratory failure by ambulance. Per note from EMS, patient was experiencing altered mental status, lethargic and was having urine and stool incontinence today. Initially he was found has hypoxic, was on CPAP machine on the way to hospital , and was changed to BiPAP machine. When patient arrived into the hospital, he was confused and was having spiking fever. Per report, patient has been experiencing fever for several days and continually getting worse and confused, associated urine and stool incontinence. In the Emergency Room, patient was checked for the possible sepsis. His fever was up to 38, blood pressure was high at 171/82. BiPAP has been continued. ABG study was done, shows pH was 7.36, pCO2 was 61, PaO2 was 119. I was called for the admission. When I interviewed with the patient, patient is on BiPAP machine, mildly confused but awakable, answered simple questions; however, on review of systems and HPI, is limited because patient not able to answer clearly of the questions. Patient currently is having fever at 38. He has respiratory failure, on CPAP machine. Reports some cough, congestion and lower extremity swelling. Denied chest pain, palpitations. Denied nausea, vomiting, abdominal pain. Unsure about constipation or diarrhea. There was no facial droop, slurry speeches or local weakness. Skin has no rashes. PAST MEDICAL HISTORY: Includes gcxgh-zl-vnxajjf respiratory failure secondary to pneumonia and COPD exacerbation, pvtie-nx-calqcci kidney failure, diabetic type 2, CHF, CAD, hypertension, diabetic neuropathy, questionable seizure disorders, questionable mood disorders. ALLERGIES: FENTANYL and PREDNISONE. FAMILY HISTORY: No significant family history. SOCIAL HISTORY: Patient is a former smoker. Denied alcohol abuse disorder, denied illicit drug abuse. Patient is , lives with . MEDICATIONS: Medications currently taking at home which include albuterol inhaler b.i.d. p.r.n., allopurinol 200 mg p.o. q.a.m., aspirin 81 mg p.o. q.a.m., Symbicort 160/4.5 inhaler 2 puff inhale b.i.d., CoQ10 one tab p.o. q.a.m., topical 1000 mg p.o. at bedtime, Lasix 40 mg p.o. q.a.m., oxygen 2 liters at nighttime. Insulin Glargine 35 units subQ at bedtime, Combivent inhale q.i.d. p.r.n. for shortness of breath, Imdur 60 mg p.o. q.a.m., Linzess 145 mcg p.o. q.a.m., lisinopril 10 mg p.o. at bedtime, Meloxicam 15 mg p.o. q.a.m., Toprol XL 25 mg p.o. q.a.m., multiple vitamin 1 tab p.o. at bedtime; nitroglycerin 0.4 mg sublingual p.r.n. for chest pain, oxycodone/acetaminophen 10/325 one tab p.o. p.r.n. for pain, Lyrica 300 mg p.o. at bedtime, Zocor 40 mg p.o. q.p.m., Spiriva inhaler 1 cap q.a.m., Effexor 150 mg p.o. b.i.d. REVIEW OF SYSTEMS: Please see HPI, otherwise 14 points organ system reviewed were negative. PHYSICAL EXAMINATION: VITAL SIGNS: Temperature 38, pulse 100, respiratory rate 22, blood pressure was 171/82, pulse ox was 92% in BiPAP, FiO2 30%. GENERAL: Patient is an obese white male, chronically ill looking on BiPAP machine, mild lethargic, tachypneic. Answered some questions, fell back to sleep very soon. HEAD: Normocephalic. EYES: Pupils equal, round, responds to light. EARS: Ear was normal NOSE: Normal. NECK: Supple. Thyroid no enlargement. Trachea midline. HEART: Regular rhythm. S1, S2. No murmurs. LUNGS: Decreased breathing sounds. There were rhonchi bilaterally. Increased work of breathing. No obvious wheezing. ABDOMEN: Soft, nontender. Bowel sound was positive. EXTREMITIES: Lower extremity, 1+ edema, no calf tenderness. Spine has no pain. No spasm. CVA was nontender. SKIN: Has no rashcorinna. NEUROLOGICAL EVALUATION: There was no facial droop, slurry speeches. There was no motor or sensation deficit. Chest x-rays shows left basilar consolidations, possible pneumonia. There was cardiomegaly and emphysema. Possible trace pleural effusion. LABORATORY STUDIES: WBC 23, hemoglobin 11, platelet 152. Sodium 138, potassium 5.0, BUN 37, creatinine 1.7. Blood glucose 139. ABGs, pH 7.3, pCO2 61, PaO2 119. Pulse ox was 98% in BiPAP. PT/INR was 11/1.1. Sodium 138. Creatinine is 1.75 compared to recent BUN and creatinine was 38/1.4. Recent echo on last October, which shows LVEF was 45-50%, severe posterior wall hypokalemia. ASSESSMENT: A 72-year-old white male with below problems: 1. Dyesy-hk-wijovnr respiratory failure hypercapnic 2. Acute respiratory failure likely from chronic obstructive pulmonary disease exacerbation. Also, possible from congestive heart failure exacerbation or sepsis. Sepsis possible from the pneumonia. 3. Possible pneumonia with chest x-ray has left basilar consolidations and severe leukocytosis. 4. Possible nafbt-tt-pzdeimp kidney failure, hx of chronic kidney disease, stage III. 5. History of diabetes with elevated blood glucose. Recent hemoglobin A1c was 7.9. 6. Diabetic neuropathy. 7. Possible mood disorder. PLAN: Patient has acute hypercapnic respiratory failure, etiology not very clear, possible from CHF exacerbation or COPD exacerbation or pneumonia. likely from pneumonia and sepsis because obvious fever and leukocytosis and left lung consolidations. Patient now is on BiPAP machine, looks like in a critical ill, especially possibly has sepsis. So far, cardiac enzyme and troponin was negative. Lactic acid was 0.8. I feel patient is very sick and needs to have ICU admissions, talked to glass embosser, he agreed. We will continue BiPAP per current setting, cardiac diet, possible CHF exacerbation. He got 1 dose of Lasix 40mg in the Emergency Room. Because he has svjdq-kx-prwyrur kidney failure, I will not continue to give any Lasix for now and I will start evaluation and treatment for the sepsis, blood culture was sent. Checking ESR, CRP and procalcitonin levels, start broad spectrum antibiotic coverage include cefepime and vancomycin. It is really difficult to make a judgment about give IV fluid, or give diuretic for now, so for now we will watch, will not give any diuretics for now. We will continue Solu-Medrol, DuoNeb treatment, nebulizer treatment, continue home medication, which includes Symbicort. Hold kidney offensive medication for now, however, I will okay to continue lisinopril. Because the patient is on steroid for now, so we will continue current dose of Glargine, adding insulin sliding scale. GI and DVT prophylaxis is covered, has ordered insulin sliding scale and check HbA1c for tomorrow. I called to patient's son. His name is Yaya. His phone number is [phone]. He said he would talk to his mom and would respect patient's wishes. Patient is a DNR, do not resuscitation. Yaya requested to call him if patient has any medical condition changes. HERSON
[2018-03-20] MEDS: ACETAMINOPHEN IV 650 MG in EMPTY BAG 0 ML IV PRN (19:37)
--- NOTE | 2018-03-20 19:50 | Pharmacy Progress Note ---
Pharmacy Abx Initial Consult Date of Service Mar 20, 2018. Pharmacy Dosing Scope Date of Consult: 03/20/18 Consultation requested by: Dr. Jackson Pharmacy is consulted to initiate vancomycin and cefepime IV dosing therapy, order appropriate labs and adjust drug dose/frequency. Subjective The patient is a 72 year old male admitted on Mar 20, 2018 at 16:59. Objective Height (Feet): 5 Height (Inches): 11.00 Weight (Kilograms): 106.900 (BMI = 33.8) Vital Signs (Past 12Hrs) Vital Signs Past 12 Hours Date Time Temp Pulse Resp B/P (MAP) Pulse Ox O2 Delivery O2 Flow Rate FiO2 03/20/18 19:00 97 94 30 03/20/18 18:59 97 18 94 BiPAP/CPAP 30 03/20/18 18:41 95 BiPAP 03/20/18 18:36 39.0 101 22 117/72 93 BiPAP 40 03/20/18 17:50 88 26 146/54 93 BiPAP 40 03/20/18 17:19 96 28 148/75 92 BiPAP 40 03/20/18 16:49 100 03/20/18 16:45 99 28 138/77 92 BiPAP 30 03/20/18 16:30 91 BiPAP 30 03/20/18 16:25 91 BiPAP 30 03/20/18 16:23 38.0 111 22 171/82 92 BiPAP 30 03/20/18 16:05 97 25 93 BiPAP/CPAP 30 03/20/18 16:05 97 93 30 Lab Results (24Hrs) Laboratory Tests (24 Hours) Test 03/20/18 16:10 03/20/18 18:31 C-Reactive Protein 3.47 mg/dl (0-0.29) H Erythrocyte Sedimentation Rate 29 mm/hr (0-14) H White Blood Count 23.59 K/uL (4.8-10.8) H Red Blood Count 3.76 M/uL (4.7-6.1) L Hemoglobin 11.2 g/dL (14.0-18.0) L Hematocrit 35.8 % (42-52) L Mean Corpuscular Volume 95.2 fL (80-100) Mean Corpuscular Hemoglobin 29.8 pg (25-34) Mean Corpuscular Hemoglobin Concent 31.3 g/dl (32-36) L Platelet Count 152 K/uL (130-400) Mean Platelet Volume 10.8 fL (7.4-10.4) H Neutrophils (%) (Auto) 86.5 % Lymphocytes (%) (Auto) 5.1 % Monocytes (%) (Auto) 6.4 % Eosinophils (%) (Auto) 1.2 % Basophils (%) (Auto) 0.1 % Neutrophils # (Auto) 20.41 K/uL (1.4-6.5) H Lymphocytes # (Auto) 1.20 K/uL (1.2-3.4) Monocytes # (Auto) 1.51 K/uL (0.11-0.59) H Eosinophils # (Auto) 0.28 K/uL (0-0.5) Basophils # (Auto) 0.02 K/uL (0-0.2) Procalcitonin 0.46 ng/ml (0-0.5) Total Creatine Kinase 100 U/L (39-308) Lactic Acid Level 1.2 mmol/L (0.4-2.0) Micro Results Date/Time Source Procedure Growth Status 03/20/18 16:45 Blood Blood Culture Pending Received 03/20/18 16:30 Blood Blood Culture Pending Received 03/20/18 18:24 Nasal MRSA DNA Surveillance Screen Pending Received Assessment & Plan Assessment 72 year old male admitted for sepsis secondary to pneumonia, likely CAP, but using broad spectrum antibiotics initially with admission to the ICU. Other pertinent PMH includes COPD, DM. Plan Vancomycin IV * Est PK parameters: Vd 0.6 L/kg, Jose Manuel 0.045, t1/2 15.4 hrs using SCr 1.75; baseline SCr appears to be close to 1.5, so PK parameters are similar * Loading dose: 2750 mg (25 mg/kg) * Maintenance dose: 1500 mg IV (13.6 mg/kg) every 18 hours * Goal trough level for pneumonia : 15 to 20 mcg/mL * Trough level ordered for 03/22/18 prior to the 3rd dose - NOT at steady state but need to assess early for accumulation * A less than traditional dose and/or extended dosing interval has/have been selected due to likelihood of drug accumulation in obese patient/patient with h/ o CKD. Cefepime * Target dose 2 gm q8h -> reduce to 2 gm q12h for CrCl 30-60 Pharmacy will continue to follow and will adjust dose/frequency as necessary. Thank you.
[2018-03-20] MEDS: PREGABALIN 150 MG CAP PO SCH (20:50)
[2018-03-20] MEDS: VENLAFAXINE HCL XR 150 MG CAPXR PO SCH (20:50)
[2018-03-20] MEDS: DIVALPROEX 500 MG EXTENDED RELEASE TAB PO SCH (20:50)
[2018-03-20] MEDS: BUDESONIDE/FORMOTEROL FUMARATE 160/4.5 60 PUFFS/INHALER INH SCH (20:50)
[2018-03-20] MEDS: SIMVASTATIN 40 MG TAB PO SCH (20:51)
[2018-03-20] MEDS: LISINOPRIL 10 MG TAB PO SCH (20:51)
[2018-03-20] MEDS: INSULIN ASPART 100 UNITS/ML 3 ML PEN SC SCH (22:13)
[2018-03-20] MEDS: INSULIN GLARGINE SOLOSTAR 100 UNITS/ML 3 ML PEN SQ SCH (22:14)
[2018-03-20] MEDS: ENOXAPARIN 40 MG/0.4 ML SYR SQ SCH (22:15)
[2018-03-20] MEDS: CEFEPIME IV 2,000 MG in SYRINGE 7.5 ML IV SCH (22:17)
[2018-03-20] MEDS: METHYLPREDNISOLONE IV 40 MG in SYRINGE 0 ML IV SCH (23:39)
[2018-03-21] VITALS (23 sets, daily range): BP systolic 116–158; BP diastolic 45–98; PULSE 74–158; TEMP 36.6–38.3; O2SAT 91–98
[2018-03-21] MEDS ORDERED: METHYLPREDNISOLONE IV 80 MG in SYRINGE 0 ML IV SCH
[2018-03-21 01:08] LABS: CKMB 1.1 ng/ml (0.5-3.6)
[2018-03-21] MEDS: ACETAMINOPHEN IV 650 MG in EMPTY BAG 0 ML IV PRN (03:55)
[2018-03-21] MEDS: METHYLPREDNISOLONE IV 40 MG in SYRINGE 0 ML IV SCH ×3 (05:36→16:49)
[2018-03-21 05:56] LABS: HEMATOCRIT 34.1 % (42-52); HEMOGLOBIN 10.7 g/dL (14.0-18.0); MEAN CELL VOLUME 94.2 fL (80-100); MEAN CORPUSCULAR HEMOGLOBIN 29.6 pg (25-34); MEAN CORPUSCULAR HGB CONC 31.4 g/dl (32-36); MEAN PLATELET VOLUME 10.6 fL (7.4-10.4); PLATELET COUNT 135 K/uL (130-400); RED CELL DISTRIBUTION WIDTH CV 17.3 % (11.5-14.5); RED CELL DISTRIBUTION WIDTH SD 60.3 fL (36.4-46.3); WHITE BLOOD COUNT 29.83 K/uL (4.8-10.8)
[2018-03-21 06:13] LABS: ALBUMIN 3.1 gm/dl (3.4-5.0); CALCIUM 8.4 mg/dl (8.5-10.1); CREATININE 1.71 mg/dl (0.60-1.40); POTASSIUM 4.2 mmol/L (3.5-5.1)
[2018-03-21 06:18] LABS: TOTAL PROTEIN 7.2 gm/dl (6.4-8.2)
[2018-03-21 06:26] LABS: BASO ABS # 0.01 K/uL (0-0.2); IG# 0.23 K/uL (0.00-0.02); LYMPH % 2.4 %; LYMPH ABS # 0.73 K/uL (1.2-3.4); MONO % 3.6 %; MONO ABS # 1.06 K/uL (0.11-0.59); NEUT % 93.2 %
[2018-03-21] MEDS: ALBUT/IPRATROP 3MG/0.5MG NEB 3 ML VIAL INH SCH ×4 (07:11→19:50)
[2018-03-21] MEDS ORDERED: FUROSEMIDE INJ 20 MG in SYRINGE 0 ML IV SCH (09:00)
[2018-03-21] MEDS ORDERED: PERFLUTREN LIPID MICROSPHERE (DEFINITY) IV ONE (09:30)
[2018-03-21] MEDS: INSULIN ASPART 100 UNITS/ML 3 ML PEN SC SCH ×4 (09:36→21:11)
[2018-03-21 09:39] LABS: CKMB 1.1 ng/ml (0.5-3.6)
[2018-03-21] MEDS: SODIUM CHLORIDE 0.9% 1000ML 1,000 ML IV SCH ×2 (09:40→23:03)
[2018-03-21] MEDS: BUDESONIDE/FORMOTEROL FUMARATE 160/4.5 60 PUFFS/INHALER INH SCH ×2 (09:40→21:07)
[2018-03-21] MEDS: PANTOprazole INJ 40 MG in SYRINGE 0 ML IV SCH (09:41)
[2018-03-21] MEDS: METOPROLOL SUCC 25MG EXT REL TAB PO SCH (09:42)
[2018-03-21] MEDS: ASPIRIN 81 MG ECTAB PO SCH (09:42)
[2018-03-21] MEDS: VENLAFAXINE HCL XR 150 MG CAPXR PO SCH ×2 (09:42→21:08)
[2018-03-21] MEDS: ISOSORBIDE MONONITRATE 60 MG TABCR PO SCH (09:42)
[2018-03-21] MEDS: CEFEPIME IV 2,000 MG in SYRINGE 7.5 ML IV SCH ×2 (09:46→23:01)
--- NOTE | 2018-03-21 10:25 | Critical Care Progress Note ---
Critical Care Progress Note Date of Service Mar 21, 2018. Attending Dr. Santizo Subjective The patient is feeling better, he is less short of breath than yesterday, he was able to come off the BiPAP, is following commands and answering questions, he had occasional cough, minimal pain in his knees only, no chest pain reported. No nausea or vomiting. The rest of his review of system was negative. Objective His physical exam today revealed minimal wheezing scattered, vital signs remain stable, O2 saturation on a nasal cannula is 89% which is around his baseline, no JVP, S1-S2 regular rate and rhythm, abdomen is benign, edema in the periphery noted. His labs were consistent with leukocytosis likely steroids effect. The rest of his labs are within acceptable limit. BUN/creatinine are chronically elevated. Assessment & Plan 1. Acute on chronic hypercapnic and hypoxic respiratory failure. 2. Left lower lobe pneumonia. 3. COPD, gold level 3, grade C. 4. Cardiomyopathy, ischemic, EF 40%. 5. Coronary artery disease status post CABG in 2007. 6. Degenerative joint disease, plan for total knee replacement this week. On hold for now. 7. Chronic kidney disease. Plan: 1. Continue with Vanco and cefepime, I will add azithromycin for atypicals. 2. Continue with current dose of steroids regardless of his WBC. 3. Bronchodilators. 4. BiPAP every night ongoing for life. 5. Start oral intake. 6. Out of bed. 7. PT consult. 8. DVT and GI prophylaxis. 9. His tentative total knee replacement for the upcoming week should be delayed for at least 2 weeks. 10. The patient is DNR and DNI based on his wishes. 11. Discussed with the staff and details. 12. The patient can be dispositioned to telemetry floor. 13. Critical care time spent with the patient was 35 minutes. Data Medications: Current Inpatient Medications Medications (Trade) Dose Ordered Sig/Yasmin Route Start Time Stop Time Status Last Admin Dose Admin Enoxaparin Sodium (Lovenox Inj) 40 mg Q24H SQ 03/20/18 21:00 04/19/18 20:59 03/20/18 22:15 40 MG Acetaminophen (Tylenol Tab) 650 mg Q4H PRN PO 03/20/18 17:00 04/19/18 16:59 Pantoprazole Sodium 40 mg/ Syringe 10 ml @ 5 mls/min DAILY IV 03/21/18 09:00 03/24/18 09:01 03/21/18 09:41 5 MLS/MIN Miscellaneous Information (Icu Protocol For Hyperglycemia) 1 ea PRN PRN N/A 03/20/18 17:00 03/22/18 16:59 Albuterol/ Ipratropium (Duoneb) 3 ml QIDR INH 03/20/18 20:00 04/19/18 19:59 03/21/18 07:11 3 ML Miscellaneous Information (Consult) 1 ea UD PRN N/A 03/20/18 17:30 04/19/18 17:29 Aspirin (Ecotrin Tab) 81 mg QAM PO 03/21/18 09:00 04/20/18 08:59 03/21/18 09:42 81 MG Budesonide/ Formoterol Fumarate (Symbicort 160/ 4.5 Inh) 2 puffs BID INH 03/20/18 21:00 04/19/18 20:59 03/21/18 09:40 2 PUFFS Divalproex Sodium (Depakote Extended Rel Tab) 1,000 mg HS PO 03/20/18 21:00 04/19/18 20:59 Insulin Glargine (Lantus Solostar Pen) 35 units HS SQ 03/20/18 21:00 04/19/18 20:59 03/20/18 22:14 35 UNITS Isosorbide Mononitrate (Imdur Ext Rel Tab) 60 mg QAM PO 03/21/18 09:00 04/20/18 08:59 03/21/18 09:42 60 MG Lisinopril (Zestril Tab) 10 mg HS PO 03/20/18 21:00 04/19/18 20:59 Metoprolol Succinate (Toprol Xl Tab) 25 mg QAM PO 03/21/18 09:00 04/20/18 08:59 03/21/18 09:42 25 MG Nitroglycerin (Nitrostat Tab) 0.4 mg PRN PRN UT 03/20/18 17:40 04/19/18 17:39 Miscellaneous Information (Order Awaiting Action) 1 ea QS N/A 03/21/18 00:00 04/20/18 00:00 Pregabalin (Lyrica Cap) 300 mg HS PO 03/20/18 21:00 04/19/18 20:59 Simvastatin (Zocor Tab) 40 mg QPM PO 03/20/18 21:00 04/19/18 20:59 Venlafaxine HCl (effeXOR EXTENDED REL CAP) 150 mg BID PO 03/20/18 21:00 04/19/18 20:59 03/21/18 09:42 150 MG Insulin Aspart (novoLOG ASPART) SLIDING SCALE G... ACHS SC 03/20/18 21:00 04/19/18 20:59 03/21/18 09:36 6 UNITS Cefepime HCl (Consult) 1 ea UD PRN N/A 03/20/18 17:30 04/19/18 17:29 Methylprednisolone Sodium Succinate 40 mg/Syringe 0.64 ml @ 1.5 mls/min Q6H IV 03/21/18 00:00 04/20/18 00:00 03/21/18 05:36 1.5 MLS/MIN Cefepime HCl 2000 mg/Syringe 20 ml @ 5 mls/min Q12H IV 03/20/18 22:00 03/27/18 21:59 03/21/18 09:46 5 MLS/MIN Vancomycin HCl 1500 mg/Sodium Chloride 530 ml @ 200 mls/hr Q18H IV 03/21/18 12:00 03/27/18 23:59 Sodium Chloride 1,000 ml @ 75 mls/hr [id number] IV 03/20/18 19:00 04/19/18 18:59 03/21/18 09:40 75 MLS/HR Vital Signs: Date Time Temp Pulse Resp B/P (MAP) Pulse Ox O2 Delivery O2 Flow Rate FiO2 03/21/18 07:16 81 18 96 BiPAP/CPAP 30 03/21/18 07:11 81 96 30 03/21/18 06:06 78 97 30 03/21/18 06:00 37.6 76 20 128/83 (98) 94 BiPAP 40 03/21/18 04:00 38.2 84 18 116/86 (96) 98 BiPAP 40 03/21/18 04:00 96 BiPAP 40 03/21/18 02:00 38.3 84 19 158/91 (113) 96 BiPAP 40 03/21/18 00:01 37.9 86 19 144/72 (96) 96 BiPAP 40 03/20/18 23:59 96 BiPAP 40 03/20/18 22:00 37.5 82 16 130/67 (88) 95 BiPAP 40 03/20/18 22:00 96 94 40 03/20/18 20:00 38.1 88 14 118/67 (84) 95 BiPAP 40 03/20/18 20:00 96 BiPAP 40 03/20/18 19:00 97 94 40 03/20/18 18:59 97 18 94 BiPAP/CPAP 30 03/20/18 18:41 95 BiPAP 03/20/18 18:36 39.0 101 22 117/72 93 BiPAP 40 03/20/18 17:50 88 26 146/54 93 BiPAP 40 03/20/18 17:19 96 28 148/75 92 BiPAP 40 03/20/18 16:49 100 03/20/18 16:45 99 28 138/77 92 BiPAP 30 03/20/18 16:30 91 BiPAP 30 03/20/18 16:25 91 BiPAP 30 03/20/18 16:23 38.0 111 22 171/82 92 BiPAP 30 03/20/18 16:05 97 25 93 BiPAP/CPAP 30 03/20/18 16:05 97 93 30 Laboratory Results: Last 24 Hours Test 03/20/18 16:00 03/20/18 16:10 03/20/18 16:12 03/20/18 16:14 Creatine Kinase MB Ratio 2.3 White Blood Count 23.59 K/uL Red Blood Count 3.76 M/uL Hemoglobin 11.2 g/dL Hematocrit 35.8 % Mean Corpuscular Volume 95.2 fL Mean Corpuscular Hemoglobin 29.8 pg Mean Corpuscular Hemoglobin Concent 31.3 g/dl Platelet Count 152 K/uL Mean Platelet Volume 10.8 fL Neutrophils (%) (Auto) 86.5 % Lymphocytes (%) (Auto) 5.1 % Monocytes (%) (Auto) 6.4 % Eosinophils (%) (Auto) 1.2 % Basophils (%) (Auto) 0.1 % Neutrophils # (Auto) 20.41 K/uL Lymphocytes # (Auto) 1.20 K/uL Monocytes # (Auto) 1.51 K/uL Eosinophils # (Auto) 0.28 K/uL Basophils # (Auto) 0.02 K/uL RDW Standard Deviation 60.6 fL RDW Coefficient of Variation 17.4 % Immature Granulocyte % (Auto) 0.7 % Immature Granulocyte # (Auto) 0.17 K/uL Hyposegmented Neutrophils OCCASIONAL Erythrocyte Sedimentation Rate 29 mm/hr Prothrombin Time 11.6 SECONDS Prothromb Time International Ratio 1.1 Activated Partial Thromboplast Time 25.4 SECONDS Partial Thromboplastin Ratio 1.0 Sodium Level 138 mmol/L Potassium Level 5.0 mmol/L Chloride Level 100 mmol/L Carbon Dioxide Level 33 mmol/L Anion Gap 5.0 mmol/L Blood Urea Nitrogen 37 mg/dl Creatinine 1.75 mg/dl Est Creatinine Clear Calc Drug Dose 49.5 ml/min Estimated GFR () 44.7 Estimated GFR (Non- 38.6 BUN/Creatinine Ratio 21.1 Random Glucose 139 mg/dl Calcium Level 8.4 mg/dl Total Bilirubin 0.3 mg/dl Direct Bilirubin < 0.1 mg/dl Aspartate Amino Transf (AST/SGOT) 13 U/L Alanine Aminotransferase (ALT/SGPT) 17 U/L Alkaline Phosphatase 95 U/L Total Creatine Kinase 100 U/L Creatine Kinase MB 2.3 ng/ml C-Reactive Protein 3.47 mg/dl Pro-B-Type Natriuretic Peptide 2680 pg/ml Total Protein 7.5 gm/dl Albumin 3.6 gm/dl Lipase 44 U/L Procalcitonin 0.46 ng/ml Valproic Acid (Depakene) Level 59 mcg/ml Bedside Lactic Acid Venous 0.83 mmol/L Bedside Hemoglobin 11.6 g/dl Bedside Hematocrit 34 % Bedside Blood Gas pH (LAB) 7.36 Bedside Blood Gas pCO2 (LAB) 61 mmHg Bedside Blood Gas pO2 (LAB) 119 mmHg Bedside Blood Gas HCO3 (LAB) 34 meq/L Bedside Blood Gas Total CO2 36 mEq/l Bedside Blood Gas Base Excess (LAB) 9.0 meq/L Bedside Blood Gas O2 Saturation 98.0 % Bedside Sodium 141 mEq/L Bedside Potassium 4.8 mEq/L Test 03/20/18 16:22 03/20/18 16:37 03/20/18 17:45 03/20/18 18:31 Bedside Troponin I < 0.030 ng/ml Bedside Glucose 148 mg/dl Urine Color YELLOW Urine Appearance CLEAR Urine pH 6.0 Urine Specific [place] 1.011 Urine Protein TRACE Urine Glucose (UA) 2+ Urine Ketones NEG Urine Occult Blood TRACE Urine Nitrite NEG Urine Bilirubin NEG Urine Urobilinogen NEG Urine Leukocyte Esterase NEG Urine WBC (Auto) 0 /hpf Urine RBC (Auto) 0-4 /hpf Urine Hyaline Casts (Auto) 1-5 /lpf Urine Epithelial Cells (Auto) 0-5 /lpf Urine Bacteria (Auto) NEG Sodium Level 138 mmol/L Potassium Level 4.5 mmol/L Chloride Level 100 mmol/L Carbon Dioxide Level 31 mmol/L Anion Gap 6.0 mmol/L Blood Urea Nitrogen 38 mg/dl Creatinine 1.85 mg/dl Est Creatinine Clear Calc Drug Dose 46.9 ml/min Estimated GFR () 41.8 Estimated GFR (Non- 36.1 BUN/Creatinine Ratio 20.6 Random Glucose 189 mg/dl Lactic Acid Level 1.2 mmol/L Calcium Level 8.4 mg/dl Test 03/20/18 22:06 03/21/18 00:38 03/21/18 05:45 03/21/18 05:47 Bedside Glucose 221 mg/dl Creatine Kinase MB 1.1 ng/ml Creatine Kinase MB Ratio Troponin I 0.018 ng/ml Blood Gas Sample Site R Radial Bedside Blood Gas pH (LAB) 7.41 Bedside Blood Gas pCO2 (LAB) 53 mmHg Bedside Blood Gas pO2 (LAB) 93 mmHg Bedside Blood Gas HCO3 (LAB) 34 meq/L Bedside Blood Gas Total CO2 35 mEq/l Bedside Blood Gas Base Excess (LAB) 9.0 meq/L Bedside Blood Gas O2 Saturation 97.0 % Noah Test Pass Oxygen Delivery Device BIPAP Bedside Oxygen Rate (breaths/min) 20 Bedside FiO2 40 % Blood Gas IPAP 12 White Blood Count 29.83 K/uL Red Blood Count 3.62 M/uL Hemoglobin 10.7 g/dL Hematocrit 34.1 % Mean Corpuscular Volume 94.2 fL Mean Corpuscular Hemoglobin 29.6 pg Mean Corpuscular Hemoglobin Concent 31.4 g/dl Platelet Count 135 K/uL Mean Platelet Volume 10.6 fL Neutrophils (%) (Auto) 93.2 % Lymphocytes (%) (Auto) 2.4 % Monocytes (%) (Auto) 3.6 % Eosinophils (%) (Auto) 0.0 % Basophils (%) (Auto) 0.0 % Neutrophils # (Auto) 27.80 K/uL Lymphocytes # (Auto) 0.73 K/uL Monocytes # (Auto) 1.06 K/uL Eosinophils # (Auto) 0.00 K/uL Basophils # (Auto) 0.01 K/uL RDW Standard Deviation 60.3 fL RDW Coefficient of Variation 17.3 % Immature Granulocyte % (Auto) 0.8 % Immature Granulocyte # (Auto) 0.23 K/uL Hyposegmented Neutrophils 1+ Sodium Level 139 mmol/L Potassium Level 4.2 mmol/L Chloride Level 101 mmol/L Carbon Dioxide Level 31 mmol/L Anion Gap 7.0 mmol/L Blood Urea Nitrogen 38 mg/dl Creatinine 1.71 mg/dl Est Creatinine Clear Calc Drug Dose 49.1 ml/min Estimated GFR () 46.0 Estimated GFR (Non- 39.7 BUN/Creatinine Ratio 22.3 Random Glucose 190 mg/dl Lactic Acid Level 1.8 mmol/L Calcium Level 8.4 mg/dl Phosphorus Level 5.0 mg/dl Magnesium Level 2.2 mg/dl Total Bilirubin 0.4 mg/dl Direct Bilirubin 0.1 mg/dl Aspartate Amino Transf (AST/SGOT) 9 U/L Alanine Aminotransferase (ALT/SGPT) 14 U/L Alkaline Phosphatase 84 U/L Pro-B-Type Natriuretic Peptide 7175 pg/ml Total Protein 7.2 gm/dl Albumin 3.1 gm/dl Test 03/21/18 06:43 03/21/18 08:47 03/21/18 08:58 Bedside Glucose 181 mg/dl Creatine Kinase MB Ratio Creatine Kinase MB 1.1 ng/ml Troponin I 0.019 ng/ml
[2018-03-21] MEDS: VANCOMYCIN IV 1,500 MG in SODIUM CHLORIDE 0.9% 500ML 500 ML IV SCH (12:04)
--- NOTE | 2018-03-21 16:10 | ECHOCARDIOGRAM REPORT ---
*NOTICE TO RECEIVING REPUBL[employer] AGENCY This information is strictly Confidential and protected under [place] law. [place] law prohibits you from making any further disclosure of this information unless further disclosure is expressly permitted by the written consent of the person to whom it pertains or is authorized by law. A general authorization for the release of medical or other information is not sufficient for this purpose. Hospital accepts no responsibility if the information is made available to any other person, INCLUDING THE PATIENT. Interpretation Summary * Name: AYO JUAREZ Study Date: 03/21/2018 07:41 AM BP: 128/83 mmHg * [facility]1 HR: 78 * : 1945 (M/d/yyyy) Gender: Male Height: 71 in * Age: 72 yrs Ethnicity: [place] Weight: 242 lb * Ordering Physician: Jun Jackson * Referring Physician: Self, Referred * Performed By: Nancie Jackson RDCS * * Reason For Study: CHF * BSA: 2.3 m2 * -- Conclusions -- * 1. Mildly dilated left ventricle with low-normal systolic function. Estimated EF 50-55%. Akinesis of the inferolateral wall (thin). Other visualized wall segments appear to have normal wall motion, but cannot definitely rule out other wall motion abnormalities due to image quality. Mild left ventricular hypertrophy. * 2. The right ventricle is mildly dilated. The right ventricular systolic function is normal as assessed by tricuspid annular plane systolic excursion (TAPSE) (normal >1.5 cm). * 3. The left atrium is moderately dilated. * 4. The right atrium is mildly dilated. * 5. Aortic valve sclerosis mild, without significant aortic valvular stenosis. * 6. There is mild mitral regurgitation. * 7. Normal estimated right ventricular systolic pressure. * 8. Technically difficult study, enhanced with IV Definity. * 9. Compared to prior study on 11/13/2017, wall motion appears similar. Right ventricular systolic pressure has improved (but TR jet not as well visualized on Spectral Doppler). Procedure Details * A complete two-dimensional transthoracic echocardiogram was performed (2D, M-mode, Doppler and color flow Doppler). * A contrast injection of Definity was performed to improve assessment of LV function. * Contrast was injected into an intravenous site in the left arm. * One vial of Definity ultrasound contrast was diluted in normal saline to a total volume of 10 ml. A total of '1' ml of solution was administered during imaging. * Lot # [id number] of Definity utilized for procedure. * Expiration date mar 18. * The attending nurse who injected the contrast agent was Joan Avila RN. Left Ventricle * Mildly dilated left ventricle with low-normal systolic function. Estimated EF 50-55%. Akinesis of the inferolateral wall (thin). Other visualized wall segments appear to have normal wall motion. Mild left ventricular hypertrophy. Right Ventricle * The right ventricle is mildly dilated. * The right ventricular systolic function is normal as assessed by tricuspid annular plane systolic excursion (TAPSE) (normal >1.5 cm). Atria * The left atrium is moderately dilated. * The right atrium is mildly dilated. * There is no evidence of atrial septal defect, but resolution does not allow assessment for a patent foramen ovale. Mitral Valve * There is no mitral valve stenosis. * There is mild mitral regurgitation. Tricuspid Valve * The tricuspid valve is not well visualized, but is grossly normal. * There is no tricuspid stenosis. * Significant tricuspid regurgitation is absent. Aortic Valve * The aortic valve is trileaflet. * Aortic valve sclerosis mild, without significant aortic valvular stenosis. * No hemodynamically significant valvular aortic stenosis. * No aortic regurgitation is present. Pulmonic Valve * The pulmonary valve is inadequately visualized, but the Doppler data is adequate for interpretation. * There is no pulmonic valvular stenosis. * Mild pulmonic valvular regurgitation. Great Vessels * The aortic root is normal size. * Ascending aorta of normal dimension Pericardium/Pleural * There is no pericardial effusion. Great Vessels * Mildly dilated IVC with normal inspiratory collapse. MMode 2D Measurements and Calculations IVSd 1.3 cm LVIDd 5.6 cm LVIDs 4.6 cm LVPWd 0.70 cm IVS/LVPW 1.9 FS 17.7 % EDV(Teich) 152.4 ml ESV(Teich) 96.8 ml EF(Teich) 36.5 % EDV(cubed) 173.8 ml ESV(cubed) 96.7 ml EF(cubed) 44.3 % LV mass(C)d 222.9 grams LV mass(C)dI 97.5 grams/m\S\2 SV(Teich) 55.6 ml SI(Teich) 24.3 ml/m\S\2 SV(cubed) 77.1 ml SI(cubed) 33.7 ml/m\S\2 Ao root diam 3.8 cm Ao root area 11.4 cm\S\2 ACS 2.0 cm LA dimension 3.6 cm asc Aorta Diam 3.6 cm LA/Ao 0.94 LVOT diam 2.3 cm LVOT area 4.0 cm\S\2 LVAd ap4 53.2 cm\S\2 LVLd ap4 9.5 cm EDV(MOD-sp4) 246.1 ml EDV(sp4-el) 253.7 ml LVAs ap4 33.3 cm\S\2 LVLs ap4 8.4 cm ESV(MOD-sp4) 108.5 ml ESV(sp4-el) 111.7 ml EF(MOD-sp4) 55.9 % EF(sp4-el) 56.0 % SV(MOD-sp4) 137.6 ml SI(MOD-sp4) 60.2 ml/m\S\2 SV(sp4-el) 141.9 ml SI(sp4-el) 62.1 ml/m\S\2 Doppler Measurements and Calculations MV E max candelario 111.0 cm/sec MV A max candelario 103.5 cm/sec MV E/A 1.1 MV V2 max 129.4 cm/sec MV max PG 6.7 mmHg MV V2 mean 78.1 cm/sec MV mean PG 2.7 mmHg MV V2 VTI 31.8 cm MV P1/2t max candelario 130.3 cm/sec MV P1/2t 61.9 msec MVA(P1/2t) 3.6 cm\S\2 MV dec slope 616.4 cm/sec\S\2 MV dec time 0.20 sec Ao V2 max 114.3 cm/sec Ao max PG 5.2 mmHg Ao max PG (full) 1.4 mmHg BLAS(V,A) 3.4 cm\S\2 BLAS(V,D) 3.4 cm\S\2 LV V1 max PG 3.8 mmHg LV V1 max 97.5 cm/sec TV E max canedlario 58.8 cm/sec PA V2 max 116.5 cm/sec PA max PG 5.4 mmHg PA acc slope 517.7 cm/sec\S\2 PA acc time 0.17 sec TR max candelario 256.8 cm/sec RVSP(TR) 34.4 mmHg RAP systole 8.0 mmHg PA pr(Accel) 4.0 mmHg
[2018-03-21] MEDS: ENOXAPARIN 40 MG/0.4 ML SYR SQ SCH ×2 (21:00→21:07)
[2018-03-21] MEDS: LISINOPRIL 10 MG TAB PO SCH (21:07)
[2018-03-21] MEDS: DIVALPROEX 500 MG EXTENDED RELEASE TAB PO SCH (21:08)
[2018-03-21] MEDS: SIMVASTATIN 40 MG TAB PO SCH (21:08)
[2018-03-21] MEDS: PREGABALIN 150 MG CAP PO SCH (21:09)
[2018-03-21] MEDS: INSULIN GLARGINE SOLOSTAR 100 UNITS/ML 3 ML PEN SQ SCH (21:12)
--- NOTE | 2018-03-21 22:14 | Progress Note ---
Subjective Date of Service: Mar 21, 2018. Subjective Pt evaluation today including: conversation w/ patient, conversation w/ family , physical exam, lab review, review of studies, conversation w/ product consultant, review of inpatient medication list Pain: denies pain PO Intake: adequate, but does not like the food Voiding: camacho catheter in place patient feeling much better, breathing more comfortably has a productive cough appetite is not great updated family at the bedside reviewed labs, WBC up to 29k, Cr stable at 1.7 reviewed imaging from admission, CXR with left lower lobe consolidation discussed case with Dr. Santizo, agree with transfer to tele Problem List Medical Problems: (1) Altered mental state Status: Acute (2) Hypoxia Status: Acute (3) Left leg weakness Status: Acute (4) Pneumonia Status: Acute (5) Pneumonia Status: Acute (6) Pulmonary infiltrate Status: Acute (7) Weakness Status: Acute Review of Systems Constitutional: + weakness, + fatigue Respiratory: + cough, + sputum, + shortness of breath, + dyspnea on exertion Abdomen: + problem reported (poor appetite) Neurologic: + weakness All Other Systems: Reviewed and Negative Medications Current Inpatient Medications Medications (Trade) Dose Ordered Sig/Yasmin Route Start Time Stop Time Status Last Admin Dose Admin Enoxaparin Sodium (Lovenox Inj) 40 mg Q24H SQ 03/20/18 21:00 04/19/18 20:59 03/20/18 22:15 40 MG Acetaminophen (Tylenol Tab) 650 mg Q4H PRN PO 03/20/18 17:00 04/19/18 16:59 Pantoprazole Sodium 40 mg/ Syringe 10 ml @ 5 mls/min DAILY IV 03/21/18 09:00 03/24/18 09:01 03/21/18 09:41 5 MLS/MIN Miscellaneous Information (Icu Protocol For Hyperglycemia) 1 ea PRN PRN N/A 03/20/18 17:00 03/22/18 16:59 Albuterol/ Ipratropium (Duoneb) 3 ml QIDR INH 03/20/18 20:00 04/19/18 19:59 03/21/18 19:50 3 ML Miscellaneous Information (Consult) 1 ea UD PRN N/A 03/20/18 17:30 04/19/18 17:29 Aspirin (Ecotrin Tab) 81 mg QAM PO 03/21/18 09:00 04/20/18 08:59 03/21/18 09:42 81 MG Budesonide/ Formoterol Fumarate (Symbicort 160/ 4.5 Inh) 2 puffs BID INH 03/20/18 21:00 04/19/18 20:59 03/21/18 21:07 2 PUFFS Divalproex Sodium (Depakote Extended Rel Tab) 1,000 mg HS PO 03/20/18 21:00 04/19/18 20:59 03/21/18 21:08 1,000 MG Insulin Glargine (Lantus Solostar Pen) 35 units HS SQ 03/20/18 21:00 04/19/18 20:59 03/21/18 21:12 35 UNITS Isosorbide Mononitrate (Imdur Ext Rel Tab) 60 mg QAM PO 03/21/18 09:00 04/20/18 08:59 03/21/18 09:42 60 MG Lisinopril (Zestril Tab) 10 mg HS PO 03/20/18 21:00 04/19/18 20:59 03/21/18 21:07 10 MG Metoprolol Succinate (Toprol Xl Tab) 25 mg QAM PO 03/21/18 09:00 04/20/18 08:59 03/21/18 09:42 25 MG Nitroglycerin (Nitrostat Tab) 0.4 mg PRN PRN UT 03/20/18 17:40 04/19/18 17:39 Miscellaneous Information (Order Awaiting Action) 1 ea QS N/A 03/21/18 00:00 04/20/18 00:00 Pregabalin (Lyrica Cap) 300 mg HS PO 03/20/18 21:00 04/19/18 20:59 03/21/18 21:09 300 MG Simvastatin (Zocor Tab) 40 mg QPM PO 03/20/18 21:00 04/19/18 20:59 03/21/18 21:08 40 MG Venlafaxine HCl (effeXOR EXTENDED REL CAP) 150 mg BID PO 03/20/18 21:00 04/19/18 20:59 03/21/18 21:08 150 MG Insulin Aspart (novoLOG ASPART) SLIDING SCALE G... ACHS SC 03/20/18 21:00 04/19/18 20:59 03/21/18 21:11 4 UNITS Cefepime HCl (Consult) 1 ea UD PRN N/A 03/20/18 17:30 04/19/18 17:29 Methylprednisolone Sodium Succinate 40 mg/Syringe 0.64 ml @ 1.5 mls/min Q6H IV 03/21/18 00:00 04/20/18 00:00 03/21/18 16:49 1.5 MLS/MIN Cefepime HCl 2000 mg/Syringe 20 ml @ 5 mls/min Q12H IV 03/20/18 22:00 03/27/18 21:59 03/21/18 09:46 5 MLS/MIN Vancomycin HCl 1500 mg/Sodium Chloride 530 ml @ 200 mls/hr Q18H IV 03/21/18 12:00 03/27/18 23:59 03/21/18 12:04 200 MLS/HR Sodium Chloride 1,000 ml @ 75 mls/hr [id number] IV 03/20/18 19:00 04/19/18 18:59 03/21/18 09:40 75 MLS/HR Objective Vital Signs Date Time Temp Pulse Resp B/P (MAP) Pulse Ox O2 Delivery O2 Flow Rate FiO2 03/21/18 20:00 Nasal Cannula 2.0 03/21/18 19:52 74 16 96 Nasal Cannula 2.0 03/21/18 19:38 36.6 77 18 138/82 (100) 95 Nasal Cannula 2.0 03/21/18 17:30 36.9 83 20 134/62 (86) 91 Room Air 03/21/18 17:12 37.7 74 14 93 03/21/18 16:23 93 Room Air 03/21/18 15:13 74 14 96 Nasal Cannula 2.0 03/21/18 14:00 37.7 03/21/18 13:00 81 18 130/66 (87) 92 Nasal Cannula 2.0 03/21/18 12:00 92 Nasal Cannula 03/21/18 12:00 37.8 158 22 146/56 (86) Nasal Cannula 2.0 03/21/18 11:17 82 16 94 Nasal Cannula 2.0 03/21/18 11:00 37.8 80 22 136/45 (75) 93 Nasal Cannula 2.0 03/21/18 10:00 37.7 85 17 155/85 (108) 92 Nasal Cannula 2.0 03/21/18 09:00 37.5 84 17 145/98 (114) 93 Nasal Cannula 2.0 03/21/18 08:00 37.4 77 21 137/84 (101) 95 Nasal Cannula 2.0 03/21/18 08:00 93 Nasal Cannula 03/21/18 07:16 81 18 96 BiPAP/CPAP 30 03/21/18 07:11 81 96 30 03/21/18 07:00 37.4 80 17 158/75 (102) 96 BiPAP 30 03/21/18 06:06 78 97 30 03/21/18 06:00 37.6 76 20 128/83 (98) 94 BiPAP 40 03/21/18 04:00 38.2 84 18 116/86 (96) 98 BiPAP 40 03/21/18 04:00 96 BiPAP 40 03/21/18 02:00 38.3 84 19 158/91 (113) 96 BiPAP 40 03/21/18 00:01 37.9 86 19 144/72 (96) 96 BiPAP 40 03/20/18 23:59 96 BiPAP 40 03/20/18 22:00 37.5 82 16 130/67 (88) 95 BiPAP 40 03/20/18 22:00 96 94 40 Physical Exam General Appearance: no apparent distress, + obese Eyes: normal inspection, EOMI, sclerae normal ENT: normal ENT inspection, hearing grossly normal, pharynx normal Neck: supple, no adenopathy, no JVD, trachea midline Respiratory/Chest: chest non-tender, no respiratory distress, no accessory muscle use, + decreased breath sounds, + crackles (left base) Cardiovascular: regular rate, rhythm, no edema, no gallop, no JVD, no murmur Abdomen: normal bowel sounds, non tender, soft, no organomegaly Extremities: normal range of motion, non-tender, normal inspection, no pedal edema, no calf tenderness, normal capillary refill, pelvis stable 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0 % Noah Test Pass Oxygen Delivery Device BIPAP Bedside Oxygen Rate (breaths/min) 20 Bedside FiO2 40 % Blood Gas IPAP 12 White Blood Count 29.83 K/uL Red Blood Count 3.62 M/uL Hemoglobin 10.7 g/dL Hematocrit 34.1 % Mean Corpuscular Volume 94.2 fL Mean Corpuscular Hemoglobin 29.6 pg Mean Corpuscular Hemoglobin Concent 31.4 g/dl Platelet Count 135 K/uL Mean Platelet Volume 10.6 fL Neutrophils (%) (Auto) 93.2 % Lymphocytes (%) (Auto) 2.4 % Monocytes (%) (Auto) 3.6 % Eosinophils (%) (Auto) 0.0 % Basophils (%) (Auto) 0.0 % Neutrophils # (Auto) 27.80 K/uL Lymphocytes # (Auto) 0.73 K/uL Monocytes # (Auto) 1.06 K/uL Eosinophils # (Auto) 0.00 K/uL Basophils # (Auto) 0.01 K/uL RDW Standard Deviation 60.3 fL RDW Coefficient of Variation 17.3 % Immature Granulocyte % (Auto) 0.8 % Immature Granulocyte # (Auto) 0.23 K/uL Hyposegmented Neutrophils 1+ Sodium Level 139 mmol/L Potassium Level 4.2 mmol/L Chloride Level 101 mmol/L Carbon Dioxide Level 31 mmol/L Anion Gap 7.0 mmol/L Blood Urea Nitrogen 38 mg/dl Creatinine 1.71 mg/dl Est Creatinine Clear Calc Drug Dose 49.1 ml/min Estimated GFR () 46.0 Estimated GFR (Non- 39.7 BUN/Creatinine Ratio 22.3 Random Glucose 190 mg/dl Lactic Acid Level 1.8 mmol/L Calcium Level 8.4 mg/dl Phosphorus Level 5.0 mg/dl Magnesium Level 2.2 mg/dl Total Bilirubin 0.4 mg/dl Direct Bilirubin 0.1 mg/dl Aspartate Amino Transf (AST/SGOT) 9 U/L Alanine Aminotransferase (ALT/SGPT) 14 U/L Alkaline Phosphatase 84 U/L Pro-B-Type Natriuretic Peptide 7175 pg/ml Total Protein 7.2 gm/dl Albumin 3.1 gm/dl Test 03/21/18 06:43 03/21/18 08:47 03/21/18 08:58 03/21/18 11:26 Bedside Glucose 181 mg/dl 235 mg/dl Creatine Kinase MB Ratio Creatine Kinase MB 1.1 ng/ml Troponin I 0.019 ng/ml Test 03/21/18 16:20 03/21/18 20:16 Bedside Glucose 200 mg/dl 221 mg/dl Assessment and Plan 72 yo male with acute respiratory failure, severe sepsis with left lower lobe pneumonia - Acute hypoxic respiratory failure: improved dramatically, off of BIPAP today stable on 3L nasal canula due to pneumonia as well as COPD exacerbation echocardiogram shows EF 55%, normal RV, biatrial enlargement, doubt this is heart failure, but monitor volume status - Left lower lobe pneumonia with sepsis present on admission, severe sepsis due to respiratory failure continue Cefepime, Vancomycin and Azithromycin likely taper to single antibiotic in 48 hours monitor WBC, elevated at 29k but steroids playing a role one set of blood cultures growing gram positive cocci - COPD exacerbation continue nebulizers, Solu Medrol has listed allergy to Prednisone could consider just 5 days of Solu Medrol - CKD III: stable, Cr 1.7 adequate UO keep camacho today, likely d/c tomorrow - DM type II with hyperglycemia due to steroids, A1c was 7.9 outpatient will tighten Novolog, continue Lantus 35 units DVT prophylaxis: Lovenox transfer to tele today
[2018-03-22] VITALS (11 sets, daily range): BP systolic 117–167; BP diastolic 59–115; PULSE 76–84; TEMP 36.8–37; O2SAT 93–99
[2018-03-22] MEDS: OXYCODONE/ACETAMINOPHEN 10/325MG TAB PO PRN (00:19)
[2018-03-22] MEDS: METHYLPREDNISOLONE IV 40 MG in SYRINGE 0 ML IV SCH ×4 (00:30→21:08)
[2018-03-22] MEDS: ALBUT/IPRATROP 3MG/0.5MG NEB 3 ML VIAL INH SCH ×3 (04:46→11:11)
--- NOTE | 2018-03-22 05:19 | Progress Note ---
Post ICU Progress Note Date & Time Mar 22, 2018 at 05:14 Vital Signs Vital Signs Past 12 Hours Date Time Temp Pulse Resp B/P (MAP) Pulse Ox O2 Delivery O2 Flow Rate FiO2 03/22/18 04:46 78 16 97 Nasal Cannula 2.0 03/22/18 04:00 Nasal Cannula 2.0 03/22/18 03:58 36.8 76 21 129/86 (100) 96 Nasal Cannula 2.5 03/22/18 00:00 37.0 81 18 117/59 (78) 94 Nasal Cannula 2.0 03/22/18 00:00 Nasal Cannula 2.0 03/21/18 22:15 82 94 30 03/21/18 20:00 Nasal Cannula 2.0 03/21/18 19:52 74 16 96 Nasal Cannula 2.0 03/21/18 19:38 36.6 77 18 138/82 (100) 95 Nasal Cannula 2.0 03/21/18 17:30 36.9 83 20 134/62 (86) 91 Room Air Notes Mental Status: alert / awake Nausea / Vomiting: adequately controlled Pain: adequately controlled Airway Patency, RR, SpO2: see Notes BP & HR: see Notes Patient is a 72-year-old male who was initially admitted to the ICU with acute on chronic hypoxic respiratory failure with hypercapnia. This was secondary to a new LEFT lower lobe pneumonia. He was treated aggressively with BiPAP as well as broad-spectrum antibiotics and intravenous steroids. He had persistent fevers throughout the first night, however progressed nicely throughout the day. He was subsequently downgraded from ICU status. Overall, the patient's course has greatly improved. On evaluation today, the patient is awake, alert, and oriented. He admits that he does not remember much about being in the ICU. He reports feeling much better and complains of minimal difficulty with breathing at this point. The patient offers no complaints at this time. Consider outpatient follow up in 1 to 2 weeks with: PCP, Cards, Pulm Repeat imaging needed: CXR for resolution of PNA Follow up cultures: Consider repeat of blood Cxs if both tubes positive. Reviewed progress notes, labs, and inpatient medication list Continue current management Additional recommendations: As above. No further recommendations at this time. Thank you for allowing us to participate in the care of this patient. At this time, Critical Care Services will sign off on this case. Please feel free to reconsult as needed.
[2018-03-22 05:26] LABS: HEMATOCRIT 32.8 % (42-52); HEMOGLOBIN 10.4 g/dL (14.0-18.0); MEAN CELL VOLUME 93.2 fL (80-100); MEAN CORPUSCULAR HEMOGLOBIN 29.5 pg (25-34); MEAN CORPUSCULAR HGB CONC 31.7 g/dl (32-36); MEAN PLATELET VOLUME 11.2 fL (7.4-10.4); PLATELET COUNT 131 K/uL (130-400); RED CELL DISTRIBUTION WIDTH CV 17.5 % (11.5-14.5); RED CELL DISTRIBUTION WIDTH SD 59.7 fL (36.4-46.3); WHITE BLOOD COUNT 22.85 K/uL (4.8-10.8)
[2018-03-22] MEDS ORDERED: VANCOMYCIN TROUGH ONE (05:30)
[2018-03-22] MEDS: VANCOMYCIN IV 1,500 MG in SODIUM CHLORIDE 0.9% 500ML 500 ML IV SCH (05:49)
[2018-03-22 05:53] LABS: BASO ABS # 0.01 K/uL (0-0.2); IG# 0.13 K/uL (0.00-0.02); LYMPH % 2.9 %; LYMPH ABS # 0.67 K/uL (1.2-3.4); MONO % 3.1 %; MONO ABS # 0.71 K/uL (0.11-0.59); NEUT % 93.4 %; NEUT ABS # 21.33 K/uL (1.4-6.5)
[2018-03-22 06:05] LABS: ALBUMIN 2.9 gm/dl (3.4-5.0); ALT/SGPT 12 U/L (12-78); AST/SGOT 12 U/L (15-37); BLOOD UREA NITROGEN 45 mg/dl (7-18); CALCIUM 8.9 mg/dl (8.5-10.1); CARBON DIOXIDE 30 mmol/L (21-32); CREATININE 1.49 mg/dl (0.60-1.40); GLUCOSE 181 mg/dl (70-99); POTASSIUM 4.2 mmol/L (3.5-5.1); SODIUM 141 mmol/L (136-145)
[2018-03-22 06:09] LABS: ALKALINE PHOSPHATASE 88 U/L (45-117); PHOSPHORUS 3.4 mg/dl (2.5-4.9); TOTAL PROTEIN 7.1 gm/dl (6.4-8.2)
[2018-03-22] MEDS ORDERED: ALBUT/IPRATROP 3MG/0.5MG NEB 3 ML VIAL INH SCH (08:00)
[2018-03-22 08:39] LABS: HEMOGLOBIN A1C 7.6 % (4.5-5.6)
[2018-03-22] MEDS: INSULIN ASPART 100 UNITS/ML 3 ML PEN SC SCH ×4 (08:57→21:10)
[2018-03-22] MEDS: BUDESONIDE/FORMOTEROL FUMARATE 160/4.5 60 PUFFS/INHALER INH SCH ×2 (08:57→21:06)
[2018-03-22] MEDS: ISOSORBIDE MONONITRATE 60 MG TABCR PO SCH (08:58)
[2018-03-22] MEDS: METOPROLOL SUCC 25MG EXT REL TAB PO SCH (08:58)
[2018-03-22] MEDS: ASPIRIN 81 MG ECTAB PO SCH (08:59)
[2018-03-22] MEDS: VENLAFAXINE HCL XR 150 MG CAPXR PO SCH ×2 (08:59→21:07)
--- NOTE | 2018-03-22 09:47 | Clinical Documentation Query ---
CLINICAL DOCUMENTATION QUERY QUERY 1 OF 2 72 yo male admitted with sepsis. CXR shows cardiomegaly and mild pulmonary vascular congestion. Echo shows mildly dilated left ventricle with low-normal systolic function, left ventricular hypertrophy and EF = 50-55%. Patient treated with IV Lasix and BiPAP. In your clinical opinion is this patient being managed for: (x ) Acute on chronic diastolic (congestive) heart failure ( ) Not Agree ( ) Other explanation of clinical findings (Please Explain) ( ) Unable to determine (Please Define) ( ) Need to Discuss The medical record reflects the following clinical findings, treatment, and risk factors. Clinical Indicators: As above Treatment: Lasix 40mg IV, telemetry, CXR Risk Factors: Age, hx CHF, COPD, PNX, sepsis QUERY 2 OF 2 Patient experienced AMS , lethargy, and incontinence prior to and at admission. Patient was found to be hypoxic and was placed on BiPAP machine. In your clinical opinion is this patient being managed for: (x ) possible Encephalopathy, resolved Acute on chronic diastolic (congestive) heart failure ( ) Not Agree ( ) Other explanation of clinical findings (Please Explain) ( ) Unable to determine (Please Define) ( ) Need to Discuss The medical record reflects the following clinical findings, treatment, and risk factors. Clinical Indicators: As above Treatment: As above Risk Factors: Sepsis, pneumonia, COPD, CHF Please clarify and document your clinical opinion in the progress notes and discharge summary. Terms such as "probable", "suspected", "likely", "questionable", "possible", or "still to be ruled out" are acceptable. IF IN AGREEMENT, YOU MUST DOCUMENT ABOVE DIAGNOSTIC STATEMENT IN DAILY PROGRESS NOTES AND DISCHARGE SUMMARY. This document is not part of the patient's record. Thank You, Luisa Ba RN [phone]
[2018-03-22] MEDS: CEFEPIME IV 2,000 MG in SYRINGE 7.5 ML IV SCH ×2 (10:34→21:12)
[2018-03-22] MEDS: PANTOprazole INJ 40 MG in SYRINGE 0 ML IV SCH (10:34)
--- NOTE | 2018-03-22 11:19 | Hospitalist Progress Note ---
Hospitalist Progress Note Date of Service Mar 22, 2018. Subjective Pt evaluation today including: conversation w/ patient, physical exam, chart review, lab review, review of studies, review of inpatient medication list Pain: None PO Intake: Tolerating PO diet Voiding: camacho catheter in place The patient reports feeling better today. He does still complain of intermittent shortness of breath and wheezing while laying down. He has a productive cough. He states that he chronically wears 2L NC at bedtime and prn during the day, but not usually continuously. He is currently down to 2L NC continuous. Camacho catheter is in place. The patient notes brief, intermittent episodes of nausea but denies any vomiting or abdominal pain. The patient denies fevers, chills, sweats, chest pain, palpitations, claudication, nausea, vomiting, abdominal pain, dysuria, hematuria, urinary retention, paralysis, weakness, numbness and tingling. Additional Comments: See HPI for pertinent positives and negatives. All other systems reviewed and negative. Objective Vital Signs Date Time Temp Pulse Resp B/P (MAP) Pulse Ox O2 Delivery O2 Flow Rate FiO2 03/22/18 11:12 84 16 94 Nasal Cannula 2.0 03/22/18 08:01 37.0 79 20 134/92 (106) 97 Nasal Cannula 2.0 03/22/18 07:07 77 16 93 Nasal Cannula 2.0 03/22/18 04:46 78 16 97 Nasal Cannula 2.0 03/22/18 04:00 Nasal Cannula 2.0 03/22/18 03:58 36.8 76 21 129/86 (100) 96 Nasal Cannula 2.5 03/22/18 00:00 37.0 81 18 117/59 (78) 94 Nasal Cannula 2.0 03/22/18 00:00 Nasal Cannula 2.0 03/21/18 22:15 82 94 30 03/21/18 20:00 Nasal Cannula 2.0 03/21/18 19:52 74 16 96 Nasal Cannula 2.0 03/21/18 19:38 36.6 77 18 138/82 (100) 95 Nasal Cannula 2.0 03/21/18 17:30 36.9 83 20 134/62 (86) 91 Room Air 03/21/18 17:12 37.7 74 14 93 03/21/18 16:23 93 Room Air 03/21/18 15:13 74 14 96 Nasal Cannula 2.0 03/21/18 14:00 37.7 03/21/18 13:00 81 18 130/66 (87) 92 Nasal Cannula 2.0 03/21/18 12:00 92 Nasal Cannula 03/21/18 12:00 37.8 158 22 146/56 (86) Nasal Cannula 2.0 03/21/18 11:17 82 16 94 Nasal Cannula 2.0 Physical Exam Notes: General appearance: +Obese. Well-developed, well-nourished, no apparent distress Head: Normocephalic, atraumatic Eyes: Normal inspection, PERRL, EOMI ENT: Normal ENT inspection, hearing grossly normal, pharynx normal Neck: Supple, no JVD, trachea midline Respiratory/Chest: +Decreased breath sounds throughout with poor air movement. Lungs clear to auscultation, no respiratory distress Cardiovascular: Regular rate & rhythm, no gallop, no murmur Abdomen/GI: +Mild diffuse tenderness to palpation. Normal bowel sounds, soft Extremities/Musculoskeletal: Normal inspection, no calf tenderness, no pedal edema Neurological/Psych: +Disoriented to time. Knew correct year but stated it was April or May. Alert, normal mood/affect, oriented x 2 Skin: Normal color, warm/dry, no rash Laboratory Results Last 24 Hours Test 03/21/18 11:26 03/21/18 16:20 03/21/18 20:16 03/22/18 05:16 Bedside Glucose 235 mg/dl 200 mg/dl 221 mg/dl White Blood Count 22.85 K/uL Red Blood Count 3.52 M/uL Hemoglobin 10.4 g/dL Hematocrit 32.8 % Mean Corpuscular Volume 93.2 fL Mean Corpuscular Hemoglobin 29.5 pg Mean Corpuscular Hemoglobin Concent 31.7 g/dl Platelet Count 131 K/uL Mean Platelet Volume 11.2 fL Neutrophils (%) (Auto) 93.4 % Lymphocytes (%) (Auto) 2.9 % Monocytes (%) (Auto) 3.1 % Eosinophils (%) (Auto) 0.0 % Basophils (%) (Auto) 0.0 % Neutrophils # (Auto) 21.33 K/uL Lymphocytes # (Auto) 0.67 K/uL Monocytes # (Auto) 0.71 K/uL Eosinophils # (Auto) 0.00 K/uL Basophils # (Auto) 0.01 K/uL RDW Standard Deviation 59.7 fL RDW Coefficient of Variation 17.5 % Immature Granulocyte % (Auto) 0.6 % Immature Granulocyte # (Auto) 0.13 K/uL Red Blood Cell Morphology Unremarkable Sodium Level 141 mmol/L Potassium Level 4.2 mmol/L Chloride Level 103 mmol/L Carbon Dioxide Level 30 mmol/L Anion Gap 8.0 mmol/L Blood Urea Nitrogen 45 mg/dl Creatinine 1.49 mg/dl Est Creatinine Clear Calc Drug Dose 56.3 ml/min Estimated GFR () 54.3 Estimated GFR (Non- 46.9 BUN/Creatinine Ratio 30.1 Random Glucose 181 mg/dl Calcium Level 8.9 mg/dl Phosphorus Level 3.4 mg/dl Magnesium Level 2.3 mg/dl Total Bilirubin 0.4 mg/dl Direct Bilirubin < 0.1 mg/dl Aspartate Amino Transf (AST/SGOT) 12 U/L Alanine Aminotransferase (ALT/SGPT) 12 U/L Alkaline Phosphatase 88 U/L Total Protein 7.1 gm/dl Albumin 2.9 gm/dl Vancomycin Level Trough 18.7 mcg/ml Test 03/22/18 06:53 Bedside Glucose 194 mg/dl Assessment and Plan 72 y/o male with a history of CAD, HTN, HLD, chronic diastolic CHF, DM II, COPD , [place]IA [place], bipolar disorder, depression, gout, and anemia who presents with acute respiratory failure and severe sepsis with left lower lobe pneumonia. Acute hypoxic respiratory failure due to LLL community acquired pneumonia-- improving -Admitted to ICU on BiPAP. Improved, transferred to telemetry 03/21. No acute events overnight. Pt in SR with HR 80s-90s -O2 by protocol, currently on 2L NC. 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 WBC 22.85 on 03/22, down from 29.83. Afebrile -D/C IVF COPD exacerbation due to PNA--improving -O2 as above -DuoNebs QIDR and q2h prn SOB/wheezing--paged by respiratory that pt looks like he will take neb tx but then dismantles everything and doesn't get the medicine. Will switch to Combivent scheduled QIDR for now and prn nebs -Solu-Medrol 40 mg IV q6h. Consider short course of IV steroids, does not tolerate PO prednisone -Continue Symbicort -Spiriva on hold, getting scheduled ipratropium CAD, HTN, HLD, chronic diastolic CHF--stable -IVF d/c'd. Resume Lasix 40 mg PO qd tomorrow -Continue ASA, lisinopril 10 mg PO hs, Toprol XL 25 mg PO qd, Zocor 40 mg PO qd , Imdur 60 mg PO qd -Echo shows EF 50-55%. Akinesis of inferolateral wall. Mild LVH DM II w/neuropathy--HgbA1c 7.6 on 03/20/18 -Hold Jardiance -Still w/hyperglycemia, on Solu-Medrol -Increase Lantus to 42 units per pharmacy recs -Tight ISS w/goal 110-140, CF 15, carb ratio 1:7 -Check BSGs q ac and qhs -Continue Lyrica 300 mg PO hs Bipolar disorder, depression--stable -Continue Depakote 1000 mg PO hs, Effexor 150 mg PO BID Gout -Continue allopurinol CKD stage III--stable -Baseline creatinine 1.2-1.6 -Creatinine 1.49 on 03/22, down from 1.71 -D/C Brody DVT prophylaxis -Enoxaparin 40 mg SC q24h Code Status -Level V, DO NOT RESUSCITATE
--- NOTE | 2018-03-22 11:45 | Pharmacy Progress Note ---
Pharmacy Abx Dose Short Note Date of Service Mar 22, 2018. Assessment & Plan Assessment * 72 year old male receiving VANCOMYCIN + CEFEPIME for treatment of sepsis secondary to CAP / COPD exacerbation * Day # 3 of antimicrobial therapy * Patient was admitted with confusion, fever and hypercapnic resp failure * Patient has been hospitalized twice at [facility] in the last year for pneumonia / resp failure * 1 of 2 sets of BLCX's is growing gram + cocci (only in the aerobic tube of this set)_ * Nasal swab + for MRSA colonization * CXR read as L basilar consolidation and cardiomegaly w/ mild vascular socrates * Tmax 37.8, VSS, sat well on 2L NC * Renal fxn improved slightly 1.7 -->1.49; UO adequate Plan Vancomycin * Trough level of 18.7 mcg/mL is therapeutic. This level was drawn after only the loading dose and one maintenance dose. Level was drawn at the appropriate time. Prior doses hung on time. * Will decrease the maintenance dose to 1250mg (11.4mg/kg) IV Q 18 hours as trough level will continue to rise w/ repeat dosing * Goal trough level for sepsis / pulm infxn : 15 to 20 mcg/mL * Trough level ordered for: 03/24/ w/ 3rd dose of new regimen Cefepime * Continue 2gm Q 12 hrs for eCrCl 30-60cc/min Pharmacy will continue to follow and will adjust dose/frequency as necessary. Thank you.
--- NOTE | 2018-03-22 13:26 | Pharmacy Progress Note ---
Glycemic Control: Initial Note Date of Service Mar 22, 2018. Scope Glycemic Pharmacist to provide recommendations to improve glycemic control (all ICU patients are screened for hyperglycemia and treatment recommendations are provided per protocol). Pt identified with hyperglycemia (BSG above 180) while admitted to [facility] ([facility]). Subjective The patient is a 72 year old male admitted on Mar 20, 2018 at 16:59 for acute resp failure, sepsis, pneumonia, COPD exac, CHF exac. Patient's past medical history is significant for type 2 diabetes mellitus. Objective Height (Feet): 5 Height (Inches): 11.00 Weight (Kilograms): 103.000 Accuchecks BSG (last 24hrs): Test 03/21/18 16:20 03/21/18 20:16 03/22/18 05:16 03/22/18 06:53 Bedside Glucose 200 mg/dl (70-99) 221 mg/dl (70-99) 194 mg/dl (70-99) Random Glucose 181 mg/dl (70-99) Test 03/22/18 11:33 Bedside Glucose 193 mg/dl (70-99) Laboratory Data (last 24hrs) Test 03/22/18 05:16 Anion Gap 8.0 mmol/L BUN/Creatinine Ratio 30.1 Blood Urea Nitrogen 45 mg/dl Creatinine 1.49 mg/dl Potassium Level 4.2 mmol/L Sodium Level 141 mmol/L White Blood Count 22.85 K/uL Red Blood Count 3.52 M/uL Hemoglobin 10.4 g/dL Hematocrit 32.8 % Mean Corpuscular Volume 93.2 fL Mean Corpuscular Hemoglobin 29.5 pg Mean Corpuscular Hemoglobin Concent 31.7 g/dl Platelet Count 131 K/uL Mean Platelet Volume 11.2 fL Neutrophils (%) (Auto) 93.4 % Lymphocytes (%) (Auto) 2.9 % Monocytes (%) (Auto) 3.1 % Eosinophils (%) (Auto) 0.0 % Basophils (%) (Auto) 0.0 % Neutrophils # (Auto) 21.33 K/uL Lymphocytes # (Auto) 0.67 K/uL Monocytes # (Auto) 0.71 K/uL Eosinophils # (Auto) 0.00 K/uL Basophils # (Auto) 0.01 K/uL Recent Pertinent Medications Outpatient Anti-diabetic Regimen: * Lantus 38 units HS * Jardiance 25mg PO daily * A1c = 7.6% 03/20/18 The patient is currently receiving: * Basal Insulin: Lantus 35 units every 24 hours - dosed at bedtime * Correctional Insulin: Novolog Correction per scale ACHS Goal Range: Low 130 mg/dL - High 150 mg/dL Correction Factor: 15 mg/dL/unit * Prandial Insulin: Per carb ratio of 1 unit per 10 grams CHO consumed * Oral Agents: None currently Risk Factors for Insulin Resistance: * Steroids: Solu-Medrol 40mg IV Q 6 hours * Infection: sepsis/PNA/COPD exac * Diet: ordered T2DM/AHA Assessment & Plan ASSESSMENT: 03/22/18 * BSGs have been >180 for > 24 hours * Patient is reasonably well controlled w/ outpt regimen, however stress of illness and high-dose steroids are increasing insulin resistance * Fasting BSG 194 this AM with 35 units Lantus on board --> would recommend increasing basal insulin dose * Post-prandial BSGs are not climbing following use of CR leading me to believe that the primary insulin deficit at this time is with basal insulin however a slightly larger prandial dose would likely be tolerated well based upon this patient's weight and daily insulin needs on current steroid dose. RECOMMEND: * Increasing Lantus to 42 units Q HS * Continuing correction factor 15 mg/dl/unit * Changing carb ratio 1 unit per 7 grams CHO consumed * Changing goal range Low 110 mg/dL - High 140 mg/dL Pharmacy will continue to provide recommendations in EMR while patient admitted to 1E/2E. Physicians may request pharmacy to continue to follow patient when transferred out of the ICU and/or consult pharmacy to write glycemic control orders * Please note that the plan above was derived based on current level of insulin resistance and hospital stress. These recommendations are appropriate for inpatient admission only. Plan of care upon discharge will need to be reassessed to avoid potential outpatient hypo/hyperglycemia. Thank you.
[2018-03-22] MEDS ORDERED: ALBUT/IPRATROP 3MG/0.5MG NEB 3 ML VIAL INH PRN (14:00)
--- NOTE | 2018-03-22 14:11 | Progress Note ---
Progress Note Date of Service Mar 22, 2018. Progress Note possible Encephalopathy, resolved Acute on chronic diastolic (congestive) heart failure
[2018-03-22] MEDS ORDERED: IPRATROPIUM BROMIDE/ALBUTEROL respimat INH INH ONE (14:25)
--- NOTE | 2018-03-22 16:10 | PULMONARY PROGRESS NOTE ---
DATE: 03/22/2018 TIME: 3:35 p.m. SUBJECTIVE: The patient is generally improved. His was present during this evaluation. He is less short of breath than he had been. He has been more awake. He still feels congested. The patient has had breathing problems for many years. He did quit smoking about 10 years ago. He has had several hospitalizations for pneumonia. The patient acknowledges that he has heartburn about 3 or 4 times per week. One might wonder if he is having aspiration of GI contents. His does not notice that he coughs a lot when he swallows. The patient, however, feels that food sticks and he has difficulty passing it down. The last year or two he has been much more debilitated. He recently had a sleep study done showing sleep apnea. It sounds as though a split study was done. He was ordered CPAP, but did not receive it yet. The study was done through the sleep lab in [place]. He has been wearing BiPAP here. He had been on CPAP a couple of years ago but did not do well with it. OBJECTIVE: GENERAL: The patient looks mildly short of breath at rest. VITAL SIGNS: Temperature is 36.8. Heart rate is 78 per minute. The rhythm is regular. Blood pressure 152/81. LUNGS: Lung khanna revealed decreased breath sounds. There is an increased AP diameter. Rales were heard posteriorly bilaterally. Saturation was 93% on 2 L. ABDOMEN: Obese. It was soft and nontender. EXTREMITIES: Showed no cyanosis, clubbing or edema. LABORATORY DATA: White count today is 22.85. It was 29.83 yesterday. Blood gas done yesterday at 5:45 a.m. showed a pH of 7.41 with a pCO2 of 53 and a pO2 of 93 done on BiPAP. Electrolytes today show sodium 141, potassium 4.2, chloride 103, bicarbonate 30. BUN is 45 with a creatinine of 1.49. The patient's x-ray done on admission showed what appeared to be an infiltrate in the left lung base. Emphysema was suggested. Mild pulmonary vascular congestion was suspected. IMPRESSION: 1. Acute on chronic respiratory failure with hypercarbia. 2. Left lower lobe pneumonia. 3. Questionable aspiration as a reason for recurring pneumonias. 4. Gastroesophageal reflux disease. 5. Obstructive sleep apnea. COMMENTS AND RECOMMENDATIONS: The patient apparently is clinically improved. He should be wearing BiPAP nightly with his history of sleep apnea. Hopefully, it will help him adapt to BiPAP. He is still on a high dose of methylprednisolone at 40 mg IV q. 6 hours. We will decrease that to 40 mg IV q. 12 hours. He remains on multiple antibiotics including vancomycin and cefepime. Would encourage getting the patient out of bed more. The patient had been scheduled for some sort of knee surgery, but it had been canceled.
[2018-03-22] MEDS: IPRATROPIUM BROMIDE/ALBUTEROL respimat INH INH SCH ×2 (17:56→21:07)
[2018-03-22] MEDS: PREGABALIN 150 MG CAP PO SCH (21:06)
[2018-03-22] MEDS: ENOXAPARIN 40 MG/0.4 ML SYR SQ SCH (21:07)
[2018-03-22] MEDS: SIMVASTATIN 40 MG TAB PO SCH (21:07)
[2018-03-22] MEDS: DIVALPROEX 500 MG EXTENDED RELEASE TAB PO SCH (21:08)
[2018-03-22] MEDS: LISINOPRIL 10 MG TAB PO SCH (21:08)
[2018-03-22] MEDS: INSULIN GLARGINE SOLOSTAR 100 UNITS/ML 3 ML PEN SQ SCH (21:11)
[2018-03-23] VITALS (8 sets, daily range): BP systolic 144–165; BP diastolic 70–106; PULSE 78–91; TEMP 36.5–37.3; O2SAT 95–97
[2018-03-23] MEDS: VANCOMYCIN IV 1,250 MG in SODIUM CHLORIDE 0.9% 250ML 250 ML IV SCH ×2 (02:23→19:36)
[2018-03-23 06:31] LABS: BASO % 0.1 %; BASO ABS # 0.02 K/uL (0-0.2); EOS % 0.1 %; EOS ABS # 0.01 K/uL (0-0.5); HEMATOCRIT 32.1 % (42-52); HEMOGLOBIN 10.3 g/dL (14.0-18.0); IG# 0.21 K/uL (0.00-0.02); LYMPH % 3.5 %; LYMPH ABS # 0.53 K/uL (1.2-3.4); MEAN CELL VOLUME 93.3 fL (80-100); MEAN CORPUSCULAR HEMOGLOBIN 29.9 pg (25-34); MEAN CORPUSCULAR HGB CONC 32.1 g/dl (32-36); MONO % 4.3 %; MONO ABS # 0.66 K/uL (0.11-0.59); NEUT % 90.6 %; NEUT ABS # 13.83 K/uL (1.4-6.5); PLATELET COUNT 152 K/uL (130-400); RED CELL DISTRIBUTION WIDTH CV 17.4 % (11.5-14.5); RED CELL DISTRIBUTION WIDTH SD 59.5 fL (36.4-46.3); WHITE BLOOD COUNT 15.26 K/uL (4.8-10.8)
[2018-03-23 07:09] LABS: ALBUMIN 2.8 gm/dl (3.4-5.0); CREATININE 1.35 mg/dl (0.60-1.40)
[2018-03-23 07:11] LABS: PHOSPHORUS 3.7 mg/dl (2.5-4.9); TOTAL PROTEIN 7.2 gm/dl (6.4-8.2)
[2018-03-23] MEDS: LISINOPRIL 5 MG TAB PO SCH (09:21)
[2018-03-23] MEDS: METOPROLOL SUCC 25MG EXT REL TAB PO SCH (09:21)
[2018-03-23] MEDS: IPRATROPIUM BROMIDE/ALBUTEROL respimat INH INH SCH ×4 (09:22→21:58)
[2018-03-23] MEDS: BUDESONIDE/FORMOTEROL FUMARATE 160/4.5 60 PUFFS/INHALER INH SCH ×2 (09:22→21:57)
[2018-03-23] MEDS: METHYLPREDNISOLONE IV 40 MG in SYRINGE 0 ML IV SCH ×2 (09:22→19:36)
[2018-03-23] MEDS: PANTOprazole SOD 40 MG TAB PO SCH (09:23)
[2018-03-23] MEDS: ALLOPURINOL 100 MG TAB PO SCH (09:28)
[2018-03-23] MEDS: FUROSEMIDE 40 MG TAB PO SCH (09:28)
[2018-03-23] MEDS: ASPIRIN 81 MG ECTAB PO SCH (09:28)
[2018-03-23] MEDS: VENLAFAXINE HCL XR 150 MG CAPXR PO SCH ×2 (09:28→22:04)
[2018-03-23] MEDS: ISOSORBIDE MONONITRATE 60 MG TABCR PO SCH (09:28)
[2018-03-23] MEDS: INSULIN ASPART 100 UNITS/ML 3 ML PEN SC SCH ×4 (09:39→22:00)
[2018-03-23] MEDS: CEFEPIME IV 2,000 MG in SYRINGE 7.5 ML IV SCH ×2 (10:56→22:17)
--- NOTE | 2018-03-23 14:45 | Progress Note ---
Subjective Date of Service: Mar 23, 2018. Subjective Pt evaluation today including: conversation w/ patient, physical exam, chart review, lab review, review of studies, conversation w/ search engine optimization consultant, review of inpatient medication list Doing fair, out of bed to the chair, oxygen at 2-3 L/min, belief it is in his baseline, mild cough no sputum, no difficulty breathing denies chest pain Problem List Medical Problems: (1) Altered mental state Status: Acute (2) Hypoxia Status: Acute (3) Left leg weakness Status: Acute (4) Pneumonia Status: Acute (5) Pneumonia Status: Acute (6) Pulmonary infiltrate Status: Acute (7) Weakness Status: Acute Review of Systems Constitutional: + weakness, + fatigue, No fever, No chills, No sweats, No weight loss, No problem reported Eyes: No worsening of vision, No eye pain, No redness, No discharge, No diplopia ENT: No hearing loss, No unusual epistaxis, No nasal symptoms, No sore throat, No tinnitus, No dental problems, No trouble swallowing Respiratory: + cough, No sputum, No wheezing, No shortness of breath, No dyspnea on exertion, No dyspnea at rest, No hemoptysis Cardiac: No chest pain, No orthopnea, No PND, No edema, No claudication, No palpitations Abdomen: No pain, No nausea, No vomiting, No diarrhea, No constipation Musculoskeletal: No joint pain, No muscle pain, No swelling, No calf pain Male : No dysuria, No urinary frequency, No incontinence, No nocturia more than once/night, No slowing stream, No hematuria Neurologic: No memory loss, No paralysis, No weakness, No numbness/tingling, No vertigo, No balance problems Psychiatric: No depression symptoms, No anhedonism, No anxiety, No insomnia, No substance abuse Heme: No abnormal bleeding/bruising, No clotting problems, No swollen lymph nodes, No night sweats Endo: No fatigue, No excessive thirst, No excessive urination Skin: No rash, No itch, No new/changing skin lesions, No color change, No bleeding Objective Vital Signs Date Time Temp Pulse Resp B/P (MAP) Pulse Ox O2 Delivery O2 Flow Rate FiO2 03/23/18 12:00 Nasal Cannula 2.0 03/23/18 10:51 37.2 86 20 151/87 (108) 95 Nasal Cannula 2.0 03/23/18 08:00 Nasal Cannula 2.0 03/23/18 07:36 37.3 82 20 147/70 (95) 95 Nasal Cannula 2.0 145/103 (117) 03/23/18 04:00 Nasal Cannula 2.0 03/23/18 03:59 84 16 97 Nasal Cannula 4.0 03/23/18 03:45 36.9 78 24 165/86 (112) 97 Nasal Cannula 2.0 03/23/18 00:00 Nasal Cannula 2.0 03/22/18 23:50 36.9 82 22 160/88 (112) 95 Nasal Cannula 4.0 03/22/18 20:00 Nasal Cannula 2.0 03/22/18 19:01 36.8 78 20 167/115 (132) 98 03/22/18 16:00 Nasal Cannula 2.0 03/22/18 15:42 36.8 78 22 143/82 (102) 99 Physical Exam General Appearance: WD/WN, no apparent distress, + pertinent finding ( Generally looks tired) Eyes: normal inspection, PERRL, EOMI, sclerae normal ENT: normal ENT inspection, hearing grossly normal, pharynx normal Neck: supple, no adenopathy, thyroid normal, no JVD, no carotid bruits, trachea midline Respiratory/Chest: chest non-tender, normal breath sounds, no respiratory distress, no accessory muscle use, + decreased breath sounds Cardiovascular: regular rate, rhythm, no edema, no gallop, no JVD, no murmur Abdomen: normal bowel sounds, non tender, soft, no organomegaly, no pulsatile mass Extremities: normal range of motion, non-tender, normal inspection, no pedal edema, no calf tenderness, normal capillary refill, pelvis stable Neurologic/Psychiatric: public relations analyst II-XII nml as tested, no motor/sensory deficits, alert, normal mood/affect, oriented x 3 Skin: normal color, warm/dry, no rash Lymphatic: no adenopathy Laboratory Results Last 24 Hours Test 03/22/18 16:14 03/22/18 20:07 03/23/18 05:47 03/23/18 11:37 Bedside Glucose 149 mg/dl 169 mg/dl 185 mg/dl White Blood Count 15.26 K/uL Red Blood Count 3.44 M/uL Hemoglobin 10.3 g/dL Hematocrit 32.1 % Mean Corpuscular Volume 93.3 fL Mean Corpuscular Hemoglobin 29.9 pg Mean Corpuscular Hemoglobin Concent 32.1 g/dl Platelet Count 152 K/uL Mean Platelet Volume 12.0 fL Neutrophils (%) (Auto) 90.6 % Lymphocytes (%) (Auto) 3.5 % Monocytes (%) (Auto) 4.3 % Eosinophils (%) (Auto) 0.1 % Basophils (%) (Auto) 0.1 % Neutrophils # (Auto) 13.83 K/uL Lymphocytes # (Auto) 0.53 K/uL Monocytes # (Auto) 0.66 K/uL Eosinophils # (Auto) 0.01 K/uL Basophils # (Auto) 0.02 K/uL RDW Standard Deviation 59.5 fL RDW Coefficient of Variation 17.4 % Immature Granulocyte % (Auto) 1.4 % Immature Granulocyte # (Auto) 0.21 K/uL Sodium Level 140 mmol/L Potassium Level 4.0 mmol/L Chloride Level 105 mmol/L Carbon Dioxide Level 28 mmol/L Anion Gap 7.0 mmol/L Blood Urea Nitrogen 48 mg/dl Creatinine 1.35 mg/dl Est Creatinine Clear Calc Drug Dose 62.2 ml/min Estimated GFR () 61.2 Estimated GFR (Non- 52.8 BUN/Creatinine Ratio 35.7 Random Glucose 141 mg/dl Calcium Level 9.0 mg/dl Phosphorus Level 3.7 mg/dl Magnesium Level 2.5 mg/dl Total Bilirubin 0.5 mg/dl Direct Bilirubin 0.1 mg/dl Aspartate Amino Transf (AST/SGOT) 22 U/L Alanine Aminotransferase (ALT/SGPT) 21 U/L Alkaline Phosphatase 86 U/L Total Protein 7.2 gm/dl Albumin 2.8 gm/dl Assessment and Plan 72 y/o male admitted on March 20, 2018 because of acute respiratory failure and severe sepsis with left lower lobe pneumonia. Past medical with a history of CAD, HTN, HLD, chronic diastolic CHF, DM II, COPD , [place], bipolar disorder, depression, gout, and anemia Acute hypoxic respiratory failure due to LLL community acquired pneumonia-- improving Community-acquired pneumonia, Possible bacteremia 1 out of 2 blood culture shows alpha strep, repeated blood culture has no growth for 2 days COPD exacerbation due to PNA CAD, HLD, chronic diastolic CHF--stable Generally continue stable improving possible approaching 2 patient was admitted to ICU on BiPAP, transferred to telemetry 03/21, continue [place] oxygen with him home level Continue BiPAP at nighttime for life per prefitter doors recs Continue cefepime, vancomycin, azithromycin, day #4 of abx, possible can narrow down to oral antibiotic if repeated blood culture is negative Continue DuoNebs QIDR and q2h prn SOB/wheezing- Continue ASA, lisinopril 10 mg PO hs, Toprol XL 25 mg PO qd, Zocor 40 mg PO qd, Imdur 60 mg PO qd Echo shows EF 50-55%. Akinesis of inferolateral wall. Mild LVH Uncontrolled DM II w/neuropathy, adjustment toes, continue sliding-scale CKD stage III--stable, Baseline creatinine 1.2-1.6 Accelerated hypertension continue current dose of blood pressure medicine include beta-mary and JENNIFER inhibitor, adjust if needed Enoxaparin 40 mg SC q24h DVT prophylaxis DO NOT RESUSCITATE Increase activity socially responsible investment adviser for discharge plan, possible discharge home with home health care Continued [facility] stay due to: multiple IV medications needed Discharge planning: home
--- NOTE | 2018-03-23 17:46 | PULMONARY PROGRESS NOTE ---
DATE: 03/23/2018 PROBLEM LIST: Includes 1. Acute on chronic respiratory failure with hypercapnia. 2. Left lower lobe pneumonia. 3. Possible aspiration. 4. Gastroesophageal reflux disease. 5. Sleep apnea. SUBJECTIVE: The patient reports that his breathing is doing better today. He states that he would estimate that he is about 90% back to his baseline. He is not having any increased cough or congestion. He is not having any difficulty breathing. He does have a little bit of mucus production. He states this is normal. He feels that the oxygen is helping. He does not wear oxygen through the day when he is at home. He does wear it at nighttime. He denies any chest discomfort at present, no fever or chills, no sweats, no other concerns or problems. He is frustrated with the chair alarm. He states that he does not sleep well, and anytime he moves in bed, the chair alarm goes off, he would like to have that removed. He states that normally at home he sleeps in a recliner. I did discuss with him and I will see if I can get a recliner for him to possibly sleep. No other concerns or problems. OBJECTIVE: GENERAL: The patient is a 72-year-old male sitting at bedside, in no acute distress. He is alert and oriented to person, place, and time. VITAL SIGNS: Temperature 37.3, pulse 82, respirations 20, blood pressure is 147/70, pulse oximetry 95% on 2 L. HEENT: Normocephalic and atraumatic. Pupils equal, round, and reactive to light and accommodation. Extraocular movements are intact. Cougar and moist gingival and buccal mucosa. NECK: Supple and thin. There is no mass, adenopathy or bruit. CHEST: He has decreased breath sounds bilaterally. He does have some coarse wheezes predominantly posteriorly, left is greater than right. CARDIOVASCULAR: Regular rate and rhythm. No murmurs, gallops or rubs. GASTROINTESTINAL: Bowel sounds are present. Abdomen is soft, nontender. EXTREMITIES: No erythema, no edema. NEUROLOGIC: Cranial nerves II through XII grossly intact. No focal deficit noted. LABORATORY DATA: Shows a white count improving down from 22,000 yesterday to 15,000 today, H and H 10.3 and 32.1, platelet count 152,000. BUN 45, creatinine 1.49. Blood cultures pending. No new imaging data. ASSESSMENT: 1. Acute on chronic respiratory failure with hypercarbia. 2. Left lower lobe pneumonia. 3. Questionable aspiration. 4. Gastroesophageal reflux disease. 5. Sleep apnea. PLAN: Overall, the patient appears to be improving. I would like for him to be out of bed and up walking around today. I did relay this to nursing staff. They are going to check his pulse oximetry following this. I did have a long conversation with him about using his BiPAP. He has refused to use it at this time. He states he is going to use his CPAP when he gets home. The patient is tolerating the switch from Solu-Medrol 40 q. 6 to 40 q. 12 well. I would recommend decreasing to 30 q. 12 and see how he does. I did discuss with Dr. Foss. The patient apparently does have AN ALLERGY TO PREDNISONE and cannot tolerate prednisone. I am wondering if he would be able to tolerate a Medrol Dosepak. I do not have the reaction that he gets from prednisone listed. I would like to see if we can get a recliner in the room for the patient as he states that he typically sleeps in a recliner at nighttime. Hopefully, this will allow him to get more rest. The patient will be reevaluated in the morning.
[2018-03-23] MEDS: ENOXAPARIN 40 MG/0.4 ML SYR SQ SCH (21:00)
[2018-03-23] MEDS: INSULIN GLARGINE SOLOSTAR 100 UNITS/ML 3 ML PEN SQ SCH (22:00)
[2018-03-23] MEDS: LISINOPRIL 10 MG TAB PO SCH (22:03)
[2018-03-23] MEDS: DIVALPROEX 500 MG EXTENDED RELEASE TAB PO SCH (22:03)
[2018-03-23] MEDS: SIMVASTATIN 40 MG TAB PO SCH (22:04)
[2018-03-23] MEDS: PREGABALIN 150 MG CAP PO SCH (22:17)
[2018-03-23] MEDS: OXYCODONE/ACETAMINOPHEN 10/325MG TAB PO PRN (22:18)
[2018-03-24 06:09] LABS: BASO % 0.2 %; BASO ABS # 0.02 K/uL (0-0.2); HEMATOCRIT 33.3 % (42-52); LYMPH % 5.1 %; LYMPH ABS # 0.66 K/uL (1.2-3.4); MEAN CELL VOLUME 91.2 fL (80-100); MEAN CORPUSCULAR HEMOGLOBIN 30.1 pg (25-34); MEAN PLATELET VOLUME 10.7 fL (7.4-10.4); MONO % 7.6 %; MONO ABS # 0.98 K/uL (0.11-0.59); NEUT % 84.8 %; NEUT ABS # 10.92 K/uL (1.4-6.5); PLATELET COUNT 151 K/uL (130-400); RED CELL DISTRIBUTION WIDTH SD 56.9 fL (36.4-46.3); WHITE BLOOD COUNT 12.88 K/uL (4.8-10.8)
[2018-03-24 06:36] LABS: ALBUMIN 2.9 gm/dl (3.4-5.0); CALCIUM 8.9 mg/dl (8.5-10.1); CREATININE 1.5 mg/dl (0.60-1.40)
[2018-03-24 06:39] LABS: PHOSPHORUS 3.8 mg/dl (2.5-4.9); TOTAL PROTEIN 7.4 gm/dl (6.4-8.2)
[2018-03-24 07:20] VITALS: BP_SYST 167; BP_SYST 97; BP_DIAS 64; BP_DIAS 82; PULSE 74; PULSE 85; TEMP 36.7; TEMP 36.9; O2SAT 96; O2SAT 97
[2018-03-24] MEDS: PANTOprazole SOD 40 MG TAB PO SCH (07:58)
[2018-03-24] MEDS: ASPIRIN 81 MG ECTAB PO SCH (07:58)
[2018-03-24] MEDS: LISINOPRIL 5 MG TAB PO SCH (07:59)
[2018-03-24] MEDS: IPRATROPIUM BROMIDE/ALBUTEROL respimat INH INH SCH ×4 (07:59→20:46)
[2018-03-24] MEDS: ALLOPURINOL 100 MG TAB PO SCH (07:59)
[2018-03-24] MEDS: BUDESONIDE/FORMOTEROL FUMARATE 160/4.5 60 PUFFS/INHALER INH SCH ×2 (07:59→19:27)
[2018-03-24] MEDS: ISOSORBIDE MONONITRATE 60 MG TABCR PO SCH (07:59)
[2018-03-24] MEDS: FUROSEMIDE 40 MG TAB PO SCH (07:59)
[2018-03-24] MEDS: METOPROLOL SUCC 25MG EXT REL TAB PO SCH (07:59)
[2018-03-24] MEDS: VENLAFAXINE HCL XR 150 MG CAPXR PO SCH ×2 (07:59→19:29)
[2018-03-24] MEDS: METHYLPREDNISOLONE IV 40 MG in SYRINGE 0 ML IV SCH (08:00)
[2018-03-24] MEDS: INSULIN ASPART 100 UNITS/ML 3 ML PEN SC SCH ×4 (08:04→20:50)
[2018-03-24] MEDS ORDERED: LISINOPRIL 5 MG TAB PO ONE (08:30)
[2018-03-24] MEDS: CEFEPIME IV 2,000 MG in SYRINGE 7.5 ML IV SCH (09:24)
--- NOTE | 2018-03-24 11:55 | Consultant Recommendations ---
Printing Grey Cloth Tender Recommendations Date of Service Mar 24, 2018. Printing Grey Cloth Tender Recommendations Will Foss pulmonary medicine [facility]. #3 He will need a followup in 2 weeks.
[2018-03-24] MEDS ORDERED: METHYLPREDNISOLONE 4MG TAB, 6 DAY TAPER PO SCH (12:15)
[2018-03-24] MEDS ORDERED: METHYLPREDNISOLONE 4 MG TAB PO SCH ×2 (13:00→21:00)
--- NOTE | 2018-03-24 13:26 | PULMONARY PROGRESS NOTE ---
DATE: 03/24/2018 The patient was seen on 03/24/2018. PROBLEM LIST: Includes: 1. Acute on chronic respiratory failure with hypercarbia. 2. Left lower lobe pneumonia. 3. Questionable aspiration. 4. Gastroesophageal reflux disease. 5. Sleep apnea. SUBJECTIVE: The patient is much improved today. He feels that his breathing is pretty much back to his baseline. He is off oxygen when he is up walking around. At home, he just uses oxygen at 2 liters at night and then through the day if he needs. His cough is improved. He has no chest congestion or tightness. No chest heaviness. His breathing is doing well. Cough is improved. No significant congestion. No significant mucus production. No chest heaviness or tightness. No chest discomfort. No GI symptoms. He was able to actually get some sleep last night. He does feel better with that as well. OBJECTIVE: GENERAL: The patient is a 72-year-old male in no acute distress. He is alert and oriented x3. Mood is good. Affect is good. VITAL SIGNS: Temperature 36.9, pulse 74, respirations 20, blood pressure is 167/82 and pulse ox 97% on room air. HEENT: Normocephalic and atraumatic. Pupils equal, round react to light and accommodation. Extraocular movements are intact. [place], moist gingival and buccal mucosa. NECK: Supple. No mass, no adenopathy, no bruits. CHEST: The patient has some coarse wheezes down the left base. No rales or rhonchi noted. CARDIOVASCULAR: Regular rate and rhythm. No murmurs, gallops or rubs. ABDOMEN: Obese, soft and nontender. No guarding, rigidity or organomegaly. EXTREMITIES: No erythema or edema. NEUROLOGIC: Cranial nerves II through XII are intact. No focal deficits noted. LABORATORY DATA: Shows white count 12,000, H and H are 11.0 and 33.3, platelet count is 151,000. IMPRESSION AND PLAN: This is a 72-year-old male with acute on chronic respiratory failure with hypercarbia, was admitted with left lower lobe pneumonia. He also has a history of reflux and also history of possible aspiration and sleep apnea. The patient at this time is doing well. I think that he is okay for discharge home today. Instead of prednisone, he will need to be discharged on methylprednisolone, as he has had reaction to prednisone in the past. He tolerated the Solu-Medrol well, so I think that he should tolerate the methylprednisolone orally well. He is to finish out course of antibiotics. He is to start his CPAP use. He is to contact the office if there is any question or problem. We would like to have him follow up in the office in one to two weeks if he is going to follow with us. He lives between [place] and [place] and there is the possibility that he will follow with Dr. Brooks in [place]. We will leave the choice up to him, but we will provide office numbers for him. He does need to follow up with one office or the other. HERSON
[2018-03-24] MEDS ORDERED: VANCOMYCIN TROUGH ONE (13:30)
[2018-03-24 14:48] VITALS: BP 138/75; PULSE 76; TEMP 37.1; O2SAT 91
--- NOTE | 2018-03-24 15:33 | Progress Note ---
Subjective Date of Service: Mar 24, 2018. Subjective Pt evaluation today including: conversation w/ patient, physical exam, chart review, lab review, review of studies, conversation w/ skin care consultant, review of inpatient medication list Sitting up and eating lunch, continue on oxygen, no acute distress, generally feeling better Problem List Medical Problems: (1) Altered mental state Status: Acute (2) Hypoxia Status: Acute (3) Left leg weakness Status: Acute (4) Pneumonia Status: Acute (5) Pneumonia Status: Acute (6) Pulmonary infiltrate Status: Acute (7) Weakness Status: Acute Review of Systems Constitutional: No fever, No chills, No sweats, No weight loss, No weakness, No fatigue, No problem reported Eyes: No worsening of vision, No eye pain, No redness, No discharge, No diplopia ENT: No hearing loss, No unusual epistaxis, No nasal symptoms, No sore throat, No tinnitus, No dental problems, No trouble swallowing Respiratory: + cough, + wheezing, No sputum, No shortness of breath, No dyspnea on exertion, No dyspnea at rest, No hemoptysis Cardiac: + edema, No chest pain, No orthopnea, No PND, No claudication, No palpitations Abdomen: No pain, No nausea, No vomiting, No diarrhea, No constipation Musculoskeletal: No joint pain, No muscle pain, No swelling, No calf pain Male : No dysuria, No urinary frequency, No incontinence, No nocturia more than once/night, No slowing stream, No hematuria Neurologic: No memory loss, No paralysis, No weakness, No numbness/tingling, No vertigo, No balance problems Psychiatric: No depression symptoms, No anhedonism, No anxiety, No insomnia, No substance abuse Heme: No abnormal bleeding/bruising, No clotting problems, No swollen lymph nodes, No night sweats Endo: No fatigue, No excessive thirst, No excessive urination Skin: No rash, No itch, No new/changing skin lesions, No color change, No bleeding Objective Vital Signs Date Time Temp Pulse Resp B/P (MAP) Pulse Ox O2 Delivery O2 Flow Rate FiO2 03/24/18 14:48 37.1 76 20 138/75 (96) 91 Room Air 03/24/18 08:00 Room Air 03/24/18 07:20 36.9 74 20 167/82 (110) 97 Room Air 03/23/18 23:59 Nasal Cannula 2.0 03/23/18 23:28 36.9 87 20 155/79 (104) 97 Room Air 156/106 (123) 03/23/18 19:35 95 Room Air 03/23/18 17:00 Room Air Physical Exam General Appearance: WD/WN, no apparent distress Eyes: normal inspection, PERRL, EOMI, sclerae normal ENT: normal ENT inspection, hearing grossly normal, pharynx normal Neck: supple, no adenopathy, thyroid normal, no JVD, no carotid bruits, trachea midline Respiratory/Chest: chest non-tender, normal breath sounds, no respiratory distress, no accessory muscle use, + decreased breath sounds, + wheezing ( Occasional) Cardiovascular: regular rate, rhythm, no edema, no gallop, no JVD, no murmur Abdomen: normal bowel sounds, non tender, soft, no organomegaly, no pulsatile mass Extremities: normal range of motion, non-tender, normal inspection, no pedal edema, no calf tenderness, normal capillary refill, pelvis stable Neurologic/Psychiatric: cylinder devalver II-XII nml as tested, no motor/sensory deficits, alert, normal mood/affect, oriented x 3 Skin: normal color, warm/dry, no rash Lymphatic: no adenopathy Laboratory Results Last 24 Hours Test 03/23/18 16:56 03/23/18 21:14 03/24/18 05:55 03/24/18 07:38 Bedside Glucose 88 mg/dl 146 mg/dl 152 mg/dl White Blood Count 12.88 K/uL Red Blood Count 3.65 M/uL Hemoglobin 11.0 g/dL Hematocrit 33.3 % Mean Corpuscular Volume 91.2 fL Mean Corpuscular Hemoglobin 30.1 pg Mean Corpuscular Hemoglobin Concent 33.0 g/dl Platelet Count 151 K/uL Mean Platelet Volume 10.7 fL Neutrophils (%) (Auto) 84.8 % Lymphocytes (%) (Auto) 5.1 % Monocytes (%) (Auto) 7.6 % Eosinophils (%) (Auto) 0.0 % Basophils (%) (Auto) 0.2 % Neutrophils # (Auto) 10.92 K/uL Lymphocytes # (Auto) 0.66 K/uL Monocytes # (Auto) 0.98 K/uL Eosinophils # (Auto) 0.00 K/uL Basophils # (Auto) 0.02 K/uL RDW Standard Deviation 56.9 fL RDW Coefficient of Variation 17.0 % Immature Granulocyte % (Auto) 2.3 % Immature Granulocyte # (Auto) 0.30 K/uL Sodium Level 139 mmol/L Potassium Level 4.0 mmol/L Chloride Level 103 mmol/L Carbon Dioxide Level 32 mmol/L Anion Gap 4.0 mmol/L Blood Urea Nitrogen 47 mg/dl Creatinine 1.50 mg/dl Est Creatinine Clear Calc Drug Dose 56.0 ml/min Estimated GFR () 53.9 Estimated GFR (Non- 46.5 BUN/Creatinine Ratio 31.5 Random Glucose 148 mg/dl Calcium Level 8.9 mg/dl Phosphorus Level 3.8 mg/dl Magnesium Level 2.5 mg/dl Total Bilirubin 0.6 mg/dl Direct Bilirubin 0.1 mg/dl Aspartate Amino Transf (AST/SGOT) 26 U/L Alanine Aminotransferase (ALT/SGPT) 29 U/L Alkaline Phosphatase 85 U/L Total Protein 7.4 gm/dl Albumin 2.9 gm/dl Test 03/24/18 11:27 Bedside Glucose 153 mg/dl Assessment and Plan 72 y/o male admitted on March 20, 2018 because of acute respiratory failure and severe sepsis with left lower lobe pneumonia. Past medical with a history of CAD, HTN, HLD, chronic diastolic CHF, DM II, COPD , MARIA DEL ROSARIO, bipolar disorder, depression, gout, and anemia Acute hypoxic respiratory failure due to LLL community acquired pneumonia-- improving Community-acquired pneumonia, Possible bacteremia 1 out of 2 blood culture shows alpha strep, repeated blood culture has no growth for total 40 hours COPD exacerbation due to PNA CAD, HLD, chronic diastolic CHF--stable Generally continue stable improving possible approaching 2 patient was admitted to ICU on BiPAP, transferred to telemetry 03/21, continue NC oxygen with him home level Continue BiPAP at nighttime for life per vp organizational development recs Has been on cefepime, vancomycin, azithromycin, day #5 of abx, start IV antibiotic, start oral Augmentin, because she has history of Moraxella positive sputum,, will be totally 10 days antibiotic He was very sick upon admission, I feel he needed continue off oral antibiotic after IV antibiotic discontinue Continue DuoNebs QIDR and q2h prn SOB/wheezing Tapering Solu-Medrol to Medrol Dosepak, patient reported he is allergic to prednisone which cause his hyper Continue ASA, lisinopril 10 mg PO hs, Toprol XL 25 mg PO qd, Zocor 40 mg PO qd, Imdur 60 mg PO qd Echo shows EF 50-55%. Akinesis of inferolateral wall. Mild LVH Uncontrolled DM II w/neuropathy, adjustment dose, continue sliding-scale CKD stage III--stable, baseline, baseline creatinine 1.2-1.6 Accelerated hypertension continue current dose of blood pressure medicine include beta-mary and JENNIFER inhibitor, is better, adjust if needed Enoxaparin 40 mg SC q24h DVT prophylaxis DO NOT RESUSCITATE Increase activity licensed social worker for discharge plan, possible discharge home with home health care tomorrow Continued [facility] stay due to: home environment unsafe for pt Discharge planning: home
[2018-03-24] MEDS: AMOXICILLIN/CLAVULANATE TAB 875 MG TAB PO SCH (17:03)
[2018-03-24] MEDS ORDERED: METHYLPREDNISOLONE 4 MG TAB PO ONE (18:00)
[2018-03-24] MEDS: OXYCODONE/ACETAMINOPHEN 10/325MG TAB PO PRN (19:25)
[2018-03-24] MEDS: SIMVASTATIN 40 MG TAB PO SCH (19:28)
[2018-03-24] MEDS: LISINOPRIL 10 MG TAB PO SCH (19:29)
[2018-03-24] MEDS: PREGABALIN 150 MG CAP PO SCH (19:29)
[2018-03-24] MEDS: DIVALPROEX 500 MG EXTENDED RELEASE TAB PO SCH (19:30)
[2018-03-24] MEDS: ENOXAPARIN 40 MG/0.4 ML SYR SQ SCH (19:33)
[2018-03-24] MEDS: INSULIN GLARGINE SOLOSTAR 100 UNITS/ML 3 ML PEN SQ SCH (20:50)
[2018-03-24 23:04] VITALS: BP 160/82; PULSE 72; TEMP 36.6; O2SAT 92
[2018-03-25] VITALS: O2SAT 92
[2018-03-25 07:29] VITALS: BP 160/78; PULSE 66; TEMP 36.3; O2SAT 96
[2018-03-25] MEDS: AMOXICILLIN/CLAVULANATE TAB 875 MG TAB PO SCH (07:39)
[2018-03-25] MEDS: METHYLPREDNISOLONE 4 MG TAB PO SCH ×2 (07:39→12:27)
[2018-03-25] MEDS: BUDESONIDE/FORMOTEROL FUMARATE 160/4.5 60 PUFFS/INHALER INH SCH (07:39)
[2018-03-25] MEDS: IPRATROPIUM BROMIDE/ALBUTEROL respimat INH INH SCH ×2 (07:40→12:26)
[2018-03-25] MEDS: VENLAFAXINE HCL XR 150 MG CAPXR PO SCH (08:20)
[2018-03-25] MEDS: ALLOPURINOL 100 MG TAB PO SCH (08:20)
[2018-03-25] MEDS: ISOSORBIDE MONONITRATE 60 MG TABCR PO SCH (08:21)
[2018-03-25] MEDS: METOPROLOL SUCC 25MG EXT REL TAB PO SCH (08:21)
[2018-03-25] MEDS: ASPIRIN 81 MG ECTAB PO SCH (08:21)
[2018-03-25] MEDS: FUROSEMIDE 40 MG TAB PO SCH (08:22)
[2018-03-25] MEDS: INSULIN ASPART 100 UNITS/ML 3 ML PEN SC SCH ×2 (08:26→12:29)
[2018-03-25 08:29] LABS: HEMATOCRIT 37.7 % (42-52); HEMOGLOBIN 12.1 g/dL (14.0-18.0); MEAN CELL VOLUME 92.2 fL (80-100); MEAN CORPUSCULAR HEMOGLOBIN 29.6 pg (25-34); MEAN CORPUSCULAR HGB CONC 32.1 g/dl (32-36); MEAN PLATELET VOLUME 10.7 fL (7.4-10.4); PLATELET COUNT 202 K/uL (130-400); RED CELL DISTRIBUTION WIDTH CV 17.2 % (11.5-14.5); RED CELL DISTRIBUTION WIDTH SD 58.2 fL (36.4-46.3); WHITE BLOOD COUNT 20.92 K/uL (4.8-10.8)
[2018-03-25 08:55] LABS: CALCIUM 9.3 mg/dl (8.5-10.1); CREATININE 1.37 mg/dl (0.60-1.40); POTASSIUM 3.7 mmol/L (3.5-5.1)
[2018-03-25] MEDS ORDERED: LISINOPRIL 10 MG TAB PO SCH (09:00)
[2018-03-25 09:06] LABS: PHOSPHORUS 3.1 mg/dl (2.5-4.9); TOTAL PROTEIN 7.5 gm/dl (6.4-8.2)
[2018-03-25] MEDS ORDERED: AMOX1TAB43 PO (11:42)
[2018-03-25] MEDS ORDERED: LISI-461 PO (11:42)
--- NOTE | 2018-03-25 11:42 | Discharge Instructions ---
Discharge Instructions Date of Service Mar 25, 2018. Admission Reason for Admission: Acute Resp Failure, Chf Exac, Sepsis Discharge Discharge Diagnosis / Problem: acute respiratory failure and severe sepsis with left lower lobe pneumonia Discharge Goals Goal(s): Decrease discomfort, Improve function, Increase independence, Improve disease control, Improve nutritional status, Learn about illness, Diagnostic testing, Therapeutic intervention, Prevent Disease Progression, Specific goals Activity Recommendations Activity Limitations: resume your previous activity . Instructions / Follow-Up Instructions / Follow-Up you have acute respiratory failure and severe sepsis with left lower lobe pneumonia. you need to continue oral Augmentin as instructed you need to continue DuoNebs 4 times daily , and q2h as needed for difficult breathing/wheezing you have accelerated hypertension your lisinopril is 20mg po daily - you need to follow up with your primary care physician in 1 week, - take medication as instructed, never overdose or any misuse, or take with alcohol, because misuse of medicine may cause organ damage or , call your primary care physician if have questions of medicaitons. - call your primary care physician OR go to local emergency room if has any fever/chill, chest pain, shortness of breathing, nausea/vomiting/abdominal pain , facial droop/slurry speech/local weakness, or if has any questions. - fall precaution - diet as instructed - you need to follow up with your subspecialist, such as Sukhdeep Flood - you should understand that it is important to follow up the above instruction , and "not following the above instruction" may cause delayed or missed care of your medical conditions which may cause permanent organ damage and even . Current Hospital Diet Patient's current hospital diet: AHA Diet (Heart Healthy), Diabetes Type 2 Diet Discharge Diet Recommended Diet: AHA Diet (Heart Healthy) Pending Studies Studies pending at discharge: no Laboratory Results Hemoglobin A1c Test 03/20/18 16:10 Range/Units Estimated Average Glucose 171 mg/dl Hemoglobin A1c 7.6 H 4.5-5.6 % Medical Emergencies . Who to Call and When: Medical Emergencies: If at any time you feel your situation is an emergency, please call 911 immediately. . Non-Emergent Contact Non-Emergency issues call your: Primary Care Provider, Button Sewing Machine Operator . . "Provider Documentation" section prepared by Jun Jackson. . Quality Improvement Engineer Recommendations Quality Improvement Engineer Recommendations: [facility] [place] will need a followup in 2 weeks. [place] Drug Monitoring Program Search Results: no issues identified
--- NOTE | 2018-03-25 11:44 | PULMONARY PROGRESS NOTE ---
DATE: 03/25/2018 PROBLEM LIST: Includes: 1. Acute on chronic respiratory failure with hypercarbia. 2. Left lower lobe pneumonia. 3. Questionable aspiration. 4. Gastroesophageal reflux disease. 5. Sleep apnea. SUBJECTIVE: The patient did well and is doing well today. He apparently was transitioned over to all oral medications overnight. He is not having any difficulty. He states that his breathing is good. He feels that he is back to his normal level. He is just using the oxygen at nighttime and through the day as needed. He denies any concerns. He does have a little bit of cough and clearing of mucus. He states that this continues to improve. Denies any chest congestion, tightness or heaviness. Denies any cardiac symptoms. No chest pain. No palpitations. Denies any GI difficulties. No nausea or vomiting. He was started on oral methylprednisolone yesterday and did not have any side effects to it. He does have a history of adverse reaction to prednisone. OBJECTIVE: GENERAL: The patient is a 72-year-old male sitting at bedside, in no acute distress. He is alert and oriented x3. Mood is good. Affect is good. VITAL SIGNS: Temp 36.3, pulse 66, respirations 18, blood pressure is 160/78, pulse ox is 96% on room air. HEENT: Normocephalic, atraumatic. Pupils equal, round, reactive to light and accommodation. Extraocular movements are intact. [place] moist gingival and buccal mucosa. NECK: Supple. There is no mass, no adenopathy, no bruit. CHEST: The patient has some coarse breath sounds in the left lower lobe. This does clear mostly with cough. No rale or rhonchi noted. CARDIOVASCULAR: Regular rate and rhythm. No murmurs, gallops or rubs. ABDOMEN: Soft, nontender. No guarding, rigidity or organomegaly. EXTREMITIES: No erythema or edema. NEUROLOGIC: Cranial nerves II through XII are intact. No focal deficits noted. LABORATORY DATA: Shows white count of 20,000, H and H 12.1 and 37.7, platelet count 202,000. BUN 45, creatinine 1.37. IMAGING DATA: No new imaging data. IMPRESSION: This is a 72-year-old male who presented with: 1. Acute on chronic respiratory failure with hypercarbia and recently diagnosed sleep apnea. We did try to get him to use BiPAP in here; however, he refused. He is being set up with a CPAP at home. He does show continued improvement through hospitalization. Recommend they do his CPAP at home. 2. Left lower lobe pneumonia. This is clinically improved. The patient's breathing is pretty much back to his baseline. 3. Possible aspiration. This is going to be pursued as an outpatient. 4. History of gastroesophageal reflux disease. PLAN: 1. At this point, I think that the patient is for the most part back to his normal level. He did have a bump in his white blood count, but I think this is due to the switch to Medrol. He is afebrile. He feels fine at this point and can go home on a Medrol taper. Would recommend that he use his CPAP. He is to continue pulmonary meds as they are. Did offer to follow up in our office. He states that he does follow up with Cyndi in [place], but with where he lives, he is not sure he may consider transitioning over to our office. He was given contact information. HERSON
[2018-03-25 12:02] VITALS: BP 137/72
[2018-03-25] MEDS ORDERED: METH4PAK PO (12:16)
[2018-03-25 13:00] VITALS: BP 137/72; PULSE 66; TEMP 36.3; O2SAT 96
--- NOTE | 2018-03-25 16:26 | Discharge Summary ---
Discharge Summary Date of Service Mar 25, 2018. Discharge Summary Admission Date: Mar 20, 2018 at 16:59 Discharge Date: Mar 25, 2018 Discharge Disposition: Home Principal Diagnosis: acute respiratory failure and severe sepsis with left lower lobe pneumonia. Problems/Secondary Diagnoses: accelerated hypertension Immunizations: Have You Had Influenza Vaccine: Unknown History of Tetanus Vaccine?: Unknown History of Pneumococcal: Unknown History of Hepatitis B Vaccine: Unknown Procedures: No Consultations: Pulmonology Medication Reconciliation New Medications: Methylprednisolone (Medrol Dosepak) 4 Mg Luis Fernando 1 PKT PO UD for 6 Days, #1 PKT Amoxicillin & Pot Clavulanate (Amoxicillin/Clavulanate P) 1 Tab Tab 875 MG PO BIDM for 3 Days, TAB Changed Medications: Lisinopril (Lisinopril) 10 Mg Tab 20 MG PO HS for 30 Days (Changed from: 10 MG) Continued Medications: Albuterol Sulfate (Proair Respiclick) 108 Mcg/Act Aer 2 PUFF INH BID PRN for SOB/Wheezing Allopurinol (Zyloprim) 100 Mg Tab 200 MG PO QAM, TAB Aspirin (Aspirin Ec) 81 Mg Tab 81 MG PO QAM Budesonide/Formoterol Fumarate (Symbicort 160/4.5 Inhaler) 120 Puffs/ Aero 2 PUFFS INH BID, INHALER Divalproex Sodium (Depakote Er) 500 Mg Tab 1000 MG PO HS, TAB Empagliflozin (Jardiance) 25 Mg Tab 25 MG PO DAILY Furosemide (Lasix) 40 Mg Tab 40 MG PO QAM, TAB Home O2 Therapy (Oxygen) Gas 2 LITERS NA HS, BTL AND WITH EXERTION Insulin Glargine (Lantus) 100 Unit/Ml Inj 38 UNITS SQ HS, VIAL Ipratropium-Albuterol (Combivent Respimat) 1 Aer Aer 1 PUFFS INH QID PRN for Shortness of Breath, INH Isosorbide Mononitrate Ext Rel (Imdur Ext Rel) 60 Mg Ertab 60 MG PO QAM Linaclotide (Linzess) 72 Mcg Cap 145 MCG PO QAM Metoprolol Succinate (Metoprolol Succinate ER) 25 Mg Tabcr 25 MG PO DAILY Nitroglycerin (Nitrostat) 0.4 Mg Tab 0.4 MG UT PRN, BTL NEEDED FOR CHEST PAIN : ONE TABLET UNDER THE TONGUE EVERY 5 MINUTES, UP TO 3 DOSES. Oxycodone Hcl (Oxycontin) 20 Mg Tab 20 MG PO Q12, TAB Oxycodone/Acetaminophen 10MG/325MG (Percocet 10MG/325MG) Tab 1 TAB PO UD PRN for Pain, TAB Pregabalin (Lyrica) 300 Mg Cap 300 MG PO HS Simvastatin (Zocor) 40 Mg Tab 40 MG PO QPM, TAB Tiotropium [place] (Spiriva Handihaler) 30 Puff/540 Mcg Aerp 1 CAP INH QAM, INHALER Venlafaxine Hcl (Effexor Extended Rel) 150 Mg Cap 150 MG PO BID, CAP TAKE WITH FOOD OR MILK Discontinued Medications: Lisinopril (Zestril) 5 Mg Tab 5 MG PO DAILY, TAB Metoprolol Succ (Toprol Xl) (Toprol-Xl) 25 Mg Tabcr 25 MG PO QAM Discharge Exam Sitting in a chair eating lunch, conversational, no acute distress, no special complaint Review of Systems: Constitutional: No fever, No chills, No sweats, No weight loss, No weakness , No fatigue, No problem reported Eyes: No worsening of vision, No eye pain, No redness, No discharge, No diplopia, No problem reported ENT: No hearing loss, No unusual epistaxis, No nasal symptoms, No sore throat, No tinnitus, No dental problems, No trouble swallowing, No problem reported Respiratory: No cough, No sputum, No wheezing, No shortness of breath, No dyspnea on exertion, No dyspnea at rest, No hemoptysis, No problem reported Cardiovascular: No chest pain, No orthopnea, No PND, No edema, No claudication, No palpitations, No problem reported Musculoskeletal: No joint pain, No muscle pain, No swelling, No calf pain, No problem reported Genitourinary - Male: No hematuria, No dysuria, No urinary frequency, No urinary urgency, No urinary hesitancy, No urinary retention, No urinary incontinence, No penile discharge, No lesions, No impotence, No problem reported Neurologic: No memory loss, No paralysis, No weakness, No numbness/tingling , No vertigo, No balance problems, No problem reported Psychiatric: No depression symptoms, No anhedonism, No anxiety, No insomnia , No substance abuse, No problem reported Endocrine: No fatigue, No excessive thirst, No excessive urination, No problem reported Integumentary: No rash, No itch, No new/changing skin lesions, No color change, No bleeding, No problem reported Physical Exam: General Appearance: WD/WN, no apparent distress Eyes: normal inspection, PERRL, EOMI ENT: normal ENT inspection, hearing grossly normal, TMs normal, pharynx normal Neck: supple, no adenopathy, thyroid normal Respiratory/Chest: chest non-tender, lungs clear, no respiratory distress Cardiovascular: regular rate, rhythm, no edema, no gallop Abdomen / GI: normal bowel sounds, non tender, soft, no organomegaly, no pulsatile mass Extremities: normal inspection, no calf tenderness, normal capillary refill , no pedal edema, normal range of motion, non-tender, pelvis stable Neurologic/Psychiatric: 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 Past medical with a history of CAD, HTN, HLD, chronic diastolic CHF, DM II, COPD , MARIA DEL ROSARIO, bipolar disorder, depression, gout, and anemia Acute hypoxic respiratory failure due to LLL community acquired pneumonia-- improving Community-acquired pneumonia, Possible bacteremia 1 out of 2 blood culture shows alpha strep, repeated blood culture has no growth for total 48 hours COPD exacerbation due to PNA CAD, HLD, chronic diastolic CHF--stable Generally continue stable improving possible approaching 2 patient was admitted to ICU on BiPAP, transferred to telemetry 03/21, continue [place] oxygen with him home level Continue BiPAP at nighttime for life per coal and ash supervisor recs Has been on cefepime, vancomycin, azithromycin, day #6 of abx, start IV antibiotic, start oral Augmentin, because she has history of Moraxella positive sputum,, will be totally 10 days antibiotic He was very sick upon admission, I feel he needed continue off oral antibiotic after IV antibiotic discontinue Continue DuoNebs QIDR and q2h prn SOB/wheezing Tapering Solu-Medrol to Medrol Dosepak, patient reported he is allergic to prednisone which cause his hyper Continue ASA, lisinopril 10 mg PO hs, Toprol XL 25 mg PO qd, Zocor 40 mg PO qd, Imdur 60 mg PO qd Echo shows EF 50-55%. Akinesis of inferolateral wall. Mild LVH Uncontrolled DM II w/neuropathy, adjustment dose, continue sliding-scale CKD stage III--stable, baseline, baseline creatinine 1.2-1.6 Accelerated hypertension continue current dose of blood pressure medicine include beta-mary and JENNIFER inhibitor, is better, adjust if needed Enoxaparin 40 mg SC q24h DVT prophylaxis DO NOT RESUSCITATE Increase activity social work coordinator for discharge plan, possible discharge home with home health care Instructions / Follow-Up you have acute respiratory failure and severe sepsis with left lower lobe pneumonia. you need to continue oral Augmentin as instructed you need to continue DuoNebs 4 times daily , and q2h as needed for difficult breathing/wheezing you have accelerated hypertension your lisinopril is 20mg po daily - you need to follow up with your primary care physician in 1 week, - take medication as instructed, never overdose or any misuse, or take with alcohol, because misuse of medicine may cause organ damage or , call your primary care physician if have questions of medicaitons. - call your primary care physician OR go to local emergency room if has any fever/chill, chest pain, shortness of breathing, nausea/vomiting/abdominal pain , facial droop/slurry speech/local weakness, or if has any questions. - fall precaution - diet as instructed - you need to follow up with your subspecialist, such as Sukhdeep Flood - you should understand that it is important to follow up the above instruction , and "not following the above instruction" may cause delayed or missed care of your medical conditions which may cause permanent organ damage and even . Total Time Spent: Greater than 30 minutes This includes examination of the patient, discharge planning, medication reconciliation, and communication with other providers. Discharge Instructions Please refer to the electronic Patient Visit Report (Discharge Instructions) for additional information. Additional Copies To Josse Pope M.D.
[2018-03-25] MEDS ORDERED: METHYLPREDNISOLONE 4 MG TAB PO SCH (21:00)
[2018-03-26] MEDS ORDERED: METHYLPREDNISOLONE 4 MG TAB PO SCH (07:00)
[2018-03-27] MEDS ORDERED: METHYLPREDNISOLONE 4 MG TAB PO SCH (07:00)
[2018-03-28] MEDS ORDERED: METHYLPREDNISOLONE 4 MG TAB PO SCH (07:00)
[2018-03-29] MEDS ORDERED: METHYLPREDNISOLONE 4 MG TAB PO SCH (07:00)
== END 2018-03-25 13:40 | disposition home health service (06) | DRG 871 ==
LOC: EDBD 15:53 → C.EDC 15:54 → C.MSICU 16:59 → EDBEDREQ 17:03 → ENRESERV 17:05 → C.2E 03-21 17:37 → ENRESERV 03-23 13:03 → C.MS2W 03-23 15:02
PROVIDERS: ADMIT Hospitalist; ATTEND Hospitalist
DX: A40.8 Other streptococcal sepsis (principal); J18.9 Pneumonia, unspecified organism; R65.20 Severe sepsis without septic shock; J96.21 Acute and chronic respiratory failure with hypoxia; J96.22 Acute and chronic respiratory failure with hypercapnia; I50.33 Acute on chronic diastolic (congestive) heart failure; G93.40 Encephalopathy, unspecified; J44.0 Chronic obstructive pulmonary disease with (acute) lower respiratory infection; J44.1 Chronic obstructive pulmonary disease with (acute) exacerbation; I13.0 Hypertensive heart and chronic kidney disease with heart failure and stage 1 through stage 4 chronic kidney disease, or unspecified chronic kidney disease; E11.65 Type 2 diabetes mellitus with hyperglycemia; T38.0X5A Adverse effect of glucocorticoids and synthetic analogues, initial encounter; E11.22 Type 2 diabetes mellitus with diabetic chronic kidney disease; N18.3 Chronic kidney disease, stage 3 (moderate); E11.40 Type 2 diabetes mellitus with diabetic neuropathy, unspecified; F31.9 Bipolar disorder, unspecified; I25.10 Atherosclerotic heart disease of native coronary artery without angina pectoris; I25.5 Ischemic cardiomyopathy; M10.9 Gout, unspecified; G47.33 Obstructive sleep apnea (adult) (pediatric); Z51.81 Encounter for therapeutic drug level monitoring; Z79.899 Other long term (current) drug therapy; Z79.82 Long term (current) use of aspirin; Z79.4 Long term (current) use of insulin; Z66 Do not resuscitate; Z87.891 Personal history of nicotine dependence; Z88.8 Allergy status to other drugs, medicaments and biological substances; Z88.6 Allergy status to analgesic agent